=== PATIENT | male | born 1970 | race Caucasian/White ===

== ENCOUNTER → 2018-04-29 07:21 | Outpatient (CLI) | payer BC, OTHER, MEDICAID, SELFPAY ==
[2018-04-29 09:01] LABS: Hemoglobin A1C% w Est Avg Glu 6.8 % (4.0-6.0)
[2018-04-29 09:02] LABS: Add Manual Diff / Slide Review NO; Basophils Percent Auto 0.6 % (0-2); Eosinophils Percent Auto 6.8 % (2-4); Hematocrit 45.4 % (41-53); Hemoglobin 15.3 g/dL (13.5-17.5); Lymphocytes Percent Auto 27.2 % (25-40); Mean Corpuscular HGB Conc 33.7 % (30-36); Mean Corpuscular Hemoglobin 29.8 PG (26-34); Mean Corpuscular Volume 88.4 fL (80-100); Neutrophils Absolute Auto 2200 /uL (3000-5900); Neutrophils Percent Auto 57.4 % (50-75); Platelet Count 191 X10^3/uL (150-400); Red Blood Cell Count 5.14 X10^6/uL (4.5-5.9); Red Cell Distribution Width 13.4 % (11.6-14.8); White Blood Cell Count 3.8 X10^3/uL (4.5-11.0)
[2018-04-29 09:29] LABS: Alanine Aminotransferase 36 IU/L (21-72); Albumin 4.4 g/dL (3.5-5.0); Albumin Globulin Ratio 1.6 (1.0-2.8); Alkaline Phosphatase 54 U/L (38-126); Aspartate Aminotransferase 36 IU/L (17-59); BUN Creatinine Ratio 14.4 (6-22); Bilirubin Total 0.6 mg/dL (0.2-1.3); Blood Urea Nitrogen 13 mg/dL (9-20); Calcium 9.3 mg/dL (8.4-10.2); Carbon Dioxide 28 mmol/L (22-32); Chloride 102 mmol/L (98-107); Cholesterol 286 mg/dL (140-199); Estimated Glomerular Filt Rate > 60.0 mL/min (>60); Globulin 2.7 g/dL (1.7-4.1); Glucose 98 mg/dL (70-100); HDL Cholesterol 43 mg/dL (40-60); HEMOLYSIS < 15 (0-50); LDL Cholesterol Calculated 192 mg/dL (<100); Potassium 4.4 mmol/L (3.4-5.1); Sodium 141 mmol/L (137-145); Total Protein 7.1 g/dL (6.3-8.2); Triglycerides 257 mg/dL (35-150)
== END ==
PROVIDERS: PCP Family Medicine; Visit Provider Family Medicine
DX: E11.9 Type 2 diabetes mellitus without complications (principal)
CPT/HCPCS: 36415; 80053; 80061; 83036; 85025

== ENCOUNTER 2018-06-12 17:56 | Emergency (ER) | payer BC, OTHER, MEDICAID, SELFPAY ==
[2018-06-12 18:04] VITALS: BP 154/85; PULSE 117; RESP 20; TEMP 37.4; O2SAT 98; BMI 35.2
--- NOTE | 2018-06-12 18:37 | ED.BACK ---
HPI - Back Pain/Injury General Chief Complaint: Back Pain/Injury Stated Complaint: BACK PAIN X3 DAYS Time Seen by Provider: 06/12/18 18:37 Source: patient Mode of arrival: ambulatory Limitations: no limitations History of Present Illness HPI Narrative: The patient has chronic back pain. His initial back injury was about 2003. Since then he has evolved to chronic back pain. He complains of numbness in both posterior thighs. He is ambulatory. He has no numbness or weakness in the distal legs. His PCM has ordered a lumbar MRI. About 3 hr ago he urinated on himself while napping. The patient denies any prior history of urinary incontinence. He has never had bowel incontinence.he denies genital or perianal numbness. He is ambulatory. He takes Neurontin for chronic pain. He is on no narcotic pain medications. He denies dysuria. Related Data Home Medications Medication Instructions Recorded Confirmed ibuprofen #0 08/07/17 05/02/18 clonidine HCl 0.1 mg PO HS #0 09/11/17 05/02/18 metformin [Glucophage] 500 mg PO BIDCC #0 01/19/18 05/02/18 Previous Rx's Medication Instructions Recorded atenolol 100 mg tablet 100 mg PO DAILY #30 tab 04/19/18 triamcinolone acetonide 0.5 % 1 applictn TOP BID #454 gram 04/19/18 topical cream cyclobenzaprine 10 mg tablet 10 mg PO Q8H PRN #30 tab 05/02/18 simvastatin 20 mg tablet 20 mg PO QPM #30 tab 05/02/18 oxycodone-acetaminophen 7.5 mg-325 1 tab PO Q6H PRN #120 tab 06/12/18 mg tablet Allergies Allergy/AdvReac Type Severity Reaction Status Date / Time droperidol [DROPERIDOL] Allergy Mild COGENIC Verified 05/02/18 12:42 REACTION Review of Systems Review of Systems All systems reviewed & are unremarkable except as noted in HPI and below Constitutional Denies chills, Denies fever(s), Denies lethargy and Denies weakness ENT Ears, Nose, Mouth, and Throat: Denies change in voice, Denies neck pain and Denies sore throat Cardiovascular Denies chest pain, Denies irregular heart rhythm, Denies lightheadedness, Denies palpitations, Denies dyspnea, Denies dyspnea on exertion and Denies orthopnea Respiratory Denies cough, Denies dyspnea, Denies dyspnea on exertion and Denies wheezing Gastrointestinal Gastrointestinal: Denies abdominal pain, Denies change in bowel habits, Denies fecal incontinence, Denies diarrhea, Denies nausea and Denies vomiting Genitourinary Reports as per HPI, Denies hematuria, Denies dysuria, Denies flank pain and Reports urinary incontinence Musculoskeletal Reports as per HPI (low back pain.), Denies neck pain and Reports numbness (Both posterior legs.) Integumentary/Breasts Denies pruritus, Denies erythema, Denies rash and Denies wounds Neurologic Reports numbness (Both posterior legs.) and Denies weakness Endocrine Denies palpitations Allergic/Immunologic Denies wheezing [facility] Medical History Essential hypertension (Chronic) Diabetes mellitus, type II (Chronic) Chronic back pain (Chronic Unknown) Surgical History S/P discectomy (Chronic) Family History Father Hypertension Hyperlipidemia Mother Diabetes mellitus Hyperlipidemia Hypertension Social History Smoking Status: Current some day smoker Exam Initial Vital Signs Initial Vital Signs: Vital Signs Temperature 99.3 F 06/12/18 18:04 Pulse Rate 117 H 06/12/18 18:04 Respiratory Rate 20 06/12/18 18:04 Blood Pressure 154/85 H 06/12/18 18:04 Pulse Oximetry 98 06/12/18 18:04 Const General: cooperative and well developed Nutritional Appearance: well nourished Orientation: alert, awake, oriented x3 and not confused GI Inspection: non-distended Palpation: soft, no hepatosplenomegaly, No guarding and No tender Auscultation: normal bowel sounds Rectal Exam: visual inspection normal, normal sphincter tone, prostate normal and heme negative stool External: normal external exam, no scrotal swelling and nontender Back/Spine/Pelvis Back: normal to inspection Thoracic/Lumbar Spine: thoraco-lumbar ROM limited and lumbar spinal tenderness Sacrum: no tenderness Skin General: no rashes or lesions noted Neuro General: alert, oriented x3 and other (Motor exam to lower extremities is intact. He has numbness to light touch on both posterior thighs. Cremaster reflexes normal. Anal wink is normal. Gait is normal.) Course Hospital Course: By bladder scan the patient had a near empty bladder point arrival. He was able to drink and retain fluid without incontinence. He was able to drain his bladder when he urinated. Cremaster reflexes are normal. Rectal exam is intact. There is no evidence of sacral nerve deficits. Orders Ordered: Discontinued Medications Ketorolac Tromethamine (Toradol) 60 mg IM NOW ONE Stop: 06/12/18 18:56 Last Admin: 06/12/18 19:16 Dose: 60 mg Vital Signs - 8 hr 06/12/18 18:04 06/12/18 20:32 Temperature 99.3 F 98.2 F Pulse Rate 117 H 92 H Respiratory Rate 20 20 Blood Pressure 154/85 H 150/80 H Pulse Oximetry 98 98 MDM - Back Pain/Injury Lab Data POC UA is normal. Discharge Plan Departure Patient Disposition: Home, Self-Care Clinical Impression: Low back pain Discharge Date/Time: 06/12/18 20:35 Interventions: ED Discharge Assessment Last Done: 06/12/18 20:32 Instructions: DI for Low Back Pain Activity Restrictions/Additional Instructions: Continue her current management of low back pain. Follow-up with the MRI as scheduled. Return here for any increased concern for bowel or bladder incontinence. Return here for worsening numbness or weakness in the legs. Prescriptions: No Action triamcinolone acetonide 0.5 % cream 1 applictn TOP BID Qty: 454 RF: 1 atenolol 100 mg tablet 100 mg PO DAILY Qty: 30 RF: 0 cyclobenzaprine 10 mg tablet 10 mg PO Q8H PRN (Reason: muscle spasm) Qty: 30 RF: 0 ibuprofen 600 mg Tablet Qty: 0 RF: 0 clonidine HCl 0.1 MG tablet extended release 12 hr 0.1 mg PO HS Qty: 0 RF: 0 metformin [Glucophage] 500 MG tablet 500 mg PO BIDCC Qty: 0 RF: 0 simvastatin 20 mg tablet 20 mg PO QPM Qty: 30 RF: 5 oxycodone-acetaminophen [Percocet] 7.5-325 mg tablet 1 tab PO Q6H PRN (Reason: pain) Qty: 120 RF: 0
[2018-06-12] MEDS: KETOROLAC 60 MG/2 ML VIAL IM (19:16)
[2018-06-12 20:32] VITALS: BP 150/80; PULSE 92; RESP 20; TEMP 36.8; O2SAT 98
== END 2018-06-12 20:35 | disposition home or self-care (01) ==
PROVIDERS: Emergency Provider Emergency Medicine; Family Provider Family Medicine; PCP Family Medicine
DX: M54.5 Low back pain (principal)
CPT/HCPCS: 51798; 81003; 96372; 99283; J1885

== ENCOUNTER 2018-07-21 17:33 | Emergency (ER) | payer BC, OTHER, MEDICAID, SELFPAY ==
[2018-07-21 17:44] VITALS: BP 158/113; PULSE 127; RESP 20; TEMP 37.2; O2SAT 99; BMI 35.9
== END 2018-07-21 19:47 | disposition left against medical advice (07) ==
PROVIDERS: Emergency Provider Emergency Medicine; Family Provider Family Medicine; PCP Family Medicine
DX: M54.9 Dorsalgia, unspecified (principal)
CPT/HCPCS: 99281; 99282

== ENCOUNTER → 2018-08-16 07:14 | Outpatient (CLI) | payer BC, OTHER, MEDICAID, SELFPAY ==
[2018-08-16 08:45] LABS: Hematocrit 46.1 % (41-53); Hemoglobin 15.9 g/dL (13.5-17.5); Mean Corpuscular HGB Conc 34.4 % (30-36); Mean Corpuscular Hemoglobin 30.7 PG (26-34); Mean Corpuscular Volume 89.3 fL (80-100); Platelet Count 220 X10^3/uL (150-400); Red Blood Cell Count 5.16 X10^6/uL (4.5-5.9); Red Cell Distribution Width 13.1 % (11.6-14.8); White Blood Cell Count 7.6 X10^3/uL (4.5-11.0)
[2018-08-16 09:18] LABS: Alanine Aminotransferase 39 IU/L (21-72); Albumin 4.7 g/dL (3.5-5.0); Albumin Globulin Ratio 1.5 (1.0-2.8); Alkaline Phosphatase 57 U/L (38-126); Aspartate Aminotransferase 44 IU/L (17-59); BUN Creatinine Ratio 14.5 (6-22); Blood Urea Nitrogen 16 mg/dL (9-20); Calcium 10.1 mg/dL (8.4-10.2); Carbon Dioxide 33 mmol/L (22-32); Chloride 99 mmol/L (98-107); Cholesterol 269 mg/dL (140-199); Estimated Glomerular Filt Rate > 60.0 mL/min (>60); Globulin 3.1 g/dL (1.7-4.1); Glucose 118 mg/dL (70-100); HDL Cholesterol 41 mg/dL (40-60); HEMOLYSIS < 15 (0-50); LDL Cholesterol Calculated 192 mg/dL (<100); Potassium 4.7 mmol/L (3.4-5.1); Sodium 142 mmol/L (137-145); Total Protein 7.8 g/dL (6.3-8.2); Triglycerides 182 mg/dL (35-150)
== END ==
PROVIDERS: PCP Student in an Organized Health Care Education/Training Program; Visit Provider Student in an Organized Health Care Education/Training Program
DX: E11.9 Type 2 diabetes mellitus without complications (principal); Z79.899 Other long term (current) drug therapy; E11.69 Type 2 diabetes mellitus with other specified complication; E78.5 Hyperlipidemia, unspecified
CPT/HCPCS: 36415; 80053; 80061; 85027

== ENCOUNTER → 2018-10-26 09:00 | Outpatient (CLI) | payer BC, OTHER, MEDICAID, SELFPAY ==
[2018-10-26 09:56] LABS: Hemoglobin A1C% w Est Avg Glu 6.4 % (4.0-6.0)
== END ==
PROVIDERS: PCP Student in an Organized Health Care Education/Training Program; Visit Provider Student in an Organized Health Care Education/Training Program
DX: E11.9 Type 2 diabetes mellitus without complications (principal)
CPT/HCPCS: 36415; 83036

== ENCOUNTER 2018-11-22 13:26 | Emergency (ER) | payer BC, OTHER, MEDICAID, SELFPAY ==
[2018-11-22 13:28] VITALS: BP 133/85; PULSE 81; RESP 15; TEMP 36.4; O2SAT 96; BMI 35.9
[2018-11-22 15:18] VITALS: BP 135/87; PULSE 82; RESP 16; O2SAT 96
--- NOTE | 2018-11-22 16:00 | ED.EXTPRO ---
HPI - Extremity Problem <YULY Miller - Last Filed: 11/22/18 21:58> General Chief complaint: Extremity Problem,Nontraumatic Stated complaint: LEFT HIP PAIN Time Seen by Provider: 11/22/18 15:34 Source: patient Mode of arrival: ambulatory Limitations: no limitations History of Present Illness HPI Narrative: 48-year-old male with history of chronic lower back pain that is a nonsmoker here for complaint of pain into his lower back that radiates into his left hip and into his posterior left leg. He denies any falls or trauma. He states he woke up with the pain. He is ambulatory into the emergency room. Increased pain with palpation to the left hip and left leg and lower back. He denies any loss of bladder or bowel control. He denies any other concerns or complaints this time. Related Data Home Medications Medication Instructions Recorded Confirmed nitroglycerin SL 06/23/18 10/01/18 sertraline 100 mg tablet 100 mg PO DAILY 06/23/18 11/22/18 clonidine HCl 11/22/18 dextroamphetamine-amphetamine 5 mg PO TID 11/22/18 11/22/18 quetiapine 150 mg PO DAILY 11/22/18 11/22/18 Previous Rx's Medication Instructions Recorded albuterol sulfate HFA 90 2 inhalation INHALATION Q4-6H PRN 06/23/18 mcg/actuation aerosol inhaler #18 gram pravastatin 20 mg tablet 20 mg PO BEDTIME #30 tab 08/01/18 atenolol 50 mg tablet 50 mg PO DAILY #60 tab 10/01/18 glipizide ER 2.5 mg tablet, 2.5 mg PO DAILY #30 tab 10/27/18 extended release 24 hr hydrocodone 10 mg-acetaminophen 1 tab PO Q6H PRN #120 tab 10/27/18 325 mg tablet metformin 500 mg tablet 1,000 mg PO BIDCC #180 tab 10/27/18 cyclobenzaprine 10 mg PO TID PRN #15 tab 11/22/18 prednisone 40 mg PO DAILY #8 tab 11/22/18 Allergies Allergy/AdvReac Type Severity Reaction Status Date / Time droperidol [DROPERIDOL] Allergy Mild COGENIC Verified 11/22/18 13:28 REACTION Review of Systems <YULY Miller - Last Filed: 11/22/18 21:58> Constitutional Denies chills, Denies fever(s), Denies lethargy and Denies weakness Eyes Denies change in vision, Denies eye discharge, Denies irritation and Denies loss of vision ENT Ears, Nose, Mouth, and Throat: Denies change in voice, Denies neck pain and Denies sore throat Cardiovascular Denies chest pain, Denies irregular heart rhythm, Denies lightheadedness, Denies palpitations, Denies dyspnea, Denies dyspnea on exertion and Denies orthopnea Respiratory Denies cough, Denies dyspnea, Denies dyspnea on exertion and Denies wheezing Gastrointestinal Gastrointestinal: Denies abdominal pain, Denies change in bowel habits, Denies diarrhea, Denies nausea and Denies vomiting Genitourinary Denies hematuria, Denies flank pain, Denies urinary incontinence and Denies urinary urgency Musculoskeletal Denies neck pain Comments: Lower back pain left hip pain and left thigh pain Integumentary/Breasts Denies pruritus, Denies erythema, Denies rash and Denies wounds Neurologic Denies confusion, Denies loss of vision and Denies weakness Psychiatric Denies anxiety, Denies confusion, Denies depression, Denies homicidal ideation and Denies suicidal ideation Endocrine Denies palpitations Hematologic/Lymphatic Denies easy bruising Allergic/Immunologic Denies wheezing Exam <YULY Miller - Last Filed: 11/22/18 21:58> Initial Vital Signs Initial Vital Signs: Vital Signs Temperature 97.5 F L 11/22/18 13:28 Pulse Rate 81 11/22/18 13:28 Respiratory Rate 15 11/22/18 13:28 Blood Pressure 133/85 11/22/18 13:28 Pulse Oximetry 96 11/22/18 13:28 Const General: cooperative and well developed Nutritional Appearance: well nourished Orientation: alert, awake, oriented x3 and not confused [facility] Mouth: oral mucosae normal and moist mucous membranes Eyes Conjunctivae: conjunctivae normal Sclera: sclerae normal Pupils: PERRL EOM: EOM intact bilaterally Resp Effort & Inspection: normal respiratory effort, able to speak in complete sentences, no respiratory distress and no use of accessory muscles Auscultation: clear to auscultation bilaterally, no rales, no rhonchi and no wheezes Cardio Rate: regular rate Rhythm: regular rhythm Heart Sounds: no click, no gallops, no murmurs and no rubs Pulses: normal peripheral pulses Back/Spine/Pelvis Other: Tenderness to left lumbar paraspinals no signs of trauma. No deformities. Distal CMS is intact Skin General: no rashes or lesions noted, No jaundice and No petechiae Neuro General: alert, oriented x3, gait normal and no focal motor deficits Speech: speech normal Extrem Other: Left lumbar, buttocks and left hip and thigh with no signs of trauma. Distal sensation is intact. Distal range of motion is intact. Distal pulses are intact. <Lala Kennedy DO - Last Filed: 11/23/18 21:38> Initial Vital Signs Initial Vital Signs: Vital Signs Temperature 97.5 F L 11/22/18 13:28 Pulse Rate 81 11/22/18 13:28 Respiratory Rate 15 11/22/18 13:28 Blood Pressure 133/85 11/22/18 13:28 Pulse Oximetry 96 11/22/18 13:28 Course <YULY Miller - Last Filed: 11/22/18 21:58> Vital Signs - 8 hr 11/22/18 15:18 Pulse Rate 82 Respiratory Rate 16 Blood Pressure [Right Arm] 135/87 Pulse Oximetry 96 <Lala Kennedy DO - Last Filed: 11/23/18 21:38> Vital Signs - 8 hr 11/22/18 15:18 Pulse Rate 82 Respiratory Rate 16 Blood Pressure [Right Arm] 135/87 Pulse Oximetry 96 MDM - Extremity (Nontraumatic) <YULY Miller - Last Filed: 11/22/18 21:58> [facility] Narrative Medical decision making narrative: Signs and symptoms presents as exacerbation of his chronic lower back pain with sciatica to the left hip and thigh area. He is prescribed a short course of prednisone for anti-inflammatory effects along with cyclobenzaprine for any muscle spasms. [id number] ibuprofen as needed for discomfort. Follow up with her primary care provider. Return emergency room for worse symptoms Discharge Plan Departure Patient Disposition: Home Clinical Impression: Back pain with left-sided sciatica Discharge Date/Time: 11/22/18 16:27 Interventions: ED Discharge Assessment Last Done: 11/22/18 16:27 Instructions: DI for Back Pain With Sciatica Activity Restrictions/Additional Instructions: Sinus symptoms presents exacerbation of back pain with sciatica to the left side. UR prescribed a prednisone which is a steroid to help with anti-inflammatory effects use as directed. You also prescribed cyclobenzaprine a muscle relaxer also use as directed do not use conjunction with the [place]. Follow up with her primary care provider next week for re-evaluation. Rest area. For may use [id number] ibuprofen for discomfort for any worsening symptoms return emergency room. Prescriptions: New cyclobenzaprine 10 mg tablet 10 mg PO TID PRN (Reason: muscle spasm) Qty: 15 RF: 0 prednisone 20 mg tablet 40 mg PO DAILY Qty: 8 RF: 0 No Action sertraline [Zoloft] 100 mg tablet 100 mg PO DAILY RF: 0 nitroglycerin SL RF: 0 albuterol sulfate [ProAir HFA] 90 mcg/actuation HFA aerosol inhaler 2 inhalation INHALATION Q4-6H PRN (Reason: shortness of breath) Qty: 18 RF: 0 pravastatin 20 mg tablet 20 mg PO BEDTIME Qty: 30 RF: 5 atenolol 50 mg tablet 50 mg PO DAILY Qty: 60 RF: 0 metformin [Glucophage] 500 mg tablet 1,000 mg PO BIDCC Qty: 180 RF: 2 glipizide 2.5 mg tablet extended release 24hr 2.5 mg PO DAILY Qty: 30 RF: 2 hydrocodone-acetaminophen 10-325 mg tablet 1 tab PO Q6H PRN (Reason: pain) Qty: 120 RF: 0 clonidine HCl 0.2 mg tablet RF: 0 dextroamphetamine-amphetamine 5 mg tablet 5 mg PO TID RF: 0 quetiapine 150 mg tablet extended release 24 hr 150 mg PO DAILY RF: 0 Referrals: Joselito Almeida MD [Primary Care Provider] - <Lala Kennedy DO - Last Filed: 11/23/18 21:38> [facility]: I was immediately available in the department for consultation. Documentation has been reviewed. I agree with assessment and plan.
--- NOTE | 2018-11-22 16:17 | ED_ITS ---
HPI - Extremity Problem <YULY Miller - Last Filed: 11/22/18 21:58> General Chief complaint: Extremity Problem,Nontraumatic Stated complaint: LEFT HIP PAIN Time Seen by Provider: 11/22/18 15:34 Source: patient Mode of arrival: ambulatory Limitations: no limitations History of Present Illness HPI Narrative: 48-year-old male with history of chronic lower back pain that is a nonsmoker here for complaint of pain into his lower back that radiates into his left hip and into his posterior left leg. He denies any falls or trauma. He states he woke up with the pain. He is ambulatory into the emergency room. Increased pain with palpation to the left hip and left leg and lower back. He denies any loss of bladder or bowel control. He denies any other concerns or complaints this time. Related Data Home Medications Medication Instructions Recorded Confirmed nitroglycerin SL 06/23/18 10/01/18 sertraline 100 mg tablet 100 mg PO DAILY 06/23/18 11/22/18 clonidine HCl 11/22/18 dextroamphetamine-amphetamine 5 mg PO TID 11/22/18 11/22/18 quetiapine 150 mg PO DAILY 11/22/18 11/22/18 Previous Rx's Medication Instructions Recorded albuterol sulfate HFA 90 2 inhalation INHALATION Q4-6H PRN 06/23/18 mcg/actuation aerosol inhaler #18 gram pravastatin 20 mg tablet 20 mg PO BEDTIME #30 tab 08/01/18 atenolol 50 mg tablet 50 mg PO DAILY #60 tab 10/01/18 glipizide ER 2.5 mg tablet, 2.5 mg PO DAILY #30 tab 10/27/18 extended release 24 hr hydrocodone 10 mg-acetaminophen 1 tab PO Q6H PRN #120 tab 10/27/18 325 mg tablet metformin 500 mg tablet 1,000 mg PO BIDCC #180 tab 10/27/18 cyclobenzaprine 10 mg PO TID PRN #15 tab 11/22/18 prednisone 40 mg PO DAILY #8 tab 11/22/18 Allergies Allergy/AdvReac Type Severity Reaction Status Date / Time droperidol [DROPERIDOL] Allergy Mild COGENIC Verified 11/22/18 13:28 REACTION Review of Systems <YULY Miller - Last Filed: 11/22/18 21:58> Constitutional Denies chills, Denies fever(s), Denies lethargy and Denies weakness Eyes Denies change in vision, Denies eye discharge, Denies irritation and Denies loss of vision ENT Ears, Nose, Mouth, and Throat: Denies change in voice, Denies neck pain and Denies sore throat Cardiovascular Denies chest pain, Denies irregular heart rhythm, Denies lightheadedness, Denies palpitations, Denies dyspnea, Denies dyspnea on exertion and Denies orthopnea Respiratory Denies cough, Denies dyspnea, Denies dyspnea on exertion and Denies wheezing Gastrointestinal Gastrointestinal: Denies abdominal pain, Denies change in bowel habits, Denies diarrhea, Denies nausea and Denies vomiting Genitourinary Denies hematuria, Denies flank pain, Denies urinary incontinence and Denies urinary urgency Musculoskeletal Denies neck pain Comments: Lower back pain left hip pain and left thigh pain Integumentary/Breasts Denies pruritus, Denies erythema, Denies rash and Denies wounds Neurologic Denies confusion, Denies loss of vision and Denies weakness Psychiatric Denies anxiety, Denies confusion, Denies depression, Denies homicidal ideation and Denies suicidal ideation Endocrine Denies palpitations Hematologic/Lymphatic Denies easy bruising Allergic/Immunologic Denies wheezing Exam <YULY Miller - Last Filed: 11/22/18 21:58> Initial Vital Signs Initial Vital Signs: Vital Signs Temperature 97.5 F L 11/22/18 13:28 Pulse Rate 81 11/22/18 13:28 Respiratory Rate 15 11/22/18 13:28 Blood Pressure 133/85 11/22/18 13:28 Pulse Oximetry 96 11/22/18 13:28 Const General: cooperative and well developed Nutritional Appearance: well nourished Orientation: alert, awake, oriented x3 and not confused [facility] Mouth: oral mucosae normal and moist mucous membranes Eyes Conjunctivae: conjunctivae normal Sclera: sclerae normal Pupils: PERRL EOM: EOM intact bilaterally Resp Effort & Inspection: normal respiratory effort, able to speak in complete sentences, no respiratory distress and no use of accessory muscles Auscultation: clear to auscultation bilaterally, no rales, no rhonchi and no wheezes Cardio Rate: regular rate Rhythm: regular rhythm Heart Sounds: no click, no gallops, no murmurs and no rubs Pulses: normal peripheral pulses Back/Spine/Pelvis Other: Tenderness to left lumbar paraspinals no signs of trauma. No deformities. Distal CMS is intact Skin General: no rashes or lesions noted, No jaundice and No petechiae Neuro General: alert, oriented x3, gait normal and no focal motor deficits Speech: speech normal Extrem Other: Left lumbar, buttocks and left hip and thigh with no signs of trauma. Distal sensation is intact. Distal range of motion is intact. Distal pulses are intact. <Lala Kennedy DO - Last Filed: 11/23/18 21:38> Initial Vital Signs Initial Vital Signs: Vital Signs Temperature 97.5 F L 11/22/18 13:28 Pulse Rate 81 11/22/18 13:28 Respiratory Rate 15 11/22/18 13:28 Blood Pressure 133/85 11/22/18 13:28 Pulse Oximetry 96 11/22/18 13:28 Course <YULY Miller - Last Filed: 11/22/18 21:58> Vital Signs - 8 hr 11/22/18 15:18 Pulse Rate 82 Respiratory Rate 16 Blood Pressure [Right Arm] 135/87 Pulse Oximetry 96 <Lala Kennedy DO - Last Filed: 11/23/18 21:38> Vital Signs - 8 hr 11/22/18 15:18 Pulse Rate 82 Respiratory Rate 16 Blood Pressure [Right Arm] 135/87 Pulse Oximetry 96 MDM - Extremity (Nontraumatic) <YULY Miller - Last Filed: 11/22/18 21:58> [facility] Narrative Medical decision making narrative: Signs and symptoms presents as exacerbation of his chronic lower back pain with sciatica to the left hip and thigh area. He is prescribed a short course of prednisone for anti-inflammatory effects along with cyclobenzaprine for any muscle spasms. [id number] ibuprofen as needed for discomfort. Follow up with her primary care provider. Return emergency room for worse symptoms Discharge Plan Departure Patient Disposition: Home Clinical Impression: Back pain with left-sided sciatica Discharge Date/Time: 11/22/18 16:27 Interventions: ED Discharge Assessment Last Done: 11/22/18 16:27 Instructions: DI for Back Pain With Sciatica Activity Restrictions/Additional Instructions: Sinus symptoms presents exacerbation of back pain with sciatica to the left side. UR prescribed a prednisone which is a steroid to help with anti- inflammatory effects use as directed. You also prescribed cyclobenzaprine a muscle relaxer also use as directed do not use conjunction with the [place]. Follow up with her primary care provider next week for re-evaluation. Rest area. For may use [id number] ibuprofen for discomfort for any worsening symptoms return emergency room. Prescriptions: New cyclobenzaprine 10 mg tablet 10 mg PO TID PRN (Reason: muscle spasm) Qty: 15 RF: 0 prednisone 20 mg tablet 40 mg PO DAILY Qty: 8 RF: 0 No Action sertraline [Zoloft] 100 mg tablet 100 mg PO DAILY RF: 0 nitroglycerin SL RF: 0 albuterol sulfate [ProAir HFA] 90 mcg/actuation HFA aerosol inhaler 2 inhalation INHALATION Q4-6H PRN (Reason: shortness of breath) Qty: 18 RF: 0 pravastatin 20 mg tablet 20 mg PO BEDTIME Qty: 30 RF: 5 atenolol 50 mg tablet 50 mg PO DAILY Qty: 60 RF: 0 metformin [Glucophage] 500 mg tablet 1,000 mg PO BIDCC Qty: 180 RF: 2 glipizide 2.5 mg tablet extended release 24hr 2.5 mg PO DAILY Qty: 30 RF: 2 hydrocodone-acetaminophen 10-325 mg tablet 1 tab PO Q6H PRN (Reason: pain) Qty: 120 RF: 0 clonidine HCl 0.2 mg tablet RF: 0 dextroamphetamine-amphetamine 5 mg tablet 5 mg PO TID RF: 0 quetiapine 150 mg tablet extended release 24 hr 150 mg PO DAILY RF: 0 Referrals: Joselito Almeida MD [Primary Care Provider] - <Lala Kennedy DO - Last Filed: 11/23/18 21:38> [facility] I was immediately available in the department for consultation. Documentation has been reviewed. I agree with assessment and plan.
== END 2018-11-22 16:27 | disposition home or self-care (01) ==
PROVIDERS: Emergency Provider Nurse Practitioner Family; PCP Student in an Organized Health Care Education/Training Program
DX: M54.32 Sciatica, left side (principal)
CPT/HCPCS: 99282

== ENCOUNTER 2018-12-31 10:11 | Emergency (ER) | payer BC, OTHER, MEDICAID, SELFPAY ==
[2018-12-31] VITALS (28 sets, daily range): BP systolic 104–147; BP diastolic 64–89; PULSE 61–80; RESP 11–23; TEMP 37.1; O2SAT 95–99; BMI 34.0
--- NOTE | 2018-12-31 10:24 | PC.NURSE ---
pt requested to call his work, to notify them that he is in ER
--- NOTE | 2018-12-31 10:26 | PC.NURSE ---
states, evaluated and treated in [facility] couple of days ago, adviced admission for [facility], pt went home for personal reasons.
--- NOTE | 2018-12-31 10:28 | DI.RAD.S_ITS ---
PROCEDURE: XR CHEST 1V INDICATIONS: chest pain TECHNIQUE: One view of the chest was acquired. COMPARISON: [facility], , CHEST 1 VIEW, 01/19/2018, 16:13. FINDINGS: Surgical changes and devices: Spine fixation hardware is stable. Lungs and pleura: Lungs are clear. No pleural effusions or pneumothorax. Mediastinum: Mediastinal contours appear normal. Heart size is normal. Bones and chest wall: No suspicious bony lesions. Overlying soft tissues appear unremarkable. IMPRESSION: No acute cardiopulmonary disease process. Dictated by: Ann Marie Villalpando MD, PhD on 12/31/2018 at 10:56 Approved by: Ann Marie Villalpando MD, PhD on 12/31/2018 at 10:56
[2018-12-31 10:34] LABS: Add Manual Diff / Slide Review NO; Basophils Absolute Auto 100 /uL (0-100); Basophils Percent Auto 0.8 % (0-2); Eosinophils Absolute Auto 200 /uL (0-450); Eosinophils Percent Auto 1.5 % (2-4); Hematocrit 45.5 % (41-53); Hemoglobin 15.1 g/dL (13.5-17.5); Lymphocytes Absolute Auto 1800 /uL (1100-4500); Lymphocytes Percent Auto 18.1 % (25-40); Mean Corpuscular HGB Conc 33.2 % (30-36); Mean Corpuscular Hemoglobin 30.3 PG (26-34); Mean Corpuscular Volume 91.5 fL (80-100); Monocytes Absolute Auto 700 /uL (0-900); Monocytes Percent Auto 7.1 % (3-14); Neutrophils Absolute Auto 7100 /uL (1500-7000); Neutrophils Percent Auto 72.5 % (50-75); Platelet Count 234 X10^3/uL (150-400); Red Blood Cell Count 4.98 X10^6/uL (4.5-5.9); Red Cell Distribution Width 13.3 % (11.6-14.8); White Blood Cell Count 9.9 X10^3/uL (4.5-11.0)
[2018-12-31] MEDS: SODIUM CHLORIDE 0.9% 1,000 ML 150 ML IV (10:37)
[2018-12-31] MEDS: NITROGLYCERIN 0.4 MG SL TAB SL ×3 (10:37→10:49)
[2018-12-31 10:39] LABS: Alanine Aminotransferase 38 IU/L (21-72); Albumin 4.8 g/dL (3.5-5.0); Albumin Globulin Ratio 1.5 (1.0-2.8); Alkaline Phosphatase 53 U/L (38-126); Aspartate Aminotransferase 39 IU/L (17-59); Bilirubin Total 0.9 mg/dL (0.2-1.3); Blood Urea Nitrogen 17 mg/dL (9-20); Calcium 9.7 mg/dL (8.4-10.2); Carbon Dioxide 29 mmol/L (22-32); Chloride 100 mmol/L (98-107); Creatine Kinase 119 U/L (55-170); Estimated Glomerular Filt Rate > 60.0 mL/min (>60); Globulin 3.3 g/dL (1.7-4.1); Glucose 123 mg/dL (70-100); HEMOLYSIS < 15 (0-50); Lipase 91 U/L (23-300); Potassium 4.8 mmol/L (3.4-5.1); Sodium 138 mmol/L (137-145); Total Protein 8.1 g/dL (6.3-8.2)
[2018-12-31] MEDS: ASPIRIN 81 MG TAB 324 MG PO (10:46)
--- NOTE | 2018-12-31 10:50 | PC.NURSE ---
no change in discomfort with nitroglycerin. just causing headache, deferred tylenol at this time. remain alert and awake, skin warm dry pink.
[2018-12-31 10:51] LABS: Troponin I < 0.012 ng/mL (0.01-0.034)
[2018-12-31 10:54] LABS: CKMB % Relative Index 0.5 % (1.5-5.0); Creatine Kinase MB 0.57 ng/mL (<2.37)
[2018-12-31] MEDS: MORPHINE 2 MG/ML INJ IV ×2 (11:01→11:23)
--- NOTE | 2018-12-31 11:17 | DI.CT.S_ITS ---
PROCEDURE: CT ANGIO CHEST ABDOMEN PELVIS INDICATIONS: persistant chest pain TECHNIQUE: Precontrast 5 mm thick sections acquired from the lung apices to the iliac crests. After the administration of intravenous contrast, 2.5 mm thick sections again acquired from the lung apices to the iliac crests. Maximum intensity projection (MIP) oblique sagittal and coronal reformats were then acquired. For radiation dose reduction, the following was used: automated exposure control. COMPARISON: None. FINDINGS: Image quality: Excellent. AORTA: Intramural hematoma: Absent Maximum hematoma thickness: Not applicable. Focal contrast enhancement: Intramural blood pool (< 2 mm neck or imperceptible communication with aortic lumen): Absent. Ulcer-like projection (broad communication with aortic lumen > 3 mm): Absent. Dissection: Absent Matt classification: Not applicable Maximum aortic diameter: 3.2 cm cm. [If Matt A dissection, > 5.0 cm has a poorer prognosis. If [place] B dissection, > 4.0 cm has a poorer prognosis.] Periaortic hematoma: Absent. CHEST: Lungs and pleura: No acute airspace opacities. No pleural effusions or pneumothorax. Central and peripheral airways are patent and normal in caliber. Mediastinum: Heart size is normal. No pericardial effusion. No mediastinal or hilar adenopathy by size criteria. Central pulmonary arteries are normal in size. Esophagus is normal in caliber. No hiatal hernias. Bones and chest wall: No axillary adenopathy by size criteria. Thyroid gland is normal. No suspicious bony lesions. No vertebral body compression fractures. ABDOMEN: Vasculature: Celiac trunk and mesenteric arteries are patent. Renal arteries are also patent. Solid organs: Liver is normal in size and enhancement. Gallbladder is within normal limits. Biliary system is non dilated. Pancreas enhances normally. Spleen is normal in size and enhancement. No adrenal nodules. Both kidneys are normal in size and enhancement, without hydronephrosis. Peritoneum and bowel: No free fluid or air. Bowel loops are normal in caliber and wall thickness. The appendix is normal. Nodes and vessels: No retroperitoneal or mesenteric adenopathy by size criteria. Inferior vena cava is normal in morphology. Miscellaneous: No ventral hernias. PELVIS: Genitourinary: Bladder wall thickness is normal. Miscellaneous: No inguinal hernias or adenopathy. No ventral hernias. Bones: Cervical spine fixation hardware is noted. No suspicious bony lesions. No vertebral body compression fractures. Spine degenerative disease and facet arthropathy noted. IMPRESSION: 1. No aortic dissection. 2. No large central pulmonary embolus. 3. Lungs are clear. 4. No pleural fluid collections. Dictated by: Ann Marie Villalpando MD, PhD on 12/31/2018 at 12:41 Approved by: Ann Marie Villalpando MD, PhD on 12/31/2018 at 12:48
[2018-12-31] MEDS: NITROGLYCERIN 50 MG/250 ML INFUS..BTL IV (11:38)
--- NOTE | 2018-12-31 11:49 | PC.NURSE ---
infusing nitro at 10mcg/min (3ml/hr via pump)
--- NOTE | 2018-12-31 12:03 | ED.CHESTPAIN ---
HPI - Chest Pain General Chief Complaint: Chest Pain Stated Complaint: CHEST PAINS Time Seen by Provider: 12/31/18 10:16 Source: patient Mode of arrival: ambulatory Limitations: no limitations History of Present Illness HPI narrative: patient is a 48-year-old male with known coronary artery disease presenting with chest pain radiating to his left arm. He was actually at [facility] on 12/28/2018 diagnosed with unstable angina recommended he stay in the hospital. 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 He has had several episodes over the last 5 days of a chest discomfort. It is worse with exertion better with rest this episode has been ongoing for the last hour and a half. MD complaint: chest pain Onset (ago): day(s) (5) Duration: progressively worsening Onset: during rest and during exertion Pain location: substernal Related Data Home Medications Medication Instructions Recorded Confirmed nitroglycerin SL 06/23/18 12/06/18 sertraline 100 mg tablet 100 mg PO DAILY 06/23/18 12/06/18 clonidine HCl 11/22/18 12/06/18 dextroamphetamine-amphetamine 5 mg PO TID 11/22/18 12/06/18 quetiapine 150 mg PO DAILY 11/22/18 12/06/18 Previous Rx's Medication Instructions Recorded atenolol 50 mg tablet 50 mg PO DAILY #60 tab 10/01/18 glipizide ER 2.5 mg tablet, 2.5 mg PO DAILY #30 tab 10/27/18 extended release 24 hr metformin 500 mg tablet 1,000 mg PO BIDCC #180 tab 10/27/18 hydrocodone 10 mg-acetaminophen 1 tab PO Q6H PRN #120 tab 12/06/18 325 mg tablet morphine ER 15 mg tablet,extended 15 mg PO Q12H #60 tab 12/06/18 release trazodone 150 mg tablet 150 mg PO BEDTIME #30 tab 12/06/18 gabapentin 300 mg capsule 300 mg PO TID #90 cap 12/09/18 albuterol sulfate HFA 90 2 inhalation INHALATION Q4-6H PRN 12/22/18 mcg/actuation aerosol inhaler #18 gram Allergies Allergy/AdvReac Type Severity Reaction Status Date / Time droperidol [DROPERIDOL] Allergy Mild COGENIC Verified 12/06/18 14:06 REACTION Review of Systems Review of Systems ROS Unobtainable: All systems reviewed & are unremarkable except as noted in HPI and below Constitutional Denies chills, Denies fatigue, Denies fever(s), Denies lethargy and Denies weakness Eyes Denies change in vision, Denies eye discharge, Denies irritation and Denies loss of vision Cardiovascular Reports chest pain, Denies dyspnea and Denies dyspnea on exertion Respiratory Denies cough, Denies dyspnea, Denies dyspnea on exertion and Denies wheezing Genitourinary Denies hematuria, Denies flank pain, Denies urinary incontinence and Denies urinary urgency Musculoskeletal Denies back pain, Denies muscle weakness, Denies numbness and Denies tingling Integumentary/Breasts Denies pruritus, Denies erythema, Denies rash and Denies wounds Neurologic Denies confusion, Denies loss of vision, Denies numbness, Denies tingling and Denies weakness Psychiatric Denies anxiety, Denies confusion, Denies depression, Denies homicidal ideation and Denies suicidal ideation Endocrine Denies fatigue and Denies flushing Hematologic/Lymphatic Denies easy bruising Allergic/Immunologic Denies wheezing [facility] Medical History Essential hypertension (Chronic) Diabetes mellitus, type II (Chronic) Chronic back pain (Chronic Unknown) Coronary artery disease (Acute) Surgical History S/P discectomy (Chronic) Family History Father Hypertension Hyperlipidemia Mother Diabetes mellitus Hyperlipidemia Hypertension Social History Smoking Status: Former smoker alcohol intake: never Family History Father Hypertension Hyperlipidemia Mother Diabetes mellitus Hyperlipidemia Hypertension Social History Smoking Status: Former smoker alcohol intake: never Exam Initial Vital Signs Initial Vital Signs: Vital Signs Temperature 98.7 F 12/31/18 10:18 Pulse Rate 75 12/31/18 10:18 Respiratory Rate 16 12/31/18 10:18 Blood Pressure 138/88 12/31/18 10:18 Pulse Oximetry 99 12/31/18 10:18 GENERAL: Alert male middle age no acute distress non diaphoretic HEENT: Head atraumatic,EOMI, pupils reactive, CARDIOVASCULAR: Regular rate and rhythm without murmurs, rubs or gallops. RESPIRATORY: Breath sounds equal bilaterally, no wheezes rales or rhonchi. ABDOMEN: Soft, nontender. Normoactive bowel sounds all 4 quadrants. No guarding or rebound. EXTREMITIES: Normal range of motion, no clubbing or edema. Neurovascularly intact NEUROLOGICAL: Alert and oriented x4.Normal gait and speech. SKIN: Warm, dry, no laceration, no petechiae, no rashes or lesions. Course Orders Ordered: ED Orders 12/31/18 10:16 EKG-12 Lead Routine 12/31/18 10:20 Complete Blood Count AUTO DIFF Stat Comprehensive Metabolic Panel Stat Lipase Stat Troponin & CK Cardiac Panel Stat 12/31/18 10:28 XR chest 1V Stat 12/31/18 11:17 CT chest abd pel wwo con Stat 12/31/18 13:51 EKG-12 Lead Stat 12/31/18 14:10 Trop I [Troponin I] Stat Discontinued Medications Aspirin (Aspirin Chew) 324 mg PO NOW ONE Stop: 12/31/18 10:29 Last Admin: 12/31/18 10:46 Dose: 324 mg Aspirin (Aspirin Chew) 324 mg PO NOW ONE Stop: 12/31/18 12:01 Last Admin: 12/31/18 12:04 Dose: Not Given Heparin Sodium (Porcine) (Heparin) 5,000 unit IV NOW ONE Stop: 12/31/18 12:01 Last Admin: 12/31/18 12:09 Dose: 5,000 unit Hydromorphone HCl (Dilaudid) 1 mg IV NOW ONE Stop: 12/31/18 14:10 Last Admin: 12/31/18 14:11 Dose: 1 mg Sodium Chloride (Normal Saline 0.9%) 1,000 mls @ 150 mls/hr IV CONT NEELIMA Last Infusion: 12/31/18 15:45 Dose: 150 mls/hr Admin: 12/31/18 10:37 Dose: 150 mls/hr Nitroglycerin (Nitroglycerin) 50 mg in 250 mls @ 1.5 mls/hr IV TITRATE NEELIMA; Protocol Last Titration: 12/31/18 15:46 Dose: 0 mcg/min, 0 mls/hr Titration: 12/31/18 14:45 Dose: 0 mcg/min, 0 mls/hr Admin: 12/31/18 11:38 Dose: 10 mcg/min, 3 mls/hr Heparin Sodium/Dextrose (Heparin Drip) 25,000 unit in 500 mls @ 28.848 mls/hr IV CONT NEELIMA; Protocol Last Admin: 12/31/18 12:10 Dose: 8.32 units/kg/hr, 20 mls/hr Lorazepam (Ativan) 0.5 mg IV NOW ONE Stop: 12/31/18 12:01 Last Admin: 12/31/18 12:09 Dose: 0.5 mg Morphine Sulfate (Morphine) 2 mg IV NOW ONE Stop: 12/31/18 10:58 Last Admin: 12/31/18 11:01 Dose: 2 mg Morphine Sulfate (Morphine) 2 mg IV NOW ONE Stop: 12/31/18 11:18 Last Admin: 12/31/18 11:23 Dose: 2 mg Nitroglycerin (Nitrostat) 0.4 mg SL [id number] PRN PRN Reason: Chest Pain Last Admin: 12/31/18 10:49 Dose: 0.4 mg Admin: 12/31/18 10:42 Dose: 0.4 mg Admin: 12/31/18 10:37 Dose: 0.4 mg Vital Signs - 8 hr 12/31/18 10:18 12/31/18 10:37 12/31/18 10:42 Temperature 98.7 F Pulse Rate 75 70 77 Respiratory Rate 16 Blood Pressure 138/88 147/89 H 140/88 Blood Pressure [Left Arm] Pulse Oximetry 99 12/31/18 10:43 12/31/18 10:49 12/31/18 10:54 Temperature Pulse Rate 77 73 73 Respiratory Rate Blood Pressure 140/88 122/78 122/78 Blood Pressure [Left Arm] Pulse Oximetry 12/31/18 11:00 12/31/18 11:15 12/31/18 11:23 Temperature Pulse Rate 72 70 68 Respiratory Rate 13 14 16 Blood Pressure Blood Pressure [Left Arm] 117/64 122/74 122/74 Pulse Oximetry 96 97 97 12/31/18 11:38 12/31/18 11:42 12/31/18 11:44 Temperature Pulse Rate 68 67 66 Respiratory Rate 11 L Blood Pressure 122/78 120/77 Blood Pressure [Left Arm] 120/77 Pulse Oximetry 98 12/31/18 11:48 12/31/18 11:57 12/31/18 12:00 Temperature Pulse Rate 69 65 65 Respiratory Rate 12 17 15 Blood Pressure Blood Pressure [Left Arm] 119/69 112/66 107/69 Pulse Oximetry 97 96 96 12/31/18 12:15 12/31/18 12:16 12/31/18 12:30 Temperature Pulse Rate 65 68 61 Respiratory Rate 12 16 15 Blood Pressure Blood Pressure [Left Arm] 109/64 109/64 114/68 Pulse Oximetry 98 99 96 12/31/18 12:47 12/31/18 12:59 12/31/18 13:15 Temperature Pulse Rate 63 74 66 Respiratory Rate 18 16 16 Blood Pressure Blood Pressure [Left Arm] 110/71 110/71 111/68 Pulse Oximetry 97 97 95 12/31/18 13:31 12/31/18 13:45 12/31/18 14:00 Temperature Pulse Rate 73 70 69 Respiratory Rate 16 17 18 Blood Pressure Blood Pressure [Left Arm] 107/64 104/69 115/65 Pulse Oximetry 97 96 98 12/31/18 14:15 12/31/18 14:31 12/31/18 14:45 Temperature Pulse Rate 71 80 71 Respiratory Rate 16 23 18 Blood Pressure Blood Pressure [Left Arm] 111/74 119/71 119/65 Pulse Oximetry 97 97 95 12/31/18 15:00 Temperature Pulse Rate 74 Respiratory Rate 18 Blood Pressure Blood Pressure [Left Arm] 120/67 Pulse Oximetry 97 MDM - Chest Pain Medical Records Data Attestation: I reviewed the patient's medical records. Lab Data Attestation: I reviewed the patient's lab results. Result diagrams: 12/31/18 10:20 12/31/18 10:20 Lab Results 12/31/18 12/31/18 12/31/18 Range/Units 10:20 10:20 14:10 WBC 9.9 (4.5-11.0) X10^3/uL RBC 4.98 (4.5-5.9) X10^6/uL Hgb 15.1 (13.5-17.5) g/dL Hct 45.5 (41-53) % MCV 91.5 (80-100) fL MCH 30.3 (26-34) PG MCHC 33.2 (30-36) % RDW 13.3 (11.6-14.8) % Plt Count 234 (150-400) X10^3/uL Neut % (Auto) 72.5 (50-75) % Lymph % (Auto) 18.1 L (25-40) % Lea % (Auto) 7.1 (3-14) % Eos % (Auto) 1.5 L (2-4) % Baso % (Auto) 0.8 (0-2) % Neut # (Auto) 7100 H (5425-4408) /uL Lymph # (Auto) 1800 (5821-1573) /uL Lea # (Auto) 700 (0-900) /uL Eos # (Auto) 200 (0-450) /uL Baso # (Auto) 100 (0-100) /uL Sodium 138 (137-145) mmol/L Potassium 4.8 (3.4-5.1) mmol/L Chloride 100 (98-107) mmol/L Carbon Dioxide 29 (22-32) mmol/L BUN 17 (9-20) mg/dL Creatinine 1.00 (0.66-1.25) mg/dL Estimated GFR > 60.0 (>60) mL/min BUN/Creatinine Ratio 17.0 (6-22) Glucose 123 H (70-100) mg/dL Calcium 9.7 (8.4-10.2) mg/dL Total Bilirubin 0.9 (0.2-1.3) mg/dL AST 39 (17-59) IU/L ALT 38 (21-72) IU/L Alkaline Phosphatase 53 (38-126) U/L Total Creatine Kinase 119 (55-170) U/L CK-MB (CK-2) 0.57 (<2.37) ng/mL CK-MB (CK-2) Rel Index 0.5 L (1.5-5.0) % Troponin I < 0.012 < 0.012 (0.01-0.034) ng/mL Total Protein 8.1 (6.3-8.2) g/dL Albumin 4.8 (3.5-5.0) g/dL Globulin 3.3 (1.7-4.1) g/dL Albumin/Globulin Ratio 1.5 (1.0-2.8) Lipase 91 (23-300) U/L Imaging Data Chest x-ray: Radiologist's impression: ROCEDURE: XR CHEST 1V INDICATIONS: chest pain TECHNIQUE: One view of the chest was acquired. COMPARISON: [facility], CHEST 1 VIEW, 01/19/2018, 16:13. FINDINGS: Surgical changes and devices: Spine fixation hardware is stable. Lungs and pleura: Lungs are clear. No pleural effusions or pneumothorax. Mediastinum: Mediastinal contours appear normal. Heart size is normal. Bones and chest wall: No suspicious bony lesions. Overlying soft tissues appear unremarkable. IMPRESSION: No acute cardiopulmonary disease process. Dictated by: Ann Marie Villalpando MD, PhD on 12/31/2018 at 10:5 CT angio Chest/ab/pelvis: Radiologist's impression: PROCEDURE: CT ANGIO CHEST ABDOMEN PELVIS INDICATIONS: persistant chest pain TECHNIQUE: Precontrast 5 mm thick sections acquired from the lung apices to the iliac crests. After the administration of intravenous contrast, 2.5 mm thick sections again acquired from the lung apices to the iliac crests. Maximum intensity projection (MIP) oblique sagittal and coronal reformats were then acquired. For radiation dose reduction, the following was used: automated exposure control. COMPARISON: None. FINDINGS: Image quality: Excellent. AORTA: Intramural hematoma: Absent Maximum hematoma thickness: Not applicable. Focal contrast enhancement: Intramural blood pool (< 2 mm neck or imperceptible communication with aortic lumen): Absent. Ulcer-like projection (broad communication with aortic lumen > 3 mm): Absent. Dissection: Absent [place] classification: Not applicable Maximum aortic diameter: 3.2 cm cm. [If [place] A dissection, > 5.0 cm has a poorer prognosis. If [place] B dissection, > 4.0 cm has a poorer prognosis.] Periaortic hematoma: Absent. CHEST: Lungs and pleura: No acute airspace opacities. No pleural effusions or pneumothorax. Central and peripheral airways are patent and normal in caliber. Mediastinum: Heart size is normal. No pericardial effusion. No mediastinal or hilar adenopathy by size criteria. Central pulmonary arteries are normal in size. Esophagus is normal in caliber. No hiatal hernias. Bones and chest wall: No axillary adenopathy by size criteria. Thyroid gland is normal. No suspicious bony lesions. No vertebral body compression fractures. ABDOMEN: Vasculature: Celiac trunk and mesenteric arteries are patent. Renal arteries are also patent. Solid organs: Liver is normal in size and enhancement. Gallbladder is within normal limits. Biliary system is non dilated. Pancreas enhances normally. Spleen is normal in size and enhancement. No adrenal nodules. Both kidneys are normal in size and enhancement, without hydronephrosis. Peritoneum and bowel: No free fluid or air. Bowel loops are normal in caliber and wall thickness. The appendix is normal. Nodes and vessels: No retroperitoneal or mesenteric adenopathy by size criteria. Inferior vena cava is normal in morphology. Miscellaneous: No ventral hernias. PELVIS: Genitourinary: Bladder wall thickness is normal. Miscellaneous: No inguinal hernias or adenopathy. No ventral hernias. Bones: Cervical spine fixation hardware is noted. No suspicious bony lesions. No vertebral body compression fractures. Spine degenerative disease and facet arthropathy noted. IMPRESSION: 1. No aortic dissection. 2. No large central pulmonary embolus. 3. Lungs are clear. 4. No pleural fluid collections. Dictated by: Ann Marie Villalpando MD, PhD on 12/31/2018 at 12:41 ECG Data Attestation: I personally reviewed and interpreted this ECG as follows: Prior ECG tracings: available for review Interpretation: Normal sinus rhythm rate [address] changes no T-wave inversions similar to previous EKG EKG 2. normal sinus rhythm rate [address] changes no T-wave inversions similar to prior Core Measures AMI core measures followed: Yes MDM Narrative Medical decision making narrative: the patient was given 3 sublingual nitroglycerin with minimal relief. He was then given 2 doses of morphine which did help bring the pain down. Is persistently having chest discomfort scanned for dissection although patient does not look like he is in severe distress. CT for dissection is negative. Patient placed on nitroglycerin and heparin drip for acute coronary syndrome he was also given Ativan for some anxiety his pain he says remains at a 5 low heel looks very comfortable with headphones on watching a movie. 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 Was happy to accept patient for observation. If nitroglycerin is not helping he recommend stopping the his nitroglycerin drip. Patient is chest pain-free after Dilaudid and nitroglycerin drip is stopped he remains chest pain-free. Discharge Plan Departure Patient Disposition: [facility] Clinical Impression: Acute coronary syndrome Discharge Date/Time: 12/31/18 15:40 Interventions: ED Discharge Assessment Last Done: 12/31/18 15:39 Prescriptions: No Action sertraline [Zoloft] 100 mg tablet 100 mg PO DAILY RF: 0 nitroglycerin SL RF: 0 atenolol 50 mg tablet 50 mg PO DAILY Qty: 60 RF: 0 metformin [Glucophage] 500 mg tablet 1,000 mg PO BIDCC Qty: 180 RF: 2 glipizide 2.5 mg tablet extended release 24hr 2.5 mg PO DAILY Qty: 30 RF: 2 gabapentin 300 mg capsule 300 mg PO TID Qty: 90 RF: 0 ProAir HFA 90 mcg/actuation HFA aerosol inhaler 2 inhalation INHALATION Q4-6H PRN (Reason: shortness of breath) Qty: 18 RF: 11 trazodone 150 mg tablet 150 mg PO BEDTIME Qty: 30 RF: 2 morphine 15 mg tablet extended release 15 mg PO Q12H Qty: 60 RF: 0 hydrocodone-acetaminophen 10-325 mg tablet 1 tab PO Q6H PRN (Reason: pain) Qty: 120 RF: 0 clonidine HCl 0.2 mg tablet RF: 0 dextroamphetamine-amphetamine 5 mg tablet 5 mg PO TID RF: 0 quetiapine 150 mg tablet extended release 24 hr 150 mg PO DAILY RF: 0 Referrals: Joselito Almeida MD [Primary Care Provider] -
[2018-12-31] MEDS: HEPARIN 5,000 UNIT/ML VIAL 5000 UNIT IV (12:09)
[2018-12-31] MEDS: LORazepam 2 MG/ML SYRINGE 0.5 MG IV (12:09)
[2018-12-31] MEDS: HEPARIN DRIP 25,000 UNIT/500 ML IV.SOLN 20 UNIT IV (12:10)
--- NOTE | 2018-12-31 12:59 | PC.NURSE ---
continued infusing ntg at 10mcg/min/3ml/hr, heparin at 1,000units 20ml/hr via pump remain alert and awake, nad, skin warm dry pink, moving all extremites. 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
[2018-12-31] MEDS: HYDROMORPHONE 1 MG INJ IV (14:11)
--- NOTE | 2018-12-31 14:21 | PC.NURSE ---
dilaudid with relief, now at 11/17, provider aware. plan transfer to [facility]. pt reports, nausea then chest pain 3 days ago, got better, then worsening discomfort in the last 24 hours.
[2018-12-31 14:43] LABS: Troponin I < 0.012 ng/mL (0.01-0.034)
--- NOTE | 2018-12-31 14:45 | PC.NURSE ---
summer dryissel dc per dr hogan.
--- NOTE | 2018-12-31 15:22 | PC.NURSE ---
[facility] Bed C418 Bed #2 Report #[phone], report given to ny aguillon.
--- NOTE | 2019-01-28 09:19 | PC.NURSE ---
late note, heparin drips continue to infused 20ml/hr during transfer at 1533
== END 2018-12-31 15:40 | disposition short-term general hospital (02) ==
PROVIDERS: Emergency Provider Emergency Medicine; PCP Student in an Organized Health Care Education/Training Program
DX: I24.9 Acute ischemic heart disease, unspecified (principal); I25.10 Atherosclerotic heart disease of native coronary artery without angina pectoris
CPT/HCPCS: 36415; 36591; 71045; 71270; 74178; 80053; 82550; 82553; 83690; 84484; 85025; 93005; 93010; 96361; 96365; 96366; 96368; 96375; 96376; 99285; J1170; J1644; J2060; J2270; Q9967

== ENCOUNTER → 2019-02-02 17:28 | Outpatient (CLI) | payer BC, OTHER, MEDICAID, SELFPAY ==
[2019-02-02 18:30] LABS: Hematocrit 44.7 % (41-53); Hemoglobin 14.9 g/dL (13.5-17.5); Mean Corpuscular HGB Conc 33.4 % (30-36); Mean Corpuscular Hemoglobin 30.2 PG (26-34); Mean Corpuscular Volume 90.4 fL (80-100); Platelet Count 269 X10^3/uL (150-400); Red Blood Cell Count 4.95 X10^6/uL (4.5-5.9); White Blood Cell Count 11.7 X10^3/uL (4.5-11.0)
[2019-02-02 19:00] LABS: BUN Creatinine Ratio 14.6 (6-22); Blood Urea Nitrogen 19 mg/dL (9-20); Calcium 9.6 mg/dL (8.4-10.2); Carbon Dioxide 27 mmol/L (22-32); Chloride 99 mmol/L (98-107); Estimated Glomerular Filt Rate 58.4 mL/min (>60); Glucose 108 mg/dL (70-100); HEMOLYSIS < 15 (0-50); Potassium 4.6 mmol/L (3.4-5.1); Sodium 138 mmol/L (137-145)
== END ==
PROVIDERS: PCP Student in an Organized Health Care Education/Training Program; Visit Provider Orthopaedic Surgery
DX: Z01.818 Encounter for other preprocedural examination (principal)
CPT/HCPCS: 36415; 80048; 85027

== ENCOUNTER → 2019-02-10 15:09 | Outpatient (CLI) | payer BC, OTHER, MEDICAID, SELFPAY ==
[2019-02-10 16:06] LABS: Alanine Aminotransferase 33 IU/L (21-72); Albumin 4.6 g/dL (3.5-5.0); Albumin Globulin Ratio 1.6 (1.0-2.8); Alkaline Phosphatase 66 U/L (38-126); Aspartate Aminotransferase 29 IU/L (17-59); BUN Creatinine Ratio 13.8 (6-22); Bilirubin Total 0.4 mg/dL (0.2-1.3); Blood Urea Nitrogen 11 mg/dL (9-20); Calcium 9.6 mg/dL (8.4-10.2); Carbon Dioxide 25 mmol/L (22-32); Chloride 98 mmol/L (98-107); Estimated Glomerular Filt Rate > 60.0 mL/min (>60); Globulin 2.8 g/dL (1.7-4.1); Glucose 332 mg/dL (70-100); HDL Cholesterol 40 mg/dL (40-60); HEMOLYSIS < 15 (0-50); Sodium 137 mmol/L (137-145); Total Protein 7.4 g/dL (6.3-8.2)
[2019-02-10 16:21] LABS: Vitamin D 25 Hydroxy (D3) 18.4 ng/mL (30.0-100.0)
[2019-02-10 16:23] LABS: Triglycerides 669 mg/dL (35-150)
[2019-02-10 16:24] LABS: Cholesterol 375 mg/dL (140-199)
[2019-02-10 20:10] LABS: Hematocrit 45.6 % (41-53); Hemoglobin 15.1 g/dL (13.5-17.5); Mean Corpuscular HGB Conc 33.2 % (30-36); Mean Corpuscular Hemoglobin 30.5 PG (26-34); Platelet Count 237 X10^3/uL (150-400); Red Blood Cell Count 4.96 X10^6/uL (4.5-5.9); Red Cell Distribution Width 13.7 % (11.6-14.8); White Blood Cell Count 8.4 X10^3/uL (4.5-11.0)
== END ==
PROVIDERS: PCP Student in an Organized Health Care Education/Training Program; Visit Provider Orthopaedic Surgery
DX: E55.9 Vitamin D deficiency, unspecified (principal); E11.9 Type 2 diabetes mellitus without complications; I10 Essential (primary) hypertension; E11.69 Type 2 diabetes mellitus with other specified complication; E78.5 Hyperlipidemia, unspecified; Z01.818 Encounter for other preprocedural examination; Z79.899 Other long term (current) drug therapy
CPT/HCPCS: 36415; 80053; 80061; 82306; 83036; 85027

== ENCOUNTER 2019-02-10 15:34 | Emergency (ER) | payer BC, OTHER, MEDICAID, SELFPAY ==
[2019-02-10 15:40] VITALS: BP 176/98; PULSE 119; RESP 22; TEMP 36.9; O2SAT 97; BMI 35.9
--- NOTE | 2019-02-10 15:46 | DI.RAD.S_ITS ---
PROCEDURE: XR CHEST 1V INDICATIONS: Chest pain. TECHNIQUE: One view of the chest was acquired. COMPARISON: [facility], CR, XR CHEST 1V, 12/31/2018, 10:43. FINDINGS: Surgical changes and devices: Cervicothoracic spine fixation hardware is stable. Lungs and pleura: Lungs are clear. No pleural effusions or pneumothorax. Mediastinum: Mediastinal contours appear normal. Heart size is normal. Bones and chest wall: No suspicious bony lesions. Overlying soft tissues appear unremarkable. IMPRESSION: No acute cardiopulmonary disease process. Dictated by: Ann Marie Villalpando MD, PhD on 02/10/2019 at 15:59 Approved by: Ann Marie Villalpando MD, PhD on 02/10/2019 at 16:00
[2019-02-10 16:05] LABS: Add Manual Diff / Slide Review NO; Basophils Absolute Auto 0 /uL (0-100); Basophils Percent Auto 0.3 % (0-2); Eosinophils Absolute Auto 300 /uL (0-450); Eosinophils Percent Auto 3.3 % (2-4); Hematocrit 45.9 % (41-53); Hemoglobin 15.1 g/dL (13.5-17.5); Lymphocytes Absolute Auto 1300 /uL (1100-4500); Lymphocytes Percent Auto 15.6 % (25-40); Mean Corpuscular Hemoglobin 30.4 PG (26-34); Mean Corpuscular Volume 92.2 fL (80-100); Monocytes Absolute Auto 400 /uL (0-900); Monocytes Percent Auto 4.8 % (3-14); Neutrophils Absolute Auto 6300 /uL (1500-7000); Platelet Count 227 X10^3/uL (150-400); Red Blood Cell Count 4.97 X10^6/uL (4.5-5.9); Red Cell Distribution Width 13.7 % (11.6-14.8); White Blood Cell Count 8.3 X10^3/uL (4.5-11.0)
[2019-02-10 16:18] LABS: Alanine Aminotransferase 28 IU/L (21-72); Albumin 4.5 g/dL (3.5-5.0); Albumin Globulin Ratio 1.6 (1.0-2.8); Alkaline Phosphatase 65 U/L (38-126); Aspartate Aminotransferase 30 IU/L (17-59); BUN Creatinine Ratio 13.8 (6-22); Bilirubin Total 0.3 mg/dL (0.2-1.3); Blood Urea Nitrogen 11 mg/dL (9-20); Calcium 9.7 mg/dL (8.4-10.2); Carbon Dioxide 25 mmol/L (22-32); Chloride 99 mmol/L (98-107); Creatine Kinase 100 U/L (55-170); Estimated Glomerular Filt Rate > 60.0 mL/min (>60); Globulin 2.9 g/dL (1.7-4.1); Glucose 329 mg/dL (70-100); HEMOLYSIS < 15 (0-50); Lipase 59 U/L (23-300); Sodium 137 mmol/L (137-145); Total Protein 7.4 g/dL (6.3-8.2)
[2019-02-10 16:29] LABS: Troponin I < 0.012 ng/mL (0.01-0.034)
[2019-02-10 16:35] VITALS: BP 167/95; PULSE 113; RESP 14; O2SAT 96
[2019-02-10] MEDS: ASPIRIN 81 MG TAB 324 MG PO (16:51)
[2019-02-10 17:30] VITALS: BP 161/101; PULSE 111; RESP 14; O2SAT 97
[2019-02-10] MEDS: SODIUM CHLORIDE 0.9% 1,000 ML 150 ML IV (17:39)
[2019-02-10 18:04] LABS: Troponin I < 0.012 ng/mL (0.01-0.034)
--- NOTE | 2019-02-10 18:13 | ED.CHESTPAIN ---
HPI - Chest Pain General Chief Complaint: Chest Pain Stated Complaint: Chest pain Time Seen by Provider: 02/10/19 17:31 Source: patient and old records reviewed Mode of arrival: ambulatory Limitations: no limitations History of Present Illness HPI narrative: Patient is a 48-year-old male presenting with chest pain. He has a history of coronary artery disease. In fact he was transferred to [place] from here on 12/31/2018 where he says he had of cardiac catheterization or stress test and echocardiogram. He says he has 2 arteries that are not fixable. He was told to take nitroglycerin if he has has chest pain and to come to the ER if not resolved. Today he has had left-sided chest pain nonradiating not worse with any exertion, it is similar to previous episodes he took 2 nitroglycerin at home without any relief and came to the ER. He actually was getting outpatient blood work drawn for pre surgery he scheduled have back surgery in a couple weeks his chest pain got worse at which point he came to the ER. He continues to have this all left-sided chest aching. MD complaint: chest pain Related Data Home Medications Medication Instructions Recorded Confirmed nitroglycerin SL 06/23/18 12/06/18 sertraline 100 mg tablet 200 mg PO DAILY 06/23/18 02/08/19 dextroamphetamine-amphetamine 5 mg PO TID 11/22/18 12/06/18 quetiapine 150 mg PO DAILY 11/22/18 12/06/18 amlodipine 5 mg PO DAILY 02/08/19 02/08/19 aspirin 81 mg PO DAILY 02/08/19 02/08/19 carvedilol 12.5 mg PO BID 02/08/19 02/08/19 clonidine HCl 0.1 mg PO BID 02/08/19 02/08/19 gabapentin 900 mg PO TID 02/08/19 02/08/19 hydrocodone-acetaminophen 1 - 2 tab PO Q6H PRN 02/08/19 02/08/19 lorazepam 0.5 mg PO BID 02/08/19 02/08/19 omeprazole 40 mg PO DAILY 02/08/19 02/08/19 ramipril 5 mg PO DAILY 02/08/19 02/08/19 Previous Rx's Medication Instructions Recorded glipizide ER 2.5 mg tablet, 2.5 mg PO DAILY #30 tab 10/27/18 extended release 24 hr morphine ER 15 mg tablet,extended 15 mg PO Q12H #60 tab 12/06/18 release trazodone 150 mg tablet 150 mg PO BEDTIME #30 tab 12/06/18 albuterol sulfate HFA 90 2 inhalation INHALATION Q4-6H PRN 12/22/18 mcg/actuation aerosol inhaler #18 gram Allergies Allergy/AdvReac Type Severity Reaction Status Date / Time droperidol [DROPERIDOL] Allergy Mild COGENIC Verified 12/06/18 14:06 REACTION Review of Systems Review of Systems GENERAL: Denies chills, fatigue, malaise, fever, sweats, travel HEENT: Denies sinus pain, ear pain, sore throat, difficulty swallowing, neck pain RESPIRATORY: Denies dyspnea, cough, wheezing, hemoptysis, sputum. CARDIOVASCULAR: See HPI GASTROINTESTINAL: Denies nausea, vomiting, abdominal pain, diarrhea, constipation, melena. : Denies dysuria, frequency, incontinence, hematuria, urinary retention, flank pain. MUSCULOSKELETAL: Denies weakness, joint pain, or bony pain SKIN: No rash, no erythema, no pruritus NEUROLOGIC: Denies weakness, dizziness, headache, numbness, change in speech, confusion PSYCHIATRIC: No concerning psychosocial issues. 12 point review of systems is negative except for those stated above and HPI PFSH Medical History Essential hypertension (Chronic) Diabetes mellitus, type II (Chronic) Chronic back pain (Chronic Unknown) Anxiety (Acute) Chest pain (Acute) Coronary artery disease (Acute) HLD (hyperlipidemia) (Acute) Stenosis of artery (Acute) Surgical History Hx of cervical discectomy (Acute) Family History Father Hypertension Hyperlipidemia Mother Diabetes mellitus Hyperlipidemia Hypertension Social History Smoking Status: Former smoker alcohol intake: never Family History Father Hypertension Hyperlipidemia Mother Diabetes mellitus Hyperlipidemia Hypertension Social History Smoking Status: Former smoker alcohol intake: never Exam Initial Vital Signs Initial Vital Signs: Vital Signs Temperature 98.5 F 02/10/19 15:40 Pulse Rate 119 H 02/10/19 15:40 Respiratory Rate 22 02/10/19 15:40 Blood Pressure 176/98 H 02/10/19 15:40 Pulse Oximetry 97 02/10/19 15:40 GENERAL: Well-appearing, well-nourished and in no acute distress. HEENT: Head atraumatic,EOMI, pupils reactive, face symmetric CARDIOVASCULAR: Regular rate and rhythm without murmurs, rubs or gallops. RESPIRATORY: Breath sounds equal bilaterally, no wheezes rales or rhonchi. ABDOMEN: Soft, nontender. Normoactive bowel sounds all 4 quadrants. No guarding or rebound. RECTAL: Hemoccult-positive, no hemorrhoids, nontender : No CVA tenderness EXTREMITIES: Normal range of motion, no clubbing or edema. Neurovascularly intact NEUROLOGICAL: Alert and oriented x4.Normal gait and speech. Cranial nerves II through XII grossly intact. Go SKIN: Warm, dry, no laceration, no petechiae, no rashes or lesions. Course Orders Ordered: ED Orders 02/10/19 17:37 Troponin I Stat 02/10/19 18:26 EKG-12 Lead Stat Discontinued Medications Aspirin (Aspirin Chew) 324 mg PO NOW ONE Stop: 02/10/19 15:47 Last Admin: 02/10/19 16:51 Dose: 324 mg Sodium Chloride (Normal Saline 0.9%) 1,000 mls @ 150 mls/hr IV CONT NEELIMA Last Admin: 02/10/19 17:39 Dose: 150 mls/hr Nitroglycerin (Nitrostat) 0.4 mg SL [id number] PRN PRN Reason: Chest Pain Consultations Consultation #1: Dr. Velásquez cardiology, is familiar with the patient. He states his have patient's pain is likely not cardiac in nature. He often ask for pain medication I have updated him on [place] cardiac catheterization results. He states that is similar to what he has. Time: 18:42 Vital Signs - 8 hr 02/10/19 17:30 Pulse Rate 111 H Respiratory Rate 14 Blood Pressure [Left Arm] 161/101 H Pulse Oximetry 97 MDM - Chest Pain Lab Data Attestation: I reviewed the patient's lab results. Result diagrams: 02/10/19 15:46 02/10/19 15:17 Lab Results 02/10/19 02/10/19 02/10/19 Range/Units 15:17 15:46 17:37 WBC 8.3 (4.5-11.0) X10^3/uL RBC 4.97 (4.5-5.9) X10^6/uL Hgb 15.1 (13.5-17.5) g/dL Hct 45.9 (41-53) % MCV 92.2 (80-100) fL MCH 30.4 (26-34) PG MCHC 33.0 (30-36) % RDW 13.7 (11.6-14.8) % Plt Count 227 (150-400) X10^3/uL Neut % (Auto) 76.0 H (50-75) % Lymph % (Auto) 15.6 L (25-40) % [place] % (Auto) 4.8 (3-14) % Eos % (Auto) 3.3 (2-4) % Baso % (Auto) 0.3 (0-2) % Neut # (Auto) 6300 (2741-0559) /uL Lymph # (Auto) 1300 (9143-7624) /uL [place] # (Auto) 400 (0-900) /uL Eos # (Auto) 300 (0-450) /uL Baso # (Auto) 0 (0-100) /uL Sodium 137 (137-145) mmol/L Potassium 4.0 (3.4-5.1) mmol/L Chloride 99 (98-107) mmol/L Carbon Dioxide 25 (22-32) mmol/L BUN 11 (9-20) mg/dL Creatinine 0.80 (0.66-1.25) mg/dL Estimated GFR > 60.0 (>60) mL/min BUN/Creatinine Ratio 13.8 (6-22) Glucose 329 H (70-100) mg/dL Calcium 9.7 (8.4-10.2) mg/dL Total Bilirubin 0.3 (0.2-1.3) mg/dL AST 30 (17-59) IU/L ALT 28 (21-72) IU/L Alkaline Phosphatase 65 (38-126) U/L Total Creatine Kinase 100 (55-170) U/L CK-MB (CK-2) TNP CK-MB (CK-2) Rel Index TNP Troponin I < 0.012 < 0.012 (0.01-0.034) ng/mL Total Protein 7.4 (6.3-8.2) g/dL Albumin 4.5 (3.5-5.0) g/dL Globulin 2.9 (1.7-4.1) g/dL Albumin/Globulin Ratio 1.6 (1.0-2.8) Lipase 59 (23-300) U/L ECG Data Attestation: I personally reviewed and interpreted this ECG as follows: Prior ECG tracings: available for review Interpretation: EKG 1.: Sinus rhythm rate [address] changes no T-wave inversions similar to previous EKG EKG 2. Sinus tachycardia rate 108 similar to prior MDM Narrative Medical decision making narrative: I went to see patient was extremely upset that physician had not been in to see him 2 hours. He actually has 2 troponins that are back and normal. I told him I was calling his clay processing labourer and that I would be back. However patient left prior to my re-evaluation and my discussion with the clay processing labourer. Cardiology is quite familiar with patient. He states that pain is unlikely to be cardiac. According to [place] records he had a full workup within the last 5 weeks no medications were changed. He often wants pain medication. I have reviewed records from [facility] in December she does have 40% stenosis proximally of lad and 2 medium diagonal arteries taken off from the stenosis. The ostium of the 1st diagonal is 40-50% stenosis in the ostium of the 2nd diagonal artery is 80-90% stenosis. The patient noted to be tachycardic in the ED. Did not get to re-evaluate patient or discuss any results with him including cardiology consultation. The patient decided to leave before his discharge papers were ready. Min before I had a chance to go in and talk with him. Discharge Plan Departure Patient Disposition: Home Clinical Impression: Atypical chest pain Discharge Date/Time: 02/10/19 18:51 Interventions: ED Discharge Assessment Last Done: 02/10/19 18:51 Instructions: DI for Atypical Chest Pain Activity Restrictions/Additional Instructions: *You have been diagnosed with atypical chest *What to do: At this time I have spoken with your clay processing labourer Dr. Odonnell. He does not recommend any changes to her current medication regimen. He is happy to see you as scheduled. *Continue to take medications as directed *Follow up with your primary care provider in 2-3 days *Return to ER if you should have shortness of breath, sweating, nausea, vomiting passing or any new, worsening or concerning symptoms Prescriptions: No Action sertraline [Zoloft] 100 mg tablet 200 mg PO DAILY RF: 0 nitroglycerin SL RF: 0 glipizide 2.5 mg tablet extended release 24hr 2.5 mg PO DAILY Qty: 30 RF: 2 ProAir HFA 90 mcg/actuation HFA aerosol inhaler 2 inhalation INHALATION Q4-6H PRN (Reason: shortness of breath) Qty: 18 RF: 11 trazodone 150 mg tablet 150 mg PO BEDTIME Qty: 30 RF: 2 morphine 15 mg tablet extended release 15 mg PO Q12H Qty: 60 RF: 0 dextroamphetamine-amphetamine 5 mg tablet 5 mg PO TID RF: 0 quetiapine 150 mg tablet extended release 24 hr 150 mg PO DAILY RF: 0 clonidine HCl 0.1 mg Tablet 0.1 mg PO BID RF: 0 carvedilol 12.5 mg Tablet 12.5 mg PO BID RF: 0 amlodipine 5 mg Tablet 5 mg PO DAILY RF: 0 omeprazole 40 mg Capsule,Delayed Release(Dr/Ec) 40 mg PO DAILY RF: 0 aspirin 81 mg Tablet,Delayed Release (Dr/Ec) 81 mg PO DAILY RF: 0 lorazepam 0.5 mg Tablet 0.5 mg PO BID RF: 0 ramipril 5 mg Capsule 5 mg PO DAILY RF: 0 hydrocodone-acetaminophen 10-325 mg tablet 1 - 2 tab PO Q6H PRN (Reason: pain) RF: 0 gabapentin 300 mg capsule 900 mg PO TID RF: 0 Referrals: Joselito Almeida MD [Primary Care Provider] - Miguelangel Velásquez MD [Physician] -
--- NOTE | 2019-02-10 18:21 | ED_ITS ---
HPI - Chest Pain General Chief Complaint: Chest Pain Stated Complaint: Chest pain Time Seen by Provider: 02/10/19 17:31 Source: patient and old records reviewed Mode of arrival: ambulatory Limitations: no limitations History of Present Illness HPI narrative: Patient is a 48-year-old male presenting with chest pain. He has a history of coronary artery disease. In fact he was transferred to [place] from here on 12/31/2018 where he says he had of cardiac catheterization or stress test and echocardiogram. He says he has 2 arteries that are not fixable. He was told to take nitroglycerin if he has has chest pain and to come to the ER if not resolved. Today he has had left-sided chest pain nonradiating not worse with any exertion, it is similar to previous episodes he took 2 nitroglycerin at home without any relief and came to the ER. He actually was getting outpatient blood work drawn for pre surgery he scheduled have back surgery in a couple weeks his chest pain got worse at which point he came to the ER. He continues to have this all left-sided chest aching. MD complaint: chest pain Related Data Home Medications Medication Instructions Recorded Confirmed nitroglycerin SL 06/23/18 12/06/18 sertraline 100 mg tablet 200 mg PO DAILY 06/23/18 02/08/19 dextroamphetamine-amphetamine 5 mg PO TID 11/22/18 12/06/18 quetiapine 150 mg PO DAILY 11/22/18 12/06/18 amlodipine 5 mg PO DAILY 02/08/19 02/08/19 aspirin 81 mg PO DAILY 02/08/19 02/08/19 carvedilol 12.5 mg PO BID 02/08/19 02/08/19 clonidine HCl 0.1 mg PO BID 02/08/19 02/08/19 gabapentin 900 mg PO TID 02/08/19 02/08/19 hydrocodone-acetaminophen 1 - 2 tab PO Q6H PRN 02/08/19 02/08/19 lorazepam 0.5 mg PO BID 02/08/19 02/08/19 omeprazole 40 mg PO DAILY 02/08/19 02/08/19 ramipril 5 mg PO DAILY 02/08/19 02/08/19 Previous Rx's Medication Instructions Recorded glipizide ER 2.5 mg tablet, 2.5 mg PO DAILY #30 tab 10/27/18 extended release 24 hr morphine ER 15 mg tablet,extended 15 mg PO Q12H #60 tab 12/06/18 release trazodone 150 mg tablet 150 mg PO BEDTIME #30 tab 12/06/18 albuterol sulfate HFA 90 2 inhalation INHALATION Q4-6H PRN 12/22/18 mcg/actuation aerosol inhaler #18 gram Allergies Allergy/AdvReac Type Severity Reaction Status Date / Time droperidol [DROPERIDOL] Allergy Mild COGENIC Verified 12/06/18 14:06 REACTION Review of Systems Review of Systems GENERAL: Denies chills, fatigue, malaise, fever, sweats, travel HEENT: Denies sinus pain, ear pain, sore throat, difficulty swallowing, neck pain RESPIRATORY: Denies dyspnea, cough, wheezing, hemoptysis, sputum. CARDIOVASCULAR: See HPI GASTROINTESTINAL: Denies nausea, vomiting, abdominal pain, diarrhea, constipation, melena. : Denies dysuria, frequency, incontinence, hematuria, urinary retention, flank pain. MUSCULOSKELETAL: Denies weakness, joint pain, or bony pain SKIN: No rash, no erythema, no pruritus NEUROLOGIC: Denies weakness, dizziness, headache, numbness, change in speech, confusion PSYCHIATRIC: No concerning psychosocial issues. 12 point review of systems is negative except for those stated above and HPI PFSH Medical History Essential hypertension (Chronic) Diabetes mellitus, type II (Chronic) Chronic back pain (Chronic Unknown) Anxiety (Acute) Chest pain (Acute) Coronary artery disease (Acute) HLD (hyperlipidemia) (Acute) Stenosis of artery (Acute) Surgical History Hx of cervical discectomy (Acute) Family History Father Hypertension Hyperlipidemia Mother Diabetes mellitus Hyperlipidemia Hypertension Social History Smoking Status: Former smoker alcohol intake: never Family History Father Hypertension Hyperlipidemia Mother Diabetes mellitus Hyperlipidemia Hypertension Social History Smoking Status: Former smoker alcohol intake: never Exam Initial Vital Signs Initial Vital Signs: Vital Signs Temperature 98.5 F 02/10/19 15:40 Pulse Rate 119 H 02/10/19 15:40 Respiratory Rate 22 02/10/19 15:40 Blood Pressure 176/98 H 02/10/19 15:40 Pulse Oximetry 97 02/10/19 15:40 GENERAL: Well-appearing, well-nourished and in no acute distress. HEENT: Head atraumatic,EOMI, pupils reactive, face symmetric CARDIOVASCULAR: Regular rate and rhythm without murmurs, rubs or gallops. RESPIRATORY: Breath sounds equal bilaterally, no wheezes rales or rhonchi. ABDOMEN: Soft, nontender. Normoactive bowel sounds all 4 quadrants. No guarding or rebound. RECTAL: Hemoccult-positive, no hemorrhoids, nontender : No CVA tenderness EXTREMITIES: Normal range of motion, no clubbing or edema. Neurovascularly intact NEUROLOGICAL: Alert and oriented x4.Normal gait and speech. Cranial nerves II through XII grossly intact. Go SKIN: Warm, dry, no laceration, no petechiae, no rashes or lesions. Course Orders Ordered: ED Orders 02/10/19 17:37 Troponin I Stat 02/10/19 18:26 EKG-12 Lead Stat Discontinued Medications Aspirin (Aspirin Chew) 324 mg PO NOW ONE Stop: 02/10/19 15:47 Last Admin: 02/10/19 16:51 Dose: 324 mg Sodium Chloride (Normal Saline 0.9%) 1,000 mls @ 150 mls/hr IV CONT NEELIMA Last Admin: 02/10/19 17:39 Dose: 150 mls/hr Nitroglycerin (Nitrostat) 0.4 mg SL [id number] PRN PRN Reason: Chest Pain Consultations Consultation #1: Dr. Velásquez cardiology, is familiar with the patient. He states his have patient's pain is likely not cardiac in nature. He often ask for pain medication I have updated him on [place] cardiac catheterization results. He states that is similar to what he has. Time: 18:42 Vital Signs - 8 hr 02/10/19 17:30 Pulse Rate 111 H Respiratory Rate 14 Blood Pressure [Left Arm] 161/101 H Pulse Oximetry 97 MDM - Chest Pain Lab Data Attestation: I reviewed the patient's lab results. Result diagrams: 02/10/19 15:46 02/10/19 15:17 Lab Results 02/10/19 02/10/19 02/10/19 Range/Units 15:17 15:46 17:37 WBC 8.3 (4.5-11.0) X10^3/uL RBC 4.97 (4.5-5.9) X10^6/uL Hgb 15.1 (13.5-17.5) g/dL Hct 45.9 (41-53) % MCV 92.2 (80-100) fL MCH 30.4 (26-34) PG MCHC 33.0 (30-36) % RDW 13.7 (11.6-14.8) % Plt Count 227 (150-400) X10^3/uL Neut % (Auto) 76.0 H (50-75) % Lymph % (Auto) 15.6 L (25-40) % [place] % (Auto) 4.8 (3-14) % Eos % (Auto) 3.3 (2-4) % Baso % (Auto) 0.3 (0-2) % Neut # (Auto) 6300 (2111-7300) /uL Lymph # (Auto) 1300 (0485-3789) /uL [place] # (Auto) 400 (0-900) /uL Eos # (Auto) 300 (0-450) /uL Baso # (Auto) 0 (0-100) /uL Sodium 137 (137-145) mmol/L Potassium 4.0 (3.4-5.1) mmol/L Chloride 99 (98-107) mmol/L Carbon Dioxide 25 (22-32) mmol/L BUN 11 (9-20) mg/dL Creatinine 0.80 (0.66-1.25) mg/dL Estimated GFR > 60.0 (>60) mL/min BUN/Creatinine Ratio 13.8 (6-22) Glucose 329 H (70-100) mg/dL Calcium 9.7 (8.4-10.2) mg/dL Total Bilirubin 0.3 (0.2-1.3) mg/dL AST 30 (17-59) IU/L ALT 28 (21-72) IU/L Alkaline Phosphatase 65 (38-126) U/L Total Creatine Kinase 100 (55-170) U/L CK-MB (CK-2) TNP CK-MB (CK-2) Rel Index TNP Troponin I < 0.012 < 0.012 (0.01-0.034) ng/mL Total Protein 7.4 (6.3-8.2) g/dL Albumin 4.5 (3.5-5.0) g/dL Globulin 2.9 (1.7-4.1) g/dL Albumin/Globulin Ratio 1.6 (1.0-2.8) Lipase 59 (23-300) U/L ECG Data Attestation: I personally reviewed and interpreted this ECG as follows: Prior ECG tracings: available for review Interpretation: EKG 1.: Sinus rhythm rate [address] changes no T-wave inversions similar to previous EKG EKG 2. Sinus tachycardia rate 108 similar to prior MDM Narrative Medical decision making narrative: I went to see patient was extremely upset that physician had not been in to see him 2 hours. He actually has 2 troponins that are back and normal. I told him I was calling his shipping support and that I would be back. However patient left prior to my re-evaluation and my discussion with the shipping support. Cardiology is quite familiar with patient. He states that pain is unlikely to be cardiac. According to [facility] records he had a full workup within the last 5 weeks no medications were changed. He often wants pain medication. I have reviewed records from [facility] in December she does have 40% stenosis proximally of lad and 2 medium diagonal arteries taken off from the stenosis. The ostium of the 1st diagonal is 40-50% stenosis in the ostium of the 2nd diagonal artery is 80-90% stenosis. The patient noted to be tachycardic in the ED. Did not get to re-evaluate patient or discuss any results with him including cardiology consultation. The patient decided to leave before his discharge papers were ready. Min before I had a chance to go in and talk with him. Discharge Plan Departure Patient Disposition: Home Clinical Impression: Atypical chest pain Discharge Date/Time: 02/10/19 18:51 Interventions: ED Discharge Assessment Last Done: 02/10/19 18:51 Instructions: DI for Atypical Chest Pain Activity Restrictions/Additional Instructions: *You have been diagnosed with atypical chest *What to do: At this time I have spoken with your shipping support Dr. Odonnell. He does not recommend any changes to her current medication regimen. He is happy to see you as scheduled. *Continue to take medications as directed *Follow up with your primary care provider in 2-3 days *Return to ER if you should have shortness of breath, sweating, nausea, vomiting passing or any new, worsening or concerning symptoms Prescriptions: No Action sertraline [Zoloft] 100 mg tablet 200 mg PO DAILY RF: 0 nitroglycerin SL RF: 0 glipizide 2.5 mg tablet extended release 24hr 2.5 mg PO DAILY Qty: 30 RF: 2 ProAir HFA 90 mcg/actuation HFA aerosol inhaler 2 inhalation INHALATION Q4-6H PRN (Reason: shortness of breath) Qty: 18 RF: 11 trazodone 150 mg tablet 150 mg PO BEDTIME Qty: 30 RF: 2 morphine 15 mg tablet extended release 15 mg PO Q12H Qty: 60 RF: 0 dextroamphetamine-amphetamine 5 mg tablet 5 mg PO TID RF: 0 quetiapine 150 mg tablet extended release 24 hr 150 mg PO DAILY RF: 0 clonidine HCl 0.1 mg Tablet 0.1 mg PO BID RF: 0 carvedilol 12.5 mg Tablet 12.5 mg PO BID RF: 0 amlodipine 5 mg Tablet 5 mg PO DAILY RF: 0 omeprazole 40 mg Capsule,Delayed Release(Dr/Ec) 40 mg PO DAILY RF: 0 aspirin 81 mg Tablet,Delayed Release (Dr/Ec) 81 mg PO DAILY RF: 0 lorazepam 0.5 mg Tablet 0.5 mg PO BID RF: 0 ramipril 5 mg Capsule 5 mg PO DAILY RF: 0 hydrocodone-acetaminophen 10-325 mg tablet 1 - 2 tab PO Q6H PRN (Reason: pain) RF: 0 gabapentin 300 mg capsule 900 mg PO TID RF: 0 Referrals: Joselito Almeida MD [Primary Care Provider] - Miguelangel Velásquez MD [Physician] -
--- NOTE | 2019-02-25 11:12 | PC.NURSE ---
pt iv NS 150ml/hr total infused 100ml. starting at 02/10/19 1745 ending at 1845.
== END 2019-02-10 18:51 | disposition home or self-care (01) ==
PROVIDERS: Emergency Medicine; Emergency Provider Emergency Medicine; PCP Student in an Organized Health Care Education/Training Program
DX: R07.89 Other chest pain (principal); Z86.79 Personal history of other diseases of the circulatory system
CPT/HCPCS: 36415; 36591; 71045; 80053; 80061; 82306; 82550; 83036; 83690; 84484; 85025; 85027; 93005; 96360; 99283; 99285

== ENCOUNTER 2019-02-21 05:59 | Inpatient (IN) | payer BC, OTHER, MEDICAID, SELFPAY ==
[2019-02-08 08:39] VITALS: BMI 34.2
[2019-02-21] VITALS (20 sets, daily range): BP systolic 103–144; BP diastolic 60–94; PULSE 64–101; RESP 10–18; TEMP 36.1–36.8; O2SAT 94–98; BMI 34.2
--- NOTE | 2019-02-21 | DI.RAD.S_ITS ---
PROCEDURE: XR LUMBAR SPINE 2-3V INDICATIONS: L5-S1 TLIF TECHNIQUE: Fluoroscopic images were obtained during an operative procedure and submitted for interpretation following the completion of the procedure. COMPARISON: [facility], , L-SPINE 2-3 VIEWS, 10/31/2017, 15:31. FINDINGS: These fluoroscopic images were performed for intraoperative localization. On these images, bilateral pedicle screws are seen at L5 and S1. Vertical fixation rods are seen. There is a disc spacer at L5-S1. Please correlate with intraoperative findings. IMPRESSION: Normal intraoperative examination. Dictated by: Geoff Roque M.D. on 02/21/2019 at 9:48 Approved by: Geoff Roque M.D. on 02/21/2019 at 9:49
[2019-02-21] MEDS: LACTATED RINGERS 1,000 ML 42 ML IV ×2 (07:07→09:19)
--- NOTE | 2019-02-21 07:25 | PM.PREOP ---
Pre-operative Note Interval Note History & Physical reviewed/Exam performed by Physician: Yes Changes to H&P: No
--- NOTE | 2019-02-21 07:38 | P.OP_ITS ---
Operative Date/Time/Diagnoses Date of procedure: 02/21/19 Time of procedure: 10:27 Pre-op diagnosis: Lumbar stenosis with radiculopathy Lumbar spondylolisthesis pars defect L5 Post-op diagnosis: same Procedure & Clinicians Procedure: L5-S1 TLIF (post/post interbody fusion) with cage L5 and S1 screws Iliac crest bone graft aspirate L5-S1 Taylor laminectomy Use of microscope Placement of epidural catheter Same procedure as scheduled: Yes Indications: [age] year old male with intractable pain from stenosis. They had failed conservative management and requested operative intervention. Risks and benefits of surgery were discussed and appropriate consents were obtained. Surgeon: Juan Diego Blair Calender Machine Operator: Dorene Gomez Anesthesia Type: General Operative Notes Findings: None Closure Type: primary Specimen(s): none sent Prosthetic devices, grafts, tissues, transplants, or devices: NuVasive MAS R buster screws Globus Rise cage Applied: catheter Estimated Blood Loss (mL): 20 Procedure in detail: The patient was brought to the operating room and intubated on the table. A time-out was performed. They were then rolled over to the well- padded Rangel table in the prone position. Preoperative antibiotics were given. The back was prepped and draped in the standard sterile fashion. Using fluoroscopy, a 4 cm longitudinal incision was made to the left of the midline. We used Bovie to come down to and split the lumbodorsal fascia. Using fluoroscopy and monitoring, we then percutaneously placed Jamshidi needles down the pedicles of L5 and S1 on the left side. These were changed out to guidewires and then we tapped and then placed the NuVasive MAS Reline screw shanks. We then opened up the retractors and used Bovie to clear up the posterolateral gutter as well as medially along the lamina to the spinous processes. A bur was used to decorticate the transverse process of L5 and sacral ala. We brought in the microscope. Using a combination of bur and Kerrison rongeurs, a Taylor laminectomy was performed from the left side. He was scarred in around the hypertrophic pars defect and this required extensive dissection to clear the exiting nerve root as well as the dura off of this region. We removed the hypertrophic pars material as well as removed a large portion of the L5-S1 facet until the exiting L5 nerve root was clear going all the way out through the foramen. This was separate and distinct from a TLIF approach as this was a Taylor laminectomy with extensive work on the pars defect. We then began the TLIF prep. A complete facetectomy was performed on this side at L5-S1. We carefully cleaned up the remainder of the foramen until we could easily retract the exiting root as well as clearing medially below the dura and expose the disc space. The disc was prepped with bipolar and then an annulotomy was performed. We performed a diskectomy using a combination of paddles, myla, pituitaries, and curettes. We distracted the disc using a paddle and locked the retractor in an open position. We then filled the disc space with Osteocel bone graft. We then placed the Globus Rise cage under fluoroscopy and then filled this in with more bone graft. The distraction on the retractor was released to compress down. This completed the posterior interbody fusion portion of the TLIF at L5-S1. We then placed the screw heads, remedios, and locked down the set screws. The wound was copiously irrigated. A small stab incision was made over the PSIS. We used a Jamshidi needle to aspirate several mL of bone marrow from the pelvis. This was mixed with the remaining Osteocel and combined with all of the locally harvested bone graft and placed in the posterolateral gutter for the posterior fusion of the TLIF at L5- S1. An epidural catheter was then placed in the spinal canal by carefully depressing the dura and advancing it 6 cm cephalad under the remaining lamina without resistance. The muscle fascia was closed. The catheter was then injected with a solution containing 4 mL of 0.5% Marcaine, 1 mg Stadol, 4 mg Duramorph, and 100 mcg of fentanyl. This was injected without resistance and the catheter was pulled. We then went to the opposite side. Again using fluoroscopy, a 3 cm incision was made and Bovie was used to come down to split the fascia. Using neural monitoring and fluoroscopy, Jamshidi needles were advanced down the pedicles of L5 and S1 on the right side. These were switched over guidewires, tapped, and screws placed. We then placed a remedios and locked the set screws on this side. The wound was irrigated. The fascia was closed. Vancomycin powder was placed in the wounds. The superficial and skin were closed. A sterile dressing was placed. The patient was then rolled over extubated and brought to recovery room without complications. Complications: none Condition: stable Disposition: PACU Plan for aftercare: Inpatient. Up with PT.
[2019-02-21] MEDS: MIDAZOLAM 2 MG/2 ML VIAL IV (07:47)
--- NOTE | 2019-02-21 07:53 | SUR.PREOP ---
Medicated with midazolam as ordered.
[2019-02-21] MEDS: CEFAZOLIN 2 GM/100 ML FROZ.PIGGY IV ×3 (07:55→21:26)
--- NOTE | 2019-02-21 08:29 | CM.DANOTE ---
Discharge Planning/Care Management DCP: assessment: initiated: Case received, EMR reviewed and went to room to check in with pt. He is noted to still be in surgery. Room white board updated with DCPlanners' office contact number. Pt is a 48 year old male who admitted early this morning for a scheduled spinal surgery: Surgeon: Dr. Blair. PCP: listed as Joselito Almeida/RENEE Per pre-op phone assessment completed with pt (see those notes below) pt lives with his parents in [place]. He is a Jehovah Witness: No Blood Products. His pre-op plan is for home with family assist. Anticipate PT and OT will be seeing pt. DCP team will be following for d/c issues and options. Will request copy of scanned H&P from [facility]. Discharge Assessment Start: 02/21/19 08:28 Freq: Status: Active Protocol: Document 02/21/19 08:28 ITV (Rec: 02/21/19 08:29 ITV [id number]) Discharge Planning Assessment Advance Directives? No History Provided By Medical Record Prior Living Arrangements House Whiteboard Updated in Patient Room with Yes name and ext. # of Animal Anatomy Teacher Review Status In Process Next Review Type Continued Stay Review Pre-Anesthesia Assessment Start: 02/08/19 08:39 Freq: Status: Active Protocol: Document 02/08/19 08:39 CAB (Rec: 02/08/19 09:15 CAB [id number]) Pre-Anesthesia Assessment PAC Comment Labs @ 02/10/19 - Trig 669, TC 375, glucose 329, A1c 6.0%. Multiple visits to ED for chest pain, last visit 02/10/19, left before physician revaluaton. Jehovah Witness, NO BLOOD PRODUCTS Patient Also Known As (AKA) Сергей Patient Information Reviewed Via Chart Review Phone Assessment Assessment Completed With Patient Diagnostic Results BMP/CMP CBC EKG PT/INR Other Comment Labs/ECG @ 02/10/19 Primary Care Provider Joselito Almeida Seen Specialist in Last 12 Months Yes Specialist Seen Emergency Orthopedist Comment [facility] admit 12/31/18- DC report scanned to record Primary Language Chinese Metal Trimmer Required No Height 182.88 cm Weight 114.305 kg Body Mass Index (BMI) 34.2 Hearing Ability Normal Visual Assist Glasses Dentition Type Teeth, Natural Present Teeth, Broken Teeth, Missing Barriers to Learning None Other Aids No Hx Anesthesia Reactions No Hx Family Anesthesia Reaction No Hx Malignant Hyperthermia No Hx Blood Transfusions No: Jehovah Witness, NO BLOOD PRODUCTS Anesthesia Review Requested No: Review completed-scanned to record Dental Aide No alcohol intake current alcohol intake frequency holidays/special occasions only Smoking Status Former smoker Tobacco type cigarettes Smoking packs per day 0.75 how long ago did patient quit smoking Quit 11/2018, smoked 25 years Substance Use Type does not use Pain Present Pain Reported Musculoskeletal Symptoms Back Pain Muscle Cramps Numbness Radiating Pain into Limb History of Falling (Recent or History of No ) Patient is completely paralyzed or No completely immobile Mental Status Oriented to own ability Is patient on oxygen? No Does patient have HYDE/SOB Yes: r/t Asthma Hx Sleep Apnea No Suspected Sleep Apnea Yes: Stop Bang assessment negative Currently Taking a Beta Luigi Yes: Carvedilol Can You Climb a Flight of Stairs Without Yes SOB Hx Chest Pain Yes: Frequent, non-cardiac per cardiology Hx SOB Yes: r/t Asthma Hx Syncope or Dizziness Yes: Dizziness r/t postural changes Anti-Coagulant Therapy Yes: Aspirin 81mg/daily Has a Correction Officer [facility] Yes: Dr. Velásquez-last visit Cardiac Testing Yes: Stress test 01/01/19 Hx Pacemaker/ICD No Pacemaker Rep Required? No Comment Cardiac records scanned to record Diet Type At Home Regular dysphagia No Urinary Catheter Present No Hx Urinary Self Catheterization No Diabetes Yes HgbA1C 6.0 Date 02/10/19 Hx Drug Resistant Organism No Presence of External or Internal Medical No Devices Have you traveled outside the [facility] in the last 30 days? Marital Status Lives With family Prior Living Arrangements House Number of Floors (Floors) One Floor Support System Parent(s) Sibling(s) Does the Patient Have Assistance After Yes Surgery Patient Discharge Plan Description Return Home Comment Lives w/parents, advised 1-2 day length of stay per surgeon 's office Feels Safe in Current Environment Yes Been Physically Hurt or Threatened By a No Person in Current Environment Do you have thoughts of harming yourself None or others? Are you currently considering suicide? No Do you have a plan to hurt yourself or No Plan others? Comment possible suicide ideation noted in Cardiology note scanned to rec Do You Have Any Spiritual Beliefs That Yes: Jehovah Witness, NO May Affect Your HC Choices? BLOOD PRODUCTS Do You Have Any Cultural Practices That No May Affect Your HC Choices? Spiritual Referral None Comment Jehovah Witness Who Can We Speak to About Patient's Care Family, friends Identifying Code for Release of Patient Declines to issue Information Health Care Proxy/Next of Kin [place] (father) Health Care Proxy Emergency Contact Name [place] (father) Emergency Contact Advance Directives? No: Declines further infomation, already has information PAC Instructions Durable medical equipment Medications to take/avoid Nasal antibiotic No ETOH/petroleum product on skin DOS NPO Post-op transportation Pre-surgical wash Sturdy shoes/comfortable clothes Do not bring valuables and remove jewelry Stop Bang Assessment Do you snore loudly (louder than talking Yes or loud enough to be heard through closed doors) Do you often feel tired, fatigued or Yes sleepy during the daytime Has anyone ever observed you stop No breathing while sleeping? Do you have, or are you being treated Yes for, high blood pressure Is your BMI more than 35 kg/m2 No Age over 50 No Estimated neck circumference greater Yes than 40cm or 16in Gender male Yes Result Negative
--- NOTE | 2019-02-21 08:30 | SUR.OPER ---
Prone on spine table, head in foam head support, padded chest and pelvic supports, gel pad at knees, lower legs supported by pillows; nipples, genitalia and toes free of pressure, arms secured on foam padded arm boards at <90 degrees abduction. Tape over blanket at thigh secured to table.
[2019-02-21] MEDS: THROMBIN (BOVINE) 5,000 UNIT VIAL 5000 UNIT TOP (08:35)
[2019-02-21] MEDS: VANCOMYCIN 1,000 MG VIAL 1000 MG TOP (08:37)
[2019-02-21] MEDS: SODIUM CHLORIDE 0.9% 1,000 ML, GENTAMICIN 80 MG IRR (08:37)
[2019-02-21] MEDS: BUPIVACAINE 0.5% (PF) 4 ML, MORPHINE-PF 4 MG, BUTORPHANOL 1 MG, fentaNYL 100 MCG INJ (08:39)
[2019-02-21] MEDS: HYDROMORPHONE 2 MG INJ 0.25 MG IV ×5 (10:53→11:15)
[2019-02-21] MEDS: fentaNYL 100 MCG/2 ML INJ 50 MCG IV (11:26)
[2019-02-21] MEDS: OXYCODONE IR 5 MG TABLET 10 MG PO ×3 (12:49→19:49)
[2019-02-21] MEDS: LACTATED RINGERS 1,000 ML 125 ML IV ×2 (12:50→19:55)
[2019-02-21] MEDS: HYDROMORPHONE 0.5 MG INJ IV ×4 (12:59→22:52)
[2019-02-21] MEDS: INFLUENZA VACCINE 0.5 ML SYRINGE IM (14:00)
[2019-02-21] MEDS: CELECOXIB 200 MG CAPSULE 400 MG PO (14:01)
[2019-02-21] MEDS: hydrOXYzine pamoate 25 MG CAPSULE PO ×2 (14:02→20:56)
[2019-02-21] MEDS: GABAPENTIN 300 MG CAPSULE 900 MG PO ×2 (14:30→20:54)
--- NOTE | 2019-02-21 15:40 | PT.IIE ---
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 fusion & bone graft - Juan Diego Blair MD Surgical History (Last Updated 02/14/19 @ 08:13 by Emily Hannon RN) Hx of cervical discectomy (Acute ~2014) Medical History (Last Updated 02/14/19 @ 08:20 by Emily Hannon RN) Essential hypertension (Chronic) Diabetes mellitus, type II (Chronic) Chronic back pain (Chronic Unknown) ADD (attention deficit disorder) (Acute) Anxiety (Acute) Arthritis (Acute) Asthma (Acute) Chest pain (Acute) Depression (Acute) HLD (hyperlipidemia) (Acute) Numbness and tingling (Acute) RLS (restless legs syndrome) (Acute) Stenosis of artery (Acute) Coronary artery disease (Acute) Physical Therapy Inpatient Evaluation/Re-Eval M1 PT/OT-IP Prior Functional Status Start: 02/21/19 16:54 Freq: NEEDED Status: Active Protocol: Document 02/21/19 15:40 AB (Rec: 02/21/19 17:24 AB [id number]) Medical Review Prior Functional Status Medical History Reviewed Yes Communication able to make needs known Mobility and Gait pt stated that he is independent with all mobilities and ambulation without AD Social History Household Members family Living Arrangements House Number of Floors (Floors) One Floor Number of Stairs To Enter/Railing? 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 [employer] M2 PT-IP Current Condition Start: 02/21/19 16:54 Freq: NEEDED Status: Active Protocol: Document 02/21/19 15:40 AB (Rec: 02/21/19 17:24 AB [id number]) Physical Therapy Current Condition Current Condition Evaluation Date 02/21/19 Treatment Diagnosis s/p L5S1 TLIF/lami; difficulties in walking Onset Date 02/21/19 Precautions Lumbar Precautions Log Roll No Twisting Limit Bending Lifting Restriction of 10 lbs Gait Belt above Incisional Area M3 PT-IP Subjective Start: 02/21/19 16:54 Freq: NEEDED Status: Active Protocol: Document 02/21/19 15:40 AB (Rec: 02/21/19 17:24 AB [id number]) Subjective Physical Therapy Visit Type Type Initial Evaluation Visit Start Time 15:40 Visit Stop Time 16:15 Total Visit Minutes 35 Number of CONTACT LENS TECHNICIAN Visits 0 Physical Therapy Visit Comments Patient Comments pt agreeable to do PT Therapy Pain Assessment Pain When Pain Assessed At Rest Pain Present Pain Present Pain Reported Location Back Intensity 5 Scale Used Numeric (1 - 10) Pain Management Techniques Re-positioning Timing of Activity with Medications M4 PT-IP Mobility and Gait Start: 02/21/19 16:54 Freq: NEEDED Status: Active Protocol: Document 02/21/19 15:40 AB (Rec: 02/21/19 17:24 AB [id number]) PT-Bed Mobility Assessment Rolling Type of Rolling Log Rolling Level of Assist Minimal Assistance 1 Person Assistance Supine to Sit Supine to Sit Contact Guard Assistance Bedrails Sit to Supine Sit to Supine Contact Guard Assistance Bedrails PT-Transfer Assessment Sit to and From Stand Sit to and from Stand Minimal Assistance Equipment Transfer Assistive Device Gait Belt Front Wheeled Walker Orthotic/Prosthetic Devices or Brace: No Gait Assessment Gait Gait Assistance Required: Minimum Assistance Distance (Feet) 35 Able to Maintain Weight Bearing Status Yes During Gait Assistive Devices Assistive Device Gait Belt Front Wheeled Walker Orthotic/Prosthetic Devices or Brace: Yes Gait Deviations General Gait Pattern Antalgic Decreased Stride Length Decreased Feet Clearance Narrow Based Gait Factors Limiting Gait Function Factors Limiting Gait Function Decreased Activity Tolerance Decreased Strength Limited Range of Motion Pain Poor Balance PT-Balance Assessment Sitting Balance and Reactions Static Sitting Balance Ability Good Dynamic Sitting Balance Ability Good Standing Balance and Reactions Static Standing Balance Ability Fair Dynamic Standing Balance Ability Fair Device Used FWW M5 PT-IP Objective Assessments Start: 02/21/19 16:54 Freq: NEEDED Status: Active Protocol: Document 02/21/19 15:40 AB (Rec: 02/21/19 17:24 AB [id number]) Orientation Orientation/Cognition Level of Alertness Alert Orientation Name Age Birthday Place Situation Language Function Ability No Deficits Noted Safety Awareness Understands Safety Issues Memory Description No Deficits Noted Gross Range of Motion Lower Extremity ROM Assessment Within Functional Limits Strength Lower Extremity Strength Assessment Within Functional Limits Coordination Assessment Gross Coordination Gross Coordination WNL Sensation Assessment Sensation Gross Sensation WNL Muscle Tone Muscle Tone WNL Yes M6 PT-IP Treatment Start: 02/21/19 16:54 Freq: NEEDED Status: Active Protocol: Document 02/21/19 15:40 AB (Rec: 02/21/19 17:24 AB [id number]) Physical Therapy Treatment Education Education Provided Precautions Weight Bearing Status Post-Op Packet Safety M7 PT-IP Assessment and Plan Start: 02/21/19 16:54 Freq: NEEDED Status: Active Protocol: Document 02/21/19 15:40 AB (Rec: 02/21/19 17:24 AB [id number]) PT Summary Assessment and Plan Potential Rehabilitation Potential Good Status of Condition at Evaluation Stable Summary Impairments Pain ROM Strength Balance Coordination Bed Mobility Transfers Gait Activity Tolerance Assessment Summary pt requiring min A with mobility and will likely progress during hospital stay. pt stated that his parents can assist him at home. will conduct caregiver training if needed and will also complete stair climbing training prior to d/c. Goals Bed Mobility Goal Standby Assistance Transfer Goal Standby Assistance Front Wheeled Walker Gait Goal Standby Assistance Front Wheel Walker Gait Distance 200 Other Goals up/down 3 steps with bilateral rails SBA Days to Meet Goals 3 Frequency of Treatment Frequency Of Treatment Twice a Day Treatment Plan Physical Therapy Treatment Plan Bed Mobility Training Transfer Training Gait Training Therapeutic Exercise Balance Retraining Post Op Education Discharge Planning Hot or Cold Pack Neuromuscular Re-ed Coordination Retraining Manual Therapy Other Recommendations and Next Treatment bed mobility, transfers, Focus ambulation, stair climbing Recommendations To Nursing Amount of Assist Needed 1 Person Assist Discharge Recommendations PT Discharge Recommendations Home with Assistance
[2019-02-21] MEDS: QUETIAPINE 100 MG TABLET 150 MG PO (17:05)
[2019-02-21] MEDS: RAMIPRIL 5 MG CAPSULE PO (17:05)
[2019-02-21] MEDS: DOCUSATE 100 MG CAPSULE PO (19:54)
[2019-02-21] MEDS: GABAPENTIN 300 MG CAPSULE PO (20:02)
[2019-02-21] MEDS: ATORVASTATIN 20 MG TABLET 80 MG PO (20:02)
[2019-02-21] MEDS: SENNOSIDES 8.6 MG TABLET 17.2 MG PO (20:02)
[2019-02-21] MEDS: METFORMIN HCL 500 MG TABLET PO (20:03)
[2019-02-21] MEDS: CELECOXIB 200 MG CAPSULE PO (20:03)
[2019-02-22] VITALS (8 sets, daily range): BP systolic 100–129; BP diastolic 63–76; PULSE 87–97; RESP 15–18; TEMP 36.8–38; O2SAT 94–97
[2019-02-22] MEDS: OXYCODONE IR 5 MG TABLET 10 MG PO ×6 (02:20→21:17)
[2019-02-22] MEDS: HYDROMORPHONE 0.5 MG INJ IV ×7 (03:12→22:44)
[2019-02-22] MEDS: LACTATED RINGERS 1,000 ML 125 ML IV (03:13)
[2019-02-22 05:32] LABS: Hematocrit 36.4 % (41-53); Hemoglobin 12.4 g/dL (13.5-17.5)
[2019-02-22 05:42] LABS: Blood Urea Nitrogen 17 mg/dL (9-20); Calcium 8.8 mg/dL (8.4-10.2); Carbon Dioxide 28 mmol/L (22-32); Chloride 100 mmol/L (98-107); Estimated Glomerular Filt Rate > 60.0 mL/min (>60); Glucose 136 mg/dL (70-100); HEMOLYSIS < 15 (0-50); Potassium 3.8 mmol/L (3.4-5.1); Sodium 135 mmol/L (137-145)
[2019-02-22] MEDS: ATENOLOL 50 MG TABLET PO (07:59)
[2019-02-22] MEDS: ASPIRIN EC 81 MG TABLET PO (07:59)
[2019-02-22] MEDS: CELECOXIB 200 MG CAPSULE PO ×2 (08:00→21:16)
[2019-02-22] MEDS: DOCUSATE 100 MG CAPSULE PO ×2 (08:00→21:15)
[2019-02-22] MEDS: GABAPENTIN 300 MG CAPSULE 900 MG PO ×3 (08:01→21:15)
[2019-02-22] MEDS: METFORMIN HCL 500 MG TABLET PO ×2 (08:02→21:16)
[2019-02-22] MEDS: SERTRALINE 50 MG TABLET 200 MG PO (08:02)
--- NOTE | 2019-02-22 08:08 | PM.PNPO.1 ---
Subjective Date Patient Seen: 02/22/19 Time Patient Seen: 08:08 Interval history: He is doing well. Pain is about 7/10 all across the back. Has a little tingling in the legs but no pain in the legs. Exam Vital Signs (past 8 hours): - 02/22/19 05:30 Temperature 98.3 F Pulse Rate 91 H Respiratory Rate 16 Blood Pressure 100/63 Pulse Oximetry 97 Oxygen Delivery Method Room Air Oxygen Flow Rate 0 Const Orientation: alert and oriented x3 Back/Spine/Pelvis Other: CDI. 5/5 motor both lower extremities. Easily rolls over for dressing check. Objective Labs Result Diagrams: 02/22/19 05:04 02/22/19 05:04 Labs: Laboratory Results - last 24 hr 02/22/19 02/22/19 05:04 05:04 Hgb 12.4 L Hct 36.4 L Sodium 135 L Potassium 3.8 Chloride 100 Carbon Dioxide 28 BUN 17 Creatinine 1.00 Estimated GFR > 60.0 BUN/Creatinine Ratio 17.0 Glucose 136 H Calcium 8.8 Assessment & Plan Post-op Postoperative Procedures Operation Date: 02/21/19 07:45 Actual Procedures Side Surgeon p L5-S1 Laminectomy w/Instru. fusion & bone graft Juan Diego Blair MD He is doing well postoperatively. Mobilize with physical therapy. Anticipate discharge either tomorrow or the next day. Quality VTE Deep Vein Thrombosis/Pulmonary Embolism Present on Admission: No
--- NOTE | 2019-02-22 09:43 | PC.NURSE ---
Addendum entered by Faith Viveros R.N. 02/22/19 15:10: Pt offered ice packs and to dimm to lights and shades in his room, to try and divert his attention away from pain. He did not want anything to do with these offers and states that ice not effective at all for discomfort. Pt given 1 vistaril to see if this would help calm his back pain down and he states that in an hour and half his back pain went from an 8 to a 9. Dilaudid .5mg given again and pt states that this did not help him. He is A&Ox3 and not drowsy at all. Pt is functioning just fine. He is able to get out of bed and ambulating with 1 pa. Around 1230 told pt that he was actually maxed at what he could have for pain medication and explained to him that he would have to wait until 1430. Of course pain level at this time 9/10 2 percolone given. Pts vss and bp wnl. He is in bed now and resting comfortably. Original Note: Addendum entered by Faith Viveros R.N. 02/22/19 12:55: Pt given oxycodone at 1100 and also a vistaril about an hour later. His pain level was 7/10. Just checked on him and he now states that his level is 8/10. Given 0.5mg of iv dilaudid and explained to pt that he is not due for anything until 0930. Melchor catheter taken out and pt tolerated well Original Note: Addendum entered by Faith Viveros R.N. 02/22/19 12:28: Below note about pts bp being 87/48 charted under wrong chart. please disregard this note on this patient. henna arredondo Original Note: Addendum entered by Faith Viveros R.N. 02/22/19 12:08: Pts bp is 87/48 consistently. Call out to Ortho to see if we can get a ns bolus for patient. she is complaining of feeling light headed. Eating lunch a this time. Original Note: Assess- Pt is A&Ox3. 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 Pt given oxycodone around 0800 and he was still at a 7/10 pain around 0930. IV dilaudid just given and pt is back to bed. He did attempt to get out of bed on his own. Bed alarm will be in place. Explained to patient that we need to try and decrease the amount of iv dilaudid use with oxycodone that pt is getting as he will only be going home on either vicodin or oxycodone. This is his first post op day and we will alternate between the two drugs and try to decrease iv dilaudid as needed. Pts pain level is a 7/10. Dressing to lower back is cdi, pt has not problems moving to his side and is getting up and out of bed with 1 PA and walker. Back to bed after eating breakfast, he did tolerate the chair for about an hour or so.
[2019-02-22] MEDS: hydrOXYzine pamoate 25 MG CAPSULE PO (11:44)
--- NOTE | 2019-02-22 11:47 | PT.IPTN ---
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 fusion & bone graft - Juan Diego Blair MD Physical Therapy Treatment Note M2 PT-IP Current Condition Start: 02/21/19 16:54 Freq: NEEDED Status: Active Protocol: Document 02/21/19 15:40 AB (Rec: 02/21/19 17:24 AB [id number]) Physical Therapy Current Condition Current Condition Evaluation Date 02/21/19 Treatment Diagnosis s/p L5S1 TLIF/lami; difficulties in walking Onset Date 02/21/19 Precautions Lumbar Precautions Log Roll No Twisting Limit Bending Lifting Restriction of 10 lbs Gait Belt above Incisional Area M3 PT-IP Subjective Start: 02/21/19 16:54 Freq: NEEDED Status: Active Protocol: Document 02/22/19 11:40 SA (Rec: 02/22/19 11:47 SA [email or web address]) Subjective Physical Therapy Visit Type Type Treatment Note Visit Start Time 11:11 Visit Stop Time 11:31 Total Visit Minutes 20 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 Patient Goals To go home with less pain. Therapy Pain Assessment Pain When Pain Assessed During Mobility Pain Present Pain Present Pain Reported Location Back Intensity 7 Scale Used Numeric (1 - 10) Pain Management Techniques Apply Cold Re-positioning Timing of Activity with Medications M4 PT-IP Mobility and Gait Start: 02/21/19 16:54 Freq: NEEDED Status: Active Protocol: Document 02/22/19 11:40 SA (Rec: 02/22/19 11:47 SA [email or web address]) PT-Bed Mobility Assessment Rolling Type of Rolling Log Rolling Roll to Right Level of Assist Contact Guard Assistance 1 Person Assistance Supine to Sit Supine to Sit Contact Guard Assistance Bedrails Sit to Supine Sit to Supine Contact Guard Assistance Bedrails Scooting Scooting to Edge of Bed Contact Guard Assistance Scooting Up and Down in Bed Contact Guard Assistance PT-Transfer Assessment Sit to and From Stand Sit to and from Stand Contact Guard Assistance Equipment Transfer Assistive Device Gait Belt Front Wheeled Walker Orthotic/Prosthetic Devices or Brace: No Transfers Transfer Destination Bed Transfer Technique Stand Step Pivot Transfer Ability Level of Assist Contact Guard Assistance Comments Mobility Comments Pt CGA with bed mobility and transfers, verbal and visual review of spinal precautions, able to perfrom log roll technique in/out of bed with CGA. Gait Assessment Gait Gait Assistance Required: Contact Guard Assist Distance (Feet) 85 Able to Maintain Weight Bearing Status Yes During Gait Assistive Devices Assistive Device Gait Belt Front Wheeled Walker Orthotic/Prosthetic Devices or Brace: Yes Gait Deviations General Gait Pattern Antalgic Decreased Stride Length Decreased Feet Clearance Narrow Based Gait Factors Limiting Gait Function Factors Limiting Gait Function Decreased Activity Tolerance Decreased Strength Limited Range of Motion Pain Poor Balance Comments Gait Comments Gait training in room/halls with FWW and CGA, Pt stiff and guarded with movement and pain is most limiting factor. Stair Climbing Assessment Comments Stair Climbing Comments Plan to attempt this afternoon . PT-Balance Assessment Sitting Balance and Reactions Static Sitting Balance Ability Good Dynamic Sitting Balance Ability Good M5 PT-IP Objective Assessments Start: 02/21/19 16:54 Freq: NEEDED Status: Active Protocol: Document 02/21/19 15:40 AB (Rec: 02/21/19 17:24 AB [id number]) Orientation Orientation/Cognition Level of Alertness Alert Orientation Name Age Birthday Place Situation Language Function Ability No Deficits Noted Safety Awareness Understands Safety Issues Memory Description No Deficits Noted Gross Range of Motion Lower Extremity ROM Assessment Within Functional Limits Strength Lower Extremity Strength Assessment Within Functional Limits Coordination Assessment Gross Coordination Gross Coordination WNL Sensation Assessment Sensation Gross Sensation WNL Muscle Tone Muscle Tone WNL Yes M6 PT-IP Treatment Start: 02/21/19 16:54 Freq: NEEDED Status: Active Protocol: Document 02/22/19 11:40 SA (Rec: 02/22/19 11:47 [email or web address]) Physical Therapy Treatment Exercises Exercises Ankle Pumps Gluteal Sets Education Education Provided Precautions Post-Op Packet Safety M7 PT-IP Assessment and Plan Start: 02/21/19 16:54 Freq: NEEDED Status: Active Protocol: Document 02/22/19 11:40 SA (Rec: 02/22/19 11:47 [email or web address]) PT Summary Assessment and Plan Potential Rehabilitation Potential Good Status of Condition at Evaluation Stable Summary Assessment Summary Pt to attempt stairs this afternoon hopefully with better pain control. CGA with all mobility tasks and pt understands spinal precautions. Frequency of Treatment Frequency Of Treatment Twice a Day Recommendations To Nursing Amount of Assist Needed 1 Person Assist Discharge Recommendations PT Discharge Recommendations Home with Assistance
--- NOTE | 2019-02-22 14:14 | OT.IP.EVAL ---
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 fusion & bone graft - Juan Diego Blair MD Past Medical History (Last Updated 02/14/19 @ 08:20 by Emily Hannon RN) Essential hypertension (Chronic) Diabetes mellitus, type II (Chronic) Chronic back pain (Chronic Unknown) ADD (attention deficit disorder) (Acute) Anxiety (Acute) Arthritis (Acute) Asthma (Acute) Chest pain (Acute) Depression (Acute) HLD (hyperlipidemia) (Acute) Numbness and tingling (Acute) RLS (restless legs syndrome) (Acute) Stenosis of artery (Acute) Coronary artery disease (Acute) Surgical History (Last Updated 02/14/19 @ 08:13 by Emily Hannon RN) Hx of cervical discectomy (Acute ~2013) Occupational Therapy Inpatient Evaluation/Re-Eval M1 PT/OT-IP Prior Functional Status Start: 02/21/19 16:54 Freq: NEEDED Status: Active Protocol: Document 02/22/19 14:14 PJTatyana (Rec: 02/22/19 14:41 PJTatyana [email or web address]) Medical Review Prior Functional Status Medical History Reviewed Yes Diet/Fluid Consistency Regular Communication WNL Mobility and Gait Pt stated that he is independent with all mobility and ambulation without AD. Activities of Daily Living and IADL's Pt independent with all self care. Pt drives. He lives with his parents and his father does all the cooking, shopping , premium card cancellation clerk. 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 Social History Household Members family Living Arrangements House Number of Floors (Floors) One Floor Number of Stairs To Enter/Railing? 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 M2 OT-IP Current Condition Start: 02/22/19 14:21 Freq: Status: Active Protocol: Document 02/22/19 14:14 PJTatyana (Rec: 02/22/19 14:41 PJ [email or web address]) Occupational Therapy Current Condition Current Condition Evaluation Date 02/22/19 Treatment Diagnosis decreased self care, mobility s/p L5-S1 lami/TLIF Diagnosis Onset Date 02/21/19 Post Operative Precautions Lumbar Precautions Log Roll No Twisting Limit Bending Lifting Restriction of 10 lbs Gait Belt above Incisional Area M3 OT- IP Subjective and Pain Start: 02/22/19 14:21 Freq: Status: Active Protocol: Document 02/22/19 14:14 JORDNI (Rec: 02/22/19 14:41 PJ [email or web address]) OT- Subjective Occupational Therapy Visit Type Type Initial Evaluation Visit Start Time 13:43 Visit Stop Time 14:14 Total Visit Minutes 31 Occupational Therapy Visit Comments Patient Comments I won't be able to go home tomorrow if I am in this much pain. 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 OT Pain Assessment Pain When Pain Assessed After Treatment Pain Present Pain Present Pain Reported Location Back Intensity 8 Description Aching Acute Management Techniques Distraction Re-positioning Timing of Activity with Medications M4 OT- IP ADL's Start: 02/22/19 14:21 Freq: Status: Active Protocol: Document 02/22/19 14:14 JATatyana (Rec: 02/22/19 14:41 PJ [email or web address]) OT [id number] General Evaluation Self-Feeding Ability Independent OT ADL-Grooming General Evaluation Grooming Ability Standby Assistance Areas Needing Assistance Retrieving/Set-up of Grooming Items Face Washing Comments OT Grooming Comments after set up in bed or chair OT ADL-Oral Care General Eval Oral Care Ability Standby Assistance Areas of Assistance Retrieving/Set-Up of Items Devices Oral Care Devices Toothbrush Comments Oral Care Comments after set up in bed or chair OT ADL-Dressing General Eval Upper Body Dressing Ability Standby Assistance Lower Body Dressing Ability Maximum Assistance Assistive Devices Dressing Assistive Devices Retail Parts Professional Sock Aid Comments OT Dressing Comments Began education with pt re: use of daycare worker and hard sock aid to increase independence in lower body dressing. Pt min assist with max cues after initial education with adaptive equipment. Provided daycare worker and pt can borrow his mother's hard sock aid. Pt declines long shoe horn as he wears slip on shoes. OT ADL-Toileting General Evaluation Toileting Ability Independent Devices Toileting Assistive Devices Urinal Comments OT Toileting Comments provided education re: RTS with armrests, and resources for this; pt may need toilet paper aid OT ADL-Bathing Bathing Type Bathing Type Shower Devices Bathing Equipment Long Handled Sponge or Sign Poster Held Shower Sprayer Shower Chair without Arms Grab Bars Comments OT Bathing Comments Pt plans to use his mother's shower stall which has grab bars, shower seat and hand held shower hose. Long bath sponge provided. M5 OT- IP IADL's Start: 02/22/19 14:21 Freq: Status: Active Protocol: Document 02/22/19 14:14 PJM (Rec: 02/22/19 14:41 [facility] [email or web address]) OT-Instrumental Activities of Daily Living Deficits IADL Deficits Identified Deficits Home Safety Awareness Awareness of Need for Assistance at Home Good Awareness Ability to Problem Solve Emergency Able to Problem Solve Situations Medication Management Medication Management No Deficits Identified Money Management Money Management No Deficits Identified Meal Preparation Meal Preparation Caregiver Provides Assist Meal Preparation Comments father normally does all cooking Inside Sales Account Manager Inside Sales Account Manager Comments father normally does all premium card cancellation clerk Driving Driving Caregiver Provides Assist Driving Comments family to assist until pt able M6 OT- IP Functional Cognition Start: 02/22/19 14:21 Freq: Status: Active Protocol: Document 02/22/19 14:14 PJM (Rec: 02/22/19 14:41 [facility] [email or web address]) Cognitive Factors Limiting Selfcare Function Cognitive Ability Level of Alertness Alert Patient Orientation Name Age Birthday Month Date Year Day of Week Place Situation Attention Span Ability Capable of Focused Attention Capable of Sustained Attention Ability to Follow Commands Able to Follow One Step Commands Memory Description No Deficits Noted Safety Awareness Decreased Ability to Apply Precautions Problem Solving Ability Needs Assist to Identify Solutions Cognitive Comments Cognitive Assessment Comments Pt needs mod verbal cues to problem solve use of unfamiliar adaptive equipt within lumbar spine precautions. Pt recalls 3/3 precautions but needs verbal cues to apply them during functional tasks and log rolling. OT- Vision and Hearing OT- Hearing Assessment OT- Hearing Assessment WFL OT- Vision Assessment Visual Acuity Glasses All The Time Vision Assessment Comments Pt wears glasses for distance, denies any recent vision changes M7 OT- IP Mobility and Balance Start: 02/22/19 14:21 Freq: Status: Active Protocol: Document 02/22/19 14:14 PJM (Rec: 02/22/19 14:41 [facility] [email or web address]) OT- Bed Mobility Assessment Rolling Type of Rolling Roll to Right Level of Assistance Contact Guard Assistance 1 Person Assistance Supine to Sit Supine to Sit Assist Standby Assistance 1 Person Assistance Sit to Supine Sit to Supine Assist Standby Assistance 1 Person Assistance Scooting Scooting to Edge of Bed Standby Assistance Scooting Up and Down in Bed Minimal Assistance OT-Transfer Assessment Sit to and From Stand Sit to and from Stand Contact Guard Assistance 1 Person Assistance Transfers Transfer Ability Contact Guard Assistance 1 Person Assistance Technique Transfer Destination Bed Chair Transfer Technique Stand Step Pivot Devices Transfer Assistive Devices Gait Belt Front Wheeled Walker Comments Mobility Comments Pt needs mod verbal cues for log rolling and body mechanics for sit to stand, stand to sit. Mildly impulsive. OT- Gait Assessment Gait Gait Assistance Required: Contact Guard Assist Distance (Feet) 4 Assistive Devices Assistive Device Gait Belt Front Wheeled Walker Comments Gait Ability Comments Pt walke to chair and back to bed during linen change. OT- Balance Assessment Sitting Balance and Reactions Static Sitting Balance Ability Good Dynamic Sitting Balance Ability Good Standing Balance and Reactions Static Standing Balance Ability Good Dynamic Standing Balance Ability Fair M8 OT- IP Objective Assessments Start: 02/22/19 14:21 Freq: Status: Active Protocol: Document 02/22/19 14:14 PJM (Rec: 02/22/19 14:41 [facility] [email or web address]) OT Gross Range of Motion Upper Extremity Range of Motion Assessment Within Functional Limits OT Strength Upper Extremity Strength Assessment Within Functional Limits OT- Coordination Assessment Comments Coordination Comments BUE WNL OT-Muscle Tone Assessment Muscle Tone WNL Yes OT Sensation Assessment Comments Summary Comments Pt denies sensory deficits in either UE. Edema Edema Absent M9 OT- IP Assessment and Plan Start: 02/22/19 14:21 Freq: Status: Active Protocol: Document 02/22/19 14:14 PJM (Rec: 02/22/19 14:41 [facility] [email or web address]) OT Summary Assessment and Plan Potential Rehabilitation Potential Good Analytic Complexity at Evaluation Low Summary OT Impairments Pain Balance Functional Mobility Grooming Dressing Toileting Bathing Toilet Transfers Shower Transfers Assessment Summary Low complexity OT assessment completed with emphasis on lumbar spine precautions. Began education re: log rolling, body mechanics, and adapted ADL techniques. Pt currently has performance deficits in all functional mobility/transfers, standing grooming, dressing, bathing and toileting. Pt reports 8/10 pain with high doses of pain meds given today per RN, but no guarding noted. Pt moves quickly/impulsively at times. Pt will benefit from 1-2 additional OT visits to address the goals below. Anticipate pt will d/c home where he has 24 hr assist from his parents when medically stable and clears P.T. Goals Grooming Goal Independent Moderate Assistance Dressing Goal Independent Retail Parts Professional Sock Aid Toileting Goal Independent Toilet Paper Aid Bathing Goal Standby Assistance Grab Bars Hand Held Shower Sprayer Long Handled Sponge or [place] Toilet Transfer Goal Independent Raised Toilet Seat With Rails Shower Transfer Goal Standby Assistance Walk-in Shower Shower Chair Grab Bars Patient/Caregiver Education Goal Demonstrate Post-Op Precautions Demonstrate Energy Conservation and Pacing Caregiver Independent Assisting Patient OT-Other Goals Grooming to be done standing at sink with good body mechanics and safety awareness. Days to Meet Goals 2 Frequency of Treatment Frequency Of Treatment Once a Day Treatment Plan OT Treatment Plan ADL Training Functional Mobility Patient/Family Education Discharge Planning Discharge Recommendations OT Discharge Recommendations Home with Assistance Home Equipment Needs ? toilet paper aid
--- NOTE | 2019-02-22 15:38 | PT.IPTN ---
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 fusion & bone graft - Juan Diego Blair MD Physical Therapy Treatment Note M2 PT-IP Current Condition Start: 02/21/19 16:54 Freq: NEEDED Status: Active Protocol: Document 02/21/19 15:40 AB (Rec: 02/21/19 17:24 AB [id number]) Physical Therapy Current Condition Current Condition Evaluation Date 02/21/19 Treatment Diagnosis s/p L5S1 TLIF/lami; difficulties in walking Onset Date 02/21/19 Precautions Lumbar Precautions Log Roll No Twisting Limit Bending Lifting Restriction of 10 lbs Gait Belt above Incisional Area M3 PT-IP Subjective Start: 02/21/19 16:54 Freq: NEEDED Status: Active Protocol: Document 02/22/19 15:36 LJ (Rec: 02/22/19 15:38 LJ [id number]) Subjective Physical Therapy Visit Type Type Patient Refusal Physical Therapy Visit Comments Patient Comments Pt in bed lying on his side. States he is in too much pain to move. M4 PT-IP Mobility and Gait Start: 02/21/19 16:54 Freq: NEEDED Status: Active Protocol: Document 02/22/19 11:40 SA (Rec: 02/22/19 11:47 SA [email or web address]) PT-Bed Mobility Assessment Rolling Type of Rolling Log Rolling Roll to Right Level of Assist Contact Guard Assistance 1 Person Assistance Supine to Sit Supine to Sit Contact Guard Assistance Bedrails Sit to Supine Sit to Supine Contact Guard Assistance Bedrails Scooting Scooting to Edge of Bed Contact Guard Assistance Scooting Up and Down in Bed Contact Guard Assistance PT-Transfer Assessment Sit to and From Stand Sit to and from Stand Contact Guard Assistance Equipment Transfer Assistive Device Gait Belt Front Wheeled Walker Orthotic/Prosthetic Devices or Brace: No Transfers Transfer Destination Bed Transfer Technique Stand Step Pivot Transfer Ability Level of Assist Contact Guard Assistance Comments Mobility Comments Pt CGA with bed mobility and transfers, verbal and visual review of spinal precautions, able to perfrom log roll technique in/out of bed with CGA. Gait Assessment Gait Gait Assistance Required: Contact Guard Assist Distance (Feet) 85 Able to Maintain Weight Bearing Status Yes During Gait Assistive Devices Assistive Device Gait Belt Front Wheeled Walker Orthotic/Prosthetic Devices or Brace: Yes Gait Deviations General Gait Pattern Antalgic Decreased Stride Length Decreased Feet Clearance Narrow Based Gait Factors Limiting Gait Function Factors Limiting Gait Function Decreased Activity Tolerance Decreased Strength Limited Range of Motion Pain Poor Balance Comments Gait Comments Gait training in room/halls with FWW and CGA, Pt stiff and guarded with movement and pain is most limiting factor. Stair Climbing Assessment Comments Stair Climbing Comments Plan to attempt this afternoon . PT-Balance Assessment Sitting Balance and Reactions Static Sitting Balance Ability Good Dynamic Sitting Balance Ability Good M5 PT-IP Objective Assessments Start: 02/21/19 16:54 Freq: NEEDED Status: Active Protocol: Document 02/21/19 15:40 AB (Rec: 02/21/19 17:24 AB [id number]) Orientation Orientation/Cognition Level of Alertness Alert Orientation Name Age Birthday Place Situation Language Function Ability No Deficits Noted Safety Awareness Understands Safety Issues Memory Description No Deficits Noted Gross Range of Motion Lower Extremity ROM Assessment Within Functional Limits Strength Lower Extremity Strength Assessment Within Functional Limits Coordination Assessment Gross Coordination Gross Coordination WNL Sensation Assessment Sensation Gross Sensation WNL Muscle Tone Muscle Tone WNL Yes M6 PT-IP Treatment Start: 02/21/19 16:54 Freq: NEEDED Status: Active Protocol: Document 02/22/19 11:40 SA (Rec: 02/22/19 11:47 SA [email or web address]) Physical Therapy Treatment Exercises Exercises Ankle Pumps Gluteal Sets Education Education Provided Precautions Post-Op Packet Safety M7 PT-IP Assessment and Plan Start: 02/21/19 16:54 Freq: NEEDED Status: Active Protocol: Document 02/22/19 11:40 SA (Rec: 02/22/19 11:47 [email or web address]) PT Summary Assessment and Plan Potential Rehabilitation Potential Good Status of Condition at Evaluation Stable Summary Assessment Summary Pt to attempt stairs this afternoon hopefully with better pain control. CGA with all mobility tasks and pt unerstands spinal precautions. Frequency of Treatment Frequency Of Treatment Twice a Day Recommendations To Nursing Amount of Assist Needed 1 Person Assist Discharge Recommendations PT Discharge Recommendations Home with Assistance
[2019-02-22] MEDS: QUETIAPINE 100 MG TABLET 150 MG PO (16:21)
[2019-02-22] MEDS: RAMIPRIL 5 MG CAPSULE PO (16:21)
[2019-02-22] MEDS: ATORVASTATIN 20 MG TABLET 80 MG PO (21:14)
[2019-02-22] MEDS: SENNOSIDES 8.6 MG TABLET 17.2 MG PO (21:15)
[2019-02-22] MEDS: GABAPENTIN 300 MG CAPSULE PO (21:15)
[2019-02-22] MEDS: CARVEDILOL 12.5 MG TABLET PO (21:16)
[2019-02-23] MEDS: hydrOXYzine pamoate 25 MG CAPSULE PO (00:16)
[2019-02-23] MEDS: OXYCODONE IR 5 MG TABLET 10 MG PO (00:16)
[2019-02-23] MEDS: HYDROMORPHONE 0.5 MG INJ IV ×2 (01:37→05:54)
[2019-02-23 05:50] VITALS: BP 125/75; PULSE 77; RESP 15; TEMP 36.7; O2SAT 97
--- NOTE | 2019-02-23 07:50 | P.PN_ITS ---
Subjective Date Patient Seen: 02/23/19 Time Patient Seen: 07:48 Interval history: He is having significant issues with pain control. Pain sits at a constant 8/10 with burning and spasms across the back and burning down the back of both legs. Exam Vital Signs (past 8 hours): - 02/23/19 05:50 Temperature 98.0 F Pulse Rate 77 Respiratory Rate 15 Blood Pressure 125/75 Pulse Oximetry 97 Oxygen Delivery Method Room Air Oxygen Flow Rate 0 Const Orientation: alert and oriented x3 Back/Spine/Pelvis Other: CDI. 5/5 motor both lower extremities. Easily rolls over in bed. Objective Labs Result Diagrams: 02/22/19 05:04 02/22/19 05:04 Assessment & Plan Post-op Postoperative Procedures Operation Date: 02/21/19 07:45 Actual Procedures Side Surgeon p L5-S1 Laminectomy w/Instru. fusion & bone graft Juan Diego Blair MD He is having significant issues with pain control. We discussed that IV medication is not really a functional option at this point because it does not last very long. He is not getting adequate enough relief with the oxycodone. I am going to switch him over to oral Dilaudid as he responds very well to IV Dilaudid. I am also going to add some Valium for the spasm. I am going to give him a dose of Decadron to try to cut down on some of the burning and overall inflammation. I will make sure he is covered with insulin for his diabetes. He is concerned about his ability to manage this when he goes home and having depend on his elderly parents. He is interested in looking into nursing home and we will look into this option. Quality VTE Deep Vein Thrombosis/Pulmonary Embolism Present on Admission: No
[2019-02-23] MEDS: DEXAMETHASONE 10 MG/ML VIAL IV (07:57)
[2019-02-23] MEDS: METFORMIN HCL 500 MG TABLET PO ×2 (07:57→20:43)
[2019-02-23] MEDS: DOCUSATE 100 MG CAPSULE PO ×2 (07:58→20:43)
[2019-02-23] MEDS: ACETAMINOPHEN 325 MG TABLET 650 MG PO (07:58)
[2019-02-23] MEDS: GABAPENTIN 300 MG CAPSULE 900 MG PO ×3 (07:58→20:41)
[2019-02-23 08:00] VITALS: BP 117/72; PULSE 78; RESP 18; TEMP 36.6; O2SAT 95
[2019-02-23] MEDS: HYDROMORPHONE 4 MG TABLET PO (08:06)
[2019-02-23] MEDS: CELECOXIB 200 MG CAPSULE PO ×2 (08:12→20:42)
[2019-02-23] MEDS: CARVEDILOL 12.5 MG TABLET PO ×2 (09:56→20:42)
[2019-02-23] MEDS: ASPIRIN EC 81 MG TABLET PO (09:56)
[2019-02-23] MEDS: SERTRALINE 50 MG TABLET 200 MG PO (09:57)
--- NOTE | 2019-02-23 10:14 | CM.DPC ---
DCP Cont: Faxed referral for review to [facility] at fax # [phone]. Fax confirmation scanned in. Isamar Huntley, Ernesto Shingle Carrier
--- NOTE | 2019-02-23 11:14 | OT.IP.TRT ---
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 fusion & bone graft - Juan Diego Blair MD Occupational Therapy Treatment Note M2 OT-IP Current Condition Start: 02/22/19 14:21 Freq: Status: Active Protocol: Document 02/22/19 14:14 PJM (Rec: 02/22/19 14:41 PJM [id number]) Occupational Therapy Current Condition Current Condition Evaluation Date 02/22/19 Treatment Diagnosis decreased self care, mobility s/p L5-S1 lami/TLIF Diagnosis Onset Date 02/21/19 Post Operative Precautions Lumbar Precautions Log Roll No Twisting Limit Bending Lifting Restriction of 10 lbs Gait Belt above Incisional Area M3 OT- IP Subjective and Pain Start: 02/22/19 14:21 Freq: Status: Active Protocol: Document 02/23/19 11:14 PJM (Rec: 02/23/19 13:26 PJM [id number]) OT- Subjective Occupational Therapy Visit Type Type Treatment Note Visit Start Time 10:50 Visit Stop Time 11:14 Total Visit Minutes 24 Notes Pt agreeable to getting out of bed with encouragement. Occupational Therapy Visit Comments Patient Comments The pain is better today. OT Pain Assessment Pain When Pain Assessed After Treatment Pain Present Pain Present Pain Reported Location Back Intensity 6 Scale Used Numeric (1 - 10) Description Aching Acute M4 OT- IP ADL's Start: 02/22/19 14:21 Freq: Status: Active Protocol: Document 02/23/19 11:14 PJM (Rec: 02/23/19 13:26 PJ [id number]) OT [id number] General Evaluation Self-Feeding Ability Independent OT ADL-Grooming General Evaluation Grooming Ability Standby Assistance Comments OT Grooming Comments standing 4-5 min at sink after education re: body mechanics, no loss of balance noted OT ADL-Oral Care General Eval Oral Care Ability Standby Assistance Comments Oral Care Comments standing 4-5 min at sink after education re: body mechanics, no loss of balance noted OT ADL-Dressing General Eval Lower Body Dressing Ability Independent Areas Needing Assistance Socks Assistive Devices Dressing Assistive Devices Sock Aid Comments OT Dressing Comments seated EOB OT ADL-Toileting General Evaluation Toileting Ability Independent Comments OT Toileting Comments standing to urinate with FWW, no loss of balance OT ADL-Bathing Comments OT Bathing Comments [employer] to set pt up with sponge bath after pt's visitors leave M5 OT- IP IADL's Start: 02/22/19 14:21 Freq: Status: Active Protocol: Document 02/22/19 14:14 PJM (Rec: 02/22/19 14:41 PJ [id number]) OT-Instrumental Activities of Daily Living Deficits IADL Deficits Identified Deficits Home Safety Awareness Awareness of Need for Assistance at Home Good Awareness Ability to Problem Solve Emergency Able to Problem Solve Situations Medication Management Medication Management No Deficits Identified Money Management Money Management No Deficits Identified Meal Preparation Meal Preparation Caregiver Provides Assist Meal Preparation Comments father normally does all cooking Tail Board Man Tail Board Man Comments father normally does all urban design consultant Driving Driving Caregiver Provides Assist Driving Comments family to assist until pt able M6 OT- IP Functional Cognition Start: 02/22/19 14:21 Freq: Status: Active Protocol: Document 02/23/19 11:14 PJM (Rec: 02/23/19 13:26 PJ [email or web address]) Cognitive Factors Limiting Selfcare Function Cognitive Comments Cognitive Assessment Comments Pt recalls 3/3 lumbar spine precautions and needs min cues to apply them during functional tasks. M7 OT- IP Mobility and Balance Start: 02/22/19 14:21 Freq: Status: Active Protocol: Document 02/23/19 11:14 PJM (Rec: 02/23/19 13:26 [facility] [email or web address]) OT- Bed Mobility Assessment Rolling Type of Rolling Roll to Right Level of Assistance Standby Assistance Supine to Sit Supine to Sit Assist Standby Assistance Scooting Scooting to Edge of Bed Standby Assistance OT-Transfer Assessment Sit to and From Stand Sit to and from Stand Contact Guard Assistance 1 Person Assistance Transfers Transfer Ability Standby Assistance 1 Person Assistance Technique Transfer Destination Chair Transfer Technique Stand Step Pivot Devices Transfer Assistive Devices Gait Belt Front Wheeled Walker Comments Mobility Comments Pt need min verbal cues for hand placement on FWW and sit to stand, stand to sit technique OT- Gait Assessment Gait Gait Assistance Required: Standby Assistance Distance (Feet) 25 Assistive Devices Assistive Device Gait Belt Front Wheeled Walker OT- Balance Assessment Sitting Balance and Reactions Static Sitting Balance Ability Good Dynamic Sitting Balance Ability Good Standing Balance and Reactions Static Standing Balance Ability Good Dynamic Standing Balance Ability Good Comments Other Balance Tests/Deviations/Treatment with FWW : M8 OT- IP Objective Assessments Start: 02/22/19 14:21 Freq: Status: Active Protocol: Document 02/22/19 14:14 PJM (Rec: 02/22/19 14:41 PJM [id number]) OT Gross Range of Motion Upper Extremity Range of Motion Assessment Within Functional Limits OT Strength Upper Extremity Strength Assessment Within Functional Limits OT- Coordination Assessment Comments Coordination Comments BUE WNL OT-Muscle Tone Assessment Muscle Tone WNL Yes OT Sensation Assessment Comments Summary Comments Pt denies sensory deficits in either UE. Edema Edema Absent M9 OT- IP Assessment and Plan Start: 02/22/19 14:21 Freq: Status: Active Protocol: Document 02/23/19 11:14 PJM (Rec: 02/23/19 13:26 PJM [email or web address]) OT Summary Assessment and Plan Potential Rehabilitation Potential Good Summary OT Impairments Pain Dressing Bathing Shower Transfers Progress Towards Goals Progressing Toward Goals Assessment Summary Pt demonstrating better pain control today after change in medications per RN. He needs encouragement to increase activity level and underestimates his own abilities. Pt doing well with bed mobility from flat bed without rails as per home set up. He is CGA to close SBA for mobility with FWW. Pt will benefit from 1-2 additional OT sessions for further training re: lower body dressing and showering with adaptive equipment. Recommend pt d/c home when medically stable and clears P.T. He will have assist from his father PRN. Goals Days to Meet Goals 2 Frequency of Treatment Frequency Of Treatment Once a Day Treatment Plan OT Treatment Plan ADL Training Functional Mobility Patient/Family Education Discharge Planning Discharge Recommendations OT Discharge Recommendations Home with Assistance
[2019-02-23] MEDS: HYDROMORPHONE 2 MG TABLET 4 MG PO ×4 (11:17→20:41)
[2019-02-23 12:00] VITALS: BP 110/69; PULSE 81; RESP 18; TEMP 36.6; O2SAT 96
[2019-02-23] MEDS: INSULIN ASPART 100 UNIT/ML INSULN PEN SUBCUT ×2 (12:04→17:17)
--- NOTE | 2019-02-23 12:10 | CM.DPC ---
Addendum entered by Ashley Shultz R.N. 02/23/19 12:52: Spoke to Breana at [facility]. She will start authorization process through [facility], and then, [facility]. She stated that she needs to get both authorizations in case he has a co-payment, and she stated it can take a couple of days, but will let us know tomorrow. She will accept patient. Original Note: DCP Cont: Spoke to Dr. Blair this am. He stated patient is requesting to go to skilled due to his increased pain, and need for more rehab. He mentioned that patient has not progressed as much as he should be, and that he continues to ask for pain medication. He understands that he may not qualify for skilled due to his insurance. Let Dr. Blair know that this director of casework services would follow up. Spoke to patient. He stated that he feels that he needs skilled rehab because his home is not set up for him post surgery. He also confirmed that he lives with his parents. Asked him which facilities he would want to go to. He chose [facility] as first choice, but asked him to make a second choice, in case they are full, and in case they do not take his insurance. Patient gave second choice of [facility]. Called Ciara at [facility], and she stated that they do not take out of state [employer], [facility], for they are based out of [place]. Confirmed with patient that he still has this insurance. Sent referral to [facility]. Arianne is reviewing. She stated that they do take out of state [facility] P: DCP to continue to follow. Continue to follow up with [facility] for placement. Ashley Shultz RN/Textiles Sales Representative
[2019-02-23] MEDS: diazePAM 5 MG TABLET PO ×2 (12:11→18:17)
--- NOTE | 2019-02-23 13:51 | PT.IPTN ---
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 fusion & bone graft - Juan Diego Blair MD Physical Therapy Treatment Note M2 PT-IP Current Condition Start: 02/21/19 16:54 Freq: NEEDED Status: Active Protocol: Document 02/21/19 15:40 AB (Rec: 02/21/19 17:24 AB [id number]) Physical Therapy Current Condition Current Condition Evaluation Date 02/21/19 Treatment Diagnosis s/p L5S1 TLIF/lami; difficulties in walking Onset Date 02/21/19 Precautions Lumbar Precautions Log Roll No Twisting Limit Bending Lifting Restriction of 10 lbs Gait Belt above Incisional Area M3 PT-IP Subjective Start: 02/21/19 16:54 Freq: NEEDED Status: Active Protocol: Document 02/23/19 13:46 SA (Rec: 02/23/19 13:51 SA [id number]) Subjective Physical Therapy Visit Type Type Treatment Note Visit Start Time 11:40 Visit Stop Time 12:00 Total Visit Minutes 20 Number of STEREO OPERATOR Visits 2 Physical Therapy Visit Comments Patient Comments Pt up in chair, agreeable to PT. Therapy Pain Assessment Pain When Pain Assessed During Mobility Pain Present Pain Present Pain Reported Location Back Intensity 5 Scale Used Numeric (1 - 10) Pain Management Techniques Apply Cold Re-positioning Timing of Activity with Medications M4 PT-IP Mobility and Gait Start: 02/21/19 16:54 Freq: NEEDED Status: Active Protocol: Document 02/23/19 13:46 SA (Rec: 02/23/19 13:51 SA [id number]) PT-Transfer Assessment Sit to and From Stand Sit to and from Stand Standby Assistance Equipment Transfer Assistive Device Gait Belt Front Wheeled Walker Orthotic/Prosthetic Devices or Brace: No Transfers Transfer Destination Chair Transfer Technique Stand Step Pivot Transfer Ability Level of Assist Standby Assistance Comments Mobility Comments Pt SBA with transfers, verbal review of log roll technique, pt able to recite spinal precautions. Gait Assessment Gait Gait Assistance Required: Standby Assistance Contact Guard Assist 1 Person Assist Distance (Feet) 210 Able to Maintain Weight Bearing Status Yes During Gait Assistive Devices Assistive Device Gait Belt Front Wheeled Walker Orthotic/Prosthetic Devices or Brace: Yes Gait Deviations General Gait Pattern Antalgic Decreased Stride Length Decreased Feet Clearance Narrow Based Gait Factors Limiting Gait Function Factors Limiting Gait Function Decreased Activity Tolerance Decreased Strength Limited Range of Motion Pain Poor Balance Comments Gait Comments Improved tolerance of gait with increased distance, shortened step length. M5 PT-IP Objective Assessments Start: 02/21/19 16:54 Freq: NEEDED Status: Active Protocol: Document 02/21/19 15:40 AB (Rec: 02/21/19 17:24 AB [id number]) Orientation Orientation/Cognition Level of Alertness Alert Orientation Name Age Birthday Place Situation Language Function Ability No Deficits Noted Safety Awareness Understands Safety Issues Memory Description No Deficits Noted Gross Range of Motion Lower Extremity ROM Assessment Within Functional Limits Strength Lower Extremity Strength Assessment Within Functional Limits Coordination Assessment Gross Coordination Gross Coordination WNL Sensation Assessment Sensation Gross Sensation WNL Muscle Tone Muscle Tone WNL Yes M6 PT-IP Treatment Start: 02/21/19 16:54 Freq: NEEDED Status: Active Protocol: Document 02/23/19 13:46 SA (Rec: 02/23/19 13:51 SA [id number]) Physical Therapy Treatment Exercises Exercises Ankle Pumps Gluteal Sets Education Education Provided Precautions Post-Op Packet Safety M7 PT-IP Assessment and Plan Start: 02/21/19 16:54 Freq: NEEDED Status: Active Protocol: Document 02/23/19 13:46 SA (Rec: 02/23/19 13:51 SA [id number]) PT Summary Assessment and Plan Potential Rehabilitation Potential Good Status of Condition at Evaluation Stable Summary Assessment Summary Pt very pain focused but reports decreased pain levels this AM, declined attempting stairs this AM, will address this afternoon. Frequency of Treatment Frequency Of Treatment Twice a Day Recommendations To Nursing Amount of Assist Needed 1 Person Assist Discharge Recommendations PT Discharge Recommendations Home with Assistance
--- NOTE | 2019-02-23 13:52 | PC.NURSE ---
AM NOTE - req pain medication during bedside shift report, states back discomfort 8 on scale 0/10, per pt, oxycodone not providing good relief, Dr. Blair in and pain medications will be changed can I have some right now, started with iv dose steroid, with breakfast given 4mg po dilaudid, ice pack to back, dsg cdi, ra 96%, bs coarse, later am states the dilaudid much more effective and pain is 6-7 on scale 0/10, able to work with occup therapy, to chair, given 4mg oxycodone after mobilization and then after lunch pt req valium and given 5mg po, ret to bed.
--- NOTE | 2019-02-23 15:29 | PT.IPTN ---
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 fusion & bone graft - Juan Diego Blair MD Physical Therapy Treatment Note M2 PT-IP Current Condition Start: 02/21/19 16:54 Freq: NEEDED Status: Active Protocol: Document 02/21/19 15:40 AB (Rec: 02/21/19 17:24 AB [id number]) Physical Therapy Current Condition Current Condition Evaluation Date 02/21/19 Treatment Diagnosis s/p L5S1 TLIF/lami; difficulties in walking Onset Date 02/21/19 Precautions Lumbar Precautions Log Roll No Twisting Limit Bending Lifting Restriction of 10 lbs Gait Belt above Incisional Area M3 PT-IP Subjective Start: 02/21/19 16:54 Freq: NEEDED Status: Active Protocol: Document 02/23/19 15:17 SA (Rec: 02/23/19 15:29 SA [email or web address]) Subjective Physical Therapy Visit Type Type Treatment Note Visit Start Time 14:50 Visit Stop Time 15:16 Total Visit Minutes 26 Number of FULL STACK SOFTWARE DEVELOPER Visits 3 Physical Therapy Visit Comments Patient Comments Pt in bed, agreeable to PT. Therapy Pain Assessment Pain When Pain Assessed During Mobility Pain Present Pain Present Pain Reported Location Back Intensity 5 Scale Used Numeric (1 - 10) Pain Management Techniques Apply Cold Re-positioning Timing of Activity with Medications M4 PT-IP Mobility and Gait Start: 02/21/19 16:54 Freq: NEEDED Status: Active Protocol: Document 02/23/19 15:17 SA (Rec: 02/23/19 15:29 SA [email or web address]) PT-Bed Mobility Assessment Rolling Type of Rolling Log Rolling Roll to Right Level of Assist Standby Assistance Supine to Sit Supine to Sit Standby Assistance Sit to Supine Sit to Supine Standby Assistance Scooting Scooting to Edge of Bed Standby Assistance Scooting Up and Down in Bed Standby Assistance PT-Transfer Assessment Sit to and From Stand Sit to and from Stand Standby Assistance Equipment Transfer Assistive Device Gait Belt Front Wheeled Walker Orthotic/Prosthetic Devices or Brace: No Transfers Transfer Destination Bed Transfer Technique Stand Step Pivot Transfer Ability Level of Assist Standby Assistance Comments Mobility Comments Bed mobility training, pt able to perform log roll technique in/out of bed without use of rail and SBA, min cues for safe technique. SBA with transfers. Gait Assessment Gait Gait Assistance Required: Standby Assistance 1 Person Assist Distance (Feet) 210 Able to Maintain Weight Bearing Status Yes During Gait Assistive Devices Assistive Device Gait Belt Front Wheeled Walker Orthotic/Prosthetic Devices or Brace: Yes Gait Deviations General Gait Pattern Antalgic Decreased Stride Length Narrow Based Gait Factors Limiting Gait Function Factors Limiting Gait Function Decreased Activity Tolerance Decreased Strength Pain Comments Gait Comments Pt with increased step length and decreasing WBing through UEs. Stair Climbing Assessment Evaluation Level of Assist On Stairs Contact Guard Assistance Devices Stair Climbing Assistive Devices Left Railing Right Railing Technique/Endurance Stair Climbing Direction Ascend and Descend Stair Climbing Technique Step to Step Number of Steps Climbed 3 Query Text: Stair Climbing Set # Repetitions (reps) 2 Comments Stair Climbing Comments Pt with SBA-CGA on stairs and min cues for technique, use of B rails with Step to gait pattern. M5 PT-IP Objective Assessments Start: 02/21/19 16:54 Freq: NEEDED Status: Active Protocol: Document 02/21/19 15:40 AB (Rec: 02/21/19 17:24 AB [id number]) Orientation Orientation/Cognition Level of Alertness Alert Orientation Name Age Birthday Place Situation Language Function Ability No Deficits Noted Safety Awareness Understands Safety Issues Memory Description No Deficits Noted Gross Range of Motion Lower Extremity ROM Assessment Within Functional Limits Strength Lower Extremity Strength Assessment Within Functional Limits Coordination Assessment Gross Coordination Gross Coordination WNL Sensation Assessment Sensation Gross Sensation WNL Muscle Tone Muscle Tone WNL Yes M6 PT-IP Treatment Start: 02/21/19 16:54 Freq: NEEDED Status: Active Protocol: Document 02/23/19 15:17 SA (Rec: 02/23/19 15:29 SA [email or web address]) Physical Therapy Treatment Exercises Exercises Ankle Pumps Gluteal Sets Education Education Provided Precautions Post-Op Packet Safety M7 PT-IP Assessment and Plan Start: 02/21/19 16:54 Freq: NEEDED Status: Active Protocol: Document 02/23/19 15:17 SA (Rec: 02/23/19 15:29 SA [email or web address]) PT Summary Assessment and Plan Potential Rehabilitation Potential Good Summary Assessment Summary Pt states he may go to Rehab facility prior to d/c home for strengthening. Explained to patient that he does not need strengthening program yet and needs to focus on gait and maintaining spinal precautions . Pt has progressed with functional mobility, can manage stairs, toileting and bed mobility safely. Anticipate d/c home tomorrow. Frequency of Treatment Frequency Of Treatment Twice a Day Recommendations To Nursing Amount of Assist Needed 1 Person Assist Discharge Recommendations PT Discharge Recommendations Home with Assistance Equipment Needed for Home Before Pt has FWW Discharge
[2019-02-23 16:00] VITALS: BP 118/75; PULSE 81; RESP 18; TEMP 36.1; O2SAT 94
[2019-02-23] MEDS: RAMIPRIL 5 MG CAPSULE PO (17:16)
[2019-02-23] MEDS: QUETIAPINE 100 MG TABLET 150 MG PO (17:17)
[2019-02-23 19:57] VITALS: BP 124/80; PULSE 87; RESP 18; TEMP 36.1
[2019-02-23] MEDS: GABAPENTIN 300 MG CAPSULE PO (20:41)
[2019-02-23] MEDS: SENNOSIDES 8.6 MG TABLET 17.2 MG PO (20:41)
[2019-02-23] MEDS: ATORVASTATIN 20 MG TABLET 80 MG PO (20:42)
[2019-02-23] MEDS: AMLODIPINE 5 MG TABLET PO (20:43)
[2019-02-24] VITALS (9 sets, daily range): BP systolic 108–143; BP diastolic 67–89; PULSE 67–82; RESP 14–16; TEMP 36–36.7; O2SAT 91–97
[2019-02-24] MEDS: HYDROMORPHONE 2 MG TABLET 4 MG PO ×6 (01:16→21:45)
--- NOTE | 2019-02-24 07:45 | P.PN_ITS ---
Subjective Date Patient Seen: 02/24/19 Time Patient Seen: 07:43 Interval history: Pain is much better on the new medications. 5/10. No more leg burning. Still requiring assist with mobility. Exam Vital Signs (past 8 hours): - 02/24/19 02:59 02/24/19 06:20 Temperature 97.2 F L 97.6 F Pulse Rate 82 72 Respiratory Rate 16 16 Blood Pressure 121/69 128/77 Pulse Oximetry 91 93 Oxygen Delivery Method Room Air Oxygen Flow Rate 0 Const Orientation: alert and oriented x3 Back/Spine/Pelvis Other: CDI. 5/5 motor both lower extremities. Objective Labs Result Diagrams: 02/22/19 05:04 02/22/19 05:04 Assessment & Plan Post-op Postoperative Procedures Operation Date: 02/21/19 07:45 Actual Procedures Side Surgeon p L5-S1 Laminectomy w/Instru. fusion & bone graft Juan Diego Blair MD He is doing much better on his current medication regimen. His glucose levels have gone up with the IV steroids but are now started to come back down. tentative plan is to discharge to detention. Quality VTE Deep Vein Thrombosis/Pulmonary Embolism Present on Admission: No
[2019-02-24] MEDS: DOCUSATE 100 MG CAPSULE PO ×2 (08:10→20:53)
[2019-02-24] MEDS: diazePAM 5 MG TABLET PO (08:10)
[2019-02-24] MEDS: METFORMIN HCL 500 MG TABLET PO ×2 (08:11→20:50)
[2019-02-24] MEDS: CELECOXIB 200 MG CAPSULE PO ×2 (08:11→20:52)
[2019-02-24] MEDS: GABAPENTIN 300 MG CAPSULE 900 MG PO ×3 (08:11→20:53)
[2019-02-24] MEDS: SERTRALINE 50 MG TABLET 200 MG PO (08:12)
[2019-02-24] MEDS: CARVEDILOL 12.5 MG TABLET PO ×2 (08:12→20:52)
[2019-02-24] MEDS: ASPIRIN EC 81 MG TABLET PO (08:12)
[2019-02-24] MEDS: INSULIN ASPART 100 UNIT/ML INSULN PEN SUBCUT ×2 (08:12→11:57)
--- NOTE | 2019-02-24 08:57 | CM.DPNOTE ---
Addendum entered by Merary Cardoso LPN 02/24/19 09:12: [facility] is updated and will release the referral. Original Note: DCP: continued. Case received, EMR reviewed, discussed case with ortho ALBERTO Morataya and Dr. Blair and then met with pt. Introduced self and role. Went over the therapy recommendations for home. The notes do not support snf need. Pt very agreeable to same. Dr. Blair did say that pt would benefit from HH RN/OT/PT as pt feeling the need for this level of support. Pt agrees. Agency list: discussed: decision: [facility] is insurance is confirmed. Referral: [facility]. She will check into this but does not expect a problem. Pt says he is pleased that he can work again today with therapists and that his father will be picking him up tomorrow. P: Home with [facility] as per Dr. Blair's direction.
--- NOTE | 2019-02-24 09:29 | PT.IPTN ---
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 fusion & bone graft - Juan Diego Blair MD Physical Therapy Treatment Note M2 PT-IP Current Condition Start: 02/21/19 16:54 Freq: NEEDED Status: Active Protocol: Document 02/21/19 15:40 AB (Rec: 02/21/19 17:24 AB [id number]) Physical Therapy Current Condition Current Condition Evaluation Date 02/21/19 Treatment Diagnosis s/p L5S1 TLIF/lami; difficulties in walking Onset Date 02/21/19 Precautions Lumbar Precautions Log Roll No Twisting Limit Bending Lifting Restriction of 10 lbs Gait Belt above Incisional Area M3 PT-IP Subjective Start: 02/21/19 16:54 Freq: NEEDED Status: Active Protocol: Document 02/24/19 08:56 LJ (Rec: 02/24/19 09:29 LJ [email or web address]) Subjective Physical Therapy Visit Type Type Treatment Note Visit Start Time 08:56 Visit Stop Time 09:20 Total Visit Minutes 24 Number of DIGITAL PUBLISHING SPECIALIST Visits 4 Physical Therapy Visit Comments Patient Comments Pt in bed, agreeable to PT. Therapy Pain Assessment Pain When Pain Assessed During Mobility Pain Present Pain Present Pain Reported M4 PT-IP Mobility and Gait Start: 02/21/19 16:54 Freq: NEEDED Status: Active Protocol: Document 02/24/19 08:56 LJ (Rec: 02/24/19 09:29 LJ [email or web address]) PT-Bed Mobility Assessment Rolling Type of Rolling Log Rolling Roll to Right Level of Assist Standby Assistance Supine to Sit Supine to Sit Standby Assistance Sit to Supine Sit to Supine Standby Assistance Scooting Scooting to Edge of Bed Standby Assistance Scooting Up and Down in Bed Standby Assistance PT-Transfer Assessment Sit to and From Stand Sit to and from Stand Standby Assistance Equipment Transfer Assistive Device Gait Belt Front Wheeled Walker Transfers Transfer Destination Chair Comments Mobility Comments Pt able to perform logroll, scooting, and sit<>stand with adherance to precautions. Gait Assessment Gait Gait Assistance Required: Standby Assistance 1 Person Assist Distance (Feet) 250 Able to Maintain Weight Bearing Status Yes During Gait Assistive Devices Assistive Device Gait Belt Front Wheeled Walker Orthotic/Prosthetic Devices or Brace: Yes Gait Deviations General Gait Pattern Antalgic Decreased Stride Length Narrow Based Gait Factors Limiting Gait Function Factors Limiting Gait Function Decreased Activity Tolerance Decreased Strength Pain Comments Gait Comments Pt without wt bearing through UEs. Cuing for wider gait to avoid kicking his ankles. Otherwise demonstrates better stability and gait pattern. Stair Climbing Assessment Evaluation Level of Assist On Stairs Standby Assistance Devices Stair Climbing Assistive Devices Left Railing Right Railing Technique/Endurance Stair Climbing Direction Ascend and Descend Stair Climbing Technique Step to Step Number of Steps Climbed 3 Query Text: Stair Climbing Set # Repetitions (reps) 2 Comments Stair Climbing Comments Pt with SBA on stairs. Use of B rails with Step-to gait pattern. M5 PT-IP Objective Assessments Start: 02/21/19 16:54 Freq: NEEDED Status: Active Protocol: Document 02/21/19 15:40 AB (Rec: 02/21/19 17:24 AB [id number]) Orientation Orientation/Cognition Level of Alertness Alert Orientation Name Age Birthday Place Situation Language Function Ability No Deficits Noted Safety Awareness Understands Safety Issues Memory Description No Deficits Noted Gross Range of Motion Lower Extremity ROM Assessment Within Functional Limits Strength Lower Extremity Strength Assessment Within Functional Limits Coordination Assessment Gross Coordination Gross Coordination WNL Sensation Assessment Sensation Gross Sensation WNL Muscle Tone Muscle Tone WNL Yes M6 PT-IP Treatment Start: 02/21/19 16:54 Freq: NEEDED Status: Active Protocol: Document 02/24/19 08:56 VIN (Rec: 02/24/19 09:29 LJ [email or web address]) Physical Therapy Treatment Exercises Exercises Gluteal Sets Education Education Provided Precautions Post-Op Packet Safety M7 PT-IP Assessment and Plan Start: 02/21/19 16:54 Freq: NEEDED Status: Active Protocol: Document 02/24/19 08:56 VIN (Rec: 02/24/19 09:29 LJ [email or web address]) PT Summary Assessment and Plan Potential Rehabilitation Potential Good Summary Assessment Summary Pt safe with slow ambulation and stair climbing. With assist at home and , pt is supported enough to return home. Follows precautions and is safely mobile. Frequency of Treatment Frequency Of Treatment Twice a Day Recommendations To Nursing Amount of Assist Needed 1 Person Assist Discharge Recommendations PT Discharge Recommendations Home with Assistance
--- NOTE | 2019-02-24 12:56 | PT.IPTN ---
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 fusion & bone graft - Juan Diego Blair MD Physical Therapy Treatment Note M2 PT-IP Current Condition Start: 02/21/19 16:54 Freq: NEEDED Status: Active Protocol: Document 02/21/19 15:40 AB (Rec: 02/21/19 17:24 AB [id number]) Physical Therapy Current Condition Current Condition Evaluation Date 02/21/19 Treatment Diagnosis s/p L5S1 TLIF/lami; difficulties in walking Onset Date 02/21/19 Precautions Lumbar Precautions Log Roll No Twisting Limit Bending Lifting Restriction of 10 lbs Gait Belt above Incisional Area M3 PT-IP Subjective Start: 02/21/19 16:54 Freq: NEEDED Status: Active Protocol: Document 02/24/19 12:51 SA (Rec: 02/24/19 12:56 SA [id number]) Subjective Physical Therapy Visit Type Type Treatment Note Visit Start Time 12:31 Visit Stop Time 12:52 Total Visit Minutes 21 Number of COW TESTER Visits 5 Physical Therapy Visit Comments Patient Comments Pt in bed, agreeable to PT. Therapy Pain Assessment Pain When Pain Assessed During Mobility Pain Present Pain Present Pain Reported Location Back Intensity 5 Scale Used Numeric (1 - 10) Pain Management Techniques Apply Cold Re-positioning Timing of Activity with Medications M4 PT-IP Mobility and Gait Start: 02/21/19 16:54 Freq: NEEDED Status: Active Protocol: Document 02/24/19 12:51 SA (Rec: 02/24/19 12:56 SA [id number]) PT-Bed Mobility Assessment Rolling Type of Rolling Log Rolling Roll to Right Level of Assist Standby Assistance Supine to Sit Supine to Sit Standby Assistance Sit to Supine Sit to Supine Standby Assistance Scooting Scooting to Edge of Bed Standby Assistance Scooting Up and Down in Bed Standby Assistance PT-Transfer Assessment Sit to and From Stand Sit to and from Stand Standby Assistance Equipment Transfer Assistive Device Gait Belt Front Wheeled Walker Transfers Transfer Destination Bed Transfer Technique Stand Step Pivot Transfer Ability Level of Assist Standby Assistance Comments Mobility Comments Pt SBA with mobility tasks, maintians spinal precautions well. Encouraged to increase ambualtion during day and walk to/from bathroom rather than using hand held urinal. Gait Assessment Gait Gait Assistance Required: Standby Assistance 1 Person Assist Distance (Feet) 250 Able to Maintain Weight Bearing Status Yes During Gait Assistive Devices Assistive Device Gait Belt Front Wheeled Walker Orthotic/Prosthetic Devices or Brace: Yes Gait Deviations General Gait Pattern Antalgic Decreased Stride Length Narrow Based Gait Factors Limiting Gait Function Factors Limiting Gait Function Decreased Activity Tolerance Decreased Strength Pain Comments Gait Comments Pt with increased step length and quality of gait. Stair Climbing Assessment Evaluation Level of Assist On Stairs Standby Assistance Devices Stair Climbing Assistive Devices Left Railing Right Railing Technique/Endurance Stair Climbing Direction Ascend and Descend Stair Climbing Technique Step Over Step Number of Steps Climbed 3 Query Text: Stair Climbing Set # Repetitions (reps) 3 Comments Stair Climbing Comments Pt progressed to step through gait pattern, SBA. M5 PT-IP Objective Assessments Start: 02/21/19 16:54 Freq: NEEDED Status: Active Protocol: Document 02/21/19 15:40 AB (Rec: 02/21/19 17:24 AB [id number]) Orientation Orientation/Cognition Level of Alertness Alert Orientation Name Age Birthday Place Situation Language Function Ability No Deficits Noted Safety Awareness Understands Safety Issues Memory Description No Deficits Noted Gross Range of Motion Lower Extremity ROM Assessment Within Functional Limits Strength Lower Extremity Strength Assessment Within Functional Limits Coordination Assessment Gross Coordination Gross Coordination WNL Sensation Assessment Sensation Gross Sensation WNL Muscle Tone Muscle Tone WNL Yes M6 PT-IP Treatment Start: 02/21/19 16:54 Freq: NEEDED Status: Active Protocol: Document 02/24/19 12:51 SA (Rec: 02/24/19 12:56 SA [id number]) Physical Therapy Treatment Exercises Exercises Ankle Pumps Gluteal Sets Education Education Provided Precautions Post-Op Packet Safety M7 PT-IP Assessment and Plan Start: 02/21/19 16:54 Freq: NEEDED Status: Active Protocol: Document 02/24/19 12:51 SA (Rec: 02/24/19 12:56 SA [id number]) PT Summary Assessment and Plan Potential Rehabilitation Potential Good Summary Assessment Summary Pt meeting functional mobility goals and ready for d/c home. Frequency of Treatment Frequency Of Treatment Twice a Day Recommendations To Nursing Amount of Assist Needed 1 Person Assist Discharge Recommendations PT Discharge Recommendations Home with Assistance
--- NOTE | 2019-02-24 15:53 | OT.IP.TRT ---
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 fusion & bone graft - Juan Diego Blair MD Occupational Therapy Treatment Note M2 OT-IP Current Condition Start: 02/22/19 14:21 Freq: Status: Active Protocol: Document 02/22/19 14:14 PJM (Rec: 02/22/19 14:41 PJM [id number]) Occupational Therapy Current Condition Current Condition Evaluation Date 02/22/19 Treatment Diagnosis decreased self care, mobility s/p L5-S1 lami/TLIF Diagnosis Onset Date 02/21/19 Post Operative Precautions Lumbar Precautions Log Roll No Twisting Limit Bending Lifting Restriction of 10 lbs Gait Belt above Incisional Area M3 OT- IP Subjective and Pain Start: 02/22/19 14:21 Freq: Status: Active Protocol: Document 02/24/19 15:44 [facility] (Rec: 02/24/19 15:52 [facility] [email or web address]) OT- Subjective Occupational Therapy Visit Type Type Treatment Note Visit Start Time 15:00 Visit Stop Time 15:40 Total Visit Minutes 40 Occupational Therapy Visit Comments Patient Comments Pt wanting to shower. OT Pain Assessment Pain When Pain Assessed At Rest Pain Present Pain Present Pain Reported Location Back Intensity 5 Scale Used Numeric (1 - 10) M4 OT- IP ADL's Start: 02/22/19 14:21 Freq: Status: Active Protocol: Document 02/24/19 15:44 [facility] (Rec: 02/24/19 15:52 [facility] [email or web address]) OT ADL-Dressing General Eval Lower Body Dressing Ability Standby Assistance Areas Needing Assistance Underpants/Brief Comments OT Dressing Comments Pt able to bring legs up to bonita underwear over his feet. Reminders for pt to use business intelligence etl developer if needed. OT ADL-Toileting General Evaluation Toileting Ability Independent Devices Toileting Assistive Devices Commode Comments OT Toileting Comments Pt able to do all hygiene needs after bowel movement, vc to slow down. OT ADL-Bathing Bathing Type Bathing Type Shower General Evaluation Bathing Ability Standby Assistance Devices Bathing Equipment Shower Chair with Arms Comments OT Bathing Comments SBA, mainly SBA vc to slow down and take his time. M5 OT- IP IADL's Start: 02/22/19 14:21 Freq: Status: Active Protocol: Document 02/22/19 14:14 PJM (Rec: 02/22/19 14:41 PJM [id number]) OT-Instrumental Activities of Daily Living Deficits IADL Deficits Identified Deficits Home Safety Awareness Awareness of Need for Assistance at Home Good Awareness Ability to Problem Solve Emergency Able to Problem Solve Situations Medication Management Medication Management No Deficits Identified Money Management Money Management No Deficits Identified Meal Preparation Meal Preparation Caregiver Provides Assist Meal Preparation Comments father normally does all cooking Cold Roller Cold Roller Comments father normally does all gum rolling machine operator Driving Driving Caregiver Provides Assist Driving Comments family to assist until pt able M6 OT- IP Functional Cognition Start: 02/22/19 14:21 Freq: Status: Active Protocol: Document 02/24/19 15:44 [facility] (Rec: 02/24/19 15:52 [facility] [email or web address]) Cognitive Factors Limiting Selfcare Function Cognitive Ability Level of Alertness Alert Patient Orientation Name Age Birthday Month Date Year Day of Week Place Situation Attention Span Ability Capable of Focused Attention Capable of Sustained Attention Ability to Follow Commands Able to Follow Multi-Step Commands Memory Description No Deficits Noted Safety Awareness Underestimates Need for Assistance Cognitive Comments Cognitive Assessment Comments Pt mainly just needing cues to slow down as pt tends to be a bit impulsive. Urine noted on the floor and pt trying to stand and back up into the shower versus waiting for the floor to be cleaned before standing. M7 OT- IP Mobility and Balance Start: 02/22/19 14:21 Freq: Status: Active Protocol: Document 02/24/19 15:44 [facility] (Rec: 02/24/19 15:52 [facility] [email or web address]) OT- Bed Mobility Assessment Rolling Type of Rolling Roll to Right Level of Assistance Standby Assistance Supine to Sit Supine to Sit Assist Standby Assistance Scooting Scooting to Edge of Bed Standby Assistance OT-Transfer Assessment Sit to and From Stand Sit to and from Stand Standby Assistance Transfers Transfer Ability Standby Assistance 1 Person Assistance Technique Transfer Destination Shower Stall Toilet Transfer Technique Stand Step Pivot Devices Transfer Assistive Devices Gait Belt Front Wheeled Walker Comments Mobility Comments Pt able to safely lower and raise for the toilet. Pt feels that will not need RTS at this time. OT- Balance Assessment Sitting Balance and Reactions Static Sitting Balance Ability Normal Dynamic Sitting Balance Ability Good Standing Balance and Reactions Static Standing Balance Ability Good Dynamic Standing Balance Ability Fair M8 OT- IP Objective Assessments Start: 02/22/19 14:21 Freq: Status: Active Protocol: Document 02/22/19 14:14 PJM (Rec: 02/22/19 14:41 PJM [id number]) OT Gross Range of Motion Upper Extremity Range of Motion Assessment Within Functional Limits OT Strength Upper Extremity Strength Assessment Within Functional Limits OT- Coordination Assessment Comments Coordination Comments BUE WNL OT-Muscle Tone Assessment Muscle Tone WNL Yes OT Sensation Assessment Comments Summary Comments Pt denies sensory deficits in either UE. Edema Edema Absent M9 OT- IP Assessment and Plan Start: 02/22/19 14:21 Freq: Status: Active Protocol: Document 02/24/19 15:44 [facility] (Rec: 02/24/19 15:52 [facility] [email or web address]) OT Summary Assessment and Plan Potential Rehabilitation Potential Good Summary Progress Towards Goals Goals Met Assessment Summary Pt able to meet all OT goals and to do go home with parents to assist tomorrow. Treatment Plan OT Treatment Plan Discharge Planning Discharge Recommendations OT Discharge Recommendations Home with Assistance
[2019-02-24] MEDS: RAMIPRIL 5 MG CAPSULE PO (18:06)
[2019-02-24] MEDS: QUETIAPINE 100 MG TABLET 150 MG PO (18:07)
[2019-02-24] MEDS: AMLODIPINE 5 MG TABLET PO (20:51)
[2019-02-24] MEDS: ATORVASTATIN 20 MG TABLET 80 MG PO (20:51)
[2019-02-24] MEDS: SENNOSIDES 8.6 MG TABLET 17.2 MG PO (20:52)
[2019-02-24] MEDS: GABAPENTIN 300 MG CAPSULE PO (20:53)
[2019-02-24] MEDS: hydrOXYzine pamoate 25 MG CAPSULE PO (20:54)
[2019-02-24] MEDS: SODIUM CHLORIDE 0.9% FLUSH 10 ML IV (21:17)
--- NOTE | 2019-02-25 01:42 | PC.NURSE ---
Pt alert and oriented. Lung sounds clear, VSS stable. Pain being controlled w/ 2-4 mg of Dilaudid.
[2019-02-25 05:45] VITALS: BP 122/78; PULSE 65; RESP 15; TEMP 36.6; O2SAT 96
[2019-02-25] MEDS: HYDROMORPHONE 2 MG TABLET 4 MG PO ×2 (05:55→09:23)
--- NOTE | 2019-02-25 07:09 | PM.DS.1 ---
History of Present Illness Date Patient Seen: 02/25/19 Chief complaint: Translaminar Interbody Fusion/Laminotomy Narrative: Patient is seen bedside status post L5-S1 TLIF (post/post interbody fusion) with cage by Dr. Blair on 02/21/19. Patient is POD #4. Currently today his pain is well controlled, denies chest pain, shortness of breath, nausea and vomiting. His blood sugar has improved from the temporary spike caused by steroids. He has cleared physical therapy and is ready to go home with parents. He will have home health care through [facility] as well. Discharge Providers Date of admission: 02/21/19 05:59 Discharge Date: 02/25/19 Primary care physician: Joselito Almeida MD Consults: 02/14/19 08:36 Consult to Respiratory Therapy Evaluate & Treat Comment: TLIF 02/21-possible sleep apnea, Stop Bang negative Physician Instructions: Evaluate and treat 02/21/19 12:01 Consult to Occupational Therapy Evaluate & Treat Comment: Physician Instructions: Evaluate and treat Consult to Physical Therapy Evaluate & Treat Comment: Physician Instructions: Evaluate and Treat 02/23/19 07:48 Consult to Tape Edge Machine Operator Routine Comment: interested in SNF Discharge provider: Rafia Mcdaniel PA-C Summary Discharge Diagnosis: 1. Lumbar stenosis with radiculopathy 2. Lumbar spondylolisthesis 3. Pars defect L5 4. History of chronic pain treated with opioids. Hospital Course: Patient was admitted to the hospital s/p L5-S1 TLIF on 02/21/[address] Blair. Patient tolerated the procedure well with no major complications. They were transferred to the acute care floor where they were placed on the standard lumbar fusion post-operative pathway and protocol. Patient had initial issues with pain control due to tolerance from prior opiate treatment, but this resolved by POD #3. They were seen by physical therapy who recommended that they be discharged home with home health care. They were stable and ready for discharge with home health care on 02/25/19. Patient was given scripts for dilaudid and valium, and risks and benefits of treatment with opiates as well as expectations for treatment length were discussed. The GIS MAPPING TECHNICIAN was checked and patient was found to be at moderate risk for opiate abuse. Status at Discharge Cognitive/behavioral status at discharge: oriented Functional status at discharge: uses cane/walker Overall status at discharge: patient is progressing back to baseline Time Spent with Patient Less than 30 minutes Time spent discussing smoking cessation with patient: 3 to 10 minutes Exam Vital Signs (past 8 hours): - 02/24/19 23:30 02/25/19 05:45 Temperature 98.0 F 97.8 F Pulse Rate 67 65 Respiratory Rate 16 15 Blood Pressure 108/67 122/78 Pulse Oximetry 96 96 Oxygen Delivery Method Room Air Oxygen Flow Rate 0 Narrative Exam Narrative: Well-developed, well-nourished, no acute distress. Alert and oriented to person, place, and time. Dressing on lumbar spine is clean, dry, and intact with no signs of drainage. Minimal erythema and generalized swelling around the surgical site. Neurovascularly intact in bilateral lower extremities with soft and compressible calves. Range of motion intact bilateral lower extremities. Objective Labs Result Diagrams: 02/22/19 05:04 02/22/19 05:04 Discharge Plan Discharge Plan Patient Disposition: [facility] Service Transfer to: [facility] Discharge Med Rec/Prescriptions Prescriptions: New hydromorphone 2 mg Tablet 2 mg PO Q4-6H PRN (Reason: Pain, Severe (7-10)) Qty: 40 RF: 0 docusate sodium 100 mg Capsule 100 mg PO BID Qty: 0 RF: 0 diazepam 5 mg Tablet 5 mg PO Q6HR PRN (Reason: Anxiety) Qty: 28 RF: 0 hydroxyzine pamoate 25 mg Capsule 25 mg PO Q4HR PRN (Reason: muscle spasms) Qty: 40 RF: 0 Continued sertraline [Zoloft] 100 mg tablet 200 mg PO DAILY RF: 0 nitroglycerin 0.4 mg SL PRN PRN (Reason: Chest Pain) RF: 0 ProAir HFA 90 mcg/actuation HFA aerosol inhaler 2 inhalation INHALATION Q4-6H PRN (Reason: shortness of breath) Qty: 18 RF: 11 dextroamphetamine-amphetamine 5 mg tablet 5 mg PO TID RF: 0 quetiapine 150 mg tablet extended release 24 hr 150 mg PO QPM RF: 0 carvedilol 12.5 mg Tablet 12.5 mg PO BID RF: 0 amlodipine 5 mg Tablet 5 mg PO BEDTIME RF: 0 aspirin 81 mg Tablet,Delayed Release (Dr/Ec) 81 mg PO DAILY RF: 0 ramipril 5 mg Capsule 5 mg PO QPM RF: 0 gabapentin 300 mg capsule 900 mg PO TID RF: 0 metformin 500 mg Tablet 500 mg PO BID RF: 0 cimetidine [Tagamet HB] 200 mg Tablet 200 mg PO DAILY PRN (Reason: GI Upset) RF: 0 atorvastatin 40 mg tablet 80 mg PO BEDTIME RF: 0 ibuprofen 200 mg Tablet 2 - 3 tab PO DAILY PRN (Reason: pain) RF: 0 atenolol 50 mg tablet 50 mg PO BID RF: 0 Discontinued hydrocodone-acetaminophen 10-325 mg tablet 1 - 2 tab PO Q6H PRN (Reason: pain) RF: 0 Follow up/Referrals: Juan Diego Blair MD [Physician] - (Follow up in 10-14 days at the office at your previously scheduled post-operative appointment.) Provider Discharge Instructions Diet: Carb-consistent/Diabetic Activity: Weightbearing as tolerated, no bending, lifting greater than 5 lbs, or twisting. Cold/Heat Therapy: Apply ice to affected area for 20 minutes at a time at least hourly while awake. Skin/Wound/Dressing Care Report to your healthcare provider any signs of infection, such as:: chills, fever, night sweats, increased pain, unusual drainage and unusual redness Dressing: Keep dressing clean, dry, and intact. May shower with it in place but no soaking. Visit Report/Discharge Packet Instructions: Hydromorphone, Diazepam, DI for Transforaminal Lumbar Interbody Fusion Stand Alone Forms: Surgery Discharge Discharge Data Primary Care Provider: Joselito Almeida Attending Provider: Juan Diego Blair Admit Date/Time: 02/21/19 05:59 Quality VTE Deep Vein Thrombosis/Pulmonary Embolism Present on Admission: No
[2019-02-25 08:00] VITALS: BP 107/81; PULSE 66; RESP 17; TEMP 36.3; O2SAT 96
--- NOTE | 2019-02-25 09:00 | CM.DPC ---
DCP: continued: pt now with d/c to home and [facility]. Spoke by phone with Edna/Kristal CHENEY. She confirms pt will be seen tomorrow or Wednesday. Will fax DC summary, Face/Face and orders now. Checked in with pt and gave him the Kristal CHENEY brochure. He says he has already called his father to pick him up and he expects to be going home this morning. He is expressing no concerns re his d/c plan. ARIS Reynolds is updated.
--- NOTE | 2019-02-25 09:03 | PC.NURSE ---
Addendum entered by Gail Larry R.N. 02/25/19 09:42: Iv removed, medicated for pain and wheeled to private vehicle after po dilaudid for pain. Original Note: Am shift Ortho has been in and written d/c orders for patient. Ride en route. Pt would like to stay up on pain control until d/c home. HH set up to start later this week. Reviewed meds and plan for d/c. Pt agreeable.
[2019-02-25] MEDS: CELECOXIB 200 MG CAPSULE PO (09:24)
[2019-02-25] MEDS: CARVEDILOL 12.5 MG TABLET PO (09:25)
[2019-02-25] MEDS: GABAPENTIN 300 MG CAPSULE 900 MG PO (09:25)
[2019-02-25] MEDS: DOCUSATE 100 MG CAPSULE PO (09:25)
[2019-02-25] MEDS: ASPIRIN EC 81 MG TABLET PO (09:26)
[2019-02-25] MEDS: METFORMIN HCL 500 MG TABLET PO (09:26)
[2019-02-25] MEDS: SERTRALINE 50 MG TABLET 200 MG PO (09:27)
== END 2019-02-25 09:43 | disposition home health service (06) | DRG 455 ==
PROVIDERS: Admitting Provider Orthopaedic Surgery; PCP Student in an Organized Health Care Education/Training Program; Visit Provider Orthopaedic Surgery
PROC: 0SG30AJ Fusion of Lumbosacral Joint with Interbody Fusion Device, Posterior Approach, Anterior Column, Open Approach (ICD-10-PCS; principal; 2019-02-21 07:45)
DX: M48.07 Spinal stenosis, lumbosacral region (principal); M48.061 Spinal stenosis, lumbar region without neurogenic claudication; M43.16 Spondylolisthesis, lumbar region; M43.06 Spondylolysis, lumbar region; I10 Essential (primary) hypertension; E11.9 Type 2 diabetes mellitus without complications; E78.5 Hyperlipidemia, unspecified; F32.9 Major depressive disorder, single episode, unspecified; Z87.891 Personal history of nicotine dependence; Z79.84 Long term (current) use of oral hypoglycemic drugs; G89.29 Other chronic pain
CPT/HCPCS: 36415; 72100; 76000; 80048; 82962; 85014; 85018; 90471; 90656; 94760; 94762; 97116; 97161; 97165; 97530; 97535; C1776; J0330; J0595; J0690; J1100; J1170; J2250; J2274; J2405; J2704; J2765; J3010; Q2038

== ENCOUNTER 2019-03-14 08:36 | Emergency (ER) | payer BC, OTHER, MEDICAID, SELFPAY ==
[2019-02-21 12:05] VITALS: BMI 34.2
[2019-03-14 08:47] VITALS: BP 145/99; PULSE 103; RESP 16; TEMP 36.4; O2SAT 99; BMI 35.9
--- NOTE | 2019-03-14 08:47 | ED_ITS ---
HPI - Back Pain/Injury General Chief Complaint: Back Pain/Injury Stated Complaint: Back surgery/fell t-2 days Time Seen by Provider: 03/14/19 08:45 Source: patient Mode of arrival: ambulatory Limitations: no limitations History of Present Illness HPI Narrative: Patient is a 48-year-old male who 2 weeks ago underwent a lumbar spinal fusion. He states that 2 days ago he sustained a fall where he landed on his buttock/back. He has been able to ambulate afterwards but has continued to have pain. He states that he has been taking his ibuprofen and Percocet but has continued to have discomfort. He states that it is midline. states he does have tingling down both of his legs. Related Data Home Medications Medication Instructions Recorded Confirmed nitroglycerin 0.4 mg SL PRN PRN 06/23/18 02/14/19 sertraline 100 mg tablet 100 mg PO DAILY 06/23/18 03/14/19 dextroamphetamine-amphetamine 5 mg PO TID 11/22/18 03/14/19 amlodipine 5 mg PO BEDTIME 02/08/19 03/14/19 carvedilol 12.5 mg PO BID 02/08/19 03/14/19 ramipril 5 mg PO QPM 02/08/19 02/21/19 cimetidine [Tagamet HB] 200 mg PO DAILY PRN 02/14/19 02/14/19 ibuprofen 2 - 3 tab PO DAILY PRN 02/14/19 02/14/19 metformin 500 mg PO BID 02/14/19 03/14/19 atenolol 50 mg PO DAILY 02/21/19 03/14/19 aspirin 81 mg PO DAILY 03/14/19 03/14/19 atorvastatin 80 mg PO BEDTIME 03/14/19 03/14/19 clonidine HCl 0.2 mg PO BID 03/14/19 03/14/19 gabapentin 600 mg PO TID 03/14/19 03/14/19 hydrocodone-acetaminophen 03/14/19 oxycodone 10 mg PO Q6H PRN 03/14/19 03/14/19 quetiapine 300 mg PO DAILY 03/14/19 03/14/19 Previous Rx's Medication Instructions Recorded albuterol sulfate HFA 90 2 inhalation INHALATION Q4-6H PRN 12/22/18 mcg/actuation aerosol inhaler #18 gram diazepam 5 mg PO Q6HR PRN #28 tab 02/25/19 docusate sodium 100 mg PO BID #0 cap 02/25/19 hydromorphone 2 mg PO Q4-6H PRN #40 tab MDD 16 mg 02/25/19 hydroxyzine pamoate 25 mg PO Q4HR PRN #40 cap 02/25/19 methylprednisolone See Rx Instructions .ROUTE 03/14/19 .COMPLEX #21 each Allergies Allergy/AdvReac Type Severity Reaction Status Date / Time droperidol [DROPERIDOL] Allergy Mild COGENIC Verified 03/14/19 08:47 REACTION Review of Systems Constitutional Denies frequent falls and Denies headache(s) ENT Ears, Nose, Mouth, and Throat: Denies headache(s) Cardiovascular Denies chest pain and Denies dyspnea Respiratory Denies dyspnea Gastrointestinal Gastrointestinal: Denies abdominal pain, Denies nausea and Denies vomiting Genitourinary Denies urinary hesitancy and Denies urinary incontinence Musculoskeletal Reports back pain Integumentary/Breasts Denies lesions and Denies rash Neurologic Denies confusion, Denies frequent falls, Denies headache(s) and Reports paresthesias Psychiatric Denies confusion Hematologic/Lymphatic Denies easy bleeding and Denies easy bruising [facility] Medical History Essential hypertension (Chronic) Diabetes mellitus, type II (Chronic) Chronic back pain (Chronic Unknown) ADD (attention deficit disorder) (Acute) Anxiety (Acute) Arthritis (Acute) Asthma (Acute) Chest pain (Acute) Coronary artery disease (Acute) Depression (Acute) HLD (hyperlipidemia) (Acute) Numbness and tingling (Acute) RLS (restless legs syndrome) (Acute) Stenosis of artery (Acute) Surgical History (Updated 02/14/19 @ 08:13 by Emily Hannon RN) Hx of cervical discectomy (Acute ~2013) Family History Father Hypertension Hyperlipidemia Mother Diabetes mellitus Hyperlipidemia Hypertension Social History Smoking Status: Former smoker alcohol intake: never Social History Smoking Status: Former smoker alcohol intake: never Exam Initial Vital Signs Initial Vital Signs: Vital Signs Temperature 97.6 F 03/14/19 08:47 Pulse Rate 103 H 03/14/19 08:47 Respiratory Rate 16 03/14/19 08:47 Blood Pressure 145/99 H 03/14/19 08:47 Pulse Oximetry 99 03/14/19 08:47 Const General: cooperative, comfortable, well developed, well groomed and No acute distress Orientation: alert, awake and oriented x3 HENMT Head: normal to inspection and normocephalic Resp Effort & Inspection: normal respiratory effort Cardio Rate: tachycardic GI Inspection: non-distended Back/Spine/Pelvis Thoracic/Lumbar Spine: No thoracic spinal tenderness and No lumbar spinal tenderness Skin Other: Well healing surgical scars lumbar region Neuro General: alert, awake and oriented x3 Cognition: normal cognition Speech: speech normal Motor: muscle tone normal throughout Extrem General: normal to inspection and capillary refill normal Psych Appearance: grossly normal and well kempt Course Orders Ordered: ED Orders 03/14/19 08:55 XR lumbar spine 2-3V Stat 03/14/19 10:06 EKG-12 Lead Stat Discontinued Medications Hydromorphone HCl (Dilaudid) 1 mg IM NOW ONE Stop: 03/14/19 08:57 Last Admin: 03/14/19 09:01 Dose: 1 mg Ondansetron HCl (Zofran Odt) 4 mg PO NOW ONE Stop: 03/14/19 10:06 Last Admin: 03/14/19 10:06 Dose: 4 mg Vital Signs - 8 hr 03/14/19 08:47 03/14/19 10:03 Temperature 97.6 F Pulse Rate 103 H 84 Respiratory Rate 16 16 Blood Pressure 145/99 H Blood Pressure [Right Arm] 144/86 H Pulse Oximetry 99 95 MDM - Back Pain/Injury Imaging Data Lumbar spine x-rays: Radiologist's impression: [address] [place] [id number] XRay Report Signed Patient: Ori Hendrickson II LMR#: [id number] : 1970Acct:[id number] Age/Sex: 48 / MDate of Service: 03/14/19 Loc: ED Accession Number: [id number] Procedure: XR lumbar spine 2-3V Ordering Provider: Aureliano Matos D.O. PROCEDURE: XR LUMBAR SPINE 2-3V INDICATIONS: fusion with a fall now with pain TECHNIQUE: 3 views of the lumbar spine were acquired. COMPARISON: [facility], CR, XR LUMBAR SPINE 2 OR 3 VIEWS, 03/06/2019, 13:36. [facility], CR, XR LUMBAR SPINE 2-3V, 02/21/2019, 8:26. FINDINGS: Bones: There are 5 lumbar-type vertebral bodies. The lowest intervertebral disk space is designated as L5-S1. The vertebral body heights are well-maintained without evidence to suggest an acute compression fracture. The bone mineralization is within normal limits. Postoperative changes are again evident related to a lumbosacral fusion procedure. Bilateral transpedicular screws are fixed in place by posterior fixation rods at the levels of L5 and S1. An interbody spacer at this level is present. A hemilaminotomy defect is evident on the left at the L5 level. Alignment and orthopedic hardware appear to be unchanged. The degree of degenerative changes of the lumbar spine are also unchanged. Soft tissues: The soft tissues of the imaged abdomen and pelvis are within normal limits. IMPRESSION: 1. Status post lumbosacral fusion. The hardware is intact. Bony alignment is unchanged. 2. No acute compression fractures. Dictated by: Levy Banda M.D. on 03/14/2019 at 9:27 Approved by: Levy Banda M.D. on 03/14/2019 at 9:29 ECG Data Attestation: I personally reviewed and interpreted this ECG as follows: Interpretation: Sinus rhythm Ventricular rate 82 Normal axis Normal QRS Normal QTC No ST T wave changes MDM Narrative Medical decision making narrative: Patient's x-ray shows no signs of acute injury. I did get a message to Dr. Blair who was his operative surgeon who did recommend that if there were no fractures on the x-rays to start the patient on a Medrol Dosepak. Patient does have pain medication at home. He was given 1 shot of pain medication here in the emergency department and was asking for another. I informed him that I would do an oral pain pill for him however he declined. Patient does have a follow-up appointment on the of this month. The patient was asking for an MRI however I informed him that there was no emergent reason to do an MRI. Informed him that if he needed stronger pain medication this would have to come from his operative provider. Will hold on further workup for now. Discharge Plan Departure Patient Disposition: Home Clinical Impression: Low back pain Qualifiers: Chronicity: acute Back pain laterality: midline Sciatica presence: with sciatica Sciatica laterality: bilateral sciatica Qualified Code(s): M54.42 - Lumbago with sciatica, left side Instructions: Activity May Be Better then Rest for Low Back Pain Recovery Activity Restrictions/Additional Instructions: Continue to follow all of your postoperative instructions given to you by your orthopedic surgeon. Take the steroids as directed. Take the pain medication as directed. If you need stronger pain medication this will have to come from your operative surgeon. Return to the emergency department for any new symptoms. Prescriptions: New methylprednisolone 4 mg tablets,dose pack See Rx Instructions .ROUTE .COMPLEX Qty: 21 RF: 0 No Action sertraline [Zoloft] 100 mg tablet 100 mg PO DAILY RF: 0 nitroglycerin 0.4 mg SL PRN PRN (Reason: Chest Pain) RF: 0 ProAir HFA 90 mcg/actuation HFA aerosol inhaler 2 inhalation INHALATION Q4-6H PRN (Reason: shortness of breath) Qty: 18 RF: 11 atorvastatin 80 mg tablet 80 mg PO BEDTIME RF: 0 clonidine HCl 0.2 mg tablet 0.2 mg PO BID RF: 0 aspirin 81 mg tablet,chewable 81 mg PO DAILY RF: 0 gabapentin 600 mg tablet 600 mg PO TID RF: 0 hydrocodone-acetaminophen 5-325 mg tablet RF: 0 quetiapine 300 mg tablet extended release 24 hr 300 mg PO DAILY RF: 0 oxycodone 10 mg tablet 10 mg PO Q6H PRN (Reason: pain) RF: 0 dextroamphetamine-amphetamine 5 mg tablet 5 mg PO TID RF: 0 carvedilol 12.5 mg Tablet 12.5 mg PO BID RF: 0 amlodipine 5 mg Tablet 5 mg PO BEDTIME RF: 0 ramipril 5 mg Capsule 5 mg PO QPM RF: 0 metformin 500 mg Tablet 500 mg PO BID RF: 0 cimetidine [Tagamet HB] 200 mg Tablet 200 mg PO DAILY PRN (Reason: GI Upset) RF: 0 ibuprofen 200 mg Tablet 2 - 3 tab PO DAILY PRN (Reason: pain) RF: 0 atenolol 50 mg tablet 50 mg PO DAILY RF: 0 hydromorphone 2 mg Tablet 2 mg PO Q4-6H MDD 16 mg PRN (Reason: Pain, Severe (7-10)) Qty: 40 RF: 0 docusate sodium 100 mg Capsule 100 mg PO BID Qty: 0 RF: 0 diazepam 5 mg Tablet 5 mg PO Q6HR PRN (Reason: Anxiety) Qty: 28 RF: 0 hydroxyzine pamoate 25 mg Capsule 25 mg PO Q4HR PRN (Reason: muscle spasms) Qty: 40 RF: 0 Referrals: Joselito Almeida MD [Primary Care Provider] -
--- NOTE | 2019-03-14 08:55 | DI.RAD.S_ITS ---
PROCEDURE: XR LUMBAR SPINE 2-3V INDICATIONS: fusion with a fall now with pain TECHNIQUE: 3 views of the lumbar spine were acquired. COMPARISON: [facility], CR, XR LUMBAR SPINE 2 OR 3 VIEWS, 03/06/2019, 13:36. [facility], CR, XR LUMBAR SPINE 2-3V, 02/21/2019, 8:26. FINDINGS: Bones: There are 5 lumbar-type vertebral bodies. The lowest intervertebral disk space is designated as L5-S1. The vertebral body heights are well-maintained without evidence to suggest an acute compression fracture. The bone mineralization is within normal limits. Postoperative changes are again evident related to a lumbosacral fusion procedure. Bilateral transpedicular screws are fixed in place by posterior fixation rods at the levels of L5 and S1. An interbody spacer at this level is present. A hemilaminotomy defect is evident on the left at the L5 level. Alignment and orthopedic hardware appear to be unchanged. The degree of degenerative changes of the lumbar spine are also unchanged. Soft tissues: The soft tissues of the imaged abdomen and pelvis are within normal limits. IMPRESSION: 1. Status post lumbosacral fusion. The hardware is intact. Bony alignment is unchanged. 2. No acute compression fractures. Dictated by: Levy Banda M.D. on 03/14/2019 at 9:27 Approved by: Levy Banda M.D. on 03/14/2019 at 9:29
[2019-03-14] MEDS: HYDROMORPHONE 1 MG INJ IM (09:01)
[2019-03-14 10:03] VITALS: BP 144/86; PULSE 84; RESP 16; O2SAT 95
--- NOTE | 2019-03-14 10:04 | PC.NURSE ---
skin warm dry pink.
[2019-03-14] MEDS: ONDANSETRON 4 MG ODT PO (10:06)
[2019-03-14 10:30] VITALS: BP 139/83; PULSE 85; RESP 16; O2SAT 96
[2019-03-14 11:00] VITALS: BP 147/80; PULSE 85; RESP 16; O2SAT 96
--- NOTE | 2019-03-14 11:23 | PC.NURSE ---
verbal understanding instructions, f/u with ortho surgeon, rtr prn to er.
== END 2019-03-14 11:23 | disposition home or self-care (01) ==
PROVIDERS: Emergency Provider Emergency Medicine; PCP Student in an Organized Health Care Education/Training Program
DX: M54.42 Lumbago with sciatica, left side (principal); R00.0 Tachycardia, unspecified; W19.XXXA Unspecified fall, initial encounter
CPT/HCPCS: 72100; 93005; 96372; 99283; 99284; J1170

== ENCOUNTER 2020-04-29 15:08 | Emergency (ER) | payer OTHER, MEDICAID, SELFPAY ==
[2019-02-21 12:05] VITALS: BMI 34.2
[2020-04-29 15:20] VITALS: BP 183/96; PULSE 96; RESP 17; TEMP 36.6; O2SAT 98
--- NOTE | 2020-04-29 15:26 | DI.RAD.S_ITS ---
PROCEDURE: XR HIP W PEL IF DONE RT 2V INDICATIONS: hip pain TECHNIQUE: AP pelvis with lateral view(s) of the right hip(s). COMPARISON: None. FINDINGS: Bones: No fractures or dislocations. Pelvic ring appears intact. Fusion hardware at the L5-S1 level including a disc spacer. No suspicious bony lesions. Soft tissues: The visualized bowel gas pattern is normal. No suspicious soft tissue calcifications. IMPRESSION: No evidence of right hip fracture or dislocation. Dictated by: Tamia Johnston M.D. on 04/29/2020 at 16:25 Approved by: Tamia Johnston M.D. on 04/29/2020 at 16:26
[2020-04-29 17:32] VITALS: BP 180/97; PULSE 98; RESP 16; O2SAT 98
--- NOTE | 2020-04-29 17:44 | ED_ITS ---
HPI - Extremity Injury (Lower) General Chief Complaint: Extremity Injury, Lower Stated Complaint: Right Hip Pain For 4 Days Time Seen by Provider: 04/29/20 17:44 Source: patient Mode of arrival: Ambulatory History of Present Illness HPI Narrative: CC: right hip pain HPI: The patient is a 49-year-old male who states that time he developed severe right hip pain 4 days ago. He did not fall or injure his hip. The patient has a past history of chronic back pain for which she had surgery in the pain has resolved. He denies any shooting pain from his back into his right hip. He states that he rolled over in bed and he developed the pain and discomfort. The patient has difficulty sleeping at night because he has pain in the hip when he rolls over. He denies a history of any type of arthritis, rheumatoid arthritis, lupus, crest syndrome, psoriatic arthritis except her a. He is not on any immune therapy. He has had no fever chills or sweats. He denies any numbness tingling loss of sensation. He states rarely arm did his hip feel like it was going to give out. He denies any chest pain cough shortness of breath palpitations nausea vomiting diarrhea change in bowel habits or any urinary symptoms. He denies a history of diabetes mellitus myocardial infarction COPD but admits to history of hypertension intermittent asthma. He quit smoking 2 years ago does not vapor seldom been rarely drinks alcohol socially does not use any marijuana products or any other drugs. Related Data Home Medications Medication Instructions Recorded Confirmed nitroglycerin 0.4 mg SL PRN PRN 06/23/18 01/26/20 dextroamphetamine-amphetamine 5 mg PO TID 11/22/18 01/26/20 aspirin 81 mg PO DAILY 03/14/19 01/26/20 ibuprofen 200 mg tablet 800 mg PO TID PRN tab 12/15/19 01/26/20 metoprolol tartrate 25 mg tablet 25 mg PO BID 12/15/19 01/26/20 paroxetine HCl 10 mg tablet 10 mg PO DAILY 12/15/19 01/26/20 cholecalciferol (vitamin D3) 125 5,000 unit PO DAILY 01/29/20 mcg (5,000 unit) capsule Previous Rx's Medication Instructions Recorded albuterol sulfate 90 mcg/actuation 2 inhalation INHALATION Q4-6H PRN 12/22/18 aerosol inhaler #18 gram gabapentin 600 mg tablet 600 mg PO TID #270 tab 01/26/20 atorvastatin 40 mg tablet 40 mg PO BEDTIME #90 tab 02/20/20 cyclobenzaprine 10 mg tablet 10 mg PO TID PRN #90 tab 02/20/20 cyclobenzaprine 10 mg PO TID PRN #15 tab 04/29/20 naproxen [Naprosyn] 500 mg PO BID PRN #20 tab 04/29/20 Allergies Allergy/AdvReac Type Severity Reaction Status Date / Time droperidol [DROPERIDOL] Allergy Mild COGENIC Verified 04/29/20 15:27 REACTION Review of Systems Review of Systems Narrative: Review of systems were all negative except for those mentioned in the history of present illness. Patient History Medical History ADD (attention deficit disorder) (Acute) Anxiety (Acute) Arthritis (Acute) Asthma (Acute) Back pain (Acute) Chest pain (Acute) Chronic back pain (Chronic Unknown) Coronary artery disease (Acute) Depression (Acute) Diabetes mellitus, type II (Chronic) Essential hypertension (Chronic) HLD (hyperlipidemia) (Acute) Numbness and tingling (Acute) RLS (restless legs syndrome) (Acute) Stenosis of artery (Acute) Surgical History Hx of cervical discectomy (Acute ~2013) Family History Father Hypertension Hyperlipidemia Mother Diabetes mellitus Hyperlipidemia Hypertension Social History household members: family Smoking Status: Former smoker alcohol intake: never Smoking Status: Former smoker alcohol intake frequency: 0-2 drinks per day Substance Use Type: does not use Exam Narrative Exam Narrative: PHYSICAL EXAM: CONSTITUTIONAL: Awake, Alert, Oriented, Coherent, Cooperative in NAD. Does not appear toxic or ill. He was ambulating in the hallway and in the room with his cane. HEAD: AT/NC EENT: PERRL, FROM of eyes, NECK: Supple, no obvious JVD, Trachea is midline without stridor, no palpable LN. SPINE: Palpation of the cervical, Thoracic, Lumbar or Sacral spine reveals no gross deformity or tenderness. No CVA tenderness. There is no tenderness to palpation over the right or left SI joints, right or left sciatic notch. H owever there is tenderness to palpation over the piriformis muscle. Cross flexion of the hip with adduction to the left shoulder causes severe pain and discomfort and mimics the pain he is experiencing. The patient has full range of motion of his hip to flexion extension abduction adduction internal and external rotation. External rotation and abduction causes pain and discomfort in the right hip. THORAX: No deformity, retractions, chest wall tenderness. LUNGS: Clear, symmetrical breath sounds without respiratory distress. HEART: Normal heart tones, regular rhythm and rate without murmur. ABDOMEN: Soft, non-tender, normal bowel sounds without guarding, rebound, rigidity or palpable mass. EXTREMITIES: No edema, deformity, tenderness or cyanosis. SKIN: No rash, bruising, petechiae or purpura. NEURO: Awake, alert, oriented, conversive, cranial nerves II-XII are symmetrical , moves all 4 extremities and is ambulatory. Initial Vital Signs Initial Vital Signs: Vital Signs Temperature 97.8 F 04/29/20 15:20 Pulse Rate 96 H 04/29/20 15:20 Respiratory Rate 17 04/29/20 15:20 Blood Pressure 183/96 H 04/29/20 15:20 Pulse Oximetry 98 04/29/20 15:20 Course Course Course Narrative: 1740: X-ray of his right hip and pelvis reveals no evidence of a fracture dislocation. Orders Ordered: ED Orders 04/29/20 15:26 XR hip w pel if done RT 2V Stat Discontinued Medications Cyclobenzaprine HCl (Flexeril) 10 mg PO NOW ONE Stop: 04/29/20 18:00 Ketorolac Tromethamine (Toradol) 30 mg IM NOW ONE Stop: 04/29/20 18:00 Vital Signs Vital signs: Vital Signs - 8 hr 04/29/20 15:20 04/29/20 17:32 Temperature 97.8 F Pulse Rate 96 H 98 H Respiratory Rate 17 16 Blood Pressure 183/96 H Blood Pressure [Left Arm] 180/97 H Pulse Oximetry 98 98 Discharge Plan Departure Patient Disposition: Home Clinical Impression: Acute hip pain Qualifiers: Laterality: right Qualified Code(s): M25.551 - Pain in right hip Pyriformis syndrome Qualifiers: Laterality: right Qualified Code(s): G57.01 - Lesion of sciatic nerve, right lower limb Instructions: DI for Hip Pain Activity Restrictions/Additional Instructions: 1. Follow-up with your primary care physician within the next 48-72 hours to get a referral to physical therapy to evaluate and treat your right hip pain secondary to piriformis syndrome. 2. If you develop worsening pain of the leg gives out or you collapse developed fever chills or sweats return to the emergency department or follow-up with your primary care physician. 3. Take Naprosyn 500 mg twice a day for your pain and discomfort for any muscle spasms take the cyclobenzaprine 10 mg 3 times a day. 4. Look up piriformis syndrome on the Internet and followed the stretching exercises to help with your pain and discomfort until you are able to be seen by physical therapy Prescriptions: New naproxen [Naprosyn] 500 mg tablet 500 mg PO BID PRN (Reason: pain) Qty: 20 RF: 0 cyclobenzaprine 10 mg tablet 10 mg PO TID PRN (Reason: muscle spasm) Qty: 15 RF: 0 No Action nitroglycerin 0.4 mg SL PRN PRN (Reason: Chest Pain) RF: 0 ProAir HFA 90 mcg/actuation HFA aerosol inhaler 2 inhalation INHALATION Q4-6H PRN (Reason: shortness of breath) Qty: 18 RF: 11 cholecalciferol (vitamin D3) 125 mcg (5,000 unit) capsule 5,000 unit PO DAILY RF: 0 atorvastatin 40 mg tablet 40 mg PO BEDTIME Qty: 90 RF: 3 cyclobenzaprine 10 mg tablet 10 mg PO TID PRN (Reason: muscle spasm) Qty: 90 RF: 1 paroxetine HCl [Paxil] 10 mg tablet 10 mg PO DAILY RF: 0 metoprolol tartrate 25 mg tablet 25 mg PO BID RF: 0 ibuprofen 200 mg tablet 800 mg PO TID PRN (Reason: pain) RF: 0 gabapentin 600 mg tablet 600 mg PO TID Qty: 270 RF: 1 aspirin 81 mg tablet,chewable 81 mg PO DAILY RF: 0 dextroamphetamine-amphetamine 5 mg tablet 5 mg PO TID RF: 0 Referrals: Joselito Almeida MD [Primary Care Provider] -
[2020-04-29] MEDS: KETOROLAC 60 MG/2 ML VIAL 30 MG IM (18:20)
[2020-04-29] MEDS: CYCLOBENZAPRINE 10 MG TABLET PO (18:20)
[2020-04-29 18:24] VITALS: BP 161/99; PULSE 85; RESP 12; O2SAT 96
[2020-04-29 18:30] VITALS: BP 161/99; PULSE 85; RESP 12; O2SAT 96
== END 2020-04-29 18:34 | disposition home or self-care (01) ==
PROVIDERS: Emergency Provider Emergency Medicine; PCP Student in an Organized Health Care Education/Training Program
DX: M25.551 Pain in right hip (principal); G57.01 Lesion of sciatic nerve, right lower limb
CPT/HCPCS: 73502; 96372; 99283; 99284; J1885

== ENCOUNTER → 2020-08-05 09:12 | Outpatient (CLI) | payer OTHER, MEDICAID, SELFPAY ==
[2019-02-21 12:05] VITALS: BMI 34.2
--- NOTE | 2020-08-05 09:13 | DI.MRI.S_ITS ---
PROCEDURE: MR CERVICAL SPINE WO CON INDICATIONS: Left cervical radiculopathy TECHNIQUE: Noncontrast sagittal T1 spin echo and T2 fast spin echo, sagittal STIR, foraminal oblique sagittal T2 fast spin echo, and axial gradient echo or T2 fast spin echo through the cervical spine. COMPARISON: MR cervical spine 06/05/2017 FINDINGS: Image quality: Excellent. Alignment and Curvature: Postsurgical changes of C7-T1 ACDF. Straightening of the usual cervical lordosis. Otherwise normal alignment. Vertebral body heights maintained. Bone Marrow: No suspicious focal marrow signal abnormality or bone marrow edema. Spinal Cord: Normal morphology and signal intensity of the cervical cord. Regional Soft Tissues: No paravertebral masses. Prevertebral soft tissues are normal in thickness. C2-C3: No spinal canal or neural foraminal stenosis. C3-C4: Posterior disc osteophyte complex without mass effect upon the cord. Facet and uncovertebral hypertrophy contribute to mild left neural foraminal narrowing. C4-C5: Posterior disc osteophyte complex flattens the ventral cord and completely effaces CSF ventral to the cord. Facet and uncovertebral hypertrophy contribute to mild right neural foraminal stenosis. C5-C6: No spinal canal or neural foraminal stenosis. C6-C7: Posterior disc osteophyte complex without mass effect upon the cord. Facet and uncovertebral hypertrophy contribute to mild left neural foraminal stenosis. C7-T1: No spinal canal stenosis. Moderate right and mild left bilateral neural foraminal narrowing related to facet and uncovertebral hypertrophy. IMPRESSION: Multilevel multifactorial degenerative changes. Postsurgical changes of C7-T1 ACDF without acute complicating hardware feature. Dictated by: Mejia Chandra M.D. on 08/05/2020 at 12:51 Approved by: Mejia Chandra M.D. on 08/05/2020 at 13:08
== END ==
PROVIDERS: PCP Student in an Organized Health Care Education/Training Program; Referring Provider Family Medicine; Visit Provider Family Medicine
DX: M47.22 Other spondylosis with radiculopathy, cervical region (principal); Z98.1 Arthrodesis status
CPT/HCPCS: 72141

== ENCOUNTER 2020-12-08 17:21 | Emergency (ER) | payer OTHER, MEDICAID, SELFPAY ==
[2019-02-21 12:05] VITALS: BMI 34.2
[2020-12-08 17:33] VITALS: BP 181/111; PULSE 111; RESP 18; TEMP 35.9; O2SAT 99; BMI 35.9
--- NOTE | 2020-12-08 18:04 | ED.BACK ---
HPI - Back Pain/Injury General Chief Complaint: Back Pain/Injury Stated Complaint: SEVERE NECK PAIN, WEAKNESS LEFT ARM X 3 DAYS Time Seen by Provider: 12/08/20 18:04 Source: patient Limitations: no limitations History of Present Illness HPI Narrative: This is a 50-year-old male who comes to the emergency department with complaints your neck pain and weakness on his left arm. Patient states he has had a flare in his chronic neck pain over the last 3 days noted that he dropped a glass twice today. He states he has felt like maybe there is some decreased weakness although he had appreciated any besides dropping to glasses on 2 separate occasions today. He states that has not chronically been an issue. He does appreciate some mild sensation changes on the left compared to the right with palpation but did not notice any major changes. He denies any tingling, he denies any numbness. Patient states he has been able to accomplish other tasks. He denies fevers, chills, no shortness of breath. He has a little bit of left anterior chest pain but is unsure if this is secondary to his neck pain radiating to his chest. He does have some improvement in his discomfort when he presses on the left trapezius muscle. Patient denies any loss of bowel or bladder control. Denies any numbness or tingling in his lower extremities or any changes in weakness in his lower extremities. Patient states he has history of, hypertension and dyslipidemia. He denies any prior heart attacks. He does take a baby aspirin daily. Metoprolol, a statin and uses albuterol frequently for his asthma. Patient states he has been taking Mohler for his neck. His last dose was for 5 hours ago. He has been taking gabapentin for his lower back. Patient states he has an appointment set up on January [address] [facility]. He did have an MRI in July which was reviewed with his primary care. Related Data Home Medications Medication Instructions Recorded Confirmed nitroglycerin 0.4 mg SL PRN PRN 06/23/18 10/18/20 dextroamphetamine-amphetamine 5 mg PO TID 11/22/18 10/18/20 cholecalciferol (vitamin D3) 125 5,000 unit PO DAILY 01/29/20 10/18/20 mcg (5,000 unit) capsule aspirin 81 mg tablet,delayed 81 mg PO DAILY 10/18/20 10/18/20 release famotidine 10 mg tablet 10 mg PO DAILY 10/18/20 10/18/20 gabapentin 600 mg PO TID 12/08/20 12/08/20 hydrocodone-acetaminophen 1 tab PO Q4HR 12/08/20 12/08/20 Previous Rx's Medication Instructions Recorded albuterol sulfate 90 mcg/actuation 2 inhalation INHALATION Q4-6H PRN 12/22/18 aerosol inhaler #18 gram atorvastatin 40 mg tablet 40 mg PO BEDTIME #90 tab 02/20/20 metoprolol tartrate 25 mg tablet 25 mg PO BID #180 tab 05/22/20 gabapentin 600 mg tablet 600 mg PO TID #270 tab 09/06/20 nicotine (polacrilex) 2 mg gum 2 mg BUCCAL Q2H PRN #100 ea 11/11/20 sertraline 50 mg tablet 50 mg PO DAILY #90 tab 11/22/20 alprazolam 1 mg tablet 1 mg PO BID PRN #20 tab 12/03/20 Allergies Allergy/AdvReac Type Severity Reaction Status Date / Time droperidol [DROPERIDOL] Allergy Mild COGENIC Verified 12/08/20 17:39 REACTION Review of Systems Review of Systems ROS Unobtainable: All systems reviewed & are unremarkable except as noted in HPI and below Patient History Medical History ADD (attention deficit disorder) Anxiety Arthritis Asthma Back pain Cervical radiculopathy due to osteoarthritis of spine Chest pain Chronic back pain (Unknown) Coronary artery disease Depression Diabetes mellitus, type II Essential hypertension HLD (hyperlipidemia) Numbness and tingling RLS (restless legs syndrome) Stenosis of artery Surgical History Hx of cervical discectomy (~2013) Family History Father Hypertension Hyperlipidemia Mother Diabetes mellitus Hyperlipidemia Hypertension Social History household members: family Smoking Status: Former smoker alcohol intake: never Smoking Status: Former smoker alcohol intake frequency: 0-2 drinks per day Substance Use Type: does not use Exam Narrative Exam Narrative: GEN: well nourished, well appearing male, alert and oriented x 3, patient appears to be in mild distress. HEENT: Atraumatic, pupils are equal round reactive to light, extraocular movements are intact HEART: Regular rate and rhythm without murmur, clicks, rubs. No carotid bruits, pulses are equal in upper extremities LUNGS:Lungs clear to auscultation, no wheezes, rales, crackles, chest moves symmetrically ABD:bowel sounds normal, soft, non-tender, no guarding, rebound, rigidity, no masses noted, no hepatosplenomegaly :No CVA tenderness, BACK: No cervical, thoracic or lumbar vertebral point tenderness. Patient has normal range of motion. Patient's gait is normal. Muscle strength is 5/5 in left upper extremity, 4/5 in left upper extremity, paper box cutter decreased right in comparison to left, slight drift on left upper extremity none noted on right upper extremity, DTRs are 2/4 upper extremities. Sensation decreased lateral on C5, C6 area. MSCL: Non-tender, no muscle atrophy. See above for exam. NEURO:CN 2-12 intact, sensation normal SKIN: no rash, no erythema or other skin changes noted. Initial Vital Signs Initial Vital Signs: Vital Signs Temperature 96.6 F L 12/08/20 17:33 Pulse Rate 111 H 12/08/20 17:33 Respiratory Rate 18 12/08/20 17:33 Blood Pressure 181/111 H 12/08/20 17:33 Pulse Oximetry 99 12/08/20 17:33 Course Orders Ordered: ED Orders 12/08/20 18:35 EKG-12 Lead Stat 12/08/20 18:51 Complete Blood Count AUTO DIFF Stat Comprehensive Metabolic Panel Stat Lipase Stat Troponin & CK Cardiac Panel Stat 12/08/20 19:23 COVID19 Stat Discontinued Medications Hydrocodone Bitart/Acetaminophen (Hydrocodone/Acet 5/325 Tablet) 2 tab PO NOW ONE Stop: 12/08/20 18:54 Last Admin: 12/08/20 18:57 Dose: 2 tab Documented by: SUDEEP Hydromorphone HCl (Hydromorphone 1 Mg Inj) 1 mg IV NOW ONE Stop: 12/08/20 19:34 Last Admin: 12/08/20 19:38 Dose: 1 mg Documented by: ESTELA Hydromorphone HCl (Hydromorphone 1 Mg Inj) 1 mg IV NOW ONE Stop: 12/08/20 20:23 Last Admin: 12/08/20 20:29 Dose: 1 mg Documented by: ESTELA Hydromorphone HCl (Hydromorphone 1 Mg Inj) 1 mg IV NOW ONE Stop: 12/08/20 21:44 Last Admin: 12/08/20 21:47 Dose: 1 mg Documented by: ESTELA Ketorolac Tromethamine (Ketorolac 60 Mg/2 Ml Vial) 15 mg IV NOW ONE Stop: 12/08/20 18:36 Last Admin: 12/08/20 18:58 Dose: 15 mg Documented by: SUDEEP Methylprednisolone (Methylprednisolone 125 Mg/2 Ml Vial) 125 mg IV NOW ONE Stop: 12/08/20 18:36 Last Admin: 12/08/20 18:58 Dose: 125 mg Documented by: SUDEEP Nicotine (Nicotine 21 Mg Patch) 21 mg TOP NOW ONE Stop: 12/08/20 20:49 Last Admin: 12/08/20 21:17 Dose: 21 mg Documented by: ESTELA Reevaluation(s) Reevaluation #1: [facility] transfer center unable to find appointment but will contact spinal surgeon once prior MRI images are uploaded. Updated patient, requesting more pain medications. Time: 19:40 Reevaluation #2: Recheck, updated on discussion with surgeon. Patient pain is improved in his upper extremity but still having pain in his neck. Plan to repeat pain medication and transport via BLS. Patient agreeable with plan. Time: 20:23 Consultations Consultation #1: Spoke with Dr. Melgar from [facility], feels appropriate to transfer patients evening as we are unable to repeat MRI and patient has new neurologic findings. Plan to transfer to [facility]. Dr. Melgar is accepting physician. Time: 20:12 Vital Signs Vital signs: Vital Signs - 8 hr 12/08/20 17:33 12/08/20 18:26 12/08/20 19:15 Temperature 96.6 F L Pulse Rate 111 H 98 H 99 H Respiratory Rate 18 16 16 Blood Pressure 181/111 H 169/92 H 176/103 H Pulse Oximetry 99 99 99 12/08/20 21:53 Temperature Pulse Rate 100 H Respiratory Rate 18 Blood Pressure 179/102 H Pulse Oximetry 99 MDM - Back Pain/Injury Lab Data Result diagrams: 12/08/20 18:51 12/08/20 18:51 Labs: Lab Results 12/08/20 12/08/20 12/08/20 Range/Units 18:51 18:51 19:23 WBC 9.7 (4.5-11.0) X10^3/uL RBC 5.24 (4.5-5.9) X10^6/uL Hgb 15.7 (13.5-17.5) g/dL Hct 48.3 (41-53) % MCV 92.3 (80-100) fL MCH 30.0 (26-34) PG MCHC 32.5 (30-36) % RDW 12.6 (11.6-14.8) % Plt Count 205 (150-400) X10^3/uL Neut % (Auto) 75.7 H (50-75) % Lymph % (Auto) 15.9 L (25-40) % Sanborn % (Auto) 6.7 (3-14) % Eos % (Auto) 1.1 L (2-4) % Baso % (Auto) 0.6 (0-2) % Neut # (Auto) 7300 H (4187-9597) /uL Lymph # (Auto) 1500 (6991-4332) /uL Sanborn # (Auto) 600 (0-900) /uL Eos # (Auto) 100 (0-450) /uL Baso # (Auto) 100 (0-100) /uL Sodium 140 (137-145) mmol/L Potassium 4.2 (3.4-5.1) mmol/L Chloride 106 (98-107) mmol/L Carbon Dioxide 26 (22-32) mmol/L BUN 11 (9-20) mg/dL Creatinine 0.73 (0.66-1.25) mg/dL Estimated GFR > 60.0 (>60) mL/min BUN/Creatinine Ratio 15.1 (6-22) Glucose 106 H (70-100) mg/dL Calcium 10.0 (8.4-10.2) mg/dL Total Bilirubin 0.5 (0.2-1.3) mg/dL AST 40 (17-59) IU/L ALT 30 (<50) IU/L Alkaline Phosphatase 66 (38-126) U/L Total Creatine Kinase 136 (55-170) U/L CK-MB (CK-2) 0.77 (<2.37) ng/mL CK-MB (CK-2) Rel Index 0.6 L (1.5-5.0) % Troponin I < 0.012 (0.01-0.034) ng/mL Total Protein 8.6 H (6.3-8.2) g/dL Albumin 4.8 (3.5-5.0) g/dL Globulin 3.8 (1.7-4.1) g/dL Albumin/Globulin Ratio 1.3 (1.0-2.8) Lipase 122 (23-300) U/L SARS-CoV-2 (PCR) Negative (Negative) Imaging Data 07/28: Radiologist's Impression: Ori Hendrickson II 50 M [address] [id number] Resonance ReportSigned Patient: Ori Hendrickson II LMR#: [id number]: 1970Acct:[id number]/Sex: 49 / MDate of Service: 08/05/20Loc: MRIAccession Number: [id number] Procedure: MR cervical spine wo con Ordering Provider: Ruddy Damon MD PROCEDURE: MR CERVICAL SPINE WO CON INDICATIONS: Left cervical radiculopathy TECHNIQUE: Noncontrast sagittal T1 spin echo and T2 fast spin echo, sagittal STIR, foraminal oblique sagittal T2 fast spin echo, and axial gradient echo or T2 fast spin echo through the cervical spine. COMPARISON: MR cervical spine 06/05/2017 FINDINGS: Image quality: Excellent. Alignment and Curvature: Postsurgical changes of C7-T1 ACDF. Straightening of the usual cervical lordosis. Otherwise normal alignment. Vertebral body heights maintained. Bone Marrow: No suspicious focal marrow signal abnormality or bone marrow edema. Spinal Cord: Normal morphology and signal intensity of the cervical cord. Regional Soft Tissues: No paravertebral masses. Prevertebral soft tissues are normal in thickness. C2-C3: No spinal canal or neural foraminal stenosis. C3-C4: Posterior disc osteophyte complex without mass effect upon the cord. Facet and uncovertebral hypertrophy contribute to mild left neural foraminal narrowing. C4-C5: Posterior disc osteophyte complex flattens the ventral cord and completely effaces CSF ventral to the cord. Facet and uncovertebral hypertrophy contribute to mild right neural foraminal stenosis. C5-C6: No spinal canal or neural foraminal stenosis. C6-C7: Posterior disc osteophyte complex without mass effect upon the cord. Facet and uncovertebral hypertrophy contribute to mild left neural foraminal stenosis. C7-T1: No spinal canal stenosis. Moderate right and mild left bilateral neural foraminal narrowing related to facet and uncovertebral hypertrophy. IMPRESSION: Multilevel multifactorial degenerative changes. Postsurgical changes of C7-T1 ACDF without acute complicating hardware feature. Dictated by: Mejia Chandra M.D. on 08/05/2020 at 12:51 Approved by: Mejia Chandra M.D. on 08/05/2020 at 13:08 ECG Data Attestation: I personally reviewed and interpreted this ECG as follows: Prior ECG tracings: available for review Interpretation: Sinus rhythm rate of 100, ND 132 QRS is 72 and QTC of 430. No ST elevation appreciated. Q-wave in lead 3. Not noted to or AVF. Patient has prior EKG in 03/19/2019 which is similar. Patient did not have a Q-wave on an EKG but on 02/20/2019 he does have an EKG with a Q-wave. MDM Narrative Medical decision making narrative: 50-year-old male comes to emergency department with acute on chronic neck pain radiating down his left arm. Patient had an MRI with an osteophyte showing flattening of the cord with no CSF between the cord at the C4-5 region. Patient had mild neuroforaminal changes throughout. Patient noted that he dropped 2 glasses today and on examination he has decreased strength on the left in comparison to the right with mild sensory changes. MRI is unavailable at this time. Contacted [facility] is patient states he has an appointment on the 02 of January for his cervical spine. Patient did complain of some pain radiating to his chest. EKG and labs were performed which do not show any acute changes. COVID swab was also included and is negative. Patient received Toradol, 2 norco and Solu-medrol with minimal improvement followed by Dilaudid x2 with moderate improvement. Patient is accepted for transfer by Dr. Melgar with plan for BLS transport to [facility]. Patient given one additional dose of Dilaudid just prior to transport to [facility] as it's a prolonged drive and they are unable to administer pain medications. Discharge Plan Departure Patient Disposition: [facility] Clinical Impression: Cervical radiculopathy, Left arm weakness, Osteophyte of cervical spine Prescriptions: No Action nitroglycerin 0.4 mg SL PRN PRN (Reason: Chest Pain) RF: 0 ProAir HFA 90 mcg/actuation HFA aerosol inhaler 2 inhalation INHALATION Q4-6H PRN (Reason: shortness of breath) Qty: 18 RF: 11 cholecalciferol (vitamin D3) 125 mcg (5,000 unit) capsule 5,000 unit PO DAILY RF: 0 atorvastatin 40 mg tablet 40 mg PO BEDTIME Qty: 90 RF: 3 metoprolol tartrate 25 mg tablet 25 mg PO BID Qty: 180 RF: 1 gabapentin 600 mg tablet 600 mg PO TID Qty: 270 RF: 3 nicotine (polacrilex) 2 mg gum 2 mg buccal Q2H PRN (Reason: nicotine cravings) Qty: 100 RF: 2 sertraline 50 mg tablet 50 mg PO DAILY Qty: 90 RF: 3 alprazolam 1 mg tablet 1 mg PO BID PRN (Reason: anxiety) Qty: 20 RF: 4 aspirin [Adult Low Dose Aspirin] 81 mg tablet,delayed release (DR/EC) 81 mg PO DAILY RF: 0 famotidine [Acid Heavy Mobile Equipment Repairer (famotidine)] 10 mg tablet 10 mg PO DAILY RF: 0 dextroamphetamine-amphetamine 5 mg tablet 5 mg PO TID RF: 0 gabapentin 600 mg tablet 600 mg PO TID RF: 0 hydrocodone-acetaminophen 10-325 mg tablet 1 tab PO Q4HR RF: 0 Referrals: Joselito Almeida MD [Primary Care Provider] -
[2020-12-08 18:26] VITALS: BP 169/92; PULSE 98; RESP 16; O2SAT 99
--- NOTE | 2020-12-08 18:29 | PC.NURSE ---
states sensation, movement impaired in left arm. Able to hold phone and text. + pulses.
[2020-12-08] MEDS: HYDROCODONE/ACET 5/325 TABLET 2 TAB PO (18:57)
[2020-12-08] MEDS: methylPREDNISolone 125 MG/2 ML VIAL IV (18:58)
[2020-12-08] MEDS: KETOROLAC 60 MG/2 ML VIAL 15 MG IV (18:58)
[2020-12-08 19:15] VITALS: BP 176/103; PULSE 99; RESP 16; O2SAT 99
[2020-12-08 19:15] LABS: Alanine Aminotransferase 30 IU/L (<50); Albumin 4.8 g/dL (3.5-5.0); Albumin Globulin Ratio 1.3 (1.0-2.8); Alkaline Phosphatase 66 U/L (38-126); Aspartate Aminotransferase 40 IU/L (17-59); BUN Creatinine Ratio 15.1 (6-22); Bilirubin Total 0.5 mg/dL (0.2-1.3); Blood Urea Nitrogen 11 mg/dL (9-20); Carbon Dioxide 26 mmol/L (22-32); Chloride 106 mmol/L (98-107); Creatine Kinase 136 U/L (55-170); Estimated Glomerular Filt Rate > 60.0 mL/min (>60); Globulin 3.8 g/dL (1.7-4.1); Glucose 106 mg/dL (70-100); HEMOLYSIS 40 (0-50); Lipase 122 U/L (23-300); Potassium 4.2 mmol/L (3.4-5.1); Sodium 140 mmol/L (137-145); Total Protein 8.6 g/dL (6.3-8.2)
--- NOTE | 2020-12-08 19:25 | PC.NURSE ---
Pt up and dressed in room, pacing. Took himself off monitor. States he is anxious and in pain, pacing makes him feel better. Denies chest pain at this time.
[2020-12-08 19:27] LABS: Troponin I < 0.012 ng/mL (0.01-0.034)
[2020-12-08 19:31] LABS: CKMB % Relative Index 0.6 % (1.5-5.0); Creatine Kinase MB 0.77 ng/mL (<2.37)
[2020-12-08] MEDS: HYDROMORPHONE 1 MG INJ IV ×3 (19:38→21:47)
[2020-12-08 19:44] LABS: COVID19 -Nasal RAPID Negative (Negative)
[2020-12-08 20:08] LABS: Add Manual Diff / Slide Review NO; Basophils Absolute Auto 100 /uL (0-100); Basophils Percent Auto 0.6 % (0-2); Eosinophils Absolute Auto 100 /uL (0-450); Eosinophils Percent Auto 1.1 % (2-4); Hematocrit 48.3 % (41-53); Hemoglobin 15.7 g/dL (13.5-17.5); Lymphocytes Absolute Auto 1500 /uL (1100-4500); Lymphocytes Percent Auto 15.9 % (25-40); Mean Corpuscular HGB Conc 32.5 % (30-36); Mean Corpuscular Volume 92.3 fL (80-100); Monocytes Absolute Auto 600 /uL (0-900); Monocytes Percent Auto 6.7 % (3-14); Neutrophils Absolute Auto 7300 /uL (1500-7000); Neutrophils Percent Auto 75.7 % (50-75); Platelet Count 205 X10^3/uL (150-400); Red Blood Cell Count 5.24 X10^6/uL (4.5-5.9); Red Cell Distribution Width 12.6 % (11.6-14.8); White Blood Cell Count 9.7 X10^3/uL (4.5-11.0)
--- NOTE | 2020-12-08 20:56 | PC.NURSE ---
Patient requesting to go outside and smoke. Informed patient that is against our policy. Offered nicotine patch which patient accepts. Verbal order from Dr Adler received.
[2020-12-08] MEDS: NICOTINE 21 MG PATCH TOP (21:17)
[2020-12-08 21:53] VITALS: BP 179/102; PULSE 100; RESP 18; O2SAT 99
== END 2020-12-08 21:54 | disposition short-term general hospital (02) ==
PROVIDERS: Emergency Provider Emergency Medicine; PCP Student in an Organized Health Care Education/Training Program
DX: M54.12 Radiculopathy, cervical region (principal); M25.78 Osteophyte, vertebrae; R53.1 Weakness; R07.9 Chest pain, unspecified; I10 Essential (primary) hypertension; E78.5 Hyperlipidemia, unspecified; Z79.82 Long term (current) use of aspirin; Z20.822 Contact with and (suspected) exposure to COVID-19
CPT/HCPCS: 36415; 80053; 82550; 82553; 83690; 84484; 85025; 87635; 93005; 96374; 96375; 96376; 99283; 99284; C9803; J1170; J1885; J2930

== ENCOUNTER 2020-12-23 13:24 | Emergency (ER) | payer OTHER, MEDICAID, SELFPAY ==
[2019-02-21 12:05] VITALS: BMI 34.2
[2020-12-23] VITALS (24 sets, daily range): BP systolic 119–214; BP diastolic 70–112; PULSE 100–149; RESP 12–30; TEMP 35.9; O2SAT 93–100; BMI 35.9
--- NOTE | 2020-12-23 13:33 | DI.RAD.S_ITS ---
PROCEDURE: XR CHEST 1V INDICATIONS: chest pain TECHNIQUE: One view of the chest was acquired. COMPARISON: [facility], CT, CT ANGIO CHEST PE, 03/17/2019, 23:17. [facility], CR, XR CHEST 1 VIEW, 03/17/2019, 21:04. [facility], CR, XR CHEST 1V, 02/10/2019, 15:54. FINDINGS: Surgical changes and devices: Cervical spine fixation hardware is seen. Lungs and pleura: Lungs are clear. No pleural effusions or pneumothorax. Mediastinum: Mediastinal contours appear normal. Heart size is normal. Bones and chest wall: No suspicious bony lesions. Age-appropriate bony degenerative changes are seen. Overlying soft tissues appear unremarkable. IMPRESSION: Portable chest within normal limits. Dictated by: Geoff Roque M.D. on 12/23/2020 at 13:18 Approved by: Geoff Roque M.D. on 12/23/2020 at 13:19
--- NOTE | 2020-12-23 13:46 | ED.CHESTPAIN ---
HPI - Chest Pain General Chief Complaint: Chest Pain Stated Complaint: CHEST PAIN,NECK PAIN,NUMBNESS BOTTOM OF FEET Time Seen by Provider: 12/23/20 13:25 Source: patient Mode of arrival: Ambulatory Limitations: no limitations History of Present Illness HPI narrative: 50M former smoker with history of CAD, chronic neck pain, and diabetes presents with the chief complaint of a sudden onset of left-sided chest pressure that started while he was shoveling snow about 4 hours prior to his arrival. At its most intense it was 7/10 currently 5/10. He denies any obvious provocation or palliation. He denies any radiation. He denies associated symptoms such as dizziness, weakness lightheadedness. He denies any nausea, vomiting or diaphoresis. He has not taken any medications for this. He denies any recent travel or history of blood clot. Additionally he is having a flare of his neck pain. He denies any numbness or weakness of his upper extremities, no change in his balance but does have some tingling on the bottom of his feet. Denies any recent injury MD complaint: chest pain Onset (ago): minute(s) Duration: constant Onset: during exertion Pain location: left chest Severity: severe Severity scale (1-10): 7 Quality: tightness and aching Pain radiation: none Relieving factors: nothing Exacerbating factors: nothing Treatments prior to arrival chest pain: none Related Data Home Medications Medication Instructions Recorded Confirmed nitroglycerin 0.4 mg SL PRN PRN 06/23/18 10/18/20 dextroamphetamine-amphetamine 5 mg PO TID 11/22/18 10/18/20 cholecalciferol (vitamin D3) 125 5,000 unit PO DAILY 01/29/20 10/18/20 mcg (5,000 unit) capsule aspirin 81 mg tablet,delayed 81 mg PO DAILY 10/18/20 10/18/20 release famotidine 10 mg tablet 10 mg PO DAILY 10/18/20 10/18/20 Previous Rx's Medication Instructions Recorded albuterol sulfate 90 mcg/actuation 2 inhalation INHALATION Q4-6H PRN 12/22/18 aerosol inhaler #18 gram atorvastatin 40 mg tablet 40 mg PO BEDTIME #90 tab 02/20/20 metoprolol tartrate 25 mg tablet 25 mg PO BID #180 tab 05/22/20 gabapentin 600 mg tablet 600 mg PO TID #270 tab 09/06/20 nicotine (polacrilex) 2 mg gum 2 mg BUCCAL Q2H PRN #100 ea 11/11/20 sertraline 50 mg tablet 50 mg PO DAILY #90 tab 11/22/20 alprazolam 1 mg tablet 1 mg PO BID PRN #20 tab 12/03/20 hydrocodone 10 mg-acetaminophen 1 tab PO BID #46 tab 12/17/20 325 mg tablet oxycodone 5 mg PO Q4-6H PRN #10 tab 12/23/20 Allergies Allergy/AdvReac Type Severity Reaction Status Date / Time droperidol [DROPERIDOL] Allergy Mild COGENIC Verified 12/08/20 17:39 REACTION Review of Systems Constitutional Constitutional: Denies chills, Denies fatigue, Denies fever(s), Denies frequent falls, Denies lethargy and Denies weakness Eyes Eyes: Denies change in vision, Denies eye discharge, Denies irritation and Denies loss of vision ENT Ears, Nose, Mouth, and Throat: Denies change in voice, Denies dizziness, Reports neck pain, Denies sore throat and Denies throat swelling Cardiovascular Cardiovascular: Denies chest pain, Denies irregular heart rhythm, Denies lightheadedness, Denies palpitations, Denies dyspnea, Denies dyspnea on exertion and Denies orthopnea Respiratory Respiratory: Denies cough, Denies dyspnea, Denies dyspnea on exertion and Denies wheezing Gastrointestinal Gastrointestinal: Denies abdominal pain, Denies change in bowel habits, Denies diarrhea, Denies nausea and Denies vomiting Musculoskeletal Musculoskeletal: Reports neck pain and Reports numbness (plantar numbness) Integumentary/Breasts Skin/Breast: Denies pruritus, Denies erythema, Denies rash and Denies wounds Neurologic Neurologic: Denies behavioral changes, Denies confusion, Denies dizziness, Denies frequent falls, Denies loss of vision, Reports numbness (plantar numbness) and Denies weakness Psychiatric Psychiatric: Denies anxiety, Denies behavioral changes, Denies confusion, Denies depression, Denies homicidal ideation and Denies suicidal ideation Endocrine Endocrine: Denies fatigue, Denies flushing and Denies palpitations Hematologic/Lymphatic Hematologic/Lymphatic: Denies easy bruising Allergic/Immunologic Allergic/Immunologic: Denies urticaria, Denies throat swelling and Denies wheezing Patient History Medical History ADD (attention deficit disorder) Anxiety Arthritis Asthma Back pain Cervical radiculopathy due to osteoarthritis of spine Chest pain Chronic back pain (Unknown) Coronary artery disease Depression Diabetes mellitus, type II Essential hypertension HLD (hyperlipidemia) Numbness and tingling RLS (restless legs syndrome) Stenosis of artery Surgical History Hx of cervical discectomy (~2013) Family History Father Hypertension Hyperlipidemia Mother Diabetes mellitus Hyperlipidemia Hypertension Social History household members: family Smoking Status: Former smoker alcohol intake: never Smoking Status: Former smoker alcohol intake frequency: 0-2 drinks per day Substance Use Type: does not use Exam Narrative Exam Narrative: GENERAL: [50] year old patient appears stated age. Well-nourished, well-developed patient, in mild distress. Rubbing the left side of his neck HEAD: Atraumatic. Normocephalic. EYES: Pupils equal round and reactive. Extraocular motions intact. No scleral icterus. No injection or drainage. ENT: Nose without bleeding, purulent drainage. Throat without erythema, tonsillar hypertrophy or exudate. Airway patent. NECK: Trachea midline. Tender to palpate CARDIOVASCULAR: Regular rate and rhythm without murmurs, gallops, or rubs. RESPIRATORY: Clear to auscultation. Breath sounds equal bilaterally. No wheezes, rales, or rhonchi. GASTROINTESTINAL: Abdomen soft, non-tender, nondistended. EXTREMITIES: No edema or joint tenderness. BACK: Nontender without deformity or crepitance. No flank tenderness. NEURO: AOx3. SKIN: No rash or erythema of visible areas Initial Vital Signs Initial Vital Signs: Vital Signs Pulse Rate 127 H 12/23/20 13:30 Respiratory Rate 14 12/23/20 13:30 Pulse Oximetry 99 12/23/20 13:30 Course Orders Ordered: ED Orders 12/23/20 13:33 XR chest 1V Stat 12/23/20 13:34 EKG-12 Lead Stat 12/23/20 13:47 Complete Blood Count AUTO DIFF Stat Comprehensive Metabolic Panel Stat D Dimer Stat Lipase Stat NT-proBNP (BNP-Adult 18+) Stat Prothrombin Time INR Stat Troponin & CK Cardiac Panel Stat 12/23/20 16:17 Troponin & CK Cardiac Panel Stat 12/23/20 16:54 EKG-12 Lead Routine Sodium Chloride (Normal Saline 0.9%) 1,000 mls @ 125 mls/hr IV CONT NEELIMA Last Infusion: 12/23/20 15:52 Dose: 0 mls/hr Documented by: Infusion: 12/23/20 14:52 Dose: 0 mls/hr Documented by: Infusion: 12/23/20 14:07 Dose: 1,000 mls/hr Documented by: Admin: 12/23/20 13:56 Dose: 125 mls/hr Documented by: SUDEEP Nitroglycerin (Nitroglycerin 0.4 Mg Sl Tab) 0.4 mg SL [id number] PRN PRN Reason: Chest Pain Last Admin: 12/23/20 13:58 Dose: 0.4 mg Documented by: SUDEEP Discontinued Medications Aspirin (Aspirin 81 Mg Chew Tab) 324 mg PO NOW ONE Stop: 12/23/20 13:34 Last Admin: 12/23/20 13:57 Dose: 324 mg Documented by: SUDEEP Hydromorphone HCl (Hydromorphone 1 Mg Inj) 1 mg IV NOW ONE Stop: 12/23/20 14:17 Last Admin: 12/23/20 14:49 Dose: 1 mg Documented by: FLORENCE Hydromorphone HCl (Hydromorphone 1 Mg Inj) 1 mg IV NOW ONE Stop: 12/23/20 17:24 Last Admin: 12/23/20 17:30 Dose: 1 mg Documented by: FLORENCE Consultations Consultation #1: Discussed with on-call Cardiology at [facility] in [place]. Able to pull up old charts and cath from 2 years ago. All major vessels patent, only small occlusion in Diagonal 2. Given duration of symptoms, multiple non ischemic EKGs, negative troponins x2 they recommend DC, return precautions and follow up. No new meds. Vital Signs Vital signs: Vital Signs - 8 hr 12/23/20 13:30 12/23/20 13:31 12/23/20 13:57 Temperature 96.7 F L Pulse Rate 127 H 127 H 123 H Respiratory Rate 14 12 21 Blood Pressure 214/112 H 165/87 H Pulse Oximetry 99 100 96 12/23/20 13:58 12/23/20 14:00 12/23/20 14:01 Temperature Pulse Rate 123 H 135 H 149 H Respiratory Rate 30 H 28 H Blood Pressure 165/87 H 136/72 Pulse Oximetry 96 97 12/23/20 14:14 12/23/20 14:15 12/23/20 14:30 Temperature Pulse Rate 121 H 119 H 114 H Respiratory Rate 21 15 18 Blood Pressure 143/78 H 136/74 126/76 Pulse Oximetry 95 96 94 12/23/20 14:45 12/23/20 15:00 12/23/20 15:15 Temperature Pulse Rate 110 H 109 H 110 H Respiratory Rate 20 17 16 Blood Pressure 121/73 124/75 119/72 Pulse Oximetry 96 93 93 12/23/20 15:30 12/23/20 15:45 12/23/20 16:00 Temperature Pulse Rate 107 H 105 H 104 H Respiratory Rate 19 17 19 Blood Pressure 121/72 122/70 124/75 Pulse Oximetry 93 94 95 12/23/20 16:15 12/23/20 16:30 12/23/20 16:45 Temperature Pulse Rate 108 H 101 H 103 H Respiratory Rate 26 H Blood Pressure 128/81 129/77 132/76 Pulse Oximetry 96 95 97 12/23/20 17:00 12/23/20 17:15 12/23/20 17:30 Temperature Pulse Rate 100 H 102 H 103 H Respiratory Rate Blood Pressure 134/78 130/76 140/88 Pulse Oximetry 96 96 96 12/23/20 17:45 Temperature Pulse Rate 101 H Respiratory Rate Blood Pressure 124/71 Pulse Oximetry 95 MDM - Chest Pain Lab Data Result diagrams: 12/23/20 13:47 12/23/20 13:47 Labs: Lab Results 12/23/20 12/23/20 12/23/20 Range/Units 13:47 13:47 13:47 WBC 8.0 (4.5-11.0) X10^3/uL RBC 5.03 (4.5-5.9) X10^6/uL Hgb 15.4 (13.5-17.5) g/dL Hct 45.5 (41-53) % MCV 90.4 (80-100) fL MCH 30.6 (26-34) PG MCHC 33.8 (30-36) % RDW 12.3 (11.6-14.8) % Plt Count 188 (150-400) X10^3/uL Neut % (Auto) 72.0 (50-75) % Lymph % (Auto) 19.4 L (25-40) % [place] % (Auto) 5.5 (3-14) % Eos % (Auto) 2.5 (2-4) % Baso % (Auto) 0.6 (0-2) % Neut # (Auto) 5700 (2450-4579) /uL Lymph # (Auto) 1500 (8133-5770) /uL [place] # (Auto) 400 (0-900) /uL Eos # (Auto) 200 (0-450) /uL Baso # (Auto) 100 (0-100) /uL PT 11.3 (10.1-12.7) SECONDS INR 1.0 (0.9-1.3) D-Dimer < 200 (<230) ng/mL Sodium 136 L (137-145) mmol/L Potassium 3.9 (3.4-5.1) mmol/L Chloride 101 (98-107) mmol/L Carbon Dioxide 27 (22-32) mmol/L BUN 19 (9-20) mg/dL Creatinine 0.84 (0.66-1.25) mg/dL Estimated GFR > 60.0 (>60) mL/min BUN/Creatinine Ratio 22.6 H (6-22) Glucose 258 H (70-100) mg/dL Calcium 9.9 (8.4-10.2) mg/dL Total Bilirubin 0.3 (0.2-1.3) mg/dL AST 32 (17-59) IU/L ALT 34 (<50) IU/L Alkaline Phosphatase 66 (38-126) U/L Total Creatine Kinase 93 (55-170) U/L CK-MB (CK-2) TNP CK-MB (CK-2) Rel Index TNP Troponin I < 0.012 (0.01-0.034) ng/mL NT-Pro-B Natriuret Pep 22 (<125) pg/mL Total Protein 7.8 (6.3-8.2) g/dL Albumin 4.5 (3.5-5.0) g/dL Globulin 3.3 (1.7-4.1) g/dL Albumin/Globulin Ratio 1.4 (1.0-2.8) Lipase 71 (23-300) U/L 12/23/20 Range/Units 16:17 WBC (4.5-11.0) X10^3/uL RBC (4.5-5.9) X10^6/uL Hgb (13.5-17.5) g/dL Hct (41-53) % MCV (80-100) fL MCH (26-34) PG MCHC (30-36) % RDW (11.6-14.8) % Plt Count (150-400) X10^3/uL Neut % (Auto) (50-75) % Lymph % (Auto) (25-40) % [place] % (Auto) (3-14) % Eos % (Auto) (2-4) % Baso % (Auto) (0-2) % Neut # (Auto) (7762-8267) /uL Lymph # (Auto) (9113-6789) /uL [place] # (Auto) (0-900) /uL Eos # (Auto) (0-450) /uL Baso # (Auto) (0-100) /uL PT (10.1-12.7) SECONDS INR (0.9-1.3) D-Dimer (<230) ng/mL Sodium (137-145) mmol/L Potassium (3.4-5.1) mmol/L Chloride (98-107) mmol/L Carbon Dioxide (22-32) mmol/L BUN (9-20) mg/dL Creatinine (0.66-1.25) mg/dL Estimated GFR (>60) mL/min BUN/Creatinine Ratio (6-22) Glucose (70-100) mg/dL Calcium (8.4-10.2) mg/dL Total Bilirubin (0.2-1.3) mg/dL AST (17-59) IU/L ALT (<50) IU/L Alkaline Phosphatase (38-126) U/L Total Creatine Kinase 86 (55-170) U/L CK-MB (CK-2) TNP CK-MB (CK-2) Rel Index TNP Troponin I < 0.012 (0.01-0.034) ng/mL NT-Pro-B Natriuret Pep (<125) pg/mL Total Protein (6.3-8.2) g/dL Albumin (3.5-5.0) g/dL Globulin (1.7-4.1) g/dL Albumin/Globulin Ratio (1.0-2.8) Lipase (23-300) U/L Urine Dip Bedside Urine Glucose 1000 mg/dl Bedside Urine Bilirubin - Negative Bedside Urine Ketone - Negative Urine Specific [place] 1.010 Bedside Urine Occult Blood - Negative Bedside Urine pH 6.0 Bedside Urine Protein - Negative Bedside Urine Urobilinogen - Negative Bedside Urine Nitrite - Negative Bedside Urine Leukocytes - Negative Esterase Imaging Data Chest x-ray: Radiologist's Impression: Ori Hendrickson II 50 M [address] [id number] ReportSigned Patient: Ori Hendrickson II LMR#: [id number]: [id number]:[id number]/Sex: 50 / MDate of Service: 12/23/20Loc: EDAccession Number: [id number] Procedure: XR chest 1V Ordering Provider: Phillip Bhatia D.O. PROCEDURE: XR CHEST 1V INDICATIONS: chest pain TECHNIQUE: One view of the chest was acquired. COMPARISON: [facility], CT, CT ANGIO CHEST PE, 03/17/2019, 23:17. [facility], CR, XR CHEST 1 VIEW, 03/17/2019, 21:04. [facility], CR, XR CHEST 1V, 02/10/2019, 15:54. FINDINGS: Surgical changes and devices: Cervical spine fixation hardware is seen. Lungs and pleura: Lungs are clear. No pleural effusions or pneumothorax. Mediastinum: Mediastinal contours appear normal. Heart size is normal. Bones and chest wall: No suspicious bony lesions. Age-appropriate bony degenerative changes are seen. Overlying soft tissues appear unremarkable. IMPRESSION: Portable chest within normal limits. Dictated by: Geoff Roque M.D. on 12/23/2020 at 13:18 Approved by: Geoff Roque M.D. on 12/23/2020 at 13:19 [facility] Narrative Medical decision making narrative: Multiple causes of chest pain considered including IN, PE, pneumothorax, pneumonia, aortic dissection, and pleurisy. Patient reports no radiation, no diaphoresis, no provocation with exertion, and no vomiting Multiple etiologies for patient's symptoms considered including: [] Patient's symptoms improved over duration of stay with above-stated therapies. Findings and discharge diagnosis discussed with patient/family followed by verbalization of understanding Return precautions discussed with patient/family whom verbalize understanding. Discharge Plan Departure Patient Disposition: Home Clinical Impression: Atypical chest pain Instructions: DI for Atypical Chest Pain Activity Restrictions/Additional Instructions: *You have been diagnosed with [atypical chest pain, very unlikely to be cardiac in nature. We also considered other options such as gastrointestinal issues and blood clot which also seem unlikely.] *What to do: *Take medications as directed *Follow up with your primary keycase assembler in 2-3 days, call for an appointment. Let them know you were seen in the Emergency Department and that we ask that you be seen in follow up *Return to ER if you should have any new, worsening or concerning symptoms, such as [recurrence of pain, shortness of breath, fever greater than 101 F, shaking chills, other bothersome symptoms] Prescriptions: New oxycodone 5 mg tablet 5 mg PO Q4-6H PRN (Reason: pain) Qty: 10 RF: 0 No Action nitroglycerin 0.4 mg SL PRN PRN (Reason: Chest Pain) RF: 0 ProAir HFA 90 mcg/actuation HFA aerosol inhaler 2 inhalation INHALATION Q4-6H PRN (Reason: shortness of breath) Qty: 18 RF: 11 cholecalciferol (vitamin D3) 125 mcg (5,000 unit) capsule 5,000 unit PO DAILY RF: 0 atorvastatin 40 mg tablet 40 mg PO BEDTIME Qty: 90 RF: 3 metoprolol tartrate 25 mg tablet 25 mg PO BID Qty: 180 RF: 1 gabapentin 600 mg tablet 600 mg PO TID Qty: 270 RF: 3 nicotine (polacrilex) 2 mg gum 2 mg buccal Q2H PRN (Reason: nicotine cravings) Qty: 100 RF: 2 sertraline 50 mg tablet 50 mg PO DAILY Qty: 90 RF: 3 alprazolam 1 mg tablet 1 mg PO BID PRN (Reason: anxiety) Qty: 20 RF: 4 hydrocodone-acetaminophen 10-325 mg tablet 1 tab PO BID Qty: 46 RF: 0 aspirin [Adult Low Dose Aspirin] 81 mg tablet,delayed release (DR/EC) 81 mg PO DAILY RF: 0 famotidine [Acid [employer] (famotidine)] 10 mg tablet 10 mg PO DAILY RF: 0 dextroamphetamine-amphetamine 5 mg tablet 5 mg PO TID RF: 0 Referrals: Joselito Almeida MD [Primary Care Provider] -
[2020-12-23 13:54] LABS: Add Manual Diff / Slide Review NO; Basophils Absolute Auto 100 /uL (0-100); Basophils Percent Auto 0.6 % (0-2); Eosinophils Absolute Auto 200 /uL (0-450); Eosinophils Percent Auto 2.5 % (2-4); Hematocrit 45.5 % (41-53); Hemoglobin 15.4 g/dL (13.5-17.5); Lymphocytes Absolute Auto 1500 /uL (1100-4500); Lymphocytes Percent Auto 19.4 % (25-40); Mean Corpuscular HGB Conc 33.8 % (30-36); Mean Corpuscular Hemoglobin 30.6 PG (26-34); Mean Corpuscular Volume 90.4 fL (80-100); Monocytes Absolute Auto 400 /uL (0-900); Monocytes Percent Auto 5.5 % (3-14); Neutrophils Absolute Auto 5700 /uL (1500-7000); Platelet Count 188 X10^3/uL (150-400); Red Blood Cell Count 5.03 X10^6/uL (4.5-5.9); Red Cell Distribution Width 12.3 % (11.6-14.8)
[2020-12-23] MEDS: SODIUM CHLORIDE 0.9% 1,000 ML 125 ML IV (13:56)
[2020-12-23] MEDS: ASPIRIN 81 MG CHEW TAB 324 MG PO (13:57)
[2020-12-23] MEDS: NITROGLYCERIN 0.4 MG SL TAB SL (13:58)
[2020-12-23 14:01] LABS: Prothrombin Time 11.3 SECONDS (10.1-12.7)
[2020-12-23 14:07] LABS: Alanine Aminotransferase 34 IU/L (<50); Albumin 4.5 g/dL (3.5-5.0); Albumin Globulin Ratio 1.4 (1.0-2.8); Alkaline Phosphatase 66 U/L (38-126); Aspartate Aminotransferase 32 IU/L (17-59); BUN Creatinine Ratio 22.6 (6-22); Bilirubin Total 0.3 mg/dL (0.2-1.3); Blood Urea Nitrogen 19 mg/dL (9-20); Calcium 9.9 mg/dL (8.4-10.2); Carbon Dioxide 27 mmol/L (22-32); Chloride 101 mmol/L (98-107); Creatine Kinase 93 U/L (55-170); Estimated Glomerular Filt Rate > 60.0 mL/min (>60); Globulin 3.3 g/dL (1.7-4.1); Glucose 258 mg/dL (70-100); HEMOLYSIS < 15 (0-50); Lipase 71 U/L (23-300); Potassium 3.9 mmol/L (3.4-5.1); Sodium 136 mmol/L (137-145); Total Protein 7.8 g/dL (6.3-8.2)
--- NOTE | 2020-12-23 14:07 | PC.NURSE ---
Pt stood to void, HR increased to 158 and returned to 125 when laying down again. Provider aware and increased fluid to NS bolus 1 Liter.
[2020-12-23 14:18] LABS: NT-proBNP (BNP-Adult 18+) 22 pg/mL (<125); Troponin I < 0.012 ng/mL (0.01-0.034)
[2020-12-23 14:34] LABS: D Dimer < 200 ng/mL (<230)
[2020-12-23] MEDS: HYDROMORPHONE 1 MG INJ IV ×2 (14:49→17:30)
[2020-12-23 16:35] LABS: Creatine Kinase 86 U/L (55-170)
[2020-12-23 16:48] LABS: Troponin I < 0.012 ng/mL (0.01-0.034)
--- NOTE | 2020-12-23 17:41 | PC.NURSE ---
patient stated his chest pains are increasing. RT notified for repeat EKG and in route, Provider notified and aware.
== END 2020-12-23 18:27 | disposition home or self-care (01) ==
PROVIDERS: Emergency Provider Emergency Medicine; PCP Student in an Organized Health Care Education/Training Program
DX: R07.89 Other chest pain (principal); I25.10 Atherosclerotic heart disease of native coronary artery without angina pectoris; E11.9 Type 2 diabetes mellitus without complications; E78.5 Hyperlipidemia, unspecified
CPT/HCPCS: 36415; 71045; 80053; 81003; 82550; 83690; 83880; 84484; 85025; 85379; 85610; 93005; 93010; 96361; 96374; 96376; 99283; 99284; J1170

== ENCOUNTER 2021-01-07 18:16 | Emergency (ER) | payer OTHER, MEDICAID, SELFPAY ==
[2020-12-26 13:02] VITALS: BMI 34.2
[2021-01-07] VITALS (9 sets, daily range): BP systolic 154–181; BP diastolic 81–105; PULSE 85–105; RESP 9–24; TEMP 37.2; O2SAT 95–98
--- NOTE | 2021-01-07 18:39 | DI.RAD.S_ITS ---
PROCEDURE: XR CHEST 1V INDICATIONS: neck pain TECHNIQUE: One view of the chest was acquired. COMPARISON: [facility], CR, XR CHEST 1V, 12/23/2020, 14:03. FINDINGS: Surgical changes and devices: Cervical spinal fixation hardware Lungs and pleura: Lungs are clear. No pleural effusions or pneumothorax. Mediastinum: Mediastinal contours appear normal. Heart size is normal. Bones and chest wall: No suspicious bony lesions. Overlying soft tissues appear unremarkable. IMPRESSION: No acute disease. Dictated by: Blake Vazquez M.D. on 01/07/2021 at 19:02 Approved by: Blake Vazquez M.D. on 01/07/2021 at 19:02
[2021-01-07 18:54] LABS: Add Manual Diff / Slide Review NO; Basophils Absolute Auto 100 /uL (0-100); Basophils Percent Auto 0.9 % (0-2); Eosinophils Absolute Auto 200 /uL (0-450); Eosinophils Percent Auto 2.7 % (2-4); Hematocrit 44.8 % (41-53); Hemoglobin 15.1 g/dL (13.5-17.5); Lymphocytes Absolute Auto 1700 /uL (1100-4500); Lymphocytes Percent Auto 20.8 % (25-40); Mean Corpuscular HGB Conc 33.7 % (30-36); Mean Corpuscular Hemoglobin 30.2 PG (26-34); Mean Corpuscular Volume 89.7 fL (80-100); Monocytes Absolute Auto 700 /uL (0-900); Monocytes Percent Auto 8.2 % (3-14); Neutrophils Absolute Auto 5400 /uL (1500-7000); Neutrophils Percent Auto 67.4 % (50-75); Platelet Count 233 X10^3/uL (150-400); Red Blood Cell Count 4.99 X10^6/uL (4.5-5.9); Red Cell Distribution Width 12.4 % (11.6-14.8)
[2021-01-07 19:02] LABS: Prothrombin Time 11.3 SECONDS (10.1-12.7)
[2021-01-07 19:05] LABS: PTT Partial Thromboplastin Tim 34 SECONDS (26.4-36.2)
[2021-01-07 19:07] LABS: Alanine Aminotransferase 31 IU/L (<50); Albumin 4.9 g/dL (3.5-5.0); Albumin Globulin Ratio 1.5 (1.0-2.8); Alkaline Phosphatase 63 U/L (38-126); Aspartate Aminotransferase 35 IU/L (17-59); BUN Creatinine Ratio 12.9 (6-22); Bilirubin Total 0.4 mg/dL (0.2-1.3); Blood Urea Nitrogen 11 mg/dL (9-20); Carbon Dioxide 28 mmol/L (22-32); Chloride 103 mmol/L (98-107); Creatine Kinase 209 U/L (55-170); Estimated Glomerular Filt Rate > 60.0 mL/min (>60); Globulin 3.2 g/dL (1.7-4.1); Glucose 125 mg/dL (70-100); HEMOLYSIS < 15 (0-50); Lipase 99 U/L (23-300); Potassium 4.2 mmol/L (3.4-5.1); Sodium 138 mmol/L (137-145); Total Protein 8.1 g/dL (6.3-8.2)
[2021-01-07] MEDS: SODIUM CHLORIDE 0.9% 1,000 ML 150 ML IV (19:10)
[2021-01-07] MEDS: ASPIRIN 81 MG CHEW TAB 324 MG PO (19:10)
[2021-01-07 19:19] LABS: NT-proBNP (BNP-Adult 18+) 23 pg/mL (<125); Troponin I < 0.012 ng/mL (0.01-0.034)
[2021-01-07 19:32] LABS: CKMB % Relative Index 0.6 % (1.5-5.0); Creatine Kinase MB 1.15 ng/mL (<2.37)
[2021-01-07 21:59] LABS: Troponin I < 0.012 ng/mL (0.01-0.034)
--- NOTE | 2021-01-08 04:28 | ED_ITS ---
HPI - Chest Pain General Chief Complaint: Chest Pain Stated Complaint: left sided neck pain, leg weakness Time Seen by Provider: 01/07/21 18:39 Source: patient Mode of arrival: Ambulatory Related Data Home Medications Medication Instructions Recorded Confirmed nitroglycerin 0.4 mg SL PRN PRN 06/23/18 10/18/20 dextroamphetamine-amphetamine 5 mg PO TID 11/22/18 10/18/20 cholecalciferol (vitamin D3) 125 5,000 unit PO DAILY 01/29/20 10/18/20 mcg (5,000 unit) capsule aspirin 81 mg tablet,delayed 81 mg PO DAILY 10/18/20 10/18/20 release famotidine 10 mg tablet 10 mg PO DAILY 10/18/20 10/18/20 Previous Rx's Medication Instructions Recorded atorvastatin 40 mg tablet 40 mg PO BEDTIME #90 tab 02/20/20 metoprolol tartrate 25 mg tablet 25 mg PO BID #180 tab 05/22/20 gabapentin 600 mg tablet 600 mg PO TID #270 tab 09/06/20 nicotine (polacrilex) 2 mg gum 2 mg BUCCAL Q2H PRN #100 ea 11/11/20 sertraline 50 mg tablet 50 mg PO DAILY #90 tab 11/22/20 alprazolam 1 mg tablet 1 mg PO BID PRN #20 tab 12/03/20 hydrocodone 10 mg-acetaminophen 1 tab PO BID #46 tab 12/17/20 325 mg tablet oxycodone 5 mg PO Q4-6H PRN #10 tab 12/23/20 albuterol sulfate 90 mcg/actuation 2 inh INHALATION Q4-6H PRN #18 gram 01/01/21 aerosol inhaler Allergies Allergy/AdvReac Type Severity Reaction Status Date / Time droperidol [DROPERIDOL] Allergy Mild COGENIC Verified 12/08/20 17:39 REACTION Patient History Medical History ADD (attention deficit disorder) Anxiety Arthritis Asthma Back pain Cervical radiculopathy due to osteoarthritis of spine Chest pain Chronic back pain (Unknown) Coronary artery disease Depression Diabetes mellitus, type II Essential hypertension HLD (hyperlipidemia) Numbness and tingling RLS (restless legs syndrome) Stenosis of artery Surgical History Hx of cervical discectomy (~2013) Family History Father Hypertension Hyperlipidemia Mother Diabetes mellitus Hyperlipidemia Hypertension Social History household members: family Smoking Status: Former smoker alcohol intake: never Smoking Status: Former smoker alcohol intake frequency: 0-2 drinks per day Substance Use Type: does not use Exam Initial Vital Signs Initial Vital Signs: Vital Signs Temperature 98.9 F 01/07/21 18:30 Pulse Rate 105 H 01/07/21 18:30 Respiratory Rate 24 01/07/21 18:30 Blood Pressure 175/105 H 01/07/21 18:30 Pulse Oximetry 97 01/07/21 18:30 Course Orders Ordered: ED Orders 01/07/21 21:30 Trop I [Troponin I] Stat Discontinued Medications Aspirin (Aspirin 81 Mg Chew Tab) 324 mg PO NOW ONE Stop: 01/07/21 18:40 Last Admin: 01/07/21 19:10 Dose: 324 mg Documented by: FANTA Sodium Chloride (Normal Saline 0.9%) 1,000 mls @ 150 mls/hr IV CONT NEELIMA Last Admin: 01/07/21 19:10 Dose: 150 mls/hr Documented by: FANTA Vital Signs Vital signs: Vital Signs - 8 hr 01/07/21 20:30 01/07/21 21:00 Pulse Rate 87 85 Respiratory Rate 15 20 Blood Pressure 160/100 H 155/91 H Pulse Oximetry 95 95 MDM - Chest Pain Lab Data Attestation: I reviewed the patient's lab results. Result diagrams: 01/07/21 18:44 01/07/21 18:44 Labs: Lab Results 01/07/21 01/07/21 01/07/21 Range/Units 18:44 18:44 18:44 WBC 8.0 (4.5-11.0) X10^3/uL RBC 4.99 (4.5-5.9) X10^6/uL Hgb 15.1 (13.5-17.5) g/dL Hct 44.8 (41-53) % MCV 89.7 (80-100) fL MCH 30.2 (26-34) PG MCHC 33.7 (30-36) % RDW 12.4 (11.6-14.8) % Plt Count 233 (150-400) X10^3/uL Neut % (Auto) 67.4 (50-75) % Lymph % (Auto) 20.8 L (25-40) % [place] % (Auto) 8.2 (3-14) % Eos % (Auto) 2.7 (2-4) % Baso % (Auto) 0.9 (0-2) % Neut # (Auto) 5400 (5123-7352) /uL Lymph # (Auto) 1700 (7622-5286) /uL [place] # (Auto) 700 (0-900) /uL Eos # (Auto) 200 (0-450) /uL Baso # (Auto) 100 (0-100) /uL PT 11.3 (10.1-12.7) SECONDS INR 1.0 (0.9-1.3) APTT 34 (26.4-36.2) SECONDS Sodium 138 (137-145) mmol/L Potassium 4.2 (3.4-5.1) mmol/L Chloride 103 (98-107) mmol/L Carbon Dioxide 28 (22-32) mmol/L BUN 11 (9-20) mg/dL Creatinine 0.85 (0.66-1.25) mg/dL Estimated GFR > 60.0 (>60) mL/min BUN/Creatinine Ratio 12.9 (6-22) Glucose 125 H (70-100) mg/dL Calcium 10.0 (8.4-10.2) mg/dL Total Bilirubin 0.4 (0.2-1.3) mg/dL AST 35 (17-59) IU/L ALT 31 (<50) IU/L Alkaline Phosphatase 63 (38-126) U/L Total Creatine Kinase 209 H (55-170) U/L CK-MB (CK-2) 1.15 (<2.37) ng/mL CK-MB (CK-2) Rel Index 0.6 L (1.5-5.0) % Troponin I < 0.012 (0.01-0.034) ng/mL NT-Pro-B Natriuret Pep 23 (<125) pg/mL Total Protein 8.1 (6.3-8.2) g/dL Albumin 4.9 (3.5-5.0) g/dL Globulin 3.2 (1.7-4.1) g/dL Albumin/Globulin Ratio 1.5 (1.0-2.8) Lipase 99 (23-300) U/L 01/07/21 Range/Units 21:30 WBC (4.5-11.0) X10^3/uL RBC (4.5-5.9) X10^6/uL Hgb (13.5-17.5) g/dL Hct (41-53) % MCV (80-100) fL MCH (26-34) PG MCHC (30-36) % RDW (11.6-14.8) % Plt Count (150-400) X10^3/uL Neut % (Auto) (50-75) % Lymph % (Auto) (25-40) % [place] % (Auto) (3-14) % Eos % (Auto) (2-4) % Baso % (Auto) (0-2) % Neut # (Auto) (4805-3259) /uL Lymph # (Auto) (3395-8204) /uL [place] # (Auto) (0-900) /uL Eos # (Auto) (0-450) /uL Baso # (Auto) (0-100) /uL PT (10.1-12.7) SECONDS INR (0.9-1.3) APTT (26.4-36.2) SECONDS Sodium (137-145) mmol/L Potassium (3.4-5.1) mmol/L Chloride (98-107) mmol/L Carbon Dioxide (22-32) mmol/L BUN (9-20) mg/dL Creatinine (0.66-1.25) mg/dL Estimated GFR (>60) mL/min BUN/Creatinine Ratio (6-22) Glucose (70-100) mg/dL Calcium (8.4-10.2) mg/dL Total Bilirubin (0.2-1.3) mg/dL AST (17-59) IU/L ALT (<50) IU/L Alkaline Phosphatase (38-126) U/L Total Creatine Kinase (55-170) U/L CK-MB (CK-2) (<2.37) ng/mL CK-MB (CK-2) Rel Index (1.5-5.0) % Troponin I < 0.012 (0.01-0.034) ng/mL NT-Pro-B Natriuret Pep (<125) pg/mL Total Protein (6.3-8.2) g/dL Albumin (3.5-5.0) g/dL Globulin (1.7-4.1) g/dL Albumin/Globulin Ratio (1.0-2.8) Lipase (23-300) U/L Imaging Data Chest x-ray: Radiologist's Impression: [address] [id number] ReportSigned Patient: Ori Hendrickson II LMR#: [id number]: 1970Acct:[id number]/Sex: 50 / MDate of Service: 01/07/21Loc: EDAccession Number: [id number] Procedure: XR chest 1V Ordering Provider: Arpita Adler D.O. PROCEDURE: XR CHEST 1V INDICATIONS: neck pain TECHNIQUE: One view of the chest was acquired. COMPARISON: [facility], , XR CHEST 1V, 12/23/2020, 14:03. FINDINGS: Surgical changes and devices: Cervical spinal fixation hardware Lungs and pleura: Lungs are clear. No pleural effusions or pneumothorax. Mediastinum: Mediastinal contours appear normal. Heart size is normal. Bones and chest wall: No suspicious bony lesions. Overlying soft tissues appe ar unremarkable. IMPRESSION: No acute disease. Dictated by: Blake Vazquez M.D. on 01/07/2021 at 19:02 Approved by: Blake Vazquez M.D. on 01/07/2021 at 19:02 ECG Data Attestation: I personally reviewed and interpreted this ECG as follows: Prior ECG tracings: available for review Interpretation: Sinus rhythm with PVC. Nonspecific ST change. Ventricular rates 97, SC is 126 QRS is 70 QTC is 429. Patient has Q-wave missing from lead 3 but otherwise similar appearing EKG 12/23/20. [facility] Narrative Medical decision making narrative: To the emergency department for bilateral leg weakness/numbness for several days, chest pain and neck pain with a fall last week according to triage note. Patient left without being seen. Nurse initiated orders resulted in labs, EKG and CXR. EKG appears similar to prior. Patient's labs show troponin negative x 2, glucose of 125. CXR shows no acute disease. Discharge Plan Departure Patient Disposition: Left Against Medical Advice Clinical Impression: Patient left before treatment completed Prescriptions: No Action nitroglycerin 0.4 mg SL PRN PRN (Reason: Chest Pain) RF: 0 cholecalciferol (vitamin D3) 125 mcg (5,000 unit) capsule 5,000 unit PO DAILY RF: 0 atorvastatin 40 mg tablet 40 mg PO BEDTIME Qty: 90 RF: 3 metoprolol tartrate 25 mg tablet 25 mg PO BID Qty: 180 RF: 1 gabapentin 600 mg tablet 600 mg PO TID Qty: 270 RF: 3 nicotine (polacrilex) 2 mg gum 2 mg buccal Q2H PRN (Reason: nicotine cravings) Qty: 100 RF: 2 sertraline 50 mg tablet 50 mg PO DAILY Qty: 90 RF: 3 alprazolam 1 mg tablet 1 mg PO BID PRN (Reason: anxiety) Qty: 20 RF: 4 hydrocodone-acetaminophen 10-325 mg tablet 1 tab PO BID Qty: 46 RF: 0 ProAir HFA 90 mcg/actuation HFA aerosol inhaler 2 inh INHALATION Q4-6H PRN (Reason: shortness of breath) Qty: 18 RF: 11 aspirin [Adult Low Dose Aspirin] 81 mg tablet,delayed release (DR/EC) 81 mg PO DAILY RF: 0 famotidine [Acid Rn Transitional (famotidine)] 10 mg tablet 10 mg PO DAILY RF: 0 oxycodone 5 mg tablet 5 mg PO Q4-6H PRN (Reason: pain) Qty: 10 RF: 0 dextroamphetamine-amphetamine 5 mg tablet 5 mg PO TID RF: 0 Stand Alone Forms: Against Medical Advice
== END 2021-01-07 21:39 | disposition left against medical advice (07) ==
PROVIDERS: Emergency Medicine; Emergency Provider Emergency Medicine; PCP Student in an Organized Health Care Education/Training Program
DX: R20.0 Anesthesia of skin (principal); R07.9 Chest pain, unspecified; M54.2 Cervicalgia; W19.XXXA Unspecified fall, initial encounter
CPT/HCPCS: 36415; 71045; 80053; 82550; 82553; 83690; 83880; 84484; 85025; 85610; 85730; 93005; 99283

== ENCOUNTER 2021-02-02 15:10 | Emergency (ER) | payer OTHER, MEDICAID, SELFPAY ==
[2020-12-26 13:02] VITALS: BMI 34.2
[2021-02-02 15:35] VITALS: BP 182/101; PULSE 133; RESP 18; TEMP 37.6; O2SAT 99; BMI 35.9
--- NOTE | 2021-02-02 16:32 | ED.NECK ---
HPI - Neck Pain/Injury General Chief Complaint: Neck Pain/Injury Stated Complaint: severe neck pain, weakness in left hand Time Seen by Provider: 02/02/21 16:24 Related Data Home Medications Medication Instructions Recorded Confirmed aspirin 81 mg tablet,delayed 81 mg PO DAILY 10/18/20 01/09/21 release Previous Rx's Medication Instructions Recorded metoprolol tartrate 25 mg tablet 25 mg PO BID #180 tab 05/22/20 gabapentin 600 mg tablet 600 mg PO TID #270 tab 09/06/20 nicotine (polacrilex) 2 mg gum 2 mg BUCCAL Q2H PRN #100 ea 11/11/20 sertraline 50 mg tablet 50 mg PO DAILY #90 tab 11/22/20 alprazolam 1 mg tablet 1 mg PO BID PRN #20 tab 12/03/20 albuterol sulfate 90 mcg/actuation 2 inh INHALATION Q4-6H PRN #18 gram 01/01/21 aerosol inhaler hydrocodone 10 mg-acetaminophen 1 tab PO BID #10 tab 01/09/21 325 mg tablet Allergies Allergy/AdvReac Type Severity Reaction Status Date / Time droperidol [DROPERIDOL] Allergy Mild COGENIC Verified 01/09/21 14:01 REACTION Patient History Medical History ADD (attention deficit disorder) Anxiety Arthritis Asthma Back pain Cervical radiculopathy due to osteoarthritis of spine Chest pain Chronic back pain (Unknown) Coronary artery disease Depression Diabetes mellitus, type II Essential hypertension HLD (hyperlipidemia) Numbness and tingling RLS (restless legs syndrome) Stenosis of artery Surgical History Hx of cervical discectomy (~2013) Family History Father Hypertension Hyperlipidemia Mother Diabetes mellitus Hyperlipidemia Hypertension Social History household members: family Smoking Status: Former smoker alcohol intake: never Exam Initial Vital Signs Initial Vital Signs: Vital Signs Temperature 99.6 F 02/02/21 15:35 Pulse Rate 133 H 02/02/21 15:35 Respiratory Rate 18 02/02/21 15:35 Blood Pressure 182/101 H 02/02/21 15:35 Pulse Oximetry 99 03/28/21 15:35 Course Orders Ordered: ED Orders 02/02/21 17:16 CT cervical spine wo con Stat CT head/brain wo con Stat 02/02/21 17:29 Complete Blood Count AUTO DIFF Stat Comprehensive Metabolic Panel Stat Discontinued Medications Hydromorphone HCl (Hydromorphone 1 Mg Inj) 1 mg IV NOW ONE Stop: 02/02/21 17:18 Last Admin: 02/02/21 17:32 Dose: 1 mg Documented by: JOSÉ Hydromorphone HCl (Hydromorphone 1 Mg Inj) 1 mg IV NOW ONE Stop: 02/02/21 18:16 Last Admin: 02/02/21 18:26 Dose: 1 mg Documented by: JOSÉ Hydromorphone HCl (Hydromorphone 1 Mg Inj) 1 mg IV NOW ONE Stop: 02/02/21 20:51 Last Admin: 02/02/21 21:00 Dose: 1 mg Documented by: JOSÉ Sodium Chloride (Normal Saline 0.9%) 500 mls @ 1,000 mls/hr IV BOLUS ONE Stop: 02/02/21 18:44 Last Infusion: 02/02/21 19:22 Dose: 0 mls/hr Documented by: Admin: 02/02/21 18:26 Dose: 1,000 mls/hr Documented by: JOSÉ Ketorolac Tromethamine (Ketorolac 60 Mg/2 Ml Vial) 15 mg IV NOW ONE Stop: 02/02/21 19:24 Last Admin: 02/02/21 19:38 Dose: 15 mg Documented by: JOSÉ Methylprednisolone (Methylprednisolone 125 Mg/2 Ml Vial) 125 mg IV NOW ONE Stop: 02/02/21 19:25 Last Admin: 02/02/21 19:38 Dose: 125 mg Documented by: JOSÉ Vital Signs Vital signs: Vital Signs - 8 hr 02/02/21 15:35 02/02/21 19:33 Temperature 99.6 F Pulse Rate 133 H 97 H Respiratory Rate 18 14 Blood Pressure 182/101 H 153/92 H Pulse Oximetry 99 95 MDM - Neck Pain/Injury Lab Data Result diagrams: 02/02/21 17:29 02/02/21 17:29 Labs: Lab Results 02/02/21 02/02/21 Range/Units 17:29 17:29 WBC 8.7 (4.5-11.0) X10^3/uL RBC 5.15 (4.5-5.9) X10^6/uL Hgb 15.5 (13.5-17.5) g/dL Hct 46.4 (41-53) % MCV 90.0 (80-100) fL MCH 30.1 (26-34) PG MCHC 33.4 (30-36) % RDW 12.5 (11.6-14.8) % Plt Count 222 (150-400) X10^3/uL Neut % (Auto) 76.7 H (50-75) % Lymph % (Auto) 15.1 L (25-40) % [place] % (Auto) 6.9 (3-14) % Eos % (Auto) 0.7 L (2-4) % Baso % (Auto) 0.6 (0-2) % Neut # (Auto) 6700 (2187-2487) /uL Lymph # (Auto) 1300 (8566-7599) /uL [place] # (Auto) 600 (0-900) /uL Eos # (Auto) 100 (0-450) /uL Baso # (Auto) 100 (0-100) /uL Sodium 139 (137-145) mmol/L Potassium 4.1 (3.4-5.1) mmol/L Chloride 103 (98-107) mmol/L Carbon Dioxide 25 (22-32) mmol/L BUN 10 (9-20) mg/dL Creatinine 0.86 (0.66-1.25) mg/dL Estimated GFR > 60.0 (>60) mL/min BUN/Creatinine Ratio 11.6 (6-22) Glucose 142 H (70-100) mg/dL Calcium 10.8 H (8.4-10.2) mg/dL Total Bilirubin 0.5 (0.2-1.3) mg/dL AST 36 (17-59) IU/L ALT 38 (<50) IU/L Alkaline Phosphatase 68 (38-126) U/L Total Protein 8.4 H (6.3-8.2) g/dL Albumin 4.9 (3.5-5.0) g/dL Globulin 3.5 (1.7-4.1) g/dL Albumin/Globulin Ratio 1.4 (1.0-2.8) Discharge Plan Departure Prescriptions: No Action metoprolol tartrate 25 mg tablet 25 mg PO BID Qty: 180 RF: 1 gabapentin 600 mg tablet 600 mg PO TID Qty: 270 RF: 3 nicotine (polacrilex) 2 mg gum 2 mg buccal Q2H PRN (Reason: nicotine cravings) Qty: 100 RF: 2 sertraline 50 mg tablet 50 mg PO DAILY Qty: 90 RF: 3 alprazolam 1 mg tablet 1 mg PO BID PRN (Reason: anxiety) Qty: 20 RF: 4 ProAir HFA 90 mcg/actuation HFA aerosol inhaler 2 inh INHALATION Q4-6H PRN (Reason: shortness of breath) Qty: 18 RF: 11 hydrocodone-acetaminophen 10-325 mg tablet 1 tab PO BID Qty: 10 RF: 0 aspirin [Adult Low Dose Aspirin] 81 mg tablet,delayed release (DR/EC) 81 mg PO DAILY RF: 0
--- NOTE | 2021-02-02 17:16 | DI.CT.S_ITS ---
PROCEDURE: CT HEAD/BRAIN WO CON INDICATIONS: weak on right extremity, hx of cervical DJD and radiculopathy TECHNIQUE: Noncontrast 4.5 mm thick angled axial sections acquired from the foramen magnum to the vertex, with coronal and sagittal reformats. For radiation dose reduction, the following was used: automated exposure control, adjustment of mA and/or kV according to patient size. COMPARISON: [facility], CT, HEAD WITHOUT CONTRAST, 03/02/2009, 7:32. [facility], CT, CT CERVICAL SPINE WO CON, 02/02/2021, 17:20. [facility], CT, HEAD WITHOUT CONTRAST, 02/21/2016, 12:24. FINDINGS: Image quality: Excellent. CSF spaces: Basal cisterns are patent. No extra-axial fluid collections. Ventricles are normal in size and shape. Brain: No midline shift. No intracranial masses or hemorrhage. Nava-white matter interface is normal. Skull and face: Calvarium and visualized facial bones are intact, without suspicious lesions. Sinuses: Visualized sinuses and mastoids are clear. IMPRESSION: Normal head CT. Stable from prior. Dictated by: Geoff Roque M.D. on 02/02/2021 at 16:46 Approved by: Geoff Roque M.D. on 02/02/2021 at 16:47
--- NOTE | 2021-02-02 17:16 | DI.CT.S_ITS ---
PROCEDURE: CT CERVICAL SPINE WO CON INDICATIONS: weak on right extremity, hx of cervical DJD and radiculopathy TECHNIQUE: Noncontrast 3 mm thick sections acquired from the skull base to the T4 level. Sagittal and coronal reformats were then constructed. For radiation dose reduction, the following was used: automated exposure control, adjustment of mA and/or kV according to patient size. COMPARISON: [facility], CT, CT HEAD/BRAIN WO CON, 02/02/2021, 17:20. [facility], CT, C-SPINE WITHOUT CONTRAST, 06/14/2016, 11:39. FINDINGS: Image quality: Excellent. Bones: No fractures or dislocations. Visualized superior ribs are intact. Stable fixation hardware can be seen anteriorly at the C7-T1 level, without findings of failure or loosening. At the C4-C5 level, there is moderate disc space narrowing seen, with associated endplate irregularity. Post erected endplate osteophytes can be seen at this level. Milder degenerative changes are seen elsewhere. Soft tissues: Prevertebral soft tissues are normal in thickness. No paravertebral hematomas. No apical pneumothoraces. IMPRESSION: No acute abnormality is seen. Degenerative changes are seen, which are worst at C4-C5. Stable, unremarkable C7-T1 anterior fusion hardware. Dictated by: Geoff Roque M.D. on 02/02/2021 at 16:47 Approved by: Geoff Roque M.D. on 02/02/2021 at 16:49
[2021-02-02] MEDS: HYDROMORPHONE 1 MG INJ IV ×4 (17:32→22:13)
[2021-02-02 17:41] LABS: Add Manual Diff / Slide Review NO; Basophils Absolute Auto 100 /uL (0-100); Basophils Percent Auto 0.6 % (0-2); Eosinophils Absolute Auto 100 /uL (0-450); Eosinophils Percent Auto 0.7 % (2-4); Hematocrit 46.4 % (41-53); Hemoglobin 15.5 g/dL (13.5-17.5); Lymphocytes Absolute Auto 1300 /uL (1100-4500); Lymphocytes Percent Auto 15.1 % (25-40); Mean Corpuscular HGB Conc 33.4 % (30-36); Mean Corpuscular Hemoglobin 30.1 PG (26-34); Monocytes Absolute Auto 600 /uL (0-900); Monocytes Percent Auto 6.9 % (3-14); Neutrophils Absolute Auto 6700 /uL (1500-7000); Neutrophils Percent Auto 76.7 % (50-75); Platelet Count 222 X10^3/uL (150-400); Red Blood Cell Count 5.15 X10^6/uL (4.5-5.9); Red Cell Distribution Width 12.5 % (11.6-14.8); White Blood Cell Count 8.7 X10^3/uL (4.5-11.0)
[2021-02-02 17:54] LABS: Alanine Aminotransferase 38 IU/L (<50); Albumin 4.9 g/dL (3.5-5.0); Albumin Globulin Ratio 1.4 (1.0-2.8); Alkaline Phosphatase 68 U/L (38-126); Aspartate Aminotransferase 36 IU/L (17-59); BUN Creatinine Ratio 11.6 (6-22); Bilirubin Total 0.5 mg/dL (0.2-1.3); Blood Urea Nitrogen 10 mg/dL (9-20); Calcium 10.8 mg/dL (8.4-10.2); Carbon Dioxide 25 mmol/L (22-32); Chloride 103 mmol/L (98-107); Estimated Glomerular Filt Rate > 60.0 mL/min (>60); Globulin 3.5 g/dL (1.7-4.1); Glucose 142 mg/dL (70-100); HEMOLYSIS < 15 (0-50); Potassium 4.1 mmol/L (3.4-5.1); Sodium 139 mmol/L (137-145); Total Protein 8.4 g/dL (6.3-8.2)
--- NOTE | 2021-02-02 18:16 | ED_ITS ---
HPI - Neck Pain/Injury <YULY Cisneros - Last Filed: 02/02/21 20:47> General Chief Complaint: Neck Pain/Injury Stated Complaint: severe neck pain, weakness in left hand Time Seen by Provider: 02/02/21 16:24 Source: patient Mode of arrival: Family Vehicle Limitations: no limitations History of Present Illness HPI Narrative: This is a 50-year-old male, former smoker, has past medical history significant for severe degenerative joint disease and cervical spine presents to ED with chief complain of severe left-sided neck pain radiating to left fingers mostly in 3-5th and significant weakness. Patient started notice worsening symptoms 3 days ago which has been progressively gotten worse. Patient reports pain as sharp, shooting, and burning. Patient is currently taking hydrocodone 10 mg q.6 hours, gabapentin 600 mg t.i.d., daily baby aspirin, metoprolol, Zoloft, and inhaler as needed. Patient was evaluated at [place] about a month ago after he was transferred from [facility] Emergency room to [place] for further starting such as MRI test and neuro/spine consult with the same findings. Patient was state in ED almost a day with exams with MRI and possible surgery but was discharged to home to consider injection to spine in hopes to delay the surgery. Patient states he has not been able to seen by you had of yet but is waiting for the phone call in next week. Patient taken Medrol pack when he was discharged from [place] which seemed to help with his symptoms. Patient's discharge instruction was to return to ED immediately severe pain, weakness to upper extremity recurrs. Patient denies fever, chills, nausea or vomiting. Patient denies vision change, severe headache, facial droops, dysphagia or dysphagia. Related Data Home Medications Medication Instructions Recorded Confirmed aspirin 81 mg tablet,delayed 81 mg PO DAILY 10/18/20 01/09/21 release Previous Rx's Medication Instructions Recorded metoprolol tartrate 25 mg tablet 25 mg PO BID #180 tab 05/22/20 gabapentin 600 mg tablet 600 mg PO TID #270 tab 09/06/20 nicotine (polacrilex) 2 mg gum 2 mg BUCCAL Q2H PRN #100 ea 11/11/20 sertraline 50 mg tablet 50 mg PO DAILY #90 tab 11/22/20 alprazolam 1 mg tablet 1 mg PO BID PRN #20 tab 12/03/20 albuterol sulfate 90 mcg/actuation 2 inh INHALATION Q4-6H PRN #18 gram 01/01/21 aerosol inhaler hydrocodone 10 mg-acetaminophen 1 tab PO BID #10 tab 01/09/21 325 mg tablet methylprednisolone [Medrol (Dante)] See Rx Instructions .ROUTE 02/02/21 .COMPLEX #21 ea Allergies Allergy/AdvReac Type Severity Reaction Status Date / Time droperidol [DROPERIDOL] Allergy Mild COGENIC Verified 01/09/21 14:01 REACTION Review of Systems <George Bahena [facility] - Last Filed: 02/02/21 20:47> Review of Systems Narrative: General: Denies fever, chills, fatigue, malaise, sweats. HEENT: Denies sinus pain, ear pain, sore throat, difficulty swallowing, dizziness. Respiratory: Denies dyspnea, cough, wheezing, hemoptysis, sputum. Cardiovascular: Denies chest pain, palpitations, orthopnea, edema. Gastrointestinal: Denies nausea, vomiting, abdominal pain, diarrhea, constipation, melena. : Denies dysuria, frequency, incontinence, hematuria, urinary retention. Musculoskeletal: See HPI Skin: Denies rash, skin lesions, or other. Neurologic See HPI Psychiatric: No concerning psychosocial issues. 12-point review of systems is negative except for those stated above. Patient History <George Shruti [facility] - Last Filed: 02/02/21 20:47> Medical History ADD (attention deficit disorder) Anxiety Arthritis Asthma Back pain Cervical radiculopathy due to osteoarthritis of spine Chest pain Chronic back pain (Unknown) Coronary artery disease Depression Diabetes mellitus, type II Essential hypertension HLD (hyperlipidemia) Numbness and tingling RLS (restless legs syndrome) Stenosis of artery Surgical History Hx of cervical discectomy (~2013) Family History Father Hypertension Hyperlipidemia Mother Diabetes mellitus Hyperlipidemia Hypertension Social History household members: family Smoking Status: Former smoker alcohol intake: never Smoking Status: Former smoker alcohol intake frequency: 0-2 drinks per day Substance Use Type: does not use Exam <George YULY Bahena - Last Filed: 02/02/21 20:47> Narrative Exam Narrative: GEN: Alert, oriented x 3, well nourished, and in moderate di stress from pain. Patient holding left lateral neck. Head: Normal cephalic, atraumatic. No scalp or temporal tenderness, palpable mass or rash. EYES: Pupils are equal in 3mm, round. Extraocular muscles are intact bilaterally. There is no subconjunctival hemorrhage, exudate and sclera non-ict viri. ENT: Hearing grossly intact. Airway patent. Neck: Trachea in midline. No JVD, non-tender without lymphadenopathy. No masses or thyroid megaly. Supple, non-tender and no meningeal signs. CARDIAC: Normal regular rate and rhythm without murmurs, gallops, or rubs. No chest wall tenderness. No peripheral edema, cyanosis or pallor. Capillary refill is less than 2 seconds. RESPIRATORY: Lungs are clear to auscultate bilaterally. No cough, wheezes, rales, or rhonchi. No stridor, respiratory distress, increase work of breathing, or accessary muscle used. ABD: Abdomen soft, nontender and non-distended. No guarding or rebound tenderness to palpate. Bowel sounds are normal in all 4 quadrants. There is no palpable masses or organomegaly. EXT: Patient has normal range of motion. Patient gait is normal taking into ED. muscle strength 5/5 in right upper and lower extremities. LUE and LLE muscle strength 4/5. LUE wholesale manager decreased to left comparison to right. Slight left upper arm drift and lower leg drift. No significant sensation loss in left neck, upper extremity. SKIN: Warm, dry, normal color for patient. No erythema, lesions or rash over visible areas. BACK: Nontender without deformity or crepitance. No flank tenderness. No spinous tenderness in cervical, thoracic or lumbar. NEUROLOGICAL: Alert and oriented to place, time and person. LUE and LLE mild drift and strength. Normal sensation. No facial droops, dysphasia. PSYCHIATRIC: Good judgement and reason, without hallucinations, abnormal affect or abnormal behaviors during the examination. Patient is not suicidal. Initial Vital Signs Initial Vital Signs: Vital Signs Temperature 99.6 F 02/02/21 15:35 Pulse Rate 133 H 02/02/21 15:35 Respiratory Rate 18 02/02/21 15:35 Blood Pressure 182/101 H 02/02/21 15:35 Pulse Oximetry 99 02/02/21 15:35 <Phillip Bhatia DO - Last Filed: 02/03/21 01:07> Initial Vital Signs Initial Vital Signs: Vital Signs Temperature 99.6 F 02/02/21 15:35 Pulse Rate 133 H 02/02/21 15:35 Respiratory Rate 18 02/02/21 15:35 Blood Pressure 182/101 H 02/02/21 15:35 Pulse Oximetry 99 02/02/21 15:35 Scores <George MorrellYULY Garcia - Last Filed: 02/02/21 20:47> GCS [place] coma scale eye opening: Spontaneous [place] coma scale verbal response: Orientated D[place] coma scale motor response: Obey commands [place] coma scale total score: 15 NIH Stroke Scale Level of Conciousness: Alert, keenly responsive Ask month/age: Answers both questions correctly. Open/close eyes, close hand: Performs both tasks correctly Best gaze horizontal: Normal Visual benitez: No visual loss Facial palsy: Normal symetrical movement Left arm drift: Drifts down, not to bed Right arm drift: No drift for full 10 sec Left leg drift: Drifts down, not to bed Right leg drift: No drift for full 5 sec Limb ataxia: Absent Sensory on face/arms/legs: Normal, no sensory loss Best language: No aphasia, normal Dysarthria: Normal Extinction or inattention: No abnormality Total NIH Stroke scale score: 2 Course <YULY Cisneros - Last Filed: 02/02/21 20:47> Orders Ordered: ED Orders 02/02/21 17:16 CT cervical spine wo con Stat CT head/brain wo con Stat 02/02/21 17:29 Complete Blood Count AUTO DIFF Stat Comprehensive Metabolic Panel Stat Discontinued Medications Hydromorphone HCl (Hydromorphone 1 Mg Inj) 1 mg IV NOW ONE Stop: 02/02/21 17:18 Last Admin: 02/02/21 17:32 Dose: 1 mg Documented by: JOSÉ Hydromorphone HCl (Hydromorphone 1 Mg Inj) 1 mg IV NOW ONE Stop: 02/02/21 18:16 Last Admin: 02/02/21 18:26 Dose: 1 mg Documented by: JOSÉ Hydromorphone HCl (Hydromorphone 1 Mg Inj) 1 mg IV NOW ONE Stop: 02/02/21 20:51 Last Admin: 02/02/21 21:00 Dose: 1 mg Documented by: JOSÉ Hydromorphone HCl (Hydromorphone 1 Mg Inj) 1 mg IV NOW ONE Stop: 02/02/21 22:10 Last Admin: 02/02/21 22:13 Dose: 1 mg Documented by: DONA Sodium Chloride (Normal Saline 0.9%) 500 mls @ 1,000 mls/hr IV BOLUS ONE Stop: 02/02/21 18:44 Last Infusion: 02/02/21 19:22 Dose: 0 mls/hr Documented by: Admin: 02/02/21 18:26 Dose: 1,000 mls/hr Documented by: JOSÉ Ketorolac Tromethamine (Ketorolac 60 Mg/2 Ml Vial) 15 mg IV NOW ONE Stop: 02/02/21 19:24 Last Admin: 02/02/21 19:38 Dose: 15 mg Documented by: JOSÉ Methylprednisolone (Methylprednisolone 125 Mg/2 Ml Vial) 125 mg IV NOW ONE Stop: 02/02/21 19:25 Last Admin: 02/02/21 19:38 Dose: 125 mg Documented by: JOSÉ Reevaluation(s) Reevaluation #1: Patient reports no changes in pain level after 1 mg of Dilaudid received. CT of head negative for acute findings. CT of C-spine findings with stable fixation hardware anteriorly at the C7 to T-1 without findings of failure or loosening. At C4-C5 level there is a moderate disc space narrowing with associated endplate irregularity. Degenerate changes are seen which she are worse at C4-C5. Unremarkable chemistry test except mildly elevated glucose of 142. No leukocytosis. Findings shared with patient and images pushed to [place] to consult. Time: 18:18 Reevaluation #2: patient informed waiting for [employer]'s phone call. Patient reports pain tolerable. Time: 18:51 Reevaluation #3: Medicating patient with IV Toradol 15mg and Solu-Medrol 125mg for pain started to recur. Still waiting for [place] to call back. Written CT result faxed to [place] transfer center. Time: 19:30 Vital Signs Vital signs: Vital Signs - 8 hr 02/02/21 19:33 02/02/21 22:21 Pulse Rate 97 H 83 Respiratory Rate 14 16 Blood Pressure 153/92 H 165/95 H Pulse Oximetry 95 94 <Phillip Bhatia, DO - Last Filed: 02/03/21 01:07> Course Course Narrative: patient received in signout from daytime provider. I have performed an independent history and physical exam. I have spoken with multiple providers at our review including Dr. Lozada (Neurosurgery) and Dr. Connelly (ortho spine) both have reviewed the case, including images, history and physical. Both suggest his symptoms are consistent with his presentation at [facility] and recognize that he improved with Medrol and did not get any neuromuscular evaluations documented during his improved window. Both recommend addition of another Medrol dose pack, return precautions, and encouragement to follow closely with the Neuro Spine Clinic at [facility]. They took his number and will reach out in the next few days if they don't hear from him. Patient is very appreciative and understands the diagnosis and plan. He demonstrates his understanding and agreement with this plan by verbalizing his understanding back to me. Orders Ordered: ED Orders 02/02/21 17:16 CT cervical spine wo con Stat CT head/brain wo con Stat 02/02/21 17:29 Complete Blood Count AUTO DIFF Stat Comprehensive Metabolic Panel Stat Discontinued Medications Hydromorphone HCl (Hydromorphone 1 Mg Inj) 1 mg IV NOW ONE Stop: 02/02/21 17:18 Last Admin: 02/02/21 17:32 Dose: 1 mg Documented by: JOSÉ Hydromorphone HCl (Hydromorphone 1 Mg Inj) 1 mg IV NOW ONE Stop: 02/02/21 18:16 Last Admin: 02/02/21 18:26 Dose: 1 mg Documented by: JOSÉ Hydromorphone HCl (Hydromorphone 1 Mg Inj) 1 mg IV NOW ONE Stop: 02/02/21 20:51 Last Admin: 02/02/21 21:00 Dose: 1 mg Documented by: JOSÉ Hydromorphone HCl (Hydromorphone 1 Mg Inj) 1 mg IV NOW ONE Stop: 02/02/21 22:10 Last Admin: 02/02/21 22:13 Dose: 1 mg Documented by: DONA Sodium Chloride (Normal Saline 0.9%) 500 mls @ 1,000 mls/hr IV BOLUS ONE Stop: 02/02/21 18:44 Last Infusion: 02/02/21 19:22 Dose: 0 mls/hr Documented by: Admin: 02/02/21 18:26 Dose: 1,000 mls/hr Documented by: JOSÉ Ketorolac Tromethamine (Ketorolac 60 Mg/2 Ml Vial) 15 mg IV NOW ONE Stop: 02/02/21 19:24 Last Admin: 02/02/21 19:38 Dose: 15 mg Documented by: JOSÉ Methylprednisolone (Methylprednisolone 125 Mg/2 Ml Vial) 125 mg IV NOW ONE Stop: 02/02/21 19:25 Last Admin: 02/02/21 19:38 Dose: 125 mg Documented by: JOSÉ Vital Signs Vital signs: Vital Signs - 8 hr 02/02/21 19:33 02/02/21 22:21 Pulse Rate 97 H 83 Respiratory Rate 14 16 Blood Pressure 153/92 H 165/95 H Pulse Oximetry 95 94 MDM - Neck Pain/Injury <YULY Cisneros - Last Filed: 02/02/21 20:47> Differential Diagnosis Differential diagnosis: Likely disc disorder of cervical region, cervical radiculopathy and other (CVA) Medical Records Attestation: I reviewed the patient's medical records. Lab Data Attestation: I reviewed the patient's lab results. Result diagrams: 02/02/21 17:29 02/02/21 17:29 Labs: Lab Results 02/02/21 02/02/21 Range/Units 17:29 17:29 WBC 8.7 (4.5-11.0) X10^3/uL RBC 5.15 (4.5-5.9) X10^6/uL Hgb 15.5 (13.5-17.5) g/dL Hct 46.4 (41-53) % MCV 90.0 (80-100) fL MCH 30.1 (26-34) PG MCHC 33.4 (30-36) % RDW 12.5 (11.6-14.8) % Plt Count 222 (150-400) X10^3/uL Neut % (Auto) 76.7 H (50-75) % Lymph % (Auto) 15.1 L (25-40) % Tillman % (Auto) 6.9 (3-14) % Eos % (Auto) 0.7 L (2-4) % Baso % (Auto) 0.6 (0-2) % Neut # (Auto) 6700 (3451-7395) /uL Lymph # (Auto) 1300 (2969-2304) /uL Tillman # (Auto) 600 (0-900) /uL Eos # (Auto) 100 (0-450) /uL Baso # (Auto) 100 (0-100) /uL Sodium 139 (137-145) mmol/L Potassium 4.1 (3.4-5.1) mmol/L Chloride 103 (98-107) mmol/L Carbon Dioxide 25 (22-32) mmol/L BUN 10 (9-20) mg/dL Creatinine 0.86 (0.66-1.25) mg/dL Estimated GFR > 60.0 (>60) mL/min BUN/Creatinine Ratio 11.6 (6-22) Glucose 142 H (70-100) mg/dL Calcium 10.8 H (8.4-10.2) mg/dL Total Bilirubin 0.5 (0.2-1.3) mg/dL AST 36 (17-59) IU/L ALT 38 (<50) IU/L Alkaline Phosphatase 68 (38-126) U/L Total Protein 8.4 H (6.3-8.2) g/dL Albumin 4.9 (3.5-5.0) g/dL Globulin 3.5 (1.7-4.1) g/dL Albumin/Globulin Ratio 1.4 (1.0-2.8) Imaging Data CT scan - head: Radiologist's Impression: [address] [id number] Scan ReportSigned Patient: Ori Hendrickson II LMR#: [id number]: [id number]:[id number]/Sex: 50 / MDate of Service: 02/02/21Loc: EDAccession Number: [id number] Procedure: CT head/brain wo con Ordering Provider: George Bahena [facility] PROCEDURE: CT HEAD/BRAIN WO CON INDICATIONS: weak on right extremity, hx of cervical DJD and radiculopathy TECHNIQUE: Noncontrast 4.5 mm thick angled axial sections acquired from the foramen magnum to the vertex, with coronal and sagittal reformats. For radiation dose reduction, the following was used: automated exposure control, adjustment of mA and/or kV according to patient size. COMPARISON: [facility], CT, HEAD WITHOUT CONTRAST, 03/02/2009, 7:32. [facility], CT, CT CERVICAL SPINE WO CON, 02/02/2021, 17:20. [facility], CT, HEAD WITHOUT CONTRAST, 02/21/2016, 12:24. FINDINGS: Image quality: Excellent. CSF spaces: Basal cisterns are patent. No extra-axial fluid collections. Ventricles are normal in size and shape. Brain: No midline shift. No intracranial masses or hemorrhage. Nava-white matter interface is normal. Skull and face: Calvarium and visualized facial bones are intact, without suspicious lesions. Sinuses: Visualized sinuses and mastoids are clear. IMPRESSION: Normal head CT. Stable from prior. Dictated by: Geoff Roque M.D. on 02/02/2021 at 16:46 Approved by: Geoff Roque M.D. on 02/02/2021 at 16:47 CT-C spine: Radiologist's Impression: [address] [id number] Scan ReportSigned Patient: Ori Hendrickson II LMR#: [id number]: 1970Acct:[id number]/Sex: 50 / MDate of Service: 02/02/21Loc: EDAccession Number: [id number] Procedure: CT cervical spine wo con Ordering Provider: George Bahena [facility] PROCEDURE: CT CERVICAL SPINE WO CON INDICATIONS: weak on right extremity, hx of cervical DJD and radiculopathy TECHNIQUE: Noncontrast 3 mm thick sections acquired from the skull base to the T4 level. Sagittal and coronal reformats were then constructed. For radiation dose reduction, the following was used: automated exposure control, adjustment of mA and/or kV according to patient size. COMPARISON: [facility], CT, CT HEAD/BRAIN WO CON, 02/02/2021, 17:20. [facility], CT, C-SPINE WITHOUT CONTRAST, 06/14/2016, 11:39. FINDINGS: Image quality: Excellent. Bones: No fractures or dislocations. Visualized superior ribs are intact. Stable fixation hardware can be seen anteriorly at the C7-T1 level, without findings of failure or loosening. At the C4-C5 level, there is moderate disc space narrowing seen, with associated endplate irregularity. Post erected endplate osteophytes can be seen at this level. Milder degenerative changes are seen elsewhere. Soft tissues: Prevertebral soft tissues are normal in thickness. No paravertebral hematomas. No apical pneumothoraces. IMPRESSION: No acute abnormality is seen. Degenerative changes are seen, which are worst at C4-C5. Stable, unremarkable C7-T1 anterior fusion hardware. Dictated by: Geoff Roque M.D. on 02/02/2021 at 16:47 Approved by: Geoff Roque M.D. on 02/02/2021 at 16:49 [facility] Narrative Medical decision making narrative: This is a 50 year old male who has history of know multiple cervical degenerative disease and had C7-T1 anterior fusion in the past and chronic lumbar back pain and had L5-S1 post surgical decompression and degenerative disc bulge and bilateral facet arthrosis at L3-L4 causing mild to moderate central canal stenosis and bilateral neural foraminal from narrowing more prominent at L4-5 (Per old CT result in 12/12/20), present to ED with chief complain of left lateral neck pain radiating to mostly in left 3rd to little finger with significant weakness to left hand strength. Patient was here in emergency room at [facility] on 12/08/2020 and transfer to [place] for further evaluation with MRI test (was not available at ) and possible surgical intervention treatment. It was recommended and decided to try non-surgical intervention and to try spine injection therapy outpatiently then. He is still waiting to be seen at and waiting for a phone call next week to follow up on this. Patient had use his chronic pain medication regimen with 10 mg of hydrocodone q.6 hours, gabapentin 600 mg t.i.d. (back pain) but no relief of the same pain for last 3 days which has become progressively worse with weakness. He was instructed return to ED with recurring severe pain and or prominent weakness to left arm. Muscle strength 4/5 in LUE with weak wholesale manager and intact sensation and johnston drift. However, patient also exhibited LLE drift and weak on strength. NIHSS Score 2 on Left extremities drift and no other stroke related symptoms. CT of head and c spine obtained which show negative findings in head CT but degenerative changes that are seen which are worse at C4- C5 with moderate disc space narrowing and associated endplate irregularity. Patient is tachycardia in 130's upon arrival. Non-toxic appearing, afebrile with hypertensive. Labs are assuring. Unremarkable chemistry test except mildly elevated serum glucose to 142. [place] [facility] contacted to consult. Patient provided with 2 doses of Dilaudid 1mg IV, Toradol 15mg IV, Solu Medrol 125mg IV and 1 liter of NS infusion. VS improved to normal heart rate and pain tolerable at this time. Reports given to Dr. Sriram jhaveri attending in ED. <Phillip Bhatia DO - Last Filed: 02/03/21 01:07> Lab Data Labs: Lab Results 02/02/21 02/02/21 Range/Units 17:29 17:29 WBC 8.7 (4.5-11.0) X10^3/uL RBC 5.15 (4.5-5.9) X10^6/uL Hgb 15.5 (13.5-17.5) g/dL Hct 46.4 (41-53) % MCV 90.0 (80-100) fL MCH 30.1 (26-34) PG MCHC 33.4 (30-36) % RDW 12.5 (11.6-14.8) % Plt Count 222 (150-400) X10^3/uL Neut % (Auto) 76.7 H (50-75) % Lymph % (Auto) 15.1 L (25-40) % Tillman % (Auto) 6.9 (3-14) % Eos % (Auto) 0.7 L (2-4) % Baso % (Auto) 0.6 (0-2) % Neut # (Auto) 6700 (4899-8942) /uL Lymph # (Auto) 1300 (5363-7231) /uL Tillman # (Auto) 600 (0-900) /uL Eos # (Auto) 100 (0-450) /uL Baso # (Auto) 100 (0-100) /uL Sodium 139 (137-145) mmol/L Potassium 4.1 (3.4-5.1) mmol/L Chloride 103 (98-107) mmol/L Carbon Dioxide 25 (22-32) mmol/L BUN 10 (9-20) mg/dL Creatinine 0.86 (0.66-1.25) mg/dL Estimated GFR > 60.0 (>60) mL/min BUN/Creatinine Ratio 11.6 (6-22) Glucose 142 H (70-100) mg/dL Calcium 10.8 H (8.4-10.2) mg/dL Total Bilirubin 0.5 (0.2-1.3) mg/dL AST 36 (17-59) IU/L ALT 38 (<50) IU/L Alkaline Phosphatase 68 (38-126) U/L Total Protein 8.4 H (6.3-8.2) g/dL Albumin 4.9 (3.5-5.0) g/dL Globulin 3.5 (1.7-4.1) g/dL Albumin/Globulin Ratio 1.4 (1.0-2.8) <Phillip Bhatia, DO - Last Filed: 02/03/21 01:07> Critical Care Time Critical Care Time: Yes Total Critical Care Time: 30 Attestation: The high probability of a clinically significant, sudden or life threatening deterioration of the [NV] system(s) required my full and direct attention, intervention and personal management. The aggregate critical care time was [30] minutes. This time is in addition to time spent performing reported procedures but includes the following: [x] Data Review and interpretation [x] Patient assessment and monitoring of vital signs [x] Documentation [x] Medication orders and management Discharge Plan Departure Patient Disposition: Home Clinical Impression: Cervical radiculopathy Instructions: DI for Cervical Radiculopathy, DI for Neck Pain Activity Restrictions/Additional Instructions: *You have been diagnosed with [cervical radiculopathy. I have spoken with Neurosurgery and Orthopedic Spine surgery at [facility]. They have reviewed your case, including today's imaging and agree that discharge on the stated medications with close follow-up are indicated] *What to do: *Take medications as directed: Prescription sent to [facility] in [place] at your request *Follow up with the [facility], call tomorrow morning for an appointment ([phone]). Let them know you were seen in the Emergency Department and that we ask that you be seen in follow up *Return to ER if you should have any new, worsening or concerning symptoms, such as [ fever > 101F, worsening pain, weakness or other bothersome symptoms] You had mentioned that you would like to write an email on behalf of George. Please feel free to send it to me at [email or web address] and I'll be sure she receives your kudos. Prescriptions: New methylprednisolone [Medrol (Dante)] 4 mg tablets,dose pack See Rx Instructions .ROUTE .COMPLEX Qty: 21 RF: 0 No Action metoprolol tartrate 25 mg tablet 25 mg PO BID Qty: 180 RF: 1 gabapentin 600 mg tablet 600 mg PO TID Qty: 270 RF: 3 nicotine (polacrilex) 2 mg gum 2 mg buccal Q2H PRN (Reason: nicotine cravings) Qty: 100 RF: 2 sertraline 50 mg tablet 50 mg PO DAILY Qty: 90 RF: 3 alprazolam 1 mg tablet 1 mg PO BID PRN (Reason: anxiety) Qty: 20 RF: 4 ProAir HFA 90 mcg/actuation HFA aerosol inhaler 2 inh INHALATION Q4-6H PRN (Reason: shortness of breath) Qty: 18 RF: 11 hydrocodone-acetaminophen 10-325 mg tablet 1 tab PO BID Qty: 10 RF: 0 aspirin [Adult Low Dose Aspirin] 81 mg tablet,delayed release (DR/EC) 81 mg PO DAILY RF: 0 Referrals: Joselito Almeida MD [Primary Care Provider] -
[2021-02-02] MEDS: SODIUM CHLORIDE 0.9% 500 ML 1000 ML IV (18:26)
[2021-02-02 19:33] VITALS: BP 153/92; PULSE 97; RESP 14; O2SAT 95
[2021-02-02] MEDS: methylPREDNISolone 125 MG/2 ML VIAL IV (19:38)
[2021-02-02] MEDS: KETOROLAC 60 MG/2 ML VIAL 15 MG IV (19:38)
[2021-02-02 22:21] VITALS: BP 165/95; PULSE 83; RESP 16; O2SAT 94
== END 2021-02-02 22:22 | disposition home or self-care (01) ==
PROVIDERS: Nurse Practitioner Family; Emergency Provider Emergency Medicine; PCP Student in an Organized Health Care Education/Training Program
DX: M54.12 Radiculopathy, cervical region (principal); R53.1 Weakness; M54.2 Cervicalgia
CPT/HCPCS: 36415; 70450; 72125; 80053; 85025; 96361; 96374; 96375; 96376; 99284; 99285; J1170; J1885; J2930

== ENCOUNTER 2021-02-27 09:44 | Emergency (ER) | payer OTHER, MEDICAID, SELFPAY ==
[2020-12-26 13:02] VITALS: BMI 34.2
[2021-02-27 09:48] VITALS: BP 182/102; PULSE 108; RESP 15; TEMP 36.8; O2SAT 99; BMI 33.9
--- NOTE | 2021-02-27 10:33 | DI.RAD.S_ITS ---
PROCEDURE: XR RIBS LT MIN 3V W CXR1V INDICATIONS: rib pain after fall TECHNIQUE: To views of the left ribs were acquired, along with a single view chest. COMPARISON: None. FINDINGS: Surgical changes and devices: Cervical thoracic junction fusion plate and what appears to be an interbody disc spacer. This is partially visualized.. Bones and chest wall: No fractures or dislocations. No suspicious bony lesions. Overlying soft tissues appear unremarkable. Lungs and pleura: No pleural effusions or pneumothorax. Lungs appear clear. Mediastinum: Mediastinal contours appear normal. Heart size is normal. IMPRESSION: No definite trauma found over the ribs, no pneumothorax suspected. Dictated by: Saul Lane M.D. on 02/27/2021 at 12:06 Approved by: Saul Lane M.D. on 02/27/2021 at 12:07
--- NOTE | 2021-02-27 11:46 | ED_ITS ---
HPI - Neck Pain/Injury General Chief Complaint: Neck Pain/Injury Stated Complaint: Severe neck pain,Loss of balance, left rib pain Time Seen by Provider: 02/27/21 11:35 Source: patient and old records reviewed Mode of arrival: Ambulatory Limitations: no limitations History of Present Illness HPI Narrative: This is a 50-year-old male who comes in with complaint of left- sided chest pain after a fall as well as acute on chronic neck pain. Patient states that he has felt a little bit more off balance lately. He will feel like he has to move to 1 side versus the other. This is been going on for several days. Patient states that he fell and landed on his left chest. He states he did not hit his head. He states since then he has had left-sided chest wall pain that is worse with movement and palpation. Patient has not appreciated any skin changes. Has chronic neck pain which he is supposed to be seen tomorrow at the [facility] spinal clinic. Patient was transferred there by myself December [id number]. While there he had an MRI of his spine which we did not have available was evaluated and set up for follow-up. Patient has not appreciated any new weakness in his upper extremities or new loss of sensation. He has appreciated some burning in his right elbow that is new. He is complaining of neck pain today, he has been taking his regular medications but does not describe it as rapidly worsening. 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 He states he has not had any loss of bowel or bladder control. He denies any other symptoms. He did does have a history of hypertension and dyslipidemia. Related Data Home Medications Medication Instructions Recorded Confirmed aspirin 81 mg tablet,delayed 81 mg PO DAILY 10/18/20 02/05/21 release Previous Rx's Medication Instructions Recorded metoprolol tartrate 25 mg tablet 25 mg PO BID #180 tab 05/22/20 gabapentin 600 mg tablet 600 mg PO TID #270 tab 09/06/20 nicotine (polacrilex) 2 mg gum 2 mg BUCCAL Q2H PRN #100 ea 11/11/20 sertraline 50 mg tablet 50 mg PO DAILY #90 tab 11/22/20 alprazolam 1 mg tablet 1 mg PO BID PRN #20 tab 12/03/20 albuterol sulfate 90 mcg/actuation 2 inh INHALATION Q4-6H PRN #18 gram 01/01/21 aerosol inhaler methylprednisolone [Medrol (Dante)] See Rx Instructions .ROUTE 02/02/21 .COMPLEX #21 ea clonidine HCl 0.2 mg tablet 0.2 mg PO TID PRN #45 tab 02/26/21 methylprednisolone [Methylpred DP] See Rx Instructions .ROUTE 02/27/21 .COMPLEX #21 ea oxycodone 5 mg PO Q6H PRN #10 tab 02/27/21 Allergies Allergy/AdvReac Type Severity Reaction Status Date / Time droperidol [DROPERIDOL] Allergy Mild COGENIC Verified 02/27/21 09:54 REACTION Review of Systems Review of Systems ROS Unobtainable: All systems reviewed & are unremarkable except as noted in HPI and below Patient History Medical History ADD (attention deficit disorder) Anxiety Arthritis Asthma Back pain Cervical radiculopathy due to osteoarthritis of spine Chest pain Chronic back pain (Unknown) Coronary artery disease Depression Diabetes mellitus, type II Essential hypertension HLD (hyperlipidemia) Numbness and tingling RLS (restless legs syndrome) Stenosis of artery Surgical History Hx of cervical discectomy (~2013) Family History Father Hypertension Hyperlipidemia Mother Diabetes mellitus Hyperlipidemia Hypertension Social History household members: family Smoking Status: Former smoker alcohol intake: never Smoking Status: Former smoker alcohol intake frequency: 0-2 drinks per day Substance Use Type: does not use Exam Narrative Exam Narrative: GEN: Patient appears in [id number] distress. HEAD: No evidence of trauma, no raccoon/Maldonado sign. NECK: Nontender, trachea midline EYES: PERRLA, EOMI ENT: External inspection normal, trachea is midline, no dental or oral injury, airway is normal and with normal occlusion, No bony tenderness RESP: Chest is tender at the left lateral head ribs 678, there is no subcutaneous emphysema, no flail chest and has symmetric movement, no ecchymosis, breath sounds are normal no crackles, wheezes or rales, there is no ecchymosis, erythema or other skin changes noted. CVS: Heart sounds are normal, no murmur noted, No JVD. ABG/GI: Nontender, soft, normal bowel sounds, no distention, no organomegaly NEURO: Oriented AOx3, neuro is grossly intact, sensation and motor is normal all 4 extremities moving, cranial nerves II through XII are intact, GCS is 15. Patient has very mild decrease in video editor of the left upper extremity and very mild decrease of the left upper extremity with push and pull with 4/5 strength in comparison to 5/5 on the right. Patient's lower extremities patient has some very mild weakness in comparison with dorsiflexion. Patient is able to lift both extremities off the bed although he has increased pain in his ribs when trying to lift his left leg. Muscle strength is 5/5 in comparison besides dorsiflexion on exam. PSYCH: Normal mood and affect SKIN: Intact, warm and dry, no crepitus and without decubitus BACK: No CVA tenderness, no vertebral tenderness, no step-off's, no crepitus EXT: Atraumatic, hips are nontender, no pedal edema, normal color and temperature, normal range of motion of extremities with normal tendon exam Initial Vital Signs Initial Vital Signs: Vital Signs Temperature 98.3 F 02/27/21 09:48 Pulse Rate 108 H 02/27/21 09:48 Respiratory Rate 15 02/27/21 09:48 Blood Pressure 182/102 H 02/27/21 09:48 Pulse Oximetry 99 02/27/21 09:48 Scores GCS Digna coma scale eye opening: Spontaneous Digna coma scale verbal response: Orientated [place] coma scale motor response: Obey commands Digna coma scale total score: 15 Course Orders Ordered: ED Orders 02/27/21 10:33 XR ribs LT min 3V w CXR1V Stat Discontinued Medications Hydromorphone HCl (Hydromorphone 1 Mg Inj) 1 mg IM NOW ONE Stop: 02/27/21 11:59 Last Admin: 02/27/21 12:01 Dose: 1 mg Documented by: JEET Reevaluation(s) Reevaluation #1: Patient and I reviewed and he is comfortable with this plan. Patient was given a short course for additional pain medication he is to see his surgeon tomorrow at [facility] for his neck. He is aware of red flag symptoms which he should return for emergently. No obvious signs of fracture on x-ray. We discussed also signs and symptoms to return for this as well the patient expressed his understanding. Time: 12:28 Vital Signs Vital signs: Vital Signs - 8 hr 02/27/21 12:35 Pulse Rate 94 H Respiratory Rate 18 Blood Pressure 173/99 H Pulse Oximetry 98 MDM - Neck Pain/Injury Imaging Data Chest x-ray: Radiologist's Impression: Ori Hendrickson II 50 M 1970 [address] [id number] ReportSigned Patient: Ori Hendrickson II LMR#: [id number]: 1970Acct:[id number]/Sex: 50 / MDate of Service: 02/27/21Loc: EDAccession Number: [id number] Procedure: XR ribs LT min 3V w CXR1V Ordering Provider: Arpita Adler D.O. PROCEDURE: XR RIBS LT MIN 3V W CXR1V INDICATIONS: rib pain after fall TECHNIQUE: To views of the left ribs were acquired, along with a single view chest. COMPARISON: None. FINDINGS: Surgical changes and devices: Cervical thoracic junction fusion plate and what appears to be an interbody disc spacer. This is partially visualized.. Bones and chest wall: No fractures or dislocations. No suspicious bony lesions. Overlying soft tissues appear unremarkable. Lungs and pleura: No pleural effusions or pneumothorax. Lungs appear clear. Mediastinum: Mediastinal contours appear normal. Heart size is normal. IMPRESSION: No definite trauma found over the ribs, no pneumothorax suspected. Dictated by: Saul Lane M.D. on 02/27/2021 at 12:06 Approved by: Saul Lane M.D. on 02/27/2021 at 12:07 [facility] Narrative Medical decision making narrative: This is a 50-year-old male with known multiple cervical degenerative disc disease and a prior C7-T1 anterior fusion as well as chronic low back pain and L5-S1 surgical decompression. Patient has had significant left lateral neck pain with some radiation down his arm. He does not have any acute neurologic changes from his past exams of which are well documented on prior visits in comparison to today. Patient does not endorse any significant new changes other than feeling a little bit off balance. His chest x-ray shows no acute changes. Discharge Plan Departure Patient Disposition: Home Clinical Impression: Rib pain on left side, Cervical radiculopathy Instructions: DI for Rib Fracture Activity Restrictions/Additional Instructions: Follow up at your appointment tomorrow with [facility] surgeon. Take pain medications as prescribed, you may take 1 tablet every 4-6 hours as needed for pain. Prescriptions sent to [facility] in [place]. You may take medrol dose dante as prescribed if you would like, but you may defer until you see your surgeon tomorrow. Please return for new weakness, loss of sensation, inability to use your extremity, lightheadedness or passing out, loss of bowel or bladder control, new shortness of breath, coughing up blood, persistent vomiting or other new or concerning symptoms. Prescriptions: New oxycodone 5 mg tablet 5 mg PO Q6H PRN (Reason: pain) Qty: 10 RF: 0 methylprednisolone [Methylpred DP] 4 mg tablets,dose pack See Rx Instructions .ROUTE .COMPLEX Qty: 21 RF: 0 No Action metoprolol tartrate 25 mg tablet 25 mg PO BID Qty: 180 RF: 1 gabapentin 600 mg tablet 600 mg PO TID Qty: 270 RF: 3 nicotine (polacrilex) 2 mg gum 2 mg buccal Q2H PRN (Reason: nicotine cravings) Qty: 100 RF: 2 sertraline 50 mg tablet 50 mg PO DAILY Qty: 90 RF: 3 alprazolam 1 mg tablet 1 mg PO BID PRN (Reason: anxiety) Qty: 20 RF: 4 ProAir HFA 90 mcg/actuation HFA aerosol inhaler 2 inh INHALATION Q4-6H PRN (Reason: shortness of breath) Qty: 18 RF: 11 clonidine HCl 0.2 mg tablet 0.2 mg PO TID PRN (Reason: Opiate withdrawal) Qty: 45 RF: 0 aspirin [Adult Low Dose Aspirin] 81 mg tablet,delayed release (DR/EC) 81 mg PO DAILY RF: 0 methylprednisolone [Medrol (Dante)] 4 mg tablets,dose pack See Rx Instructions .ROUTE .COMPLEX Qty: 21 RF: 0 Referrals: Joselito Almeida MD [Primary Care Provider] - Stand Alone Forms: Work Release Note
[2021-02-27] MEDS: HYDROMORPHONE 1 MG INJ IM (12:01)
[2021-02-27 12:35] VITALS: BP 173/99; PULSE 94; RESP 18; O2SAT 98
== END 2021-02-27 12:37 | disposition home or self-care (01) ==
PROVIDERS: Emergency Provider Emergency Medicine; PCP Student in an Organized Health Care Education/Training Program
DX: R07.81 Pleurodynia (principal); M54.12 Radiculopathy, cervical region
CPT/HCPCS: 71101; 96372; 99283; J1170

== ENCOUNTER 2021-03-14 13:43 | Emergency (ER) | payer OTHER, MEDICAID, SELFPAY ==
[2020-12-26 13:02] VITALS: BMI 34.2
[2021-03-14] VITALS (25 sets, daily range): BP systolic 114–171; BP diastolic 58–102; PULSE 92–122; RESP 10–36; TEMP 36.8; O2SAT 93–98; BMI 33.9
--- NOTE | 2021-03-14 13:57 | DI.RAD.S_ITS ---
PROCEDURE: XR CHEST 1V INDICATIONS: chest pain TECHNIQUE: One view of the chest was acquired. COMPARISON: [facility], CR, XR CHEST 1V, 01/07/2021, 18:55. [facility], CR, XR CHEST 1V, 12/23/2020, 14:03. [facility], CR, XR CHEST 1V, 02/10/2019, 15:54. [facility], CR, XR CHEST 1V, 12/31/2018, 10:43. FINDINGS: Surgical changes and devices: Low anterior cervical fusion. Lungs and pleura: Lungs are clear. No pleural effusions or pneumothorax. Mediastinum: Mediastinal contours appear normal. Heart size is normal. Bones and chest wall: No suspicious bony lesions. Overlying soft tissues appear unremarkable. IMPRESSION: No acute process. Dictated by: Nahun Anguiano M.D. on 03/14/2021 at 14:20 Approved by: Nahun Anguiano M.D. on 03/14/2021 at 14:21
--- NOTE | 2021-03-14 14:06 | ED.CHESTPAIN ---
HPI - Chest Pain General Chief Complaint: Chest Pain Stated Complaint: chest pain/left side neck arm and ribs pain Time Seen by Provider: 03/14/21 14:04 Source: patient Mode of arrival: Ambulatory Limitations: no limitations History of Present Illness HPI narrative: Patient is a 50-year-old male who has a history of coronary artery disease and recent fall with left arm and shoulder pain presenting today with chest discomfort ongoing for the last 2 hours. It started while he was at rest. He states it feels like a hammer all on his chest. He has chest pain intensifies for few minutes then decreases but is always there. He says it does not radiate to his left shoulder he states that his left shoulder and left arm are at baseline but he is having pain there. He has chronic ongoing neck issues as well. He took his aspirin this morning. He says that the last 5 years she has had 2 heart catheterizations both state that he has coronary artery disease but it is not stentable. MD complaint: chest pain Onset (ago): hour(s) Duration: constant Onset: during rest Pain location: substernal Severity: moderate Severity scale (1-10): 7 Relieving factors: nothing Exacerbating factors: nothing Related Data Home Medications Medication Instructions Recorded Confirmed aspirin 81 mg tablet,delayed 81 mg PO DAILY 10/18/20 02/05/21 release Previous Rx's Medication Instructions Recorded metoprolol tartrate 25 mg tablet 25 mg PO BID #180 tab 05/22/20 gabapentin 600 mg tablet 600 mg PO TID #270 tab 09/06/20 nicotine (polacrilex) 2 mg gum 2 mg BUCCAL Q2H PRN #100 ea 11/11/20 sertraline 50 mg tablet 50 mg PO DAILY #90 tab 11/22/20 alprazolam 1 mg tablet 1 mg PO BID PRN #20 tab 12/03/20 albuterol sulfate 90 mcg/actuation 2 inh INHALATION Q4-6H PRN #18 gram 01/01/21 aerosol inhaler methylprednisolone [Medrol (Dante)] See Rx Instructions .ROUTE 02/02/21 .COMPLEX #21 ea clonidine HCl 0.2 mg tablet 0.2 mg PO TID PRN #45 tab 02/26/21 methylprednisolone [Methylpred DP] See Rx Instructions .ROUTE 02/27/21 .COMPLEX #21 ea oxycodone 5 mg PO Q6H PRN #10 tab 02/27/21 Allergies Allergy/AdvReac Type Severity Reaction Status Date / Time droperidol [DROPERIDOL] Allergy Mild COGENIC Verified 03/14/21 13:53 REACTION Review of Systems Review of Systems Narrative: GENERAL: Denies chills, fatigue, malaise, fever, sweats, travel HEENT: Denies sinus pain, ear pain, sore throat, difficulty swallowing, neck pain RESPIRATORY: Denies dyspnea, cough, wheezing, hemoptysis, sputum. CARDIOVASCULAR: See HPI GASTROINTESTINAL: Denies nausea, vomiting, abdominal pain, diarrhea, constipation, melena. : Denies dysuria, frequency, incontinence, hematuria, urinary retention, flank pain. MUSCULOSKELETAL: Denies weakness, joint pain, or bony pain SKIN: No rash, no erythema, no pruritus NEUROLOGIC: Denies weakness, dizziness, headache, numbness, change in speech, confusion PSYCHIATRIC: No concerning psychosocial issues. 12 point review of systems is negative except for those stated above and HPI Patient History Medical History ADD (attention deficit disorder) Anxiety Arthritis Asthma Back pain Cervical radiculopathy due to osteoarthritis of spine Chest pain Chronic back pain (Unknown) Coronary artery disease Depression Diabetes mellitus, type II Essential hypertension HLD (hyperlipidemia) Numbness and tingling RLS (restless legs syndrome) Stenosis of artery Surgical History Hx of cervical discectomy (~2013) Family History Father Hypertension Hyperlipidemia Mother Diabetes mellitus Hyperlipidemia Hypertension Social History household members: family Smoking Status: Former smoker alcohol intake: never Smoking Status: Former smoker alcohol intake frequency: 0-2 drinks per day Substance Use Type: does not use Exam Initial Vital Signs Initial Vital Signs: Vital Signs Pulse Rate 111 H 03/14/21 13:50 Pulse Oximetry 98 03/14/21 13:50 GENERAL: Alert 50-year-old male appears in moderate distress holding his left shoulder and in no acute distress. HEENT: Head atraumatic,EOMI, pupils reactive, face symmetric, moist mucous membranes CARDIOVASCULAR: Regular rate and rhythm without murmurs, rubs or gallops. RESPIRATORY: Breath sounds equal bilaterally, no wheezes rales or rhonchi. ABDOMEN: Soft, nontender. Normoactive bowel sounds all 4 quadrants. No guarding or rebound. EXTREMITIES: Normal range of motion, no clubbing or edema. Neurovascularly intact NEUROLOGICAL: Alert and oriented x4.Normal gait and speech. SKIN: Warm, dry, no laceration, no petechiae, no rashes or lesions. Course Orders Ordered: ED Orders 03/14/21 13:57 XR chest 1V Stat EKG-12 Lead Stat 03/14/21 14:05 Complete Blood Count AUTO DIFF Stat Comprehensive Metabolic Panel Stat Lipase Stat Magnesium Stat Partial Thromboplastin Time Stat Prothrombin Time INR Stat Troponin & CK Cardiac Panel Stat 03/14/21 15:10 COVID19 -Nasal swab/Pre-Proc Stat 03/14/21 15:54 CT angio chest abdomen pelvis Stat 03/14/21 16:26 Troponin I Stat Discontinued Medications Heparin Sodium (Porcine) (Heparin 5,000 Unit/Ml Vial) 5,000 unit IV NOW ONE Stop: 03/14/21 15:51 Last Admin: 03/14/21 16:17 Dose: 5,000 unit Documented by: GARRETT Hydromorphone HCl (Hydromorphone 1 Mg Inj) 1 mg IV NOW ONE Stop: 03/14/21 15:55 Last Admin: 03/14/21 16:12 Dose: 1 mg Documented by: GARRETT Sodium Chloride (Normal Saline 0.9%) 1,000 mls @ 1,000 mls/hr IV BOLUS ONE Stop: 03/14/21 15:20 Last Infusion: 03/14/21 16:11 Dose: 0 mls/hr Documented by: Admin: 03/14/21 14:46 Dose: 1,000 mls/hr Documented by: SUDEEP Heparin Sodium/Dextrose (Heparin Drip) 25,000 unit in 500 mls @ 20 mls/hr IV CONT NEELIMA; Protocol Last Titration: 03/14/21 17:31 Dose: 0 units/hr, 0 mls/hr Documented by: Admin: 03/14/21 16:18 Dose: 1,000 units/hr, 20 mls/hr Documented by: GARRETT Nitroglycerin (Nitroglycerin) 50 mg in 250 mls @ 1.5 mls/hr IV TITRATE NEELIMA; Protocol Last Titration: 03/14/21 17:25 Dose: 0 mcg/min, 0 mls/hr Documented by: Admin: 03/14/21 16:18 Dose: 5 mcg/min, 1.5 mls/hr Documented by: GARRETT Morphine Sulfate (Morphine 2 Mg/Ml Inj) 2 mg IV NOW ONE Stop: 03/14/21 14:06 Last Admin: 03/14/21 14:10 Dose: 2 mg Documented by: SUDEEP Morphine Sulfate (Morphine 2 Mg/Ml Inj) 2 mg IV NOW ONE Stop: 03/14/21 15:06 Last Admin: 03/14/21 15:09 Dose: 2 mg Documented by: SUDEEP Nitroglycerin (Nitroglycerin 0.4 Mg Sl Tab) 0.4 mg SL [id number] PRN PRN Reason: Chest Pain Last Admin: 03/14/21 15:19 Dose: 0.4 mg Documented by: Admin: 03/14/21 14:51 Dose: 0.4 mg Documented by: Admin: 03/14/21 14:12 Dose: 0.4 mg Documented by: SUDEEP Vital Signs Vital signs: Vital Signs - 8 hr 03/14/21 13:50 03/14/21 13:53 03/14/21 14:00 Temperature 98.2 F Pulse Rate 111 H 110 H 113 H Pulse Rate [Left Radial] Respiratory Rate 36 H 23 Blood Pressure 171/102 H Pulse Oximetry 98 97 98 03/14/21 14:12 03/14/21 14:15 03/14/21 14:30 Temperature Pulse Rate 111 H 121 H 114 H Pulse Rate [Left Radial] Respiratory Rate 13 18 Blood Pressure 171/102 H Pulse Oximetry 95 94 03/14/21 14:45 03/14/21 14:48 03/14/21 14:51 Temperature Pulse Rate 112 H 113 H 112 H Pulse Rate [Left Radial] Respiratory Rate 15 22 Blood Pressure 141/88 H 141/81 H Pulse Oximetry 95 95 03/14/21 14:55 03/14/21 15:00 03/14/21 15:15 Temperature Pulse Rate 122 H 105 H Pulse Rate [Left Radial] 118 H Respiratory Rate 21 13 Blood Pressure 114/58 L Pulse Oximetry 93 95 03/14/21 15:19 03/14/21 15:30 03/14/21 15:45 Temperature Pulse Rate 108 H 108 H 100 H Pulse Rate [Left Radial] Respiratory Rate 14 20 Blood Pressure 114/58 L 121/78 Pulse Oximetry 96 96 03/14/21 16:14 03/14/21 16:15 03/14/21 16:17 Temperature Pulse Rate 97 H 95 H 96 H Pulse Rate [Left Radial] Respiratory Rate 15 10 L Blood Pressure 166/93 H Pulse Oximetry 98 98 97 03/14/21 16:18 03/14/21 16:21 03/14/21 16:30 Temperature Pulse Rate 96 H 93 H 92 H Pulse Rate [Left Radial] Respiratory Rate 17 14 Blood Pressure 166/93 H 164/89 H Pulse Oximetry 97 97 03/14/21 16:34 03/14/21 16:45 03/14/21 17:00 Temperature Pulse Rate 93 H 100 H 100 H Pulse Rate [Left Radial] Respiratory Rate 15 24 14 Blood Pressure 148/90 H Pulse Oximetry 95 95 95 03/14/21 17:11 Temperature Pulse Rate 101 H Pulse Rate [Left Radial] Respiratory Rate 22 Blood Pressure 152/91 H Pulse Oximetry 94 MDM - Chest Pain Lab Data Attestation: I reviewed the patient's lab results. Result diagrams: 03/14/21 14:05 03/14/21 14:05 Labs: Lab Results 03/14/21 03/14/21 03/14/21 Range/Units 14:05 14:05 14:05 WBC 8.0 (4.5-11.0) X10^3/uL RBC 5.37 (4.5-5.9) X10^6/uL Hgb 16.4 (13.5-17.5) g/dL Hct 48.3 (41-53) % MCV 90.0 (80-100) fL MCH 30.5 (26-34) PG MCHC 33.9 (30-36) % RDW 12.9 (11.6-14.8) % Plt Count 226 (150-400) X10^3/uL Neut % (Auto) 70.8 (50-75) % Lymph % (Auto) 18.4 L (25-40) % Swain % (Auto) 7.9 (3-14) % Eos % (Auto) 2.3 (2-4) % Baso % (Auto) 0.6 (0-2) % Neut # (Auto) 5700 (7286-8898) /uL Lymph # (Auto) 1500 (9387-8788) /uL Swain # (Auto) 600 (0-900) /uL Eos # (Auto) 200 (0-450) /uL Baso # (Auto) 0 (0-100) /uL PT 11.0 (10.1-12.7) SECONDS INR 1.0 (0.9-1.3) APTT 33 (26.4-36.2) SECONDS Sodium 139 (137-145) mmol/L Potassium 4.2 (3.4-5.1) mmol/L Chloride 105 (98-107) mmol/L Carbon Dioxide 25 (22-32) mmol/L BUN 11 (9-20) mg/dL Creatinine 0.83 (0.66-1.25) mg/dL Estimated GFR > 60.0 (>60) mL/min BUN/Creatinine Ratio 13.3 (6-22) Glucose 107 H (70-100) mg/dL Calcium 10.0 (8.4-10.2) mg/dL Magnesium 2.3 (1.6-2.3) mg/dL Total Bilirubin 0.5 (0.2-1.3) mg/dL AST 35 (17-59) IU/L ALT 34 (<50) IU/L Alkaline Phosphatase 71 (38-126) U/L Total Creatine Kinase 174 H (55-170) U/L CK-MB (CK-2) 1.15 (<2.37) ng/mL CK-MB (CK-2) Rel Index 0.7 L (1.5-5.0) % Troponin I < 0.012 (0.01-0.034) ng/mL Total Protein 8.3 H (6.3-8.2) g/dL Albumin 4.9 (3.5-5.0) g/dL Globulin 3.4 (1.7-4.1) g/dL Albumin/Globulin Ratio 1.4 (1.0-2.8) Lipase 79 (23-300) U/L SARS-CoV-2 (PCR) (Negative) 03/14/21 03/14/21 Range/Units 15:10 16:26 WBC (4.5-11.0) X10^3/uL RBC (4.5-5.9) X10^6/uL Hgb (13.5-17.5) g/dL Hct (41-53) % MCV (80-100) fL MCH (26-34) PG MCHC (30-36) % RDW (11.6-14.8) % Plt Count (150-400) X10^3/uL Neut % (Auto) (50-75) % Lymph % (Auto) (25-40) % Swain % (Auto) (3-14) % Eos % (Auto) (2-4) % Baso % (Auto) (0-2) % Neut # (Auto) (2175-0156) /uL Lymph # (Auto) (1690-8112) /uL Swain # (Auto) (0-900) /uL Eos # (Auto) (0-450) /uL Baso # (Auto) (0-100) /uL PT (10.1-12.7) SECONDS INR (0.9-1.3) APTT (26.4-36.2) SECONDS Sodium (137-145) mmol/L Potassium (3.4-5.1) mmol/L Chloride (98-107) mmol/L Carbon Dioxide (22-32) mmol/L BUN (9-20) mg/dL Creatinine (0.66-1.25) mg/dL Estimated GFR (>60) mL/min BUN/Creatinine Ratio (6-22) Glucose (70-100) mg/dL Calcium (8.4-10.2) mg/dL Magnesium (1.6-2.3) mg/dL Total Bilirubin (0.2-1.3) mg/dL AST (17-59) IU/L ALT (<50) IU/L Alkaline Phosphatase (38-126) U/L Total Creatine Kinase (55-170) U/L CK-MB (CK-2) (<2.37) ng/mL CK-MB (CK-2) Rel Index (1.5-5.0) % Troponin I 0.014 (0.01-0.034) ng/mL Total Protein (6.3-8.2) g/dL Albumin (3.5-5.0) g/dL Globulin (1.7-4.1) g/dL Albumin/Globulin Ratio (1.0-2.8) Lipase (23-300) U/L SARS-CoV-2 (PCR) Negative (Negative) Imaging Data Chest x-ray: Radiologist's Impression: PROCEDURE: XR CHEST 1V INDICATIONS: chest pain TECHNIQUE: One view of the chest was acquired. COMPARISON: [facility], CR, XR CHEST 1V, 01/07/2021, 18:55. [facility], CR, XR CHEST 1V, 12/23/2020, 14:03. [facility], CR, XR CHEST 1V, 02/10/2019, 15:54. [facility], CR, XR CHEST 1V, 12/31/2018, 10:43. FINDINGS: Surgical changes and devices: Low anterior cervical fusion. Lungs and pleura: Lungs are clear. No pleural effusions or pneumothorax. Mediastinum: Mediastinal contours appear normal. Heart size is normal. Bones and chest wall: No suspicious bony lesions. Overlying soft tissues appear unremarkable. IMPRESSION: No acute process. Dictated by: Nahun Anguiano M.D. on 03/14/2021 at 14:20 Approved by: Nahun Anguiano M.D. on 03/14/2021 at 14:21 CT scan - chest: Radiologist's Impression: PROCEDURE: CT ANGIO CHEST ABDOMEN PELVIS INDICATIONS: Persistent chest pain TECHNIQUE: Precontrast 5 mm thick sections acquired from the lung apices to the iliac crests. After the administration of intravenous contrast, 2.5 mm thick sections again acquired from the lung apices to the iliac crests. Maximum intensity projection (MIP) oblique sagittal and coronal reformats were then acquired. For radiation dose reduction, the following was used: automated exposure control. COMPARISON: [facility], CT, CT ANGIO CHEST ABDOMEN PELVIS, 12/31/2018, 11:13. FINDINGS: Image quality: Excellent. AORTA: Noncontrast images demonstrate no evidence of intramural hematomas. The aorta is normal in caliber and contour. No intimal flaps identified to suggest aortic dissection. No periaortic hematomas. The aortic arch demonstrates conventional branching. The visualized great vessels appear normal in caliber and widely patent. The celiac, superior mesenteric, and inferior mesenteric arteries appear widely patent. There are single renal arteries bilaterally which both appear widely patent. The common, external, and internal iliac arteries also appear patent. CHEST: Lungs and pleura: No acute consolidation. There is a small nodule in the right lower lobe measuring 0.4 cm on series 5, image 202 which appears stable in size compared to the prior study. In the left lower lobe, a small perifissural nodule measuring up to 0.3 cm on series 5, image 146 also appears similar in size compared to the prior study given differences in technique and slice acquisition. There is mild dependent atelectasis. No pleural effusions or pneumothorax. Central and peripheral airways are patent and normal in caliber. Mediastinum: Heart size is normal. No pericardial effusion. No mediastinal or hilar adenopathy by size criteria. Central pulmonary arteries are normal in size. No filling defects within the central pulmonary arteries. Esophagus is normal in caliber. No hiatal hernias. Bones and chest wall: No axillary adenopathy by size criteria. No suspicious bony lesions. No vertebral body compression fractures. ABDOMEN: Solid organs: There is hypoattenuation of the liver compatible with fatty infiltration with relative sparing along the gallbladder fossa. The gallbladder appears within normal limits without calcified gallstones. Biliary system is non-dilated. Pancreas enhances normally. No peripancreatic fat stranding or fluid collections. No pancreatic duct dilatation. The spleen is normal in size. No adrenal nodules. Kidneys demonstrate no hydronephrosis. Peritoneum and bowel: No free fluid or air. Bowel loops are normal in caliber and wall thickness. The appendix is normal in appearance. There is a pericolonic oval soft tissue nodule posterior to the proximal sigmoid colon measuring up to 1.9 x 1.7 cm in transverse dimension on series 4, image 178 which appears stable in size compared to the prior study. This demonstrates internal attenuation compatible with fatty components. Nodes and vessels: No retroperitoneal or mesenteric adenopathy by size criteria. Inferior vena cava is normal in morphology. Miscellaneous: No ventral hernias. PELVIS: Genitourinary: Bladder wall thickness is normal. Miscellaneous: No inguinal hernias or adenopathy. No ventral hernias. Bones: No suspicious bony lesions. There are postsurgical changes status post posterior fixation in the lower thoracic spine at L5-S1 with an intervertebral spacer. Postsurgical change also demonstrated within the visualized lower cervical spine at C7-T1. No vertebral body compression fractures. IMPRESSION: 1. No evidence of aortic dissection or aneurysm. 2. No central pulmonary embolism. 3. No acute consolidation in the lungs. 4. Small soft tissue nodule adjacent to the descending colon with attenuation values compatible with internal fat. The finding is nonspecific but appears stable in size compared to the prior study. Differential considerations include sequelae of an omental infarct, fat necrosis, or epiploic appendagitis. Dictated by: Johnny Colmenares M.D. on 03/14/2021 at 16:21 ECG Data Attestation: I personally reviewed and interpreted this ECG as follows: Prior ECG tracings: not available for review Interpretation: EKG 1. Sinus tachycardia rate 111 p.r. interval 144 QRS 74 QTC 625 atrial enlargement noted no ST changes no priors to compare EKG 2. Sinus rhythm rate [address] changes PVC noted EKG 3. Sinus tachycardia rate [address] changes Q-wave noted in lead 3 only MDM Narrative Medical decision making narrative: Patient initially had pain relief with 2 nitroglycerin however not much with the 3rd. He has known coronary artery disease concerning for acute coronary syndrome. No EKG changes initial troponin negative. Than stating that his pain is radiating from his chest to the left side of his chest and down his ribs. With increasing pain despite opiate medication and nitro will rule out dissection. CT is negative for dissection. He is started on nitroglycerin drip along with heparin. 1551 Dr. Esposito, hospitalist at [facility] day patient's symptoms test results agrees with transfer 1630 Dr. Velásquez cardiology updated on patient. He is quite familiar with patient concern for possible drug-seeking behavior. Recommend no further opiates nitroglycerin drip only. Patient has actually been seen here multiple times for his ongoing left shoulder and neck pain. Critical Care Time Critical Care Time Critical Care Time: Yes Total Critical Care Time: 30 Attestation: The high probability of a clinically significant, sudden or life threatening deterioration of the [cardiovascular] system(s) required my full and direct attention, intervention and personal management. The aggregate critical care time was 30 minutes. This time is in addition to time spent performing reported procedures but includes the following: [x] Data Review and interpretation [x] Patient assessment and monitoring of vital signs [x] Documentation [x] Medication orders and management Discharge Plan [facility]arture [facility] Clinical Impression: ACS (acute coronary syndrome) Prescriptions: No Action metoprolol tartrate 25 mg tablet 25 mg PO BID Qty: 180 RF: 1 gabapentin 600 mg tablet 600 mg PO TID Qty: 270 RF: 3 nicotine (polacrilex) 2 mg gum 2 mg buccal Q2H PRN (Reason: nicotine cravings) Qty: 100 RF: 2 sertraline 50 mg tablet 50 mg PO DAILY Qty: 90 RF: 3 alprazolam 1 mg tablet 1 mg PO BID PRN (Reason: anxiety) Qty: 20 RF: 4 ProAir HFA 90 mcg/actuation HFA aerosol inhaler 2 inh INHALATION Q4-6H PRN (Reason: shortness of breath) Qty: 18 RF: 11 clonidine HCl 0.2 mg tablet 0.2 mg PO TID PRN (Reason: Opiate withdrawal) Qty: 45 RF: 0 aspirin [Adult Low Dose Aspirin] 81 mg tablet,delayed release (DR/EC) 81 mg PO DAILY RF: 0 methylprednisolone [Medrol (Dante)] 4 mg tablets,dose pack See Rx Instructions .ROUTE .COMPLEX Qty: 21 RF: 0 oxycodone 5 mg tablet 5 mg PO Q6H PRN (Reason: pain) Qty: 10 RF: 0 methylprednisolone [Methylpred DP] 4 mg tablets,dose pack See Rx Instructions .ROUTE .COMPLEX Qty: 21 RF: 0 Referrals: Joselito Almeida MD [Primary Care Provider] -
[2021-03-14] MEDS: MORPHINE 2 MG/ML INJ IV ×2 (14:10→15:09)
[2021-03-14 14:11] LABS: Add Manual Diff / Slide Review NO; Basophils Absolute Auto 0 /uL (0-100); Basophils Percent Auto 0.6 % (0-2); Eosinophils Absolute Auto 200 /uL (0-450); Eosinophils Percent Auto 2.3 % (2-4); Hematocrit 48.3 % (41-53); Hemoglobin 16.4 g/dL (13.5-17.5); Lymphocytes Absolute Auto 1500 /uL (1100-4500); Lymphocytes Percent Auto 18.4 % (25-40); Mean Corpuscular HGB Conc 33.9 % (30-36); Mean Corpuscular Hemoglobin 30.5 PG (26-34); Monocytes Absolute Auto 600 /uL (0-900); Monocytes Percent Auto 7.9 % (3-14); Neutrophils Absolute Auto 5700 /uL (1500-7000); Neutrophils Percent Auto 70.8 % (50-75); Platelet Count 226 X10^3/uL (150-400); Red Blood Cell Count 5.37 X10^6/uL (4.5-5.9); Red Cell Distribution Width 12.9 % (11.6-14.8)
[2021-03-14] MEDS: NITROGLYCERIN 0.4 MG SL TAB SL ×3 (14:12→15:19)
[2021-03-14] MEDS: SODIUM CHLORIDE 0.9% 1,000 ML 1000 ML IV (14:46)
[2021-03-14 14:51] LABS: PTT Partial Thromboplastin Tim 33 SECONDS (26.4-36.2)
[2021-03-14 14:53] LABS: Alanine Aminotransferase 34 IU/L (<50); Albumin 4.9 g/dL (3.5-5.0); Albumin Globulin Ratio 1.4 (1.0-2.8); Alkaline Phosphatase 71 U/L (38-126); Aspartate Aminotransferase 35 IU/L (17-59); BUN Creatinine Ratio 13.3 (6-22); Bilirubin Total 0.5 mg/dL (0.2-1.3); Blood Urea Nitrogen 11 mg/dL (9-20); Carbon Dioxide 25 mmol/L (22-32); Chloride 105 mmol/L (98-107); Creatine Kinase 174 U/L (55-170); Estimated Glomerular Filt Rate > 60.0 mL/min (>60); Globulin 3.4 g/dL (1.7-4.1); Glucose 107 mg/dL (70-100); HEMOLYSIS < 15 (0-50); Lipase 79 U/L (23-300); Magnesium 2.3 mg/dL (1.6-2.3); Potassium 4.2 mmol/L (3.4-5.1); Sodium 139 mmol/L (137-145); Total Protein 8.3 g/dL (6.3-8.2)
[2021-03-14 15:05] LABS: Troponin I < 0.012 ng/mL (0.01-0.034)
[2021-03-14 15:08] LABS: CKMB % Relative Index 0.7 % (1.5-5.0); Creatine Kinase MB 1.15 ng/mL (<2.37)
[2021-03-14 15:31] LABS: COVID19 -Nasal RAPID Negative (Negative)
--- NOTE | 2021-03-14 15:54 | DI.CT.S_ITS ---
PROCEDURE: CT ANGIO CHEST ABDOMEN PELVIS INDICATIONS: Persistent chest pain TECHNIQUE: Precontrast 5 mm thick sections acquired from the lung apices to the iliac crests. After the administration of intravenous contrast, 2.5 mm thick sections again acquired from the lung apices to the iliac crests. Maximum intensity projection (MIP) oblique sagittal and coronal reformats were then acquired. For radiation dose reduction, the following was used: automated exposure control. COMPARISON: [facility], CT, CT ANGIO CHEST ABDOMEN PELVIS, 12/31/2018, 11:13. FINDINGS: Image quality: Excellent. AORTA: Noncontrast images demonstrate no evidence of intramural hematomas. The aorta is normal in caliber and contour. No intimal flaps identified to suggest aortic dissection. No periaortic hematomas. The aortic arch demonstrates conventional branching. The visualized great vessels appear normal in caliber and widely patent. The celiac, superior mesenteric, and inferior mesenteric arteries appear widely patent. There are single renal arteries bilaterally which both appear widely patent. The common, external, and internal iliac arteries also appear patent. CHEST: Lungs and pleura: No acute consolidation. There is a small nodule in the right lower lobe measuring 0.4 cm on series 5, image 202 which appears stable in size compared to the prior study. In the left lower lobe, a small perifissural nodule measuring up to 0.3 cm on series 5, image 146 also appears similar in size compared to the prior study given differences in technique and slice acquisition. There is mild dependent atelectasis. No pleural effusions or pneumothorax. Central and peripheral airways are patent and normal in caliber. Mediastinum: Heart size is normal. No pericardial effusion. No mediastinal or hilar adenopathy by size criteria. Central pulmonary arteries are normal in size. No filling defects within the central pulmonary arteries. Esophagus is normal in caliber. No hiatal hernias. Bones and chest wall: No axillary adenopathy by size criteria. No suspicious bony lesions. No vertebral body compression fractures. ABDOMEN: Solid organs: There is hypoattenuation of the liver compatible with fatty infiltration with relative sparing along the gallbladder fossa. The gallbladder appears within normal limits without calcified gallstones. Biliary system is non-dilated. Pancreas enhances normally. No peripancreatic fat stranding or fluid collections. No pancreatic duct dilatation. The spleen is normal in size. No adrenal nodules. Kidneys demonstrate no hydronephrosis. Peritoneum and bowel: No free fluid or air. Bowel loops are normal in caliber and wall thickness. The appendix is normal in appearance. There is a pericolonic oval soft tissue nodule posterior to the proximal sigmoid colon measuring up to 1.9 x 1.7 cm in transverse dimension on series 4, image 178 which appears stable in size compared to the prior study. This demonstrates internal attenuation compatible with fatty components. Nodes and vessels: No retroperitoneal or mesenteric adenopathy by size criteria. Inferior vena cava is normal in morphology. Miscellaneous: No ventral hernias. PELVIS: Genitourinary: Bladder wall thickness is normal. Miscellaneous: No inguinal hernias or adenopathy. No ventral hernias. Bones: No suspicious bony lesions. There are postsurgical changes status post posterior fixation in the lower thoracic spine at L5-S1 with an intervertebral spacer. Postsurgical change also demonstrated within the visualized lower cervical spine at C7-T1. No vertebral body compression fractures. IMPRESSION: 1. No evidence of aortic dissection or aneurysm. 2. No central pulmonary embolism. 3. No acute consolidation in the lungs. 4. Small soft tissue nodule adjacent to the descending colon with attenuation values compatible with internal fat. The finding is nonspecific but appears stable in size compared to the prior study. Differential considerations include sequelae of an omental infarct, fat necrosis, or epiploic appendagitis. Dictated by: Johnny Colmenares M.D. on 03/14/2021 at 16:21 Approved by: Johnny Colmenares M.D. on 03/14/2021 at 16:33
[2021-03-14] MEDS: HYDROMORPHONE 1 MG INJ IV (16:12)
[2021-03-14] MEDS: HEPARIN 5,000 UNIT/ML VIAL 5000 UNIT IV (16:17)
[2021-03-14] MEDS: HEPARIN DRIP 25,000 UNIT/500 ML IV.SOLN 20 UNIT IV (16:18)
[2021-03-14] MEDS: NITROGLYCERIN 50 MG/250 ML INFUS..BTL IV (16:18)
[2021-03-14 17:06] LABS: Troponin I 0.014 ng/mL (0.01-0.034)
--- NOTE | 2021-03-14 17:11 | PC.NURSE ---
Patient reports pain decreased after Dilaudid to a 3/10. Now it has returned on the right side instead of the left at 5/10.
--- NOTE | 2021-03-14 17:35 | PC.NURSE ---
Pt transferred to [facility] with Nitroglycerin drip infusing at 5mcg/min and Heparin gtt at 1000 units per hour.
== END 2021-03-14 17:37 | disposition short-term general hospital (02) ==
PROVIDERS: Emergency Provider Emergency Medicine; PCP Student in an Organized Health Care Education/Training Program
DX: I24.9 Acute ischemic heart disease, unspecified (principal); Z20.822 Contact with and (suspected) exposure to COVID-19
CPT/HCPCS: 36415; 71045; 71275; 74174; 80053; 82550; 82553; 83690; 83735; 84484; 85025; 85610; 85730; 87635; 93005; 96361; 96365; 96368; 96375; 96376; 99285; 99291; C9803; J1170; J1644; J2270

== ENCOUNTER → 2021-03-21 14:05 | Outpatient (CLI) | payer OTHER, MEDICAID, SELFPAY ==
[2020-12-26 13:02] VITALS: BMI 34.2
--- NOTE | 2021-03-21 14:07 | DI.RAD.S_ITS ---
PROCEDURE: XR RIBS LT 2V INDICATIONS: Left rib trauma; re-eval XR done in ED for occult fx TECHNIQUE: 2 views of the left ribs were acquired. COMPARISON: None. FINDINGS: Surgical changes and devices: None. Bones and chest wall: No fractures or dislocations. No suspicious bony lesions. Overlying soft tissues appear unremarkable. Lungs and pleura: The visualized lung appears clear. No pleural effusions or pneumothorax are visible. IMPRESSION: No trauma to the left ribs is found. Dictated by: Saul Lnae M.D. on 03/21/2021 at 15:24 Approved by: Saul Lane M.D. on 03/21/2021 at 15:25
== END ==
PROVIDERS: PCP Student in an Organized Health Care Education/Training Program; Referring Provider Student in an Organized Health Care Education/Training Program; Visit Provider Student in an Organized Health Care Education/Training Program
DX: R07.81 Pleurodynia (principal)
CPT/HCPCS: 71100

== ENCOUNTER 2021-04-01 14:27 | Emergency (ER) | payer OTHER, MEDICAID, SELFPAY ==
[2020-12-26 13:02] VITALS: BMI 34.2
[2021-04-01 14:47] VITALS: BP 178/109; PULSE 126; RESP 18; TEMP 36.9; O2SAT 100
--- NOTE | 2021-04-01 14:54 | DI.RAD.S_ITS ---
PROCEDURE: XR HIP W PEL IF DONE RT 2V INDICATIONS: rt hip pain no known injury TECHNIQUE: AP pelvis with lateral view(s) of the right hip(s). COMPARISON: [facility], , XR HIP W PEL IF DONE RT 2V, 04/29/2020, 15:31. FINDINGS: Bones: No acute fracture identified. Lower lumbar spinal fixation hardware as before. Scattered degenerative subchondral sclerosis and spurring. No definite hip joint space narrowing. Soft tissues: The visualized bowel gas pattern is normal. No suspicious soft tissue calcifications. IMPRESSION: Unremarkable examination. If the patient's pain or other symptoms persist, consider further evaluation with MRI Dictated by: Blake Vazquez M.D. on 04/01/2021 at 15:11 Approved by: Blake Vazquez M.D. on 04/01/2021 at 15:12
--- NOTE | 2021-04-01 16:09 | ED.LOWEXIN ---
HPI - Extremity Injury (Lower) General Chief Complaint: Extremity Injury, Lower Stated Complaint: RIGHT HIP PAIN Time Seen by Provider: 04/01/21 15:37 Source: patient Mode of arrival: Ambulatory Limitations: no limitations History of Present Illness HPI Narrative: Patient is a 50-year-old male here for evaluation of right hip pain. He states that it started a couple days ago and has worsened since that time. He denies any trauma. Started 1 day when he woke up after lying on his right side. Pain does not radiate down to his near to his foot. He has no back pain. Does not radiate into his groin. He has no rashes over the area. Does have quite a bit of discomfort with putting pressure on his leg and walking however he can move his hip without much discomfort. Has not tried anything for the symptoms prior to arrival. Related Data Home Medications Medication Instructions Recorded Confirmed aspirin 81 mg tablet,delayed 81 mg PO DAILY 10/18/20 03/19/21 release Previous Rx's Medication Instructions Recorded metoprolol tartrate 25 mg tablet 25 mg PO BID #180 tab 05/22/20 gabapentin 600 mg tablet 600 mg PO TID #270 tab 09/06/20 nicotine (polacrilex) 2 mg gum 2 mg BUCCAL Q2H PRN #100 ea 11/11/20 sertraline 50 mg tablet 50 mg PO DAILY #90 tab 11/22/20 alprazolam 1 mg tablet 1 mg PO BID PRN #20 tab 12/03/20 albuterol sulfate 90 mcg/actuation 2 inh INHALATION Q4-6H PRN #18 gram 01/01/21 aerosol inhaler methylprednisolone [Medrol (Dante)] See Rx Instructions .ROUTE 02/02/21 .COMPLEX #21 ea clonidine HCl 0.2 mg tablet 0.2 mg PO TID PRN #45 tab 02/26/21 methylprednisolone [Methylpred DP] See Rx Instructions .ROUTE 02/27/21 .COMPLEX #21 ea oxycodone 5 mg PO Q6H PRN #10 tab 02/27/21 tramadol 50 mg PO Q8H PRN #7 tab 04/01/21 tramadol [Ultram] 50 mg PO Q8H PRN #7 tab 04/01/21 Allergies Allergy/AdvReac Type Severity Reaction Status Date / Time droperidol [DROPERIDOL] Allergy Mild COGENIC Verified 03/19/21 14:44 REACTION Review of Systems Constitutional Constitutional: Reports system reviewed and no additional complaints, except as documented Musculoskeletal Musculoskeletal: Denies tingling Comments: Right hip pain Integumentary/Breasts Skin/Breast: Denies rash Neurologic Neurologic: Denies tingling Hematologic/Lymphatic On Anticoagulants: No Allergic/Immunologic Allergic/Immunologic: Reports system reviewed and no additional complaints, except as documented Patient History Medical History ADD (attention deficit disorder) Anxiety Arthritis Asthma Cervical radiculopathy due to osteoarthritis of spine Chest pain Coronary artery disease Depression Diabetes mellitus, type II Essential hypertension HLD (hyperlipidemia) Numbness and tingling RLS (restless legs syndrome) Stenosis of artery Surgical History (Updated 03/26/21 @ 07:37 by Joselito Almeida MD) Hx of cervical discectomy (~2013) Family History Father Hypertension Hyperlipidemia Mother Diabetes mellitus Hyperlipidemia Hypertension Social History household members: family Smoking Status: Former smoker alcohol intake: never Smoking Status: Former smoker alcohol intake frequency: 0-2 drinks per day Substance Use Type: does not use Exam Initial Vital Signs Initial Vital Signs: Vital Signs Temperature 98.4 F 04/01/21 14:47 Pulse Rate 126 H 04/01/21 14:47 Respiratory Rate 18 04/01/21 14:47 Blood Pressure 178/109 H 04/01/21 14:47 Pulse Oximetry 100 04/01/21 14:47 Const General: cooperative Back/Spine/Pelvis Thoracic/Lumbar Spine: No lumbar spinal tenderness Sacroiliac Joints: nontender Skin Lesions: no lesions Rashes: no rashes Neuro General: patient alert and patient oriented x3 Extrem Other: Full range of motion of right ankle right knee and right hip. I can internally and externally rotate the right hip without discomfort. He has tenderness to palpation over the lateral aspect of the hip specifically over in just posterior to the greater trochanter. Psych Appearance: grossly normal and well kempt Course Orders Ordered: Discontinued Medications Hydromorphone HCl (Hydromorphone 1 Mg Inj) 1 mg IM NOW ONE Stop: 04/01/21 16:10 Last Admin: 04/01/21 16:21 Dose: 1 mg Documented by: FANTA Vital Signs Vital signs: Vital Signs - 8 hr 04/01/21 14:47 Temperature 98.4 F Pulse Rate 126 H Respiratory Rate 18 Blood Pressure 178/109 H Pulse Oximetry 100 [facility] - Extremity Injury (Lower) Imaging Data Extremity x-ray #1: Radiologist's Impression: [address] [id number] ReportSigned Patient: Ori Hendrickson II LMR#: [id number]: [id number]:[id number]/Sex: 50 / MDate of Service: 04/01/21Loc: EDAccession Number: [id number] Procedure: XR hip w pel if done RT 2V Ordering Provider: Aureliano Matos D.O. PROCEDURE: XR HIP W PEL IF DONE RT 2V INDICATIONS: rt hip pain no known injury TECHNIQUE: AP pelvis with lateral view(s) of the right hip(s). [facility] H[facility] W PEL IF DONE RT 2V, 04/29/2020, 15:31. FINDINGS: Bones: No acute fracture identified. Lower lumbar spinal fixation hardware as before. Scattered degenerative subchondral sclerosis and spurring. No definite hip joint space narrowing. Soft tissues: The visualized bowel gas pattern is normal. No suspicious soft tissue calcifications. IMPRESSION: Unremarkable examination. If the patient's pain or other symptoms persist, consider further evaluation with MRI Dictated by: Blake Vazquez M.D. on 04/01/2021 at 15:11 Approved by: Blake Vazquez M.D. on 04/01/2021 at 15:12 [facility] Narrative Medical decision making narrative: X-rays are normal. No rashes. I do suspect that his symptoms are a bursitis/tendinitis given where he is having the location of the discomfort. I have low suspicion for fracture. Also have a lower suspicion that this is sciatic pain given his presentation as well. Patient can be discharged home without further workup. He was given return precautions. He expressed understanding and agreement. Discharge Plan Departure Patient Disposition: Home Clinical Impression: Acute hip pain Instructions: DI for Hip Pain Activity Restrictions/Additional Instructions: The x-ray shows no signs of a fracture. Recommend you contact your primary doctor for follow-up. Return to the emergency department for any new or worsening symptoms Prescriptions: New tramadol [Ultram] 50 mg tablet 50 mg PO Q8H PRN (Reason: pain) Qty: 7 RF: 0 tramadol 50 mg tablet 50 mg PO Q8H PRN (Reason: pain) Qty: 7 RF: 0 No Action metoprolol tartrate 25 mg tablet 25 mg PO BID Qty: 180 RF: 1 gabapentin 600 mg tablet 600 mg PO TID Qty: 270 RF: 3 nicotine (polacrilex) 2 mg gum 2 mg buccal Q2H PRN (Reason: nicotine cravings) Qty: 100 RF: 2 sertraline 50 mg tablet 50 mg PO DAILY Qty: 90 RF: 3 alprazolam 1 mg tablet 1 mg PO BID PRN (Reason: anxiety) Qty: 20 RF: 4 ProAir HFA 90 mcg/actuation HFA aerosol inhaler 2 inh INHALATION Q4-6H PRN (Reason: shortness of breath) Qty: 18 RF: 11 clonidine HCl 0.2 mg tablet 0.2 mg PO TID PRN (Reason: Opiate withdrawal) Qty: 45 RF: 0 aspirin [Adult Low Dose Aspirin] 81 mg tablet,delayed release (DR/EC) 81 mg PO DAILY RF: 0 methylprednisolone [Medrol (Dante)] 4 mg tablets,dose pack See Rx Instructions .ROUTE .COMPLEX Qty: 21 RF: 0 oxycodone 5 mg tablet 5 mg PO Q6H PRN (Reason: pain) Qty: 10 RF: 0 methylprednisolone [Methylpred DP] 4 mg tablets,dose pack See Rx Instructions .ROUTE .COMPLEX Qty: 21 RF: 0 Referrals: Joselito Almeida MD [Primary Care Provider] -
[2021-04-01] MEDS: HYDROMORPHONE 1 MG INJ IM (16:21)
[2021-04-01 16:27] VITALS: BP 170/80; PULSE 106; RESP 18; O2SAT 98
== END 2021-04-01 16:25 | disposition home or self-care (01) ==
PROVIDERS: Emergency Provider Emergency Medicine; PCP Student in an Organized Health Care Education/Training Program
DX: M25.551 Pain in right hip (principal)
CPT/HCPCS: 73502; 96372; 99283; J1170

== ENCOUNTER 2021-06-18 19:40 | Emergency (ER) | payer OTHER, MEDICAID, SELFPAY ==
[2020-12-26 13:02] VITALS: BMI 34.2
--- NOTE | 2021-06-18 19:51 | ED_ITS ---
HPI - Back Pain/Injury General Chief Complaint: Back Pain/Injury Stated Complaint: locked up back since Wednesday Time Seen by Provider: 06/18/21 19:45 History of Present Illness HPI Narrative: 50-year-old male former smoker with history acute coronary syndrome, hypertension, hyperlipidemia, prior back troubles presents with a chief complaint of gradually worsening low back pain since Wednesday. He was lifting some heavy laundry when he felt a pulling and tugging pain in his low back which now radiates through both hips into both legs but stops above the knees. He states the pain is worse when he moves and improves with rest. He denies any trouble controlling bowel or bladder. He denies lower extremity weakness, or footdrop. He denies fever or chills. He does not take blood thinners. He has been taking ibuprofen and using ice for the past few days with little to no relief. He has had prior lumbar surgeries in the past Related Data Home Medications Medication Instructions Recorded Confirmed aspirin 81 mg tablet,delayed 81 mg PO DAILY 10/18/20 03/19/21 release (Adult Low Dose Aspirin) Previous Rx's Medication Instructions Recorded metoprolol tartrate 25 mg tablet 25 mg PO BID #180 tab 05/22/20 gabapentin 600 mg tablet 600 mg PO TID #270 tab 09/06/20 nicotine (polacrilex) 2 mg gum 2 mg BUCCAL Q2H PRN #100 ea 11/11/20 sertraline 50 mg tablet 50 mg PO DAILY #90 tab 11/22/20 alprazolam 1 mg tablet 1 mg PO BID PRN #20 tab 12/03/20 albuterol sulfate 90 mcg/actuation 2 inh INHALATION Q4-6H PRN #18 gram 01/01/21 aerosol inhaler (ProAir HFA) methylprednisolone 4 mg tablets in See Rx Instructions .ROUTE 02/02/21 a dose pack (Medrol (Dante)) .COMPLEX #21 ea clonidine HCl 0.2 mg tablet 0.2 mg PO TID PRN #45 tab 02/26/21 methylprednisolone 4 mg tablets in See Rx Instructions .ROUTE 02/27/21 a dose pack (Methylpred DP) .COMPLEX #21 ea oxycodone 5 mg tablet 5 mg PO Q6H PRN #10 tab 02/27/21 tramadol 50 mg tablet 50 mg PO Q8H PRN #7 tab 04/01/21 tramadol 50 mg tablet (Ultram) 50 mg PO Q8H PRN #7 tab 04/01/21 gabapentin 300 mg capsule 300 mg PO BEDTIME #14 cap 06/19/21 hydrocodone 5 mg-acetaminophen 325 1 tab PO Q4-6H PRN #10 tab 06/19/21 mg tablet ketorolac 10 mg tablet 10 mg PO Q6H PRN #14 tab 06/19/21 methylprednisolone 4 mg tablets in See Rx Instructions .ROUTE 06/19/21 a dose pack (Medrol (Dante)) .COMPLEX #21 ea Allergies Allergy/AdvReac Type Severity Reaction Status Date / Time droperidol [DROPERIDOL] Allergy Mild COGENIC Verified 03/19/21 14:44 REACTION Review of Systems Review of Systems Narrative: GENERAL: Denies chills, fatigue, malaise, fever, sweats. HEENT: Denies sinus pain, ear pain, sore throat, difficulty swallowing, dizziness. RESPIRATORY: Denies dyspnea, cough, wheezing, hemoptysis, sputum. CARDIOVASCULAR: Denies chest pain, palpitations, orthopnea, edema, GASTROINTESTINAL: Denies nausea, vomiting, abdominal pain, diarrhea, constipation, melena. : Denies dysuria, frequency, incontinence, hematuria, urinary retention. MUSCULOSKELETAL: See HPI SKIN: Denies rash, skin lesions, or other NEUROLOGIC: Denies weakness, headache, numbness, change in speech, confusion, seizures, incoordination. PSYCHIATRIC: No concerning psychosocial issues. 12 point review of systems is negative except for those stated above Patient History Medical History ADD (attention deficit disorder) Anxiety Arthritis Asthma Cervical radiculopathy due to osteoarthritis of spine Chest pain Coronary artery disease Depression Essential hypertension HLD (hyperlipidemia) Numbness and tingling Prediabetes RLS (restless legs syndrome) Stenosis of artery Surgical History Hx of cervical discectomy (~2013) Family History Father Hypertension Hyperlipidemia Mother Diabetes mellitus Hyperlipidemia Hypertension Social History household members: family Smoking Status: Former smoker alcohol intake: never Smoking Status: Former smoker alcohol intake frequency: 0-2 drinks per day Substance Use Type: does not use Exam Narrative Exam Narrative: GEN: AOx3 and in mild distress EYES: Pupils are equal, round, and reactive to light and accommodation. Extraoccular muscles are intact bilaterally. There is no subconjunctival hemorrhage or exudate. CHEST: Lungs are clear to auscultation bilaterally and free of wheezes, rales, or rhonchi. Heart rate is regular rhythm, there are no murmurs, clicks, rubs, or gallops. There is no chest wall tenderness. ABD: Abdomen is soft and nontender. There is no guarding or rebound. Bowel sounds are normal in all 4 quadrants. There is no mass or organomegaly. BACK: dresser tender but free of any obvious external abnormalities. Patient exam notes decreased range of motion and muscle spasm, but no CVA tenderness, or vertebral point tenderness. There are no symptoms of cauda equina such as saddle anesthesia, and decreased reflexes, decreased sensation or strength. EXT: Full painless ROM of all extremities with no loss of sensation or strength. SKIN: Warm, pink, and dry. No erythema or rash Initial Vital Signs Initial Vital Signs: Vital Signs Temperature 99.9 F H 06/18/21 19:52 Pulse Rate 112 H 06/18/21 19:52 Respiratory Rate 18 06/18/21 19:52 Blood Pressure 182/102 H 06/18/21 19:52 Pulse Oximetry 99 06/18/21 19:52 Course Orders Ordered: ED Orders 06/18/21 19:50 MR lumbar spine wo con Stat 06/18/21 20:59 XR chest 1V Stat EKG-12 Lead Stat 06/18/21 21:03 Complete Blood Count AUTO DIFF Stat Comprehensive Metabolic Panel Stat D Dimer Stat Lipase Stat Partial Thromboplastin Time Stat Prothrombin Time INR Stat Troponin & CK Cardiac Panel Stat 06/18/21 23:41 Troponin I Stat Sodium Chloride (Normal Saline 0.9%) 1,000 mls @ 150 mls/hr IV CONT NEELIMA Last Admin: 06/18/21 21:11 Dose: 150 mls/hr Documented by: BRIEN Nitroglycerin (Nitroglycerin 0.4 Mg Sl Tab) 0.4 mg SL [id number] PRN PRN Reason: chest Last Admin: 06/18/21 21:11 Dose: 0.4 mg Documented by: BRIEN Discontinued Medications Hydrocodone Bitart/Acetaminophen (Hydrocodone/Acet 5/325 Tablet) 2 tab PO NOW ONE Stop: 06/18/21 19:50 Last Admin: 06/18/21 20:00 Dose: 2 tab Documented by: BRIEN Hydrocodone Bitart/Acetaminophen (Hydrocodone/Acet 5/325 Prepack) 1 bottle MISC SEEINSTR ONE Stop: 06/19/21 01:06 Aspirin (Aspirin 81 Mg Chew Tab) 324 mg PO NOW ONE Stop: 06/18/21 21:00 Last Admin: 06/18/21 21:11 Dose: 324 mg Documented by: BRIEN Gabapentin (Gabapentin 300 Mg Capsule) 300 mg PO NOW ONE Stop: 06/18/21 19:50 Last Admin: 06/18/21 20:00 Dose: 300 mg Documented by: BRIEN Hydromorphone HCl (Hydromorphone 1 Mg Inj) 1 mg IV NOW ONE Stop: 06/18/21 22:08 Last Admin: 06/18/21 22:11 Dose: 1 mg Documented by: KAM Ketorolac Tromethamine (Ketorolac 30 Mg/Ml Vial) 30 mg IM NOW ONE Stop: 06/18/21 19:50 Last Admin: 06/18/21 20:00 Dose: 30 mg Documented by: BRIEN Prednisone (Prednisone 20 Mg Tablet) 60 mg PO NOW ONE Stop: 06/18/21 19:50 Last Admin: 06/18/21 20:00 Dose: 60 mg Documented by: BRIEN Reevaluation(s) Reevaluation #1: after patient received toradol he developed chest pressure across his anterior chest without obvious provocation, palliation, or radiation. He denies associated symptoms such as dizziness, SOB, nausea, vomiting, rash, t rouble swallowing or other. IV placed, labs drawn, ASA, NG, etc. Vital Signs Vital signs: Vital Signs - 8 hr 06/18/21 19:52 06/18/21 20:40 06/18/21 20:45 Temperature 99.9 F H Pulse Rate 112 H 106 H 106 H Respiratory Rate 18 14 Blood Pressure 182/102 H 170/92 H Pulse Oximetry 99 96 95 06/18/21 20:50 06/18/21 20:55 Temperature Pulse Rate 104 H 101 H Respiratory Rate 13 15 Blood Pressure Pulse Oximetry 94 96 MDM - Back Pain/Injury Lab Data Attestation: I reviewed the patient's lab results. Result diagrams: 06/18/21 21:03 06/18/21 21:03 Labs: Lab Results 06/18/21 06/18/21 06/18/21 Range/Units 21:03 21:03 21:03 WBC 8.9 (4.5-11.0) X10^3/uL RBC 4.86 (4.5-5.9) X10^6/uL Hgb 14.6 (13.5-17.5) g/dL Hct 43.7 (41-53) % MCV 90.0 (80-100) fL MCH 30.0 (26-34) PG MCHC 33.4 (30-36) % RDW 12.8 (11.6-14.8) % Plt Count 230 (150-400) X10^3/uL Neut % (Auto) 66.2 (50-75) % Lymph % (Auto) 21.2 L (25-40) % Charlton % (Auto) 8.7 (3-14) % Eos % (Auto) 3.4 (2-4) % Baso % (Auto) 0.5 (0-2) % Neut # (Auto) 5900 (1613-9605) /uL Lymph # (Auto) 1900 (4857-7778) /uL Charlton # (Auto) 800 (0-900) /uL Eos # (Auto) 300 (0-450) /uL Baso # (Auto) 0 (0-100) /uL PT 10.4 (10.1-12.7) SECONDS INR 0.9 (0.9-1.3) APTT 32 (26.4-36.2) SECONDS D-Dimer < 200 (<230) ng/mL Sodium 139 (137-145) mmol/L Potassium 3.9 (3.4-5.1) mmol/L Chloride 103 (98-107) mmol/L Carbon Dioxide 29 (22-32) mmol/L BUN 17 (9-20) mg/dL Creatinine 0.91 (0.66-1.25) mg/dL Estimated GFR > 60.0 (>60) mL/min BUN/Creatinine Ratio 18.7 (6-22) Glucose 138 H (70-100) mg/dL Calcium 9.7 (8.4-10.2) mg/dL Total Bilirubin 0.5 (0.2-1.3) mg/dL AST 44 (17-59) IU/L ALT 39 (<50) IU/L Alkaline Phosphatase 58 (38-126) U/L Total Creatine Kinase 231 H (55-170) U/L CK-MB (CK-2) 1.20 (<2.37) ng/mL CK-MB (CK-2) Rel Index 0.5 L (1.5-5.0) % Troponin I < 0.012 (0.01-0.034) ng/mL Total Protein 7.3 (6.3-8.2) g/dL Albumin 4.3 (3.5-5.0) g/dL Globulin 3.0 (1.7-4.1) g/dL Albumin/Globulin Ratio 1.4 (1.0-2.8) Lipase 84 (23-300) U/L 06/18/21 Range/Units 23:41 WBC (4.5-11.0) X10^3/uL RBC (4.5-5.9) X10^6/uL Hgb (13.5-17.5) g/dL Hct (41-53) % MCV (80-100) fL MCH (26-34) PG MCHC (30-36) % RDW (11.6-14.8) % Plt Count (150-400) X10^3/uL Neut % (Auto) (50-75) % Lymph % (Auto) (25-40) % Charlton % (Auto) (3-14) % Eos % (Auto) (2-4) % Baso % (Auto) (0-2) % Neut # (Auto) (1089-8875) /uL Lymph # (Auto) (9410-8447) /uL Charlton # (Auto) (0-900) /uL Eos # (Auto) (0-450) /uL Baso # (Auto) (0-100) /uL PT (10.1-12.7) SECONDS INR (0.9-1.3) APTT (26.4-36.2) SECONDS D-Dimer (<230) ng/mL Sodium (137-145) mmol/L Potassium (3.4-5.1) mmol/L Chloride (98-107) mmol/L Carbon Dioxide (22-32) mmol/L BUN (9-20) mg/dL Creatinine (0.66-1.25) mg/dL Estimated GFR (>60) mL/min BUN/Creatinine Ratio (6-22) Glucose (70-100) mg/dL Calcium (8.4-10.2) mg/dL Total Bilirubin (0.2-1.3) mg/dL AST (17-59) IU/L ALT (<50) IU/L Alkaline Phosphatase (38-126) U/L Total Creatine Kinase (55-170) U/L CK-MB (CK-2) (<2.37) ng/mL CK-MB (CK-2) Rel Index (1.5-5.0) % Troponin I < 0.012 (0.01-0.034) ng/mL Total Protein (6.3-8.2) g/dL Albumin (3.5-5.0) g/dL Globulin (1.7-4.1) g/dL Albumin/Globulin Ratio (1.0-2.8) Lipase (23-300) U/L Imaging Data Lumbar MRI: Radiologist's Impression: [address] [id number] Resonance ReportSigned Patient: Ori Hendrickson II LMR#: [id number]: 1970Acct:[id number]/Sex: 50 / MDate of Service: 06/18/21Loc: EDAccession Number: [id number] Procedure: MR lumbar spine wo con Ordering Provider: Phillip Bhatia D.O. PROCEDURE: MR LUMBAR SPINE WO CON INDICATIONS: severe pain, radiation, numbness, injury TECHNIQUE: Noncontrast sagittal T1 spin echo and T2 fast echo, sagittal STIR, axial T1 and T2 fast spin echo through the lumbar spine. In cases with scoliosis, additional coronal T2 fast spin echo may be performed. COMPARISON: 06/22/2018 FINDINGS: Postsurgical changes of L5-S1 posterior fixation by means of bilateral pedicle screws and posterior fixation rods, along with interbody device. Grossly normal appearance of the hardware, with limited evaluation due to susceptibility artifact. Normal lumbar vertebral body height and alignment. There is no suspicious focal marrow signal abnormality or significant marrow edema demonstrated. Desiccation and height loss of the lumbar intervertebral discs from L3-L4 through L5-S1. Facet hypertrophy from L2-L3 through L5-S1. Normal position and appearance of the conus. Prevertebral and paraspinous soft tissues demonstrate no acute finding. The included unenhanced retroperitoneal visceral structures demonstrate no acute finding. T12-L1: No spinal canal or neural foraminal stenosis. L1-L2: No spinal canal or neural foraminal stenosis. L2-L3: Disc bulge flattens the ventral thecal sac. No mass effect upon the t raversing L3 nerve roots. No neural foraminal stenosis. Mild facet hypertrophy. L3-L4: There is a diffuse disc bulge with a superimposed broad-based posterior disc extrusion. There is a narrow column of extruded disc material which extends well below the level of the L3-L4 intervertebral disc space, extending inferiorly to the level of the inferior L4 endplate, a distance of 2.5 centimeters (appreciated as T1 hypointensity communicating with the intervertebral disc space on series 3, image 9). There is considerable displacement of the descending L4 nerve root by disc material (series 5, images 20 and 21). Foraminal components of the disc bulge contribute to mild bilateral neural foraminal narrowing in conjunction with facet hypertrophy. L4-L5: Diffuse disc bulge with a superimposed broad-based extrusion spanning the full lateral with of the spinal canal and extending into the right foraminal zone. Flattening of the ventral thecal sac with displacement of the descending L5 nerve roots in both subarticular zones. Foraminal components of the disc bulge contribute to modera te right and mild left neural foraminal stenosis in conjunction with facet hypertrophy. L5-S1: Spinal canal decompressed by laminectomies. Diffuse disc bulge with mild displacement of the descending S1 nerve roots. No significant neural foraminal narrowing. IMPRESSION: Degenerative changes in the lower lumbar spine, worst at L3-L4 and L4-L5. At L3-L4, large disc extrusion produces moderate subarticular zone stenosis with considerable displacement of the descending L4 nerve roots. Correlate for any corresponding radicular symptoms. Of note, there is significant inferior migration of disc material. At L4-L5, lesser displacement of the descending L5 nerve roots. Correlate for potential nerve root impingement. Postsurgical changes of L5-S1 posterior fixation. Dictated by: Mejia Chandra M.D. on 06/18/2021 at 20:42 Approved by: Mejia Chandra M.D. on 06/18/2021 at 20:49 MDM Narrative Medical decision making narrative: Multiple causes of chest pain considered including LA, PE, pneumothorax, pneumonia, aortic dissection, and pleurisy. Patient reports no radiation, no diaphoresis, no provocation with exertion, and no vomiting. Multiple etiologies of back pain considered including; Epidural abscess, cauda equina, mass occupying lesion, and other considered, however no red flag findings suggestive of neurosurgical emergency are present Patient's symptoms improved over duration of stay with above-stated therapies. Findings and discharge diagnosis discussed with patient/family followed by verbalization of understanding Return precautions discussed with patient/family whom verbalize understanding. Discharge Plan Departure Patient Disposition: Home Clinical Impression: Herniated intervertebral disc of lumbar spine, Atypical chest pain Instructions: DI for Lumbar Radiculopathy Activity Restrictions/Additional Instructions: *You have been diagnosed with [lumbar radiculopathy and atypical chest pain.] *What to do: *Please continue to take your regular medications as directed. [x ] New medication prescriptions sent to your pharmacy: [[facility] ] [ ] New medication written as a paper prescription [ ] No new medications given *Please follow up with your primary care provider in 2-3 days, call for an appointment. Let them know you were seen in the Emergency Department and that we ask that you be seen in follow up. We will electronically transmit a record of today's note if your PCP is in our system *If you do not have a primary care provider please contact the [facility] Resource line at [phone]. They will ask some questions about your medical history and help get you set up with a doctor in the community. *Return to Emergency Department if you should have any new, worsening or concerning symptoms, such as [fever greater than 101 F, shaking chills, worsening pain, persistent vomiting or other bothersome symptoms] Prescriptions: New hydrocodone-acetaminophen 5-325 mg tablet 1 tab PO Q4-6H PRN (Reason: pain) Qty: 10 RF: 0 ketorolac 10 mg tablet 10 mg PO Q6H PRN (Reason: pain) Qty: 14 RF: 0 gabapentin 300 mg capsule 300 mg PO BEDTIME Qty: 14 RF: 0 methylprednisolone [Medrol (Dante)] 4 mg tablets,dose pack See Rx Instructions .ROUTE .COMPLEX Qty: 21 RF: 0 No Action metoprolol tartrate 25 mg tablet 25 mg PO BID Qty: 180 RF: 1 gabapentin 600 mg tablet 600 mg PO TID Qty: 270 RF: 3 nicotine (polacrilex) 2 mg gum 2 mg buccal Q2H PRN (Reason: nicotine cravings) Qty: 100 RF: 2 sertraline 50 mg tablet 50 mg PO DAILY Qty: 90 RF: 3 alprazolam 1 mg tablet 1 mg PO BID PRN (Reason: anxiety) Qty: 20 RF: 4 ProAir HFA 90 mcg/actuation HFA aerosol inhaler 2 inh INHALATION Q4-6H PRN (Reason: shortness of breath) Qty: 18 RF: 11 clonidine HCl 0.2 mg tablet 0.2 mg PO TID PRN (Reason: Opiate withdrawal) Qty: 45 RF: 0 aspirin [Adult Low Dose Aspirin] 81 mg tablet,delayed release (DR/EC) 81 mg PO DAILY RF: 0 tramadol [Ultram] 50 mg tablet 50 mg PO Q8H PRN (Reason: pain) Qty: 7 RF: 0 tramadol 50 mg tablet 50 mg PO Q8H PRN (Reason: pain) Qty: 7 RF: 0 methylprednisolone [Medrol (Dante)] 4 mg tablets,dose pack See Rx Instructions .ROUTE .COMPLEX Qty: 21 RF: 0 oxycodone 5 mg tablet 5 mg PO Q6H PRN (Reason: pain) Qty: 10 RF: 0 methylprednisolone [Methylpred DP] 4 mg tablets,dose pack See Rx Instructions .ROUTE .COMPLEX Qty: 21 RF: 0 Referrals: Joselito lAmeida MD [Primary Care Provider] - Pernell Lehman DO [Physician] - George Fox MD [Physician] -
[2021-06-18 19:52] VITALS: BP 182/102; PULSE 112; RESP 18; TEMP 37.7; O2SAT 99; BMI 35.9
[2021-06-18] MEDS: GABAPENTIN 300 MG CAPSULE PO (20:00)
[2021-06-18] MEDS: KETOROLAC 30 MG/ML VIAL IM (20:00)
[2021-06-18] MEDS: predniSONE 20 MG TABLET 60 MG PO (20:00)
[2021-06-18] MEDS: HYDROCODONE/ACET 5/325 TABLET 2 TAB PO (20:00)
[2021-06-18 20:40] VITALS: BP 170/92; PULSE 106; O2SAT 96
[2021-06-18 20:45] VITALS: PULSE 106; RESP 14; O2SAT 95
[2021-06-18 20:50] VITALS: PULSE 104; RESP 13; O2SAT 94
[2021-06-18 20:55] VITALS: PULSE 101; RESP 15; O2SAT 96
--- NOTE | 2021-06-18 20:55 | PC.NURSE ---
Pt returned from MRI. states since receiving toradol injection with pain across top of chest, Ekg completed, placed on court monitor and provider aware.
--- NOTE | 2021-06-18 20:59 | DI.RAD.S_ITS ---
PROCEDURE: XR CHEST 1V INDICATIONS: Chest pain TECHNIQUE: One view of the chest was acquired. COMPARISON: [facility], CR, XR CHEST 1V, 03/14/2021, 14:02. FINDINGS: Surgical changes and devices: None. Lungs and pleura: Lungs are clear. No pleural effusions or pneumothorax. Mediastinum: Mediastinal contours appear normal. Heart size is normal. Bones and chest wall: No suspicious bony lesions. Overlying soft tissues appear unremarkable. IMPRESSION: No acute cardiopulmonary process demonstrated radiographically. Dictated by: Mejia Chandra M.D. on 06/18/2021 at 21:26 Approved by: Mejai Chandra M.D. on 06/18/2021 at 21:26
--- NOTE | 2021-06-18 21:07 | PC.NURSE ---
Went in to check on patient after c/o chest pain. Now reporting pain running down left arm. Notified MD, new orders placed. Repeat EKG ordered.
[2021-06-18] MEDS: SODIUM CHLORIDE 0.9% 1,000 ML 150 ML IV (21:11)
[2021-06-18] MEDS: NITROGLYCERIN 0.4 MG SL TAB SL (21:11)
[2021-06-18] MEDS: ASPIRIN 81 MG CHEW TAB 324 MG PO (21:11)
[2021-06-18 21:13] LABS: Add Manual Diff / Slide Review NO; Basophils Absolute Auto 0 /uL (0-100); Basophils Percent Auto 0.5 % (0-2); Eosinophils Absolute Auto 300 /uL (0-450); Eosinophils Percent Auto 3.4 % (2-4); Hematocrit 43.7 % (41-53); Hemoglobin 14.6 g/dL (13.5-17.5); Lymphocytes Absolute Auto 1900 /uL (1100-4500); Lymphocytes Percent Auto 21.2 % (25-40); Mean Corpuscular HGB Conc 33.4 % (30-36); Monocytes Absolute Auto 800 /uL (0-900); Monocytes Percent Auto 8.7 % (3-14); Neutrophils Absolute Auto 5900 /uL (1500-7000); Neutrophils Percent Auto 66.2 % (50-75); Platelet Count 230 X10^3/uL (150-400); Red Blood Cell Count 4.86 X10^6/uL (4.5-5.9); Red Cell Distribution Width 12.8 % (11.6-14.8); White Blood Cell Count 8.9 X10^3/uL (4.5-11.0)
[2021-06-18 21:19] LABS: INR 0.9 (0.9-1.3); Prothrombin Time 10.4 SECONDS (10.1-12.7)
[2021-06-18 21:22] LABS: PTT Partial Thromboplastin Tim 32 SECONDS (26.4-36.2)
[2021-06-18 21:25] LABS: Alanine Aminotransferase 39 IU/L (<50); Albumin 4.3 g/dL (3.5-5.0); Albumin Globulin Ratio 1.4 (1.0-2.8); Alkaline Phosphatase 58 U/L (38-126); Aspartate Aminotransferase 44 IU/L (17-59); BUN Creatinine Ratio 18.7 (6-22); Bilirubin Total 0.5 mg/dL (0.2-1.3); Blood Urea Nitrogen 17 mg/dL (9-20); Calcium 9.7 mg/dL (8.4-10.2); Carbon Dioxide 29 mmol/L (22-32); Chloride 103 mmol/L (98-107); Creatine Kinase 231 U/L (55-170); Estimated Glomerular Filt Rate > 60.0 mL/min (>60); Glucose 138 mg/dL (70-100); HEMOLYSIS < 15 (0-50); Lipase 84 U/L (23-300); Potassium 3.9 mmol/L (3.4-5.1); Sodium 139 mmol/L (137-145); Total Protein 7.3 g/dL (6.3-8.2)
[2021-06-18 21:28] LABS: D Dimer < 200 ng/mL (<230)
--- NOTE | 2021-06-18 21:32 | PC.NURSE ---
Pt reports improvement in arm pain after receiving medication but says no change in pain to back and chest. Offered a 2nd dose of nitro and pt declined medication stating it never worked in the past, just gave me a headache.
[2021-06-18 21:37] LABS: Troponin I < 0.012 ng/mL (0.01-0.034)
[2021-06-18 21:40] LABS: CKMB % Relative Index 0.5 % (1.5-5.0)
[2021-06-18] MEDS: HYDROMORPHONE 1 MG INJ IV (22:11)
--- NOTE | 2021-06-18 22:47 | PC.NURSE ---
Pt given dilaudid as ordered, chest pain down from 7/10 to 4/10, back pain down from 8/10 to 6/10. Arm/elbow pain is 7/10. Pt moving independently in the bed.
[2021-06-19 00:23] LABS: Troponin I < 0.012 ng/mL (0.01-0.034)
[2021-06-19] MEDS: HYDROCODONE/ACET 5/325 PREPACK 1 BOTTLE MISC (01:23)
== END 2021-06-19 01:25 | disposition home or self-care (01) ==
PROVIDERS: Emergency Provider Emergency Medicine; PCP Student in an Organized Health Care Education/Training Program
DX: R07.89 Other chest pain (principal); M54.16 Radiculopathy, lumbar region; M51.26 Other intervertebral disc displacement, lumbar region
CPT/HCPCS: 36415; 71045; 72148; 80053; 82550; 82553; 83690; 84484; 85025; 85379; 85610; 85730; 93005; 96361; 96374; 96375; 99284; 99285; J1170; J1885

== ENCOUNTER 2021-07-07 11:34 | Emergency (ER) | payer OTHER, MEDICAID, SELFPAY ==
[2020-12-26 13:02] VITALS: BMI 34.2
[2021-07-07] VITALS (9 sets, daily range): BP systolic 155–167; BP diastolic 73–96; PULSE 99–118; RESP 16; TEMP 36.6; O2SAT 94–99; BMI 35.2
--- NOTE | 2021-07-07 12:45 | ED_ITS ---
HPI - Back Pain/Injury <Roselia Douglas PA-C - Last Filed: 07/07/21 17:07> General Chief Complaint: Back Pain/Injury Stated Complaint: Back pain-weakness in upper legs Time Seen by Provider: 07/07/21 12:03 History of Present Illness HPI Narrative: 73-year-old male with past medical history rectal adenocarcinoma, anemia, hyperlipidemia, COPD, hypertension, type 2 diabetes presents to the ED with 3 days of right-sided pain lateral to his flank. Pain aggravated with touch and movement. Denies numbness, tingling, weakness, fever, chills, chest pain, shortness of breath, nausea, vomiting, lightheadedness, dizziness, syncope, rash. Endorses prior shingles infection 3 years ago. Endorses taking Tylenol with moderate relief. Denies trauma. Related Data Home Medications Medication Instructions Recorded Confirmed aspirin 81 mg tablet,delayed 81 mg PO DAILY 10/18/20 03/19/21 release (Adult Low Dose Aspirin) Previous Rx's Medication Instructions Recorded gabapentin 600 mg tablet 600 mg PO TID #270 tab 09/06/20 nicotine (polacrilex) 2 mg gum 2 mg BUCCAL Q2H PRN #100 ea 11/11/20 sertraline 50 mg tablet 50 mg PO DAILY #90 tab 11/22/20 alprazolam 1 mg tablet 1 mg PO BID PRN #20 tab 12/03/20 albuterol sulfate 90 mcg/actuation 2 inh INHALATION Q4-6H PRN #18 gram 01/01/21 aerosol inhaler (ProAir HFA) methylprednisolone 4 mg tablets in See Rx Instructions .ROUTE 02/02/21 a dose pack (Medrol (Dante)) .COMPLEX #21 ea clonidine HCl 0.2 mg tablet 0.2 mg PO TID PRN #45 tab 02/26/21 methylprednisolone 4 mg tablets in See Rx Instructions .ROUTE 02/27/21 a dose pack (Methylpred DP) .COMPLEX #21 ea oxycodone 5 mg tablet 5 mg PO Q6H PRN #10 tab 02/27/21 tramadol 50 mg tablet 50 mg PO Q8H PRN #7 tab 04/01/21 tramadol 50 mg tablet (Ultram) 50 mg PO Q8H PRN #7 tab 04/01/21 gabapentin 300 mg capsule 300 mg PO BEDTIME #14 cap 06/19/21 hydrocodone 5 mg-acetaminophen 325 1 tab PO Q4-6H PRN #10 tab 06/19/21 mg tablet ketorolac 10 mg tablet 10 mg PO Q6H PRN #14 tab 06/19/21 methylprednisolone 4 mg tablets in See Rx Instructions .ROUTE 06/19/21 a dose pack (Medrol (Dante)) .COMPLEX #21 ea metoprolol tartrate 25 mg tablet 25 mg PO BID #180 tab 07/02/21 Allergies Allergy/AdvReac Type Severity Reaction Status Date / Time droperidol [DROPERIDOL] Allergy Mild COGENIC Verified 03/19/21 14:44 REACTION Review of Systems <Roselia Douglas PA-C - Last Filed: 07/07/21 17:07> Constitutional Constitutional: Denies chills, Denies fatigue, Denies fever(s) and Denies frequent falls Eyes Eyes: Denies change in vision, Denies eye discharge, Denies irritation and Denies loss of vision ENT Ears, Nose, Mouth, and Throat: Denies change in voice, Denies dizziness, Denies neck pain, Denies sore throat and Denies throat swelling Cardiovascular Cardiovascular: Denies chest pain, Denies irregular heart rhythm, Denies lightheadedness, Denies palpitations, Denies dyspnea, Denies dyspnea on exertion and Denies orthopnea Respiratory Respiratory: Denies cough, Denies dyspnea, Denies dyspnea on exertion and Denies wheezing Gastrointestinal Gastrointestinal: Denies abdominal pain, Denies change in bowel habits, Denies diarrhea, Denies nausea and Denies vomiting Musculoskeletal Musculoskeletal: Denies neck pain and Denies numbness Integumentary/Breasts Skin/Breast: Denies pruritus, Denies erythema, Denies rash, Reports skin pain (TTP of skin on the L side, lateral to L flank and chest) and Denies wounds Comments: TTP of skin on L torso, lateral to L flank and chest. Neurologic Neurologic: Denies behavioral changes, Denies confusion, Denies dizziness, Denies frequent falls, Denies loss of vision and Denies numbness Psychiatric Psychiatric: Denies anxiety, Denies behavioral changes, Denies confusion, Denies depression, Denies homicidal ideation and Denies suicidal ideation Endocrine Endocrine: Denies fatigue, Denies flushing and Denies palpitations Hematologic/Lymphatic Hematologic/Lymphatic: Denies easy bruising Allergic/Immunologic Allergic/Immunologic: Denies urticaria, Denies throat swelling and Denies wheezing Patient History <Roselia Douglas PA-C - Last Filed: 07/07/21 17:07> Medical History ADD (attention deficit disorder) Anxiety Arthritis Asthma Cervical radiculopathy due to osteoarthritis of spine Chest pain Coronary artery disease Depression Essential hypertension HLD (hyperlipidemia) Numbness and tingling Prediabetes RLS (restless legs syndrome) Stenosis of artery Surgical History Hx of cervical discectomy (~2013) Family History Father Hypertension Hyperlipidemia Mother Diabetes mellitus Hyperlipidemia Hypertension Social History household members: family Smoking Status: Former smoker alcohol intake: never Smoking Status: Former smoker alcohol intake frequency: 0-2 drinks per day Substance Use Type: does not use Exam <Roselia Douglas PA-C - Last Filed: 07/07/21 17:07> Initial Vital Signs Initial Vital Signs: Vital Signs Temperature 97.8 F 07/07/21 11:43 Pulse Rate 118 H 07/07/21 11:43 Respiratory Rate 16 07/07/21 11:43 Blood Pressure 155/73 H 07/07/21 11:43 Pulse Oximetry 99 07/07/21 11:43 Const General: cooperative HENMT Head: normocephalic and atraumatic Ears: external ears normal and TM's normal bilaterally Nose: external nose normal and No nasal discharge Face and sinus: sinuses nontender, face symmetric, no sinus tenderness and No dry mucous membranes Mouth: oral mucosae normal and moist mucous membranes Teeth and gingiva: dentition normal Throat: tonsils normal and uvula midline Eyes General: appearance normal, both eyes and all related structures Eyelids: eyelids normal Conjunctivae: conjunctivae normal Sclera: sclerae normal Pupils: PERRL EOM: EOM intact bilaterally Neck Neck: normal visual inspection, trachea midline, No lymphadenopathy, No midline deformity and No JVD Lymphatic: No lymphedema Chest Chest: normal inspection of the chest Resp Effort & Inspection: normal respiratory effort, able to speak in complete sentences, no respiratory distress and no use of accessory muscles Auscultation: clear to auscultation bilaterally, no rales, no rhonchi and no wheezes Cardio Rate: regular rate Rhythm: regular rhythm Heart Sounds: no click, no gallops, no murmurs and no rubs Pulses: normal peripheral pulses GI Inspection: non-distended Palpation: soft, no hepatosplenomegaly, No guarding, No pulsatile mass and No tender Auscultation: normal bowel sounds General: No CVA tenderness Back/Spine/Pelvis Back: No CVA tenderness Cervical Spine: cervical ROM normal and No pain with cervical ROM Thoracic/Lumbar Spine: thoracic and lumbar spine normal to inspection Other: Skin General: no rashes or lesions noted, No jaundice and No petechiae Other: TTP of skin on L torso, lateral to L flank and chest. Faint rash visible. No vesicles. Neuro General: patient alert, patient oriented x3, gait normal and no focal motor defi cits Speech: speech normal Extrem General: full ROM, no clubbing, cyanosis or edema, no pedal edema and no calf tenderness Psych Appearance: well kempt Mental Status: mental status grossly normal Attitude: cooperative Thought Content: normal and suicidality Judgment: judgment good <Lala Kennedy DO - Last Filed: 07/08/21 07:14> Initial Vital Signs Initial Vital Signs: Vital Signs Temperature 97.8 F 07/07/21 11:43 Pulse Rate 118 H 07/07/21 11:43 Respiratory Rate 16 07/07/21 11:43 Blood Pressure 155/73 H 07/07/21 11:43 Pulse Oximetry 99 07/07/21 11:43 Course <Roselia Douglas PA-C - Last Filed: 07/07/21 17:07> Course Course Narrative: Labs negative for neutropenia. Will discharge patient home with prescriptions for gabapentin and acyclovir, follow-up with PCP and oncologist. Orders Ordered: Discontinued Medications Cyclobenzaprine HCl (Cyclobenzaprine 10 Mg Tablet) 10 mg PO NOW ONE Stop: 07/07/21 12:46 Last Admin: 07/07/21 12:53 Dose: 10 mg Documented by: ATAYLOR Hydromorphone HCl (Hydromorphone 1 Mg Inj) 1 mg IM NOW ONE Stop: 07/07/21 12:43 Last Admin: 07/07/21 12:53 Dose: 1 mg Documented by: CLAY Ketorolac Tromethamine (Ketorolac 30 Mg/Ml Vial) 15 mg IM NOW ONE Stop: 07/07/21 13:59 Last Admin: 07/07/21 14:19 Dose: 15 mg Documented by: CLAY Vital Signs Vital signs: Vital Signs - 8 hr 07/07/21 11:43 07/07/21 12:07 07/07/21 12:30 Temperature 97.8 F Pulse Rate 118 H 108 H 105 H Respiratory Rate 16 Blood Pressure 155/73 H Pulse Oximetry 99 97 97 07/07/21 12:53 07/07/21 13:00 07/07/21 13:28 Temperature Pulse Rate 102 H 101 H 104 H Respiratory Rate 16 Blood Pressure 166/80 H 160/96 H Pulse Oximetry 97 96 97 07/07/21 13:30 07/07/21 14:00 07/07/21 14:30 Temperature Pulse Rate 99 H 106 H 101 H Respiratory Rate 16 Blood Pressure 167/90 H Pulse Oximetry 96 96 94 <Lala Kennedy DO - Last Filed: 07/08/21 07:14> Orders Ordered: Discontinued Medications Cyclobenzaprine HCl (Cyclobenzaprine 10 Mg Tablet) 10 mg PO NOW ONE Stop: 07/07/21 12:46 Last Admin: 07/07/21 12:53 Dose: 10 mg Documented by: CLAY Hydromorphone HCl (Hydromorphone 1 Mg Inj) 1 mg IM NOW ONE Stop: 07/07/21 12:43 Last Admin: 07/07/21 12:53 Dose: 1 mg Documented by: CLAY Ketorolac Tromethamine (Ketorolac 30 Mg/Ml Vial) 15 mg IM NOW ONE Stop: 07/07/21 13:59 Last Admin: 07/07/21 14:19 Dose: 15 mg Documented by: CLAY Vital Signs Vital signs: Vital Signs - 8 hr 07/07/21 11:43 07/07/21 12:07 07/07/21 12:30 Temperature 97.8 F Pulse Rate 118 H 108 H 105 H Respiratory Rate 16 Blood Pressure 155/73 H Pulse Oximetry 99 97 97 07/07/21 12:53 07/07/21 13:00 07/07/21 13:28 Temperature Pulse Rate 102 H 101 H 104 H Respiratory Rate 16 Blood Pressure 166/80 H 160/96 H Pulse Oximetry 97 96 97 07/07/21 13:30 07/07/21 14:00 07/07/21 14:30 Temperature Pulse Rate 99 H 106 H 101 H Respiratory Rate 16 Blood Pressure 167/90 H Pulse Oximetry 96 96 94 MDM - Back Pain/Injury <Roselia Douglas PA-C - Last Filed: 07/07/21 17:07> Medical Records Attestation: I reviewed the patient's medical records. Lab Data Attestation: I reviewed the patient's lab results. Lab results narrative: Labs WNL. Neg neutropenia MDM Narrative Medical decision making narrative: 73-year-old male with past medical history rectal adenocarcinoma, anemia, hyperlipidemia, COPD, hypertension, type 2 diabetes presents to the ED with 3 days of right-sided pain lateral to his flank. Concern for shingles versus musculoskeletal pain. Likely shingles given beginnings of a faint rash. Will check labs for neutropenia. Will give pain control and start acyclovir. Dispo dependent on labs. Discharge Plan Departure Patient Disposition: Home Clinical Impression: Back pain Qualifiers: Back pain location: low back pain Chronicity: chronic Back pain laterality: midline Sciatica presence: without sciatica Qualified Code(s): M54.5 - Low back pain Instructions: DI for Back Strain or Sprain Activity Restrictions/Additional Instructions: Follow-up with health and nutrition specialist, Dr. Cuevas stone as possible. Can take ibuprofen 800 mg 3 times a day with food for pain. Return to the ED you experience tingling, numbness, weakness, loss bowel or bladder control Prescriptions: No Action gabapentin 600 mg tablet 600 mg PO TID Qty: 270 RF: 3 nicotine (polacrilex) 2 mg gum 2 mg buccal Q2H PRN (Reason: nicotine cravings) Qty: 100 RF: 2 sertraline 50 mg tablet 50 mg PO DAILY Qty: 90 RF: 3 alprazolam 1 mg tablet 1 mg PO BID PRN (Reason: anxiety) Qty: 20 RF: 4 ProAir HFA 90 mcg/actuation HFA aerosol inhaler 2 inh INHALATION Q4-6H PRN (Reason: shortness of breath) Qty: 18 RF: 11 clonidine HCl 0.2 mg tablet 0.2 mg PO TID PRN (Reason: Opiate withdrawal) Qty: 45 RF: 0 metoprolol tartrate 25 mg tablet 25 mg PO BID Qty: 180 RF: 0 aspirin [Adult Low Dose Aspirin] 81 mg tablet,delayed release (DR/EC) 81 mg PO DAILY RF: 0 tramadol [Ultram] 50 mg tablet 50 mg PO Q8H PRN (Reason: pain) Qty: 7 RF: 0 tramadol 50 mg tablet 50 mg PO Q8H PRN (Reason: pain) Qty: 7 RF: 0 hydrocodone-acetaminophen 5-325 mg tablet 1 tab PO Q4-6H PRN (Reason: pain) Qty: 10 RF: 0 ketorolac 10 mg tablet 10 mg PO Q6H PRN (Reason: pain) Qty: 14 RF: 0 gabapentin 300 mg capsule 300 mg PO BEDTIME Qty: 14 RF: 0 methylprednisolone [Medrol (Dante)] 4 mg tablets,dose pack See Rx Instructions .ROUTE .COMPLEX Qty: 21 RF: 0 methylprednisolone [Medrol (Dante)] 4 mg tablets,dose pack See Rx Instructions .ROUTE .COMPLEX Qty: 21 RF: 0 oxycodone 5 mg tablet 5 mg PO Q6H PRN (Reason: pain) Qty: 10 RF: 0 methylprednisolone [Methylpred DP] 4 mg tablets,dose pack See Rx Instructions .ROUTE .COMPLEX Qty: 21 RF: 0 Referrals: Joselito Almeida MD [Primary Care Provider] - <Lala Kennedy DO - Last Filed: 07/08/21 07:14> Sign Out Provider Sign Out Attestation: I was immediately available in the department for consultation. Documentation has been reviewed. I agree with assessment and plan.
[2021-07-07] MEDS: HYDROMORPHONE 1 MG INJ IM (12:53)
[2021-07-07] MEDS: CYCLOBENZAPRINE 10 MG TABLET PO (12:53)
[2021-07-07] MEDS: KETOROLAC 30 MG/ML VIAL 15 MG IM (14:19)
== END 2021-07-07 14:54 | disposition home or self-care (01) ==
PROVIDERS: Emergency Provider Student in an Organized Health Care Education/Training Program; PCP Student in an Organized Health Care Education/Training Program
DX: M54.5 Low back pain (principal)
CPT/HCPCS: 96372; 99283; J1170; J1885

== ENCOUNTER 2021-10-16 13:15 | Emergency (ER) | payer OTHER, MEDICAID, SELFPAY ==
[2020-12-26 13:02] VITALS: BMI 34.2
[2021-10-16 13:23] VITALS: BP 156/97; PULSE 95; RESP 16; TEMP 35.8; O2SAT 98; BMI 35.9
--- NOTE | 2021-10-16 13:42 | DI.RAD.S_ITS ---
PROCEDURE: XR LUMBAR SPINE 2-3V INDICATIONS: lower back pain since wednesday, burning down back of legs. TECHNIQUE: 3 views of the lumbar spine were acquired. COMPARISON: [facility], [place], XR LUMBAR SPINE 2-3V, 03/14/2019, 9:03. FINDINGS: Bones: 5 [id number] vertebrae are present. Patient is status post posterior fusion at L5-S1 level with intervertebral spacer placement. Alignment of lumbar spine is unchanged from prior study. No gross hardware loosening or failure. No acute vertebral body compression fractures. Degenerative endplate changes are noted at L2-3 through L4-5 levels. No suspicious bony lesions. Soft tissues: Overlying bowel gas pattern is normal. No suspicious soft tissue calcifications. IMPRESSION: Stable post fusion changes at L5-S1 level with stable lumbar spine alignment. No acute compression fracture or spondylolisthesis. Degenerative endplate changes at L2-3 through L4-5 levels. Dictated by: Harman Diggs M.D. on 10/16/2021 at 14:02 Approved by: Harman Dgigs M.D. on 10/16/2021 at 14:03
--- NOTE | 2021-10-16 15:55 | ED_ITS ---
HPI - Back Pain/Injury General Chief Complaint: Back Pain/Injury Stated Complaint: Back pain from lifting strain/ chronic flare up Time Seen by Provider: 10/16/21 15:55 Source: patient Mode of arrival: Ambulatory Limitations: no limitations History of Present Illness HPI Narrative: This is a 51-year-old male who comes emergency department with complaint of low back pain. Patient has chronic back issues. He has an appointment on the with Dr. saba. 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 Patient states he has had minimal improvement with Tylenol and ibuprofen at home. He went to work today and was having quite a bit of difficulty lifting and moving things and told to come here to be evaluated. He denies any new tingling or numbness. No weakness. He has not any loss of bowel or bladder control. No saddle anesthesia. He has tried gabapentin in the past but made very foggy and not right in his head. He has had back surgeries remotely. He had MRI about 2 months ago [facility]. Patient states that other than increase in pain and slightly increased down in his buttocks as the only new changes for him. Patient does take metoprolol. Related Data Home Medications Medication Instructions Recorded Confirmed aspirin 81 mg tablet,delayed 81 mg PO DAILY 10/18/20 03/19/21 release (Adult Low Dose Aspirin) Previous Rx's Medication Instructions Recorded gabapentin 600 mg tablet 600 mg PO TID #270 tab 09/06/20 nicotine (polacrilex) 2 mg gum 2 mg BUCCAL Q2H PRN #100 ea 11/11/20 sertraline 50 mg tablet 50 mg PO DAILY #90 tab 11/22/20 alprazolam 1 mg tablet 1 mg PO BID PRN #20 tab 12/03/20 albuterol sulfate 90 mcg/actuation 2 inh INHALATION Q4-6H PRN #18 gram 01/01/21 aerosol inhaler (ProAir HFA) methylprednisolone 4 mg tablets in See Rx Instructions .ROUTE 02/02/21 a dose pack (Medrol (Dante)) .COMPLEX #21 ea clonidine HCl 0.2 mg tablet 0.2 mg PO TID PRN #45 tab 02/26/21 methylprednisolone 4 mg tablets in See Rx Instructions .ROUTE 02/27/21 a dose pack (Methylpred DP) .COMPLEX #21 ea oxycodone 5 mg tablet 5 mg PO Q6H PRN #10 tab 02/27/21 tramadol 50 mg tablet 50 mg PO Q8H PRN #7 tab 04/01/21 tramadol 50 mg tablet (Ultram) 50 mg PO Q8H PRN #7 tab 04/01/21 gabapentin 300 mg capsule 300 mg PO BEDTIME #14 cap 06/19/21 hydrocodone 5 mg-acetaminophen 325 1 tab PO Q4-6H PRN #10 tab 06/19/21 mg tablet ketorolac 10 mg tablet 10 mg PO Q6H PRN #14 tab 06/19/21 methylprednisolone 4 mg tablets in See Rx Instructions .ROUTE 06/19/21 a dose pack (Medrol (Dante)) .COMPLEX #21 ea metoprolol tartrate 25 mg tablet 25 mg PO BID #180 tab 07/02/21 diazepam 10 mg tablet (Valium) 10 mg PO TID PRN #10 tab 10/16/21 hydrocodone 5 mg-acetaminophen 325 1 tab PO QID PRN #10 tab 10/16/21 mg tablet Allergies Allergy/AdvReac Type Severity Reaction Status Date / Time droperidol [DROPERIDOL] Allergy Mild COGENIC Verified 10/16/21 13:26 REACTION Review of Systems Review of Systems ROS Unobtainable: All systems reviewed & are unremarkable except as noted in HPI and below Patient History Medical History ADD (attention deficit disorder) Anxiety Arthritis Asthma Cervical radiculopathy due to osteoarthritis of spine Chest pain Coronary artery disease Depression Essential hypertension HLD (hyperlipidemia) Numbness and tingling Prediabetes RLS (restless legs syndrome) Stenosis of artery Surgical History Hx of cervical discectomy (~2013) Family History Father Hypertension Hyperlipidemia Mother Diabetes mellitus Hyperlipidemia Hypertension Social History household members: family Smoking Status: Former smoker alcohol intake: never Smoking Status: Former smoker alcohol intake frequency: 0-2 drinks per day Substance Use Type: does not use Exam Narrative Exam Narrative: GENERAL: Alert and oriented x three, well-nourished male in mild distress. HEENT: Head normocephalic, atraumatic, EOMI, pupils reactive, face symmetric, moist mucous membranes NECK: Supple, full range of motion CARDIOVASCULAR: Regular rate and rhythm without murmurs, rubs or gallops. RESPIRATORY: Breath sounds equal bilaterally, no wheezes rales or rhonchi. ABDOMEN: Soft, nontender. Normoactive bowel sounds all 4 quadrants. No guarding or rebound, rigidity, no mass : No CVA tenderness BACK: No cervical, thoracic or lumbar vertebral point tenderness. Patient has slightly decreased range of motion. Rectal exam is deferred. Muscle strength is 5/5 in lower extremities, DTRs are 2/4 and lower extremities. Dorsalis pedis and tibialis pulses are 2+ and lower extremities. Sensation is intact in the lower extremities. EXTREMITIES: Normal range of motion, no clubbing or edema. Neurovascularly intact NEUROLOGICAL: Cranial nerves II through XII grossly intact. Moving all extremities SKIN: Warm, dry, no petechiae, no rashes or lesions. Initial Vital Signs Initial Vital Signs: Vital Signs Temperature 96.5 F L 10/16/21 13:23 Pulse Rate 95 H 10/16/21 13:23 Respiratory Rate 16 10/16/21 13:23 Blood Pressure 156/97 H 10/16/21 13:23 Pulse Oximetry 98 10/16/21 13:23 Course Orders Ordered: ED Orders 10/16/21 13:42 XR lumbar spine 2-3V Stat Discontinued Medications Diazepam (Diazepam 5 Mg Tablet) 10 mg PO NOW ONE Stop: 10/16/21 16:16 Last Admin: 10/16/21 16:27 Dose: 10 mg Documented by: GARRETT Ketorolac Tromethamine (Ketorolac 30 Mg/Ml Vial) 30 mg IM NOW ONE Stop: 10/16/21 16:16 Last Admin: 10/16/21 16:28 Dose: 30 mg Documented by: GARRETT Vital Signs Vital signs: Vital Signs - 8 hr 10/16/21 13:23 10/16/21 17:09 Temperature 96.5 F L Pulse Rate 95 H 83 Respiratory Rate 16 18 Blood Pressure 156/97 H 166/72 H Pulse Oximetry 98 97 MDM - Back Pain/Injury Imaging Data Lumbar spine xray: Radiologist's Impression: [address] [address] XRay Report Signed Patient: Ori Hendrickson II MR#: [id number] : 1970 Acct:[id number] Age/Sex: 51 / M Date of Service: 10/16/21 Loc: ED Accession Number: [id number] ?? Procedure: XR lumbar spine 2-3V Ordering Provider: Arpita Adler D.O. PROCEDURE:? XR LUMBAR SPINE 2-3V ? INDICATIONS:? lower back pain since wednesday, burning down back of legs. ? TECHNIQUE:? 3 views of the lumbar spine were acquired.? ? COMPARISON:? [facility], CR, XR LUMBAR SPINE 2-3V, 03/14/2019, 9:03. ? FINDINGS:? ? Bones:? 5 cmi-dup-ewfwzck vertebrae are present.? Patient is status post posterior fusion at L5-S1 level with intervertebral spacer placement.? Alignment of lumbar spine is unchanged from prior study.? No gross hardware loosening or failure.? No acute vertebral body compression fractures.? Degenerative endplate changes are noted at L2-3 through L4-5 levels.? No suspicious bony lesions.? ? Soft tissues:? Overlying bowel gas pattern is normal.? No suspicious soft tissue calcifications.? ? ? IMPRESSION:? Stable post fusion changes at L5-S1 level with stable lumbar spine alignment.? No acute compression fracture or spondylolisthesis.? Degenerative endplate changes at L2-3 through L4-5 levels. ? ? Dictated by: Harman Diggs M.D. on 10/16/2021 at 14:02 ? ? Approved by: Harman Diggs M.D. on 10/16/2021 at 14:03?? [facility] Narrative Medical decision making narrative: This is a 51-year-old male with chronic history of back pain patient had exacerbating event lifting a box while being bent over and extended. This had worsened symptoms over the past 3 days. He has not had any red flag symptoms warranting MRI at this time. He has been trying to control symptoms with Tylenol and ibuprofen but has been inadequate and when he returned to work today was sent in. Patient had improvement with pain here with medications. He has follow-up with Dr. Blair his back surgeon upcoming. Patient is aware of red flag symptoms and reasons to return emergently. Discharge Plan Departure Patient Disposition: Home Clinical Impression: Low back pain Instructions: DI for Low Back Pain Activity Restrictions/Additional Instructions: Follow-up with Dr. Blair at your appointment on the . You may continue to take Tylenol up to a 1000 mg every 8 hours and/or ibuprofen up to 800 mg every 8 hours. You may take muscle relaxer 1 tablet every 8 hours as needed. If this is inadequate you may take narcotic pain medication as prescribed. This medication can make you sleepy do not drive, perform hazardous activities or make any major decisions while taking it. This medication will make you constipated please take a stool softener once to twice daily until stools are soft and regular. Prescription sent to [facility] in [place]. Prescriptions: New hydrocodone-acetaminophen 5-325 mg tablet 1 tab PO QID PRN (Reason: pain) Qty: 10 0RF diazepam [Valium] 10 mg tablet 10 mg PO TID PRN (Reason: muscle spasm) Qty: 10 0RF No Action gabapentin 600 mg tablet 600 mg PO TID Qty: 270 3RF nicotine (polacrilex) 2 mg gum 2 mg buccal Q2H PRN (Reason: nicotine cravings) Qty: 100 2RF sertraline 50 mg tablet 50 mg PO DAILY Qty: 90 3RF alprazolam 1 mg tablet 1 mg PO BID PRN (Reason: anxiety) Qty: 20 4RF Rx Instructions: Must last 30 days ProAir HFA 90 mcg/actuation HFA aerosol inhaler 2 inh INHALATION Q4-6H PRN (Reason: shortness of breath) Qty: 18 11RF clonidine HCl 0.2 mg tablet 0.2 mg PO TID PRN (Reason: Opiate withdrawal) Qty: 45 0RF metoprolol tartrate 25 mg tablet 25 mg PO BID Qty: 180 0RF aspirin [Adult Low Dose Aspirin] 81 mg tablet,delayed release (DR/EC) 81 mg PO DAILY 0RF tramadol [Ultram] 50 mg tablet 50 mg PO Q8H PRN (Reason: pain) Qty: 7 0RF tramadol 50 mg tablet 50 mg PO Q8H PRN (Reason: pain) Qty: 7 0RF hydrocodone-acetaminophen 5-325 mg tablet 1 tab PO Q4-6H PRN (Reason: pain) Qty: 10 0RF ketorolac 10 mg tablet 10 mg PO Q6H PRN (Reason: pain) Qty: 14 0RF gabapentin 300 mg capsule 300 mg PO BEDTIME Qty: 14 0RF methylprednisolone [Medrol (Dante)] 4 mg tablets,dose pack See Rx Instructions .ROUTE .COMPLEX Qty: 21 0RF Rx Instructions: orally per package directions methylprednisolone [Medrol (Dante)] 4 mg tablets,dose pack See Rx Instructions .ROUTE .COMPLEX Qty: 21 0RF Rx Instructions: orally per package directions oxycodone 5 mg tablet 5 mg PO Q6H PRN (Reason: pain) Qty: 10 0RF methylprednisolone [Methylpred DP] 4 mg tablets,dose pack See Rx Instructions .ROUTE .COMPLEX Qty: 21 0RF Rx Instructions: orally per package directions Referrals: Joselito Almeida MD [Primary Care Provider] -
[2021-10-16] MEDS: diazePAM 5 MG TABLET 10 MG PO (16:27)
[2021-10-16] MEDS: KETOROLAC 30 MG/ML VIAL IM (16:28)
[2021-10-16 17:09] VITALS: BP 166/72; PULSE 83; RESP 18; O2SAT 97
--- NOTE | 2021-10-17 14:47 | PC.NURSE ---
Received a phone call from [facility] that they did not have the norco that was prescribed yesterday by Dr. Adler. Darvin DOMINGUEZ reviewed and sent hydrocodone script to [facility] in [place]. Called number on file and left message w/ father and he will relay message.
== END 2021-10-16 17:09 | disposition home or self-care (01) ==
PROVIDERS: Emergency Provider Emergency Medicine; PCP Student in an Organized Health Care Education/Training Program
DX: M54.50 Low back pain, unspecified (principal)
CPT/HCPCS: 72100; 96372; 99283; 99284; J1885

== ENCOUNTER 2021-10-30 19:44 | Emergency (ER) | payer OTHER, MEDICAID, SELFPAY ==
[2020-12-26 13:02] VITALS: BMI 34.2
[2021-10-30 19:50] VITALS: BP 203/113; PULSE 127; RESP 15; TEMP 36.9; O2SAT 99; BMI 35.9
--- NOTE | 2021-10-30 20:05 | DI.CT.S_ITS ---
PROCEDURE: CT HEAD/BRAIN WO CON INDICATIONS: fall from ladder TECHNIQUE: Noncontrast 4.5 mm thick angled axial sections acquired from the foramen magnum to the vertex, with coronal and sagittal reformats. For radiation dose reduction, the following was used: automated exposure control, adjustment of mA and/or kV according to patient size. COMPARISON: None. FINDINGS: Image quality: Excellent. CSF spaces: Basal cisterns are patent. No extra-axial fluid collections. Ventricles are normal in size and shape. Brain: No midline shift. No intracranial masses or hemorrhage. Nava-white matter interface is normal. Skull and face: Calvarium and visualized facial bones are intact, without suspicious lesions. Sinuses: Visualized sinuses and mastoids are clear. IMPRESSION: No acute intracranial finding. Dictated by: Mejia Chandra M.D. on 10/30/2021 at 20:30 Approved by: Mejia Chandra M.D. on 10/30/2021 at 20:30
--- NOTE | 2021-10-30 20:05 | DI.CT.S_ITS ---
PROCEDURE: CT CERVICAL SPINE WO CON INDICATIONS: fall from ladder with neck pain TECHNIQUE: Noncontrast 3 mm thick sections acquired from the skull base to the T4 level. Sagittal and coronal reformats were then constructed. For radiation dose reduction, the following was used: automated exposure control, adjustment of mA and/or kV according to patient size. COMPARISON: None. FINDINGS: C7-T1 ACDF changes. Straightening of the usual cervical lordosis. Otherwise normal alignment. No listhesis, subluxation, or dislocation. Normal configuration of the craniocervical junction. Vertebral body heights maintained. No fracture demonstrated. Regional soft tissues are within normal limits. IMPRESSION: No CT evidence of acute traumatic cervical spine injury. Dictated by: Mejia Chandra M.D. on 10/30/2021 at 20:30 Approved by: Mejia Chandra M.D. on 10/30/2021 at 20:32
--- NOTE | 2021-10-30 20:06 | ED_ITS ---
HPI - Neck Pain/Injury General Chief Complaint: Neck Pain/Injury Stated Complaint: head and neck pain post fall from ladder Time Seen by Provider: 10/30/21 19:52 Source: patient Mode of arrival: Ambulatory History of Present Illness HPI Narrative: Patient is a 51-year-old male not on anticoagulation who is here for evaluation of injuries that he sustained where he states that he was cleaning out his gutters. He was standing on a ladder approximately 6 ft off the ground. He states that he slipped when he got to the top of the ladder and he slid down the ladder. He did not fall from the ladder. He did hit his head on the ladder ru ngs on the way down. This did happen several hours prior to arrival in the emergency department. There was no loss of consciousness. He did not hurt any extremities on the way down. Over the course of the hours since the event he has noticed some increasing pain in his neck and also redness to his forehead. Cervical collar was placed in triage prior to my evaluation. Related Data Home Medications Medication Instructions Recorded Confirmed aspirin 81 mg tablet,delayed 81 mg PO DAILY 10/18/20 03/19/21 release (Adult Low Dose Aspirin) Previous Rx's Medication Instructions Recorded gabapentin 600 mg tablet 600 mg PO TID #270 tab 09/06/20 nicotine (polacrilex) 2 mg gum 2 mg BUCCAL Q2H PRN #100 ea 11/11/20 sertraline 50 mg tablet 50 mg PO DAILY #90 tab 11/22/20 alprazolam 1 mg tablet 1 mg PO BID PRN #20 tab 12/03/20 albuterol sulfate 90 mcg/actuation 2 inh INHALATION Q4-6H PRN #18 gram 01/01/21 aerosol inhaler (ProAir HFA) methylprednisolone 4 mg tablets in See Rx Instructions .ROUTE 02/02/21 a dose pack (Medrol (Dante)) .COMPLEX #21 ea clonidine HCl 0.2 mg tablet 0.2 mg PO TID PRN #45 tab 02/26/21 methylprednisolone 4 mg tablets in See Rx Instructions .ROUTE 02/27/21 a dose pack (Methylpred DP) .COMPLEX #21 ea oxycodone 5 mg tablet 5 mg PO Q6H PRN #10 tab 02/27/21 tramadol 50 mg tablet 50 mg PO Q8H PRN #7 tab 04/01/21 tramadol 50 mg tablet (Ultram) 50 mg PO Q8H PRN #7 tab 04/01/21 gabapentin 300 mg capsule 300 mg PO BEDTIME #14 cap 06/19/21 hydrocodone 5 mg-acetaminophen 325 1 tab PO Q4-6H PRN #10 tab 06/19/21 mg tablet ketorolac 10 mg tablet 10 mg PO Q6H PRN #14 tab 06/19/21 methylprednisolone 4 mg tablets in See Rx Instructions .ROUTE 06/19/21 a dose pack (Medrol (Dante)) .COMPLEX #21 ea metoprolol tartrate 25 mg tablet 25 mg PO BID #180 tab 07/02/21 diazepam 10 mg tablet (Valium) 10 mg PO TID PRN #10 tab 10/16/21 hydrocodone 5 mg-acetaminophen 325 1 tab PO QID PRN #10 tab 10/16/21 mg tablet hydrocodone 5 mg-acetaminophen 325 1 tab PO Q6HR PRN #10 tab 10/17/21 mg tablet Allergies Allergy/AdvReac Type Severity Reaction Status Date / Time droperidol [DROPERIDOL] Allergy Mild COGENIC Verified 10/30/21 19:56 REACTION Review of Systems Constitutional Constitutional: Reports headache(s) Eyes Eyes: Reports system reviewed and no additional complaints, except as documented ENT Ears, Nose, Mouth, and Throat: Reports headache(s) and Reports neck pain Cardiovascular Cardiovascular: Reports system reviewed and no additional complaints, except as documented Respiratory Respiratory: Reports system reviewed and no additional complaints, except as documented Gastrointestinal Gastrointestinal: Reports system reviewed and no additional complaints, except as documented Musculoskeletal Musculoskeletal: Reports system reviewed and no additional complaints, except as documented, Reports as per HPI and Reports neck pain Integumentary/Breasts Skin/Breast: Reports system reviewed and no additional complaints, except as documented and Reports as per HPI Neurologic Neurologic: Reports system reviewed and no additional complaints, except as documented and Reports headache(s) Hematologic/Lymphatic On Anticoagulants: No Patient History Medical History ADD (attention deficit disorder) Anxiety Arthritis Asthma Cervical radiculopathy due to osteoarthritis of spine Chest pain Coronary artery disease Depression Essential hypertension HLD (hyperlipidemia) Numbness and tingling Prediabetes RLS (restless legs syndrome) Stenosis of artery Surgical History Hx of cervical discectomy (~2013) Family History Father Hypertension Hyperlipidemia Mother Diabetes mellitus Hyperlipidemia Hypertension Social History household members: family Smoking Status: Former smoker alcohol intake: never Smoking Status: Former smoker alcohol intake frequency: 0-2 drinks per day Substance Use Type: does not use Exam Initial Vital Signs Initial Vital Signs: Vital Signs Temperature 98.5 F 10/30/21 19:50 Pulse Rate 127 H 10/30/21 19:50 Respiratory Rate 15 10/30/21 19:50 Blood Pressure 203/113 H 10/30/21 19:50 Pulse Oximetry 99 10/30/21 19:50 Const General: cooperative, comfortable and well developed Limitations: mental status not altered HENMT Head: contusion (Forehead) Nose: external nose normal Mouth: oral mucosae normal Eyes General: appearance normal, both eyes and all related structures Chest Chest: normal inspection of the chest Resp Effort & Inspection: normal respiratory effort Cardio Rate: regular rate GI Inspection: normal to inspection Back/Spine/Pelvis Cervical Spine: collar present Skin Other: Contusion to forehead Neuro General: patient alert, patient awake, patient oriented x3, gait normal and moves all extremities Extrem General: normal to inspection and capillary refill normal Psych Appearance: grossly normal and well kempt Scores GCS Accord coma scale eye opening: Spontaneous Digna coma scale verbal response: Orientated Digna coma scale motor response: Obey commands Accord coma scale total score: 15 Course Orders Ordered: ED Orders 10/30/21 20:05 CT cervical spine wo con Stat CT head/brain wo con Stat Vital Signs Vital signs: Vital Signs - 8 hr 10/30/21 19:50 Temperature 98.5 F Pulse Rate 127 H Respiratory Rate 15 Blood Pressure 203/113 H Pulse Oximetry 99 MDM - Neck Pain/Injury Imaging Data CT - cervical spine: Radiologist's Impression: [address] [address] [address] Scan Report Signed Patient: Ori Hendrickson II MR#: [id number] : 1970 Acct:[id number] Age/Sex: 51 / M Date of Service: 10/30/21 Loc: ED Accession Number: [id number] ?? Procedure: CT cervical spine wo con Ordering Provider: Aureliano Matos D.O. PROCEDURE:? CT CERVICAL SPINE WO CON ? INDICATIONS:? fall from ladder with neck pain ? TECHNIQUE:? Noncontrast 3 mm thick sections acquired from the skull base to the T4 level.? Sagittal and coronal reformats were then constructed.? For radiation dose reduction, the following was used:? automated exposure control, adjustment of mA and/or kV according to patient size.? ? COMPARISON:? None. ? FINDINGS:? C7-T1 ACDF changes.? Straightening of the usual cervical lordosis.? Otherwise normal alignment.? No listhesis, subluxation, or dislocation.? Normal configuration of the craniocervical junction.? Vertebral body heights maintained.? No fracture demonstrated.? Regional soft tissues are within normal limits. ? ? IMPRESSION:? No CT evidence of acute traumatic cervical spine injury. ? Dictated by: Mejia Chandra M.D. on 10/30/2021 at 20:30 ? ? Approved by: Mejia Chandra M.D. on 10/30/2021 at 20:32? CT scan - head: Radiologist's Impression: [place] [address] CT Scan Report Signed Patient: Ori Hendrickson II MR#: [id number] : 1970 Acct:[id number] Age/Sex: 51 / M Date of Service: 10/30/21 Loc: ED Accession Number: [id number] ?? Procedure: CT head/brain wo con Ordering Provider: Aureliano Matos D.O. PROCEDURE:? CT HEAD/BRAIN WO CON ? INDICATIONS:? fall from ladder ? TECHNIQUE:? Noncontrast 4.5 mm thick angled axial sections acquired from the foramen magnum to the vertex, with coronal and sagittal reformats.? For radiation dose reduction, the following was used:? automated exposure control, adjustment of mA and/or kV according to patient size.? ? COMPARISON:? None. ? FINDINGS:? Image quality:? Excellent.? ? CSF spaces:? Basal cisterns are patent.? No extra-axial fluid collections.? Ventricles are normal in size and shape.? ? Brain:? No midline shift.? No intracranial masses or hemorrhage.? Nava-white matter interface is normal.? ? Skull and face:? Calvarium and visualized facial bones are intact, without suspicious lesions.? ? Sinuses:? Visualized sinuses and mastoids are clear.? ? IMPRESSION:? No acute intracranial finding. ? ? Dictated by: Mejia Chandra M.D. on 10/30/2021 at 20:30 ? ? Approved by: Mejia Chandra M.D. on 10/30/2021 at 20:30? MDM Narrative Medical decision making narrative: Head CT and cervical spine CT shows no signs of any acute pathology. The contusion on the forehead any new intervention here in the emergency department. Patient reports no other injuries from the event and there were no other injuries found on the exam. We can hold on further workup for now. Patient can continue all of his medications. He was given return precautions. He expressed understanding agreement. Discharge Plan Departure Patient Disposition: Home Clinical Impression: Closed head injury, Neck pain Instructions: DI for Closed Head Injury Activity Restrictions/Additional Instructions: The CT scans today showed no signs of any fractures. You can take Tylenol/ibuprofen for any discomfort. Return to the emergency department for any new or worsening symptoms. Prescriptions: No Action gabapentin 600 mg tablet 600 mg PO TID Qty: 270 3RF nicotine (polacrilex) 2 mg gum 2 mg buccal Q2H PRN (Reason: nicotine cravings) Qty: 100 2RF sertraline 50 mg tablet 50 mg PO DAILY Qty: 90 3RF alprazolam 1 mg tablet 1 mg PO BID PRN (Reason: anxiety) Qty: 20 4RF Rx Instructions: Must last 30 days ProAir HFA 90 mcg/actuation HFA aerosol inhaler 2 inh INHALATION Q4-6H PRN (Reason: shortness of breath) Qty: 18 11RF clonidine HCl 0.2 mg tablet 0.2 mg PO TID PRN (Reason: Opiate withdrawal) Qty: 45 0RF metoprolol tartrate 25 mg tablet 25 mg PO BID Qty: 180 0RF aspirin [Adult Low Dose Aspirin] 81 mg tablet,delayed release (DR/EC) 81 mg PO DAILY 0RF tramadol [Ultram] 50 mg tablet 50 mg PO Q8H PRN (Reason: pain) Qty: 7 0RF tramadol 50 mg tablet 50 mg PO Q8H PRN (Reason: pain) Qty: 7 0RF hydrocodone-acetaminophen 5-325 mg tablet 1 tab PO Q4-6H PRN (Reason: pain) Qty: 10 0RF ketorolac 10 mg tablet 10 mg PO Q6H PRN (Reason: pain) Qty: 14 0RF gabapentin 300 mg capsule 300 mg PO BEDTIME Qty: 14 0RF methylprednisolone [Medrol (Dante)] 4 mg tablets,dose pack See Rx Instructions .ROUTE .COMPLEX Qty: 21 0RF Rx Instructions: orally per package directions hydrocodone-acetaminophen 5-325 mg tablet 1 tab PO QID PRN (Reason: pain) Qty: 10 0RF diazepam [Valium] 10 mg tablet 10 mg PO TID PRN (Reason: muscle spasm) Qty: 10 0RF hydrocodone-acetaminophen 5-325 mg tablet 1 tab PO Q6HR PRN (Reason: pain) Qty: 10 0RF methylprednisolone [Medrol (Dante)] 4 mg tablets,dose pack See Rx Instructions .ROUTE .COMPLEX Qty: 21 0RF Rx Instructions: orally per package directions oxycodone 5 mg tablet 5 mg PO Q6H PRN (Reason: pain) Qty: 10 0RF methylprednisolone [Methylpred DP] 4 mg tablets,dose pack See Rx Instructions .ROUTE .COMPLEX Qty: 21 0RF Rx Instructions: orally per package directions Referrals: Joselito Almeida MD [Primary Care Provider] -
== END 2021-10-30 21:05 | disposition home or self-care (01) ==
PROVIDERS: Emergency Provider Emergency Medicine; PCP Student in an Organized Health Care Education/Training Program
DX: S09.8XXA Other specified injuries of head, initial encounter (principal); M54.2 Cervicalgia; W11.XXXA Fall on and from ladder, initial encounter
CPT/HCPCS: 70450; 72125; 99284

== ENCOUNTER 2022-01-29 10:37 | Emergency (ER) | payer OTHER, MEDICAID, SELFPAY ==
[2020-12-26 13:02] VITALS: BMI 34.2
[2022-01-29] VITALS (16 sets, daily range): BP systolic 154–207; BP diastolic 87–114; PULSE 102–118; RESP 18–24; TEMP 36.8; O2SAT 95–99; BMI 34.5
--- NOTE | 2022-01-29 11:02 | DI.RAD.S_ITS ---
PROCEDURE: XR CHEST 1V INDICATIONS: chest pain TECHNIQUE: One view of the chest was acquired. COMPARISON: [facility], CT, CT ANGIO CHEST ABDOMEN PELVIS, 03/14/2021, 16:01. [facility], CR, XR RIBS LT 2V, 03/21/2021, 14:10. [facility], CR, XR CHEST 1V, 03/14/2021, 14:02. [facility], CR, XR CHEST 1V, 06/18/2021, 21:12. FINDINGS: Surgical changes and devices: Lower cervical spine fixation hardware is seen. Lungs and pleura: Lungs are clear. No pleural effusions or pneumothorax. Mediastinum: Mediastinal contours appear normal. Heart size is normal. Bones and chest wall: No suspicious bony lesions. Age-appropriate bony degenerative changes are seen. Overlying soft tissues appear unremarkable. IMPRESSION: No acute portable chest abnormality is seen. Dictated by: Geoff Roque M.D. on 01/29/2022 at 10:14 Approved by: Geoff Roque M.D. on 01/29/2022 at 10:15
--- NOTE | 2022-01-29 11:13 | ED.GENADULT ---
HPI - General Adult General Chief complaint: Hypertension Stated complaint: Severe neck pain x 5 days Time Seen by Provider: 01/29/22 11:13 Source: patient Mode of arrival: Ambulatory Limitations: no limitations History of Present Illness HPI narrative: This is a 51-year-old male who comes emergency department is increasing pain of his left neck that has been longstanding. Patient was seen at [facility] spinal clinic with known cervical degenerative disc disease and prior C7-T1 anterior fusion as well as chronic low back pain and L5-S1 surgical decompression. Patient was sent down had MRI in November of 2020 and was told that he would need to follow up as at some point he would likely need surgery but was not a candidate yet. 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 Patient states that he has been taking Tylenol and ibuprofen have not been helpful. He did try a left over steroid pack from a prior surgery which has not been helpful. He is not currently taking this. He has been on gabapentin in the past. He only takes metoprolol, Zoloft an aspirin daily. He does have a history of acute coronary syndrome and has prior cardiac catheterization times but told not stentable. He is allergic to droperidol. Former smoker, drinks alcohol intermittently, no illicit. Related Data Home Medications Medication Instructions Recorded Confirmed aspirin 81 mg tablet,delayed 81 mg PO DAILY 10/18/20 03/19/21 release (Adult Low Dose Aspirin) Previous Rx's Medication Instructions Recorded gabapentin 600 mg tablet 600 mg PO TID #270 tab 09/06/20 nicotine (polacrilex) 2 mg gum 2 mg BUCCAL Q2H PRN #100 ea 11/11/20 sertraline 50 mg tablet 50 mg PO DAILY #90 tab 11/22/20 alprazolam 1 mg tablet 1 mg PO BID PRN #20 tab 12/03/20 albuterol sulfate 90 mcg/actuation 2 inh INHALATION Q4-6H PRN #18 gram 01/01/21 aerosol inhaler (ProAir HFA) methylprednisolone 4 mg tablets in See Rx Instructions .ROUTE 02/02/21 a dose pack (Medrol (Dante)) .COMPLEX #21 ea clonidine HCl 0.2 mg tablet 0.2 mg PO TID PRN #45 tab 04/21/21 methylprednisolone 4 mg tablets in See Rx Instructions .ROUTE 02/27/21 a dose pack (Methylpred DP) .COMPLEX #21 ea oxycodone 5 mg tablet 5 mg PO Q6H PRN #10 tab 02/27/21 tramadol 50 mg tablet 50 mg PO Q8H PRN #7 tab 04/01/21 tramadol 50 mg tablet (Ultram) 50 mg PO Q8H PRN #7 tab 04/01/21 gabapentin 300 mg capsule 300 mg PO BEDTIME #14 cap 06/19/21 hydrocodone 5 mg-acetaminophen 325 1 tab PO Q4-6H PRN #10 tab 06/19/21 mg tablet ketorolac 10 mg tablet 10 mg PO Q6H PRN #14 tab 06/19/21 methylprednisolone 4 mg tablets in See Rx Instructions .ROUTE 06/19/21 a dose pack (Medrol (Dante)) .COMPLEX #21 ea diazepam 10 mg tablet (Valium) 10 mg PO TID PRN #10 tab 10/16/21 hydrocodone 5 mg-acetaminophen 325 1 tab PO QID PRN #10 tab 10/16/21 mg tablet hydrocodone 5 mg-acetaminophen 325 1 tab PO Q6HR PRN #10 tab 10/17/21 mg tablet metoprolol tartrate 25 mg tablet 25 mg PO BID #180 tab 12/03/21 oxycodone 5 mg tablet 5 mg PO QID PRN #10 tab 01/29/22 prednisone 50 mg tablet 50 mg PO DAILY #5 tab 01/29/22 Allergies Allergy/AdvReac Type Severity Reaction Status Date / Time droperidol [DROPERIDOL] Allergy Mild COGENIC Verified 01/29/22 10:46 REACTION Review of Systems Review of Systems ROS Unobtainable: All systems reviewed & are unremarkable except as noted in HPI and below Patient History Medical History ADD (attention deficit disorder) Anxiety Arthritis Asthma Cervical radiculopathy due to osteoarthritis of spine Chest pain Coronary artery disease Depression Essential hypertension HLD (hyperlipidemia) Numbness and tingling Prediabetes RLS (restless legs syndrome) Stenosis of artery Surgical History Hx of cervical discectomy (~2013) Family History Father Hypertension Hyperlipidemia Mother Diabetes mellitus Hyperlipidemia Hypertension Social History household members: family Smoking Status: Former smoker alcohol intake: never Smoking Status: Former smoker alcohol intake frequency: 0-2 drinks per day Substance Use Type: does not use Exam Narrative Exam Narrative: GEN: well nourished, well appearing male, alert and oriented x 3, patient appears to be in mild distress. HEENT: Atraumatic, pupils are equal round reactive to light, extraocular movements are intact, nares are clear, TMs are clear with no fluid, there is no conjunctival pallor. Throat is clear without any exudates, erythema, tonsillar enlargement or uvular deviation, patient has full range of motion. There is a healed anterior incision in the lower neck. No vertebral tenderness on palpation cervically. HEART: Regular rate and rhythm without murmur, clicks, rubs. 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 NEURO:CN 2-12 intact, sensation present bilaterally but decreased left compared to right. Initial Vital Signs Initial Vital Signs: Vital Signs Temperature 98.3 F 01/29/22 10:40 Pulse Rate 112 H 01/29/22 10:40 Respiratory Rate 20 01/29/22 10:40 Blood Pressure 207/112 H 01/29/22 10:40 Pulse Oximetry 98 01/29/22 10:40 Course Orders Ordered: ED Orders 01/29/22 10:48 EKG-12 Lead Stat 01/29/22 10:56 Complete Blood Count AUTO DIFF Stat Comprehensive Metabolic Panel Stat Lipase Stat Magnesium Stat Troponin & CK Cardiac Panel Stat 01/29/22 11:02 XR chest 1V Stat EKG-12 Lead Stat 01/29/22 11:50 MR cervical spine wo con Stat Discontinued Medications Diazepam (Diazepam 5 Mg Tablet) 10 mg PO NOW ONE Stop: 01/29/22 11:50 Last Admin: 01/29/22 11:59 Dose: 10 mg Documented by: CLAY Ketorolac Tromethamine (Ketorolac 30 Mg/Ml Vial) 30 mg IV NOW ONE Stop: 01/29/22 11:50 Last Admin: 01/29/22 11:59 Dose: 30 mg Documented by: CLAY Lidocaine (Lidocaine Patch 1 Each Adh..Patch) 1 each TOP NOW ONE Stop: 01/29/22 13:58 Last Admin: 01/29/22 14:02 Dose: 1 each Documented by: FENG Oxycodone/Acetaminophen (Oxycodone/Acetaminophen 5/325 Tablet) 2 tab PO NOW ONE Stop: 01/29/22 13:58 Last Admin: 01/29/22 14:02 Dose: 2 tab Documented by: FENG Reevaluation(s) Reevaluation #1: Patient is agreeable to wait for MRI which may be 3:00 p.m. today. In the meantime will give Toradol and Valium for pain control and re-evaluated after. Reevaluation #2: Patient had some improvement of pain but not resolution. Patient had discussed his findings earlier that are like to speak with the spinal clinic that he has been seen before they may wish to take him urgently or emergently to surgery. Patient was agreeable we discussed it may take a long time but patient's ride his becoming frustrated and patient needs to leave. Discussed if the spinal clinic was back happy to discuss case with them. Patient is planning to call in the morning to follow-up. Discussed his findings and the importance of urgent follow-up as he can have permanent loss of ability to use his arm if he is not seen untreated an appropriate time frame. The patient expresses all risks and benefits. All questions answered. Time: 15:40 Consultations Consultation #1: Dr. Naylor, [facility] called back after patient left the department. He did review patient's images from today. Patient needs follow-up in the clinic but not emergently. They are happy to follow with him in the spinal clinic with would ever provider the patient prefers. Coordinator did take patient phone number to reach out to the patient to set up follow-up with clinic. Vital Signs Vital signs: Vital Signs - 8 hr 01/29/22 11:30 01/29/22 12:00 01/29/22 12:07 Pulse Rate 111 H 111 H 112 H Respiratory Rate 20 21 Blood Pressure 188/92 H 190/114 H 189/102 H Pulse Oximetry 96 97 97 01/29/22 12:30 01/29/22 13:00 01/29/22 13:53 Pulse Rate 113 H 109 H 118 H Respiratory Rate 20 20 Blood Pressure 170/99 H 154/87 H Pulse Oximetry 96 95 99 01/29/22 13:55 01/29/22 13:57 01/29/22 14:00 Pulse Rate 108 H 112 H 107 H Respiratory Rate 20 Blood Pressure 194/114 H 170/104 H Pulse Oximetry 97 98 97 01/29/22 14:30 01/29/22 15:00 01/29/22 15:30 Pulse Rate 104 H 102 H 102 H Respiratory Rate 18 Blood Pressure 190/112 H 189/114 H 180/103 H Pulse Oximetry 96 96 96 Medical Decision Making Lab Data Result diagrams: 01/29/22 10:56 01/29/22 10:56 Labs: Lab Results 01/29/22 01/29/22 Range/Units 10:56 10:56 WBC 8.1 (4.5-11.0) X10^3/uL RBC 5.47 (4.5-5.9) X10^6/uL Hgb 16.7 (13.5-17.5) g/dL Hct 48.6 (41-53) % MCV 88.8 (80-100) fL MCH 30.5 (26-34) PG MCHC 34.4 (30-36) % RDW 13.1 (11.6-14.8) % Plt Count 224 (150-400) X10^3/uL Neut % (Auto) 66.0 (50-75) % Lymph % (Auto) 23.8 L (25-40) % Stafford % (Auto) 7.3 (3-14) % Eos % (Auto) 2.5 (2-4) % Baso % (Auto) 0.4 (0-2) % Neut # (Auto) 5400 (3876-9486) /uL Lymph # (Auto) 1900 (5398-9488) /uL Stafford # (Auto) 600 (0-900) /uL Eos # (Auto) 200 (0-450) /uL Baso # (Auto) 0 (0-100) /uL Sodium 139 (137-145) mmol/L Potassium 4.2 (3.4-5.1) mmol/L Chloride 103 (98-107) mmol/L Carbon Dioxide 26 (22-32) mmol/L BUN 14 (9-20) mg/dL Creatinine 0.89 (0.66-1.25) mg/dL Estimated GFR > 60.0 (>60) mL/min BUN/Creatinine Ratio 15.7 (6-22) Glucose 137 H (70-100) mg/dL Calcium 9.8 (8.4-10.2) mg/dL Magnesium 2.0 (1.6-2.3) mg/dL Total Bilirubin 0.5 (0.2-1.3) mg/dL AST 41 (17-59) IU/L ALT 43 (<50) IU/L Alkaline Phosphatase 60 (38-126) U/L Total Creatine Kinase 94 (55-170) U/L CK-MB (CK-2) TNP CK-MB (CK-2) Rel Index TNP Troponin I < 0.012 (0.01-0.034) ng/mL Total Protein 8.3 H (6.3-8.2) g/dL Albumin 5.0 (3.5-5.0) g/dL Globulin 3.3 (1.7-4.1) g/dL Albumin/Globulin Ratio 1.5 (1.0-2.8) Lipase 85 (23-300) U/L Imaging Data Chest x-ray: Radiologist's Impression: Launch?Image [address] [address] XRay Report Signed Patient: Ori Hendrickson II MR#: [id number] : 1970 Acct:[id number] Age/Sex: 51 / M Date of Service: 01/29/22 Loc: ED Accession Number: [id number] ?? Procedure: XR chest 1V Ordering Provider: Arpita Adler D.O. PROCEDURE:? XR CHEST 1V ? INDICATIONS:? chest pain ? TECHNIQUE:? One view of the chest was acquired.? ? COMPARISON:? [facility], CT, CT ANGIO CHEST ABDOMEN PELVIS, 03/14/2021, 16:01.? [facility], CR, XR RIBS LT 2V, 03/21/2021, 14:10.? [facility], CR, XR CHEST 1V, 03/14/2021, 14:02.? [facility], CR, XR CHEST 1V, 06/18/2021, 21:12. ? FINDINGS:? ? Surgical changes and devices:? Lower cervical spine fixation hardware is seen. ? Lungs and pleura:? Lungs are clear.? No pleural effusions or pneumothorax.? ? Mediastinum:? Mediastinal contours appear normal.? Heart size is normal.? ? Bones and chest wall:? No suspicious bony lesions.? Age-appropriate bony degenerative changes are seen.? Overlying soft tissues appear unremarkable.? IMPRESSION:? No acute portable chest abnormality is seen. ? ? Dictated by: Geoff Roque M.D. on 01/29/2022 at 10:14 ? ? Approved by: Geoff Roque M.D. on 01/29/2022 at 10:15?? MRI Cspine: Radiologist's Impression: Launch?[place] [address] Magnetic Resonance Report Signed Patient: Ori Hendrickson II MR#: [id number] : 1970 Acct:[id number] Age/Sex: 51 / M Date of Service: 01/29/22 Loc: ED Accession Number: [id number] ?? Procedure: MR cervical spine wo con Ordering Provider: Arpita Adler D.O. PROCEDURE:? MR CERVICAL SPINE WO CON ? INDICATIONS:? progressive L UE weakness.? neck pain ? TECHNIQUE:? Noncontrast sagittal T1 spin echo and T2 fast spin echo, sagittal STIR, foraminal oblique sagittal T2 fast spin echo, and axial gradient echo or T2 fast spin echo through the cervical spine.? ? COMPARISON:? [facility], MR, MR CERVICAL SPINE W&WO CON, 04/26/2017, 18:50.? [facility], MR, MR CERVICAL SPINE WITHOUT CONTRAST, 06/05/2017, 14:10.? [facility], MR, CERVICAL SPINE W/O CONTRAST, 12/06/2014, 21:07.? [facility], CT, CT CERVICAL SPINE WO CON, 10/30/2021, 20:15.? [facility], MR, MR CERVICAL SPINE WO CON, 08/05/2020, 9:29. ? FINDINGS:? Image quality:? There is artifact associated with the metallic hardware. ? ? Alignment and Curvature:? There is normal bony alignment.? ? Bone Marrow:? Marrow demonstrates normal overall signal.? ? Spinal Cord:? Visualized spinal cord has normal size and signal.? No cerebellar tonsillar herniation.? ? Paraspinous Soft Tissues:? No paravertebral masses.? Prevertebral soft tissues are normal in thickness.? ? C2-C3:? No significant abnormality is seen. ? C3-C4:? The disc height and disc signal are relatively well preserved.? Moderate disc osteophyte complex is seen, with a central disc osteophyte protrusion.? There is at least moderate facet hypertrophy seen, right worse than left.? There is moderate right-sided and moderate to severe left-sided facet hypertrophy seen.? Moderate central canal is seen. There is associated mass effect upon the ventral spinal cord.? When comparison is made with the prior images, these findings are similar.? ? C4-C5:? Moderate loss of disc height is seen.? Loss of disc signal is seen.? Moderate disc osteophyte complex is seen, with a central/right disc osteophyte protrusion.? Mild to moderate facet hypertrophy is seen.? There is moderate to severe bilateral neural foraminal narrowing seen.? Moderate to severe central canal narrowing is also seen, with associated ventral cord flattening.? Compared to the 2020 examination, the degrees of neural foraminal narrowing have progressed. ? C5-C6:? The disc height and disc signal are relatively well preserved.? Mild to moderate disc osteophyte complex is seen, with a central/right disc osteophyte protrusion.? Moderate facet hypertrophy is seen, left worse than right.? No significant neural foraminal narrowing can be seen. Moderate central canal narrowing is seen.? There is associated mass effect upon the ventral spinal cord.? These imaging findings have progressed compared to the prior study.? ? C6-C7:? The disc height and disc signal are relatively well preserved.? Moderate disc osteophyte complex is seen. Mild facet joint hypertrophy is seen. Mild bilateral neural foraminal narrowing is seen.? No significant central canal is seen. When comparison is made with the prior images, these findings are similar.? ? C7-T1:? Postoperative changes are seen anteriorly, associated susceptibility artifact.? Likely moderate disc osteophyte complex is seen.? No significant central canal narrowing is seen. ? ? IMPRESSION:? Multiple levels of degenerative change are seen, which are progressed at several levels compared to 2020. ? Postoperative change again seen anteriorly at C7-T1. ? ? Dictated by: Geoff Roque M.D. on 01/29/2022 at 12:57 ? ? Approved by: Geoff Roque M.D. on 01/29/2022 at 13:06? ECG Data Attestation: I personally reviewed and interpreted this ECG as follows: Prior ECG tracings: available for review Interpretation: Sinus tachycardia rate of 107 VT 122, QRS is 70 QTC 429. Patient has Q-wave in lead 3. Not appreciate other leads. No elevation or depression otherwise noted. No change from prior. MDM Narrative Medical decision making narrative: This is a 51-year-old male comes in with complaint of acute on chronic neck pain with radiculopathy and weakness it has been progressive in his left upper extremity. Patient has been seen by myself remotely sent to [facility] for he had MRI was evaluated and ultimately told he did not require surgery at time. But that he would likely have worsening symptoms and at some point require a follow-up and treatment. Patient has had worsening pain which has become more persistent and has appreciated increasing weakness he has weakness on exam. MRI was repeated and shows progressive change with some mass effect on the spinal cord. Discussed with patient I would like to have him follow up [facility] possibly for transfer today versus outpatient follow-up and while awaiting call back patient stated he needed to leave. Patient has been appropriate throughout his stay. Discussed risks and benefits and patient states that he does need to go. Patient was given short-term prescription for pain, steroids which may help with his discomfort somewhat but we discussed this will not alleviate the problem and that he does have impingement on his spinal cord which can cause permanent damage and dysfunction. Patient expresses his understanding all questions answered. Discharge Plan Departure Patient Disposition: Home Clinical Impression: Cervical radiculopathy Activity Restrictions/Additional Instructions: I have not been able to speak with the spinal clinic at [facility] yet today. I would recommend talking to them today. You do have impingement and compression of the spinal cord and nerve. It is important that you follow-up with them. I think you do need surgery and may need it emergently or urgently. When there is permanent impingement or pressing on the cord for long periods of time you can lose function in your arm. In the short term you can try steroids to see if this is helpful, this is for discomfort and does not fix the current problem. You can also take pain medication as prescribed. This medication can make you sleepy do not drive, perform hazardous activities or make any major decisions while taking it. This medication will make you constipated please take a stool softener once to twice daily until stools are soft and regular. Prescription sent to [facility] in [place]. 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 Prescriptions: New prednisone 50 mg tablet 50 mg PO DAILY Qty: 5 0RF oxycodone 5 mg tablet 5 mg PO QID PRN (Reason: pain) Qty: 10 0RF No Action gabapentin 600 mg tablet 600 mg PO TID Qty: 270 3RF nicotine (polacrilex) 2 mg gum 2 mg buccal Q2H PRN (Reason: nicotine cravings) Qty: 100 2RF sertraline 50 mg tablet 50 mg PO DAILY Qty: 90 3RF alprazolam 1 mg tablet 1 mg PO BID PRN (Reason: anxiety) Qty: 20 4RF Rx Instructions: Must last 30 days ProAir HFA 90 mcg/actuation HFA aerosol inhaler 2 inh INHALATION Q4-6H PRN (Reason: shortness of breath) Qty: 18 11RF clonidine HCl 0.2 mg tablet 0.2 mg PO TID PRN (Reason: Opiate withdrawal) Qty: 45 0RF metoprolol tartrate 25 mg tablet 25 mg PO BID Qty: 180 0RF Rx Instructions: PT DUE FOR APPT W/PCP PRIOR TO END OF RX/FUTURE FILLS. PLEASE CALL TO SCHEDULE APPT. THANKS 12/03/21 aspirin [Adult Low Dose Aspirin] 81 mg tablet,delayed release (DR/EC) 81 mg PO DAILY 0RF tramadol [Ultram] 50 mg tablet 50 mg PO Q8H PRN (Reason: pain) Qty: 7 0RF tramadol 50 mg tablet 50 mg PO Q8H PRN (Reason: pain) Qty: 7 0RF hydrocodone-acetaminophen 5-325 mg tablet 1 tab PO Q4-6H PRN (Reason: pain) Qty: 10 0RF ketorolac 10 mg tablet 10 mg PO Q6H PRN (Reason: pain) Qty: 14 0RF gabapentin 300 mg capsule 300 mg PO BEDTIME Qty: 14 0RF methylprednisolone [Medrol (Dante)] 4 mg tablets,dose pack See Rx Instructions .ROUTE .COMPLEX Qty: 21 0RF Rx Instructions: orally per package directions hydrocodone-acetaminophen 5-325 mg tablet 1 tab PO QID PRN (Reason: pain) Qty: 10 0RF diazepam [Valium] 10 mg tablet 10 mg PO TID PRN (Reason: muscle spasm) Qty: 10 0RF hydrocodone-acetaminophen 5-325 mg tablet 1 tab PO Q6HR PRN (Reason: pain) Qty: 10 0RF methylprednisolone [Medrol (Dante)] 4 mg tablets,dose pack See Rx Instructions .ROUTE .COMPLEX Qty: 21 0RF Rx Instructions: orally per package directions oxycodone 5 mg tablet 5 mg PO Q6H PRN (Reason: pain) Qty: 10 0RF methylprednisolone [Methylpred DP] 4 mg tablets,dose pack See Rx Instructions .ROUTE .COMPLEX Qty: 21 0RF Rx Instructions: orally per package directions Referrals: Joselito Almeida MD [Primary Care Provider] -
[2022-01-29 11:30] LABS: Add Manual Diff / Slide Review NO; Basophils Absolute Auto 0 /uL (0-100); Basophils Percent Auto 0.4 % (0-2); Eosinophils Absolute Auto 200 /uL (0-450); Eosinophils Percent Auto 2.5 % (2-4); Hematocrit 48.6 % (41-53); Hemoglobin 16.7 g/dL (13.5-17.5); Lymphocytes Absolute Auto 1900 /uL (1100-4500); Lymphocytes Percent Auto 23.8 % (25-40); Mean Corpuscular HGB Conc 34.4 % (30-36); Mean Corpuscular Hemoglobin 30.5 PG (26-34); Mean Corpuscular Volume 88.8 fL (80-100); Monocytes Absolute Auto 600 /uL (0-900); Monocytes Percent Auto 7.3 % (3-14); Neutrophils Absolute Auto 5400 /uL (1500-7000); Platelet Count 224 X10^3/uL (150-400); Red Blood Cell Count 5.47 X10^6/uL (4.5-5.9); Red Cell Distribution Width 13.1 % (11.6-14.8); White Blood Cell Count 8.1 X10^3/uL (4.5-11.0)
[2022-01-29 11:36] LABS: Alanine Aminotransferase 43 IU/L (<50); Albumin Globulin Ratio 1.5 (1.0-2.8); Alkaline Phosphatase 60 U/L (38-126); Aspartate Aminotransferase 41 IU/L (17-59); BUN Creatinine Ratio 15.7 (6-22); Bilirubin Total 0.5 mg/dL (0.2-1.3); Blood Urea Nitrogen 14 mg/dL (9-20); Calcium 9.8 mg/dL (8.4-10.2); Carbon Dioxide 26 mmol/L (22-32); Chloride 103 mmol/L (98-107); Creatine Kinase 94 U/L (55-170); Estimated Glomerular Filt Rate > 60.0 mL/min (>60); Globulin 3.3 g/dL (1.7-4.1); Glucose 137 mg/dL (70-100); HEMOLYSIS 17 (0-50); Lipase 85 U/L (23-300); Potassium 4.2 mmol/L (3.4-5.1); Sodium 139 mmol/L (137-145); Total Protein 8.3 g/dL (6.3-8.2)
[2022-01-29 11:46] LABS: Troponin I < 0.012 ng/mL (0.01-0.034)
--- NOTE | 2022-01-29 11:50 | DI.MRI.S_ITS ---
PROCEDURE: MR CERVICAL SPINE WO CON INDICATIONS: progressive L UE weakness. neck pain TECHNIQUE: Noncontrast sagittal T1 spin echo and T2 fast spin echo, sagittal STIR, foraminal oblique sagittal T2 fast spin echo, and axial gradient echo or T2 fast spin echo through the cervical spine. COMPARISON: [facility], MR, MR CERVICAL SPINE W&WO CON, 04/26/2017, 18:50. [facility], MR, MR CERVICAL SPINE WITHOUT CONTRAST, 06/05/2017, 14:10. [facility], MR, CERVICAL SPINE W/O CONTRAST, 12/06/2014, 21:07. [facility], CT, CT CERVICAL SPINE WO CON, 10/30/2021, 20:15. [facility], MR, MR CERVICAL SPINE WO CON, 08/05/2020, 9:29. FINDINGS: Image quality: There is artifact associated with the metallic hardware. Alignment and Curvature: There is normal bony alignment. Bone Marrow: Marrow demonstrates normal overall signal. Spinal Cord: Visualized spinal cord has normal size and signal. No cerebellar tonsillar herniation. Paraspinous Soft Tissues: No paravertebral masses. Prevertebral soft tissues are normal in thickness. C2-C3: No significant abnormality is seen. C3-C4: The disc height and disc signal are relatively well preserved. Moderate disc osteophyte complex is seen, with a central disc osteophyte protrusion. There is at least moderate facet hypertrophy seen, right worse than left. There is moderate right-sided and moderate to severe left-sided facet hypertrophy seen. Moderate central canal is seen. There is associated mass effect upon the ventral spinal cord. When comparison is made with the prior images, these findings are similar. C4-C5: Moderate loss of disc height is seen. Loss of disc signal is seen. Moderate disc osteophyte complex is seen, with a central/right disc osteophyte protrusion. Mild to moderate facet hypertrophy is seen. There is moderate to severe bilateral neural foraminal narrowing seen. Moderate to severe central canal narrowing is also seen, with associated ventral cord flattening. Compared to the 2019 examination, the degrees of neural foraminal narrowing have progressed. C5-C6: The disc height and disc signal are relatively well preserved. Mild to moderate disc osteophyte complex is seen, with a central/right disc osteophyte protrusion. Moderate facet hypertrophy is seen, left worse than right. No significant neural foraminal narrowing can be seen. Moderate central canal narrowing is seen. There is associated mass effect upon the ventral spinal cord. These imaging findings have progressed compared to the prior study. C6-C7: The disc height and disc signal are relatively well preserved. Moderate disc osteophyte complex is seen. Mild facet joint hypertrophy is seen. Mild bilateral neural foraminal narrowing is seen. No significant central canal is seen. When comparison is made with the prior images, these findings are similar. C7-T1: Postoperative changes are seen anteriorly, associated susceptibility artifact. Likely moderate disc osteophyte complex is seen. No significant central canal narrowing is seen. IMPRESSION: Multiple levels of degenerative change are seen, which are progressed at several levels compared to 2020. Postoperative change again seen anteriorly at C7-T1. Dictated by: Geoff Roque M.D. on 01/29/2022 at 12:57 Approved by: Geoff Roque M.D. on 01/29/2022 at 13:06
[2022-01-29] MEDS: diazePAM 5 MG TABLET 10 MG PO (11:59)
[2022-01-29] MEDS: KETOROLAC 30 MG/ML VIAL IV (11:59)
[2022-01-29] MEDS: LIDOCAINE PATCH 1 EACH ADH..PATCH TOP (14:02)
[2022-01-29] MEDS: OXYCODONE/ACETAMINOPHEN 5/325 TABLET 2 TAB PO (14:02)
== END 2022-01-29 15:58 | disposition home or self-care (01) ==
PROVIDERS: Emergency Provider Emergency Medicine; PCP Student in an Organized Health Care Education/Training Program
DX: M54.12 Radiculopathy, cervical region (principal); R00.0 Tachycardia, unspecified
CPT/HCPCS: 36415; 71045; 72141; 80053; 82550; 83690; 83735; 84484; 85025; 93005; 96374; 99284; 99285; J1885

== ENCOUNTER 2022-03-31 09:53 | Emergency (ER) | payer OTHER, MEDICAID, SELFPAY ==
[2020-12-26 13:02] VITALS: BMI 34.2
[2022-03-31] VITALS (8 sets, daily range): BP systolic 129–188; BP diastolic 83–104; PULSE 72–86; RESP 18–30; TEMP 36.7; O2SAT 96–97; BMI 35.9
--- NOTE | 2022-03-31 10:21 | DI.RAD.S_ITS ---
PROCEDURE: XR CHEST 1V INDICATIONS: chest pain TECHNIQUE: One view of the chest was acquired. COMPARISON: [facility], CR, XR CHEST 1V, 06/18/2021, 21:12. [facility], CR, XR CHEST 1V, 01/29/2022, 11:06. FINDINGS: Surgical changes and devices: None. Lungs and pleura: Lungs are clear. No pleural effusions or pneumothorax. Mediastinum: Mediastinal contours appear normal. Heart size is normal. Bones and chest wall: No suspicious bony lesions. Overlying soft tissues appear unremarkable. IMPRESSION: No acute cardiopulmonary disease. Dictated by: Otis Peralta M.D. on 03/31/2022 at 10:38 Approved by: Otis Peralta M.D. on 03/31/2022 at 10:39
[2022-03-31 10:30] LABS: Add Manual Diff / Slide Review NO; Basophils Absolute Auto 100 /uL (0-100); Basophils Percent Auto 0.9 % (0-2); Eosinophils Absolute Auto 200 /uL (0-450); Eosinophils Percent Auto 2.7 % (2-4); Hematocrit 47.4 % (41-53); Hemoglobin 15.9 g/dL (13.5-17.5); Lymphocytes Absolute Auto 1500 /uL (1100-4500); Lymphocytes Percent Auto 19.8 % (25-40); Mean Corpuscular HGB Conc 33.6 % (30-36); Mean Corpuscular Hemoglobin 29.8 PG (26-34); Mean Corpuscular Volume 88.8 fL (80-100); Monocytes Absolute Auto 500 /uL (0-900); Monocytes Percent Auto 6.8 % (3-14); Neutrophils Absolute Auto 5200 /uL (1500-7000); Neutrophils Percent Auto 69.8 % (50-75); Platelet Count 253 X10^3/uL (150-400); Red Blood Cell Count 5.33 X10^6/uL (4.5-5.9); Red Cell Distribution Width 12.2 % (11.6-14.8); White Blood Cell Count 7.5 X10^3/uL (4.5-11.0)
[2022-03-31] MEDS: ASPIRIN 81 MG CHEW TAB 324 MG PO (10:31)
[2022-03-31 10:38] LABS: Alanine Aminotransferase 32 IU/L (<50); Albumin Globulin Ratio 1.6 (1.0-2.8); Alkaline Phosphatase 58 U/L (38-126); Aspartate Aminotransferase 42 IU/L (17-59); BUN Creatinine Ratio 15.4 (6-22); Bilirubin Total 0.8 mg/dL (0.2-1.3); Blood Urea Nitrogen 16 mg/dL (9-20); Carbon Dioxide 26 mmol/L (22-32); Chloride 103 mmol/L (98-107); Creatine Kinase 193 U/L (55-170); Estimated Glomerular Filt Rate > 60 mL/min (>60); Globulin 3.2 g/dL (1.7-4.1); Glucose 162 mg/dL (70-100); HEMOLYSIS 19 (0-50); Lipase 97 U/L (23-300); Magnesium 1.9 mg/dL (1.6-2.3); Potassium 4.8 mmol/L (3.4-5.1); Sodium 138 mmol/L (137-145); Total Protein 8.2 g/dL (6.3-8.2)
[2022-03-31 10:49] LABS: Troponin I < 0.012 ng/mL (0.01-0.034)
[2022-03-31 10:53] LABS: CKMB % Relative Index 0.8 % (1.5-5.0); Creatine Kinase MB 1.57 ng/mL (<2.37)
--- NOTE | 2022-03-31 11:47 | ED.CHESTPAIN ---
HPI - Chest Pain General Chief Complaint: Chest Pain Stated Complaint: Left side neck/shoulder/chest pain Time Seen by Provider: 03/31/22 11:28 Source: patient Mode of arrival: Ambulatory Limitations: no limitations History of Present Illness HPI narrative: 51-year-old gentleman with history of coronary artery disease, hypertension, hyperlipidemia, diabetes, morbid obesity, asthma presents with chest pain. He did have a angiogram in January of 2018 and did have obstructive disease in the ostium of medium caliber 2nd diagonal with nonobstructive disease in the LAD and 1st diagonal. He also has radicular left-sided neck pain longstanding with prior C7-T1 anterior fusion and is followed at [facility]. Notes that 2 days ago he was having his usual neck pain and that evening seem to get worse now radiating to the shoulder. Discontinued yesterday and this morning at 4:00 a.m. he woke up with chest pain described as left upper chest not associated with exertion, breathing or position. He reports no recent fever cough or chills. No palpitations, abdominal pain, vomiting, nausea. No change to stool specifically no black stools. Related Data Home Medications Medication Instructions Recorded Confirmed aspirin 81 mg tablet,delayed 81 mg PO DAILY 10/18/20 03/19/21 release (Adult Low Dose Aspirin) Previous Rx's Medication Instructions Recorded gabapentin 600 mg tablet 600 mg PO TID #270 tab 09/06/20 nicotine (polacrilex) 2 mg gum 2 mg BUCCAL Q2H PRN #100 ea 11/11/20 sertraline 50 mg tablet 50 mg PO DAILY #90 tab 11/22/20 alprazolam 1 mg tablet 1 mg PO BID PRN #20 tab 12/03/20 methylprednisolone 4 mg tablets in See Rx Instructions .ROUTE 02/02/21 a dose pack (Medrol (Dante)) .COMPLEX #21 ea clonidine HCl 0.2 mg tablet 0.2 mg PO TID PRN #45 tab 02/26/21 methylprednisolone 4 mg tablets in See Rx Instructions .ROUTE 02/27/21 a dose pack (Methylpred DP) .COMPLEX #21 ea oxycodone 5 mg tablet 5 mg PO Q6H PRN #10 tab 02/27/21 tramadol 50 mg tablet 50 mg PO Q8H PRN #7 tab 04/01/21 tramadol 50 mg tablet (Ultram) 50 mg PO Q8H PRN #7 tab 04/01/21 gabapentin 300 mg capsule 300 mg PO BEDTIME #14 cap 06/19/21 hydrocodone 5 mg-acetaminophen 325 1 tab PO Q4-6H PRN #10 tab 06/19/21 mg tablet ketorolac 10 mg tablet 10 mg PO Q6H PRN #14 tab 06/19/21 methylprednisolone 4 mg tablets in See Rx Instructions .ROUTE 06/19/21 a dose pack (Medrol (Dante)) .COMPLEX #21 ea diazepam 10 mg tablet (Valium) 10 mg PO TID PRN #10 tab 10/16/21 hydrocodone 5 mg-acetaminophen 325 1 tab PO QID PRN #10 tab 10/16/21 mg tablet hydrocodone 5 mg-acetaminophen 325 1 tab PO Q6HR PRN #10 tab 10/17/21 mg tablet metoprolol tartrate 25 mg tablet 25 mg PO BID #180 tab 12/03/21 oxycodone 5 mg tablet 5 mg PO QID PRN #10 tab 01/29/22 prednisone 50 mg tablet 50 mg PO DAILY #5 tab 01/29/22 albuterol sulfate 90 mcg/actuation 2 inh INHALATION Q4-6H PRN #18 gram 03/19/22 aerosol inhaler (ProAir HFA) dexamethasone 4 mg tablet 10 mg PO DAILY #5 tab 03/31/22 (Decadron) gabapentin 300 mg capsule 300 mg PO DAILY #60 cap 03/31/22 oxycodone-acetaminophen 5 mg-325 1 tab PO Q6H PRN #14 tab 03/31/22 mg tablet Allergies Allergy/AdvReac Type Severity Reaction Status Date / Time droperidol [DROPERIDOL] Allergy Mild COGENIC Verified 01/29/22 10:46 REACTION Review of Systems Review of Systems Narrative: Remainder of complete review of systems is otherwise unremarkable except for that included in the HPI. Patient History Medical History ADD (attention deficit disorder) Anxiety Arthritis Asthma Cervical radiculopathy due to osteoarthritis of spine Chest pain Coronary artery disease Depression Essential hypertension HLD (hyperlipidemia) Numbness and tingling Prediabetes RLS (restless legs syndrome) Stenosis of artery Surgical History Hx of cervical discectomy (~2013) Family History Father Hypertension Hyperlipidemia Mother Diabetes mellitus Hyperlipidemia Hypertension Social History household members: family Smoking Status: Current every day smoker alcohol intake: never Smoking Status: Current every day smoker alcohol intake frequency: a few times a month Substance Use Type: does not use Exam Initial Vital Signs Initial Vital Signs: Vital Signs Temperature 98.1 F 03/31/22 10:00 Pulse Rate 76 03/31/22 10:00 Respiratory Rate 18 03/31/22 10:00 Blood Pressure 142/98 H 03/31/22 10:00 Pulse Oximetry 97 03/31/22 10:00 General: Healthy appearing, in no acute distress. Able to give a complete and coherent history. Well-nourished well-developed HEENT: Moist mucous membranes, normal sclera with reactive pupils, Neck: No JVD, supple, describes radicular pain down the left trapezius muscle over the acromioclavicular joint and extending over the clavicle toward the sternum. Not reproducible with manipulation of neck or palpation externally. No skin changes associated with the distribution of pain. Respiratory: Lungs are clear to auscultation, no wheezing no rales no rhonchi. Full and symmetrical air movement Cardiac: Regular rate and rhythm no murmurs no bruits Abdomen: Soft, nontender, good bowel tones, no flank pain Skin: Warm and dry, no rashes Neurologic: Grossly neurologically intact with no obvious asymmetries or abnormalities Extremities: No trauma, well perfused Psych: Cooperative, appropriate insight and affect Course Orders Ordered: ED Orders 03/31/22 10:13 Complete Blood Count AUTO DIFF Stat Comprehensive Metabolic Panel Stat Lipase Stat Magnesium Stat Troponin & CK Cardiac Panel Stat 03/31/22 10:21 XR chest 1V Stat EKG-12 Lead Stat Discontinued Medications Aspirin (Aspirin 81 Mg Chew Tab) 324 mg PO NOW ONE Stop: 03/31/22 10:22 Last Admin: 03/31/22 10:31 Dose: 243 mg Documented by: RAMÓN Dexamethasone (Dexamethasone 10 Mg/Ml Vial) 10 mg IV NOW ONE Stop: 03/31/22 12:22 Last Admin: 03/31/22 12:27 Dose: 10 mg Documented by: RAMÓN Hydromorphone HCl (Hydromorphone 0.5 Mg Inj) 0.5 mg IV NOW ONE Stop: 03/31/22 12:22 Last Admin: 03/31/22 12:27 Dose: 0.5 mg Documented by: RAMÓN Vital Signs Vital signs: Vital Signs - 8 hr 03/31/22 10:07 03/31/22 10:30 03/31/22 11:00 Pulse Rate 79 77 72 Respiratory Rate 24 Blood Pressure 142/98 H 144/89 H 148/93 H Pulse Oximetry 97 96 96 03/31/22 11:30 03/31/22 12:00 03/31/22 12:12 Pulse Rate 74 86 82 Respiratory Rate 22 20 30 H Blood Pressure 129/83 188/100 H 178/97 H Pulse Oximetry 96 96 97 03/31/22 12:30 Pulse Rate 85 Respiratory Rate 27 H Blood Pressure 183/104 H Pulse Oximetry 96 MDM - Chest Pain Lab Data Result diagrams: 03/31/22 10:13 03/31/22 10:13 Labs: Lab Results 03/31/22 03/31/22 Range/Units 10:13 10:13 WBC 7.5 (4.5-11.0) X10^3/uL RBC 5.33 (4.5-5.9) X10^6/uL Hgb 15.9 (13.5-17.5) g/dL Hct 47.4 (41-53) % MCV 88.8 (80-100) fL MCH 29.8 (26-34) PG MCHC 33.6 (30-36) % RDW 12.2 (11.6-14.8) % Plt Count 253 (150-400) X10^3/uL Neut % (Auto) 69.8 (50-75) % Lymph % (Auto) 19.8 L (25-40) % [place] % (Auto) 6.8 (3-14) % Eos % (Auto) 2.7 (2-4) % Baso % (Auto) 0.9 (0-2) % Neut # (Auto) 5200 (6529-5594) /uL Lymph # (Auto) 1500 (6622-8016) /uL [place] # (Auto) 500 (0-900) /uL Eos # (Auto) 200 (0-450) /uL Baso # (Auto) 100 (0-100) /uL Sodium 138 (137-145) mmol/L Potassium 4.8 (3.4-5.1) mmol/L Chloride 103 (98-107) mmol/L Carbon Dioxide 26 (22-32) mmol/L BUN 16 (9-20) mg/dL Creatinine 1.04 (0.66-1.25) mg/dL Estimated GFR > 60 (>60) mL/min BUN/Creatinine Ratio 15.4 (6-22) Glucose 162 H (70-100) mg/dL Calcium 10.0 (8.4-10.2) mg/dL Magnesium 1.9 (1.6-2.3) mg/dL Total Bilirubin 0.8 (0.2-1.3) mg/dL AST 42 (17-59) IU/L ALT 32 (<50) IU/L Alkaline Phosphatase 58 (38-126) U/L Total Creatine Kinase 193 H (55-170) U/L CK-MB (CK-2) 1.57 (<2.37) ng/mL CK-MB (CK-2) Rel Index 0.8 L (1.5-5.0) % Troponin I < 0.012 (0.01-0.034) ng/mL Total Protein 8.2 (6.3-8.2) g/dL Albumin 5.0 (3.5-5.0) g/dL Globulin 3.2 (1.7-4.1) g/dL Albumin/Globulin Ratio 1.6 (1.0-2.8) Lipase 97 (23-300) U/L Imaging Data Chest x-ray: Radiologist's Impression: FINDINGS:? ? Surgical changes and devices:? None.? ? Lungs and pleura:? Lungs are clear.? No pleural effusions or pneumothorax.? ? Mediastinum:? Mediastinal contours appear normal.? Heart size is normal.? ? Bones and chest wall:? No suspicious bony lesions.? Overlying soft tissues appear unremarkable.? ? IMPRESSION:? No acute cardiopulmonary disease. ? ? Dictated by: Otis Peralta M.D. on 03/31/2022 at 10:38? ?? ECG Data Interpretation: Sinus rhythm at a rate of 75 Normal intervals, normal axis No acute ischemic change MDM Narrative Medical decision making narrative: 51-year-old gentleman with a history of coronary disease multiple prior workups that have not suggested acute findings. Cardiac workup today is equally unremarkable with normal troponins normal EKG and history that does not sound particularly cardiac in nature. He also has significant cervical spine pathology. At this point is being followed every 3 months at the spine clinic and is being told he is ?not quite ready for surgery?. He has had surgery on the right side with success and is a bit frustrated that they have not operated on the left. For back pain in the past he has been on gabapentin and at this point the spine surgeons asked that he follow-up with his primary care doc Martha primary care doc is referring him back to his spine surgeons. He is using 800 to a 1000 mg of ibuprofen twice a day to control pain. Discussed options for what at this point looks very much like acute cervical radiculopathy with radiation down into the left upper portion of the chest rather than any cardiac chest pain. Will recommend 3 days of 10 mg of Decadron, restarting his gabapentin 300 mg at bedtime with the option for 300 mg in the morning if he is having worsening pain. Will give him a 3 day course of Percocet with clear understanding this is for acute exacerbation and not to treat chronic pain along with a discussion regarding slippery slope toward addiction when using narcotics for neck and back pain. Also suggested that he try lower doses of ibuprofen combine with Tylenol rather than the excessive doses of ibuprofen. Again reviewed GI bleeding risks with ibuprofen and steroid. Referred him back to his Spine Clinic, next appointment is already scheduled for April 22. He is safe for home discharge at this time Discharge Plan Departure Patient Disposition: Home Clinical Impression: Cervical radiculopathy Instructions: DI for Chronic Neck Pain Activity Restrictions/Additional Instructions: Thank you for coming in today. I am sorry that you are suffering with this pain. Your workup today was very reassuring. There does not appear to be cardiac issue nor infectious disease or other lung explanation for the upper chest pain. I suspect that your simply having worsening of your cervical radicular symptoms now reaching her shoulder and just past your clavicle. Using 400 mg of ibuprofen (2 [id number] pills) and 1 Tylenol every 6 hours can be very helpful in controlling pain. I encourage you to at least try this to see if he can avoid the extremely large doses of ibuprofen On April 01 and I am going to have you take 10 mg of Decadron, your given a dose in the emergency room today. This is to help with acute inflammation. You can avoid taking ibuprofen for the next 3 days as the Decadron will be working as the inflammatory component of your pain control. For acute pain you can use 1 to Percocet. This will cause constipation so make sure you are using a stool softener. Please be aware that this is for treating acute pain and typically is ineffective and causes more trouble when using it for chronic pain. For the radicular nerve pain I am going to also suggest that you restart your gabapentin initially 300 mg at bedtime. If this seems helpful in your having symptoms again in the morning you can increase this to twice a day. Please review this with IV your primary care doctor or your spine specialists to see if they would like you to continue. [facility] [place] If you find that you are getting worse or develop any new symptoms, please feel free to return to the emergency department for further evaluation. Prescriptions: New dexamethasone [Decadron] 4 mg tablet 10 mg PO DAILY Qty: 5 0RF gabapentin 300 mg capsule 300 mg PO DAILY Qty: 60 0RF Rx Instructions: may increase to BID if helpful for pain oxycodone-acetaminophen 5-325 mg tablet 1 tab PO Q6H PRN (Reason: pain) Qty: 14 0RF No Action gabapentin 600 mg tablet 600 mg PO TID Qty: 270 3RF nicotine (polacrilex) 2 mg gum 2 mg buccal Q2H PRN (Reason: nicotine cravings) Qty: 100 2RF sertraline 50 mg tablet 50 mg PO DAILY Qty: 90 3RF alprazolam 1 mg tablet 1 mg PO BID PRN (Reason: anxiety) Qty: 20 4RF Rx Instructions: Must last 30 days clonidine HCl 0.2 mg tablet 0.2 mg PO TID PRN (Reason: Opiate withdrawal) Qty: 45 0RF metoprolol tartrate 25 mg tablet 25 mg PO BID Qty: 180 0RF Rx Instructions: PT DUE FOR APPT W/PCP PRIOR TO END OF RX/FUTURE FILLS. PLEASE CALL TO SCHEDULE APPT. THANKS 12/03/21 ProAir HFA 90 mcg/actuation HFA aerosol inhaler 2 inh INHALATION Q4-6H PRN (Reason: shortness of breath) Qty: 18 2RF aspirin [Adult Low Dose Aspirin] 81 mg tablet,delayed release (DR/EC) 81 mg PO DAILY 0RF tramadol [Ultram] 50 mg tablet 50 mg PO Q8H PRN (Reason: pain) Qty: 7 0RF tramadol 50 mg tablet 50 mg PO Q8H PRN (Reason: pain) Qty: 7 0RF hydrocodone-acetaminophen 5-325 mg tablet 1 tab PO Q4-6H PRN (Reason: pain) Qty: 10 0RF ketorolac 10 mg tablet 10 mg PO Q6H PRN (Reason: pain) Qty: 14 0RF gabapentin 300 mg capsule 300 mg PO BEDTIME Qty: 14 0RF methylprednisolone [Medrol (Dante)] 4 mg tablets,dose pack See Rx Instructions .ROUTE .COMPLEX Qty: 21 0RF Rx Instructions: orally per package directions hydrocodone-acetaminophen 5-325 mg tablet 1 tab PO QID PRN (Reason: pain) Qty: 10 0RF diazepam [Valium] 10 mg tablet 10 mg PO TID PRN (Reason: muscle spasm) Qty: 10 0RF hydrocodone-acetaminophen 5-325 mg tablet 1 tab PO Q6HR PRN (Reason: pain) Qty: 10 0RF prednisone 50 mg tablet 50 mg PO DAILY Qty: 5 0RF oxycodone 5 mg tablet 5 mg PO QID PRN (Reason: pain) Qty: 10 0RF methylprednisolone [Medrol (Dante)] 4 mg tablets,dose pack See Rx Instructions .ROUTE .COMPLEX Qty: 21 0RF Rx Instructions: orally per package directions oxycodone 5 mg tablet 5 mg PO Q6H PRN (Reason: pain) Qty: 10 0RF methylprednisolone [Methylpred DP] 4 mg tablets,dose pack See Rx Instructions .ROUTE .COMPLEX Qty: 21 0RF Rx Instructions: orally per package directions Referrals: Joselito Almeida MD [Primary Care Provider] -
[2022-03-31] MEDS: DEXAMETHASONE 10 MG/ML VIAL IV (12:27)
[2022-03-31] MEDS: HYDROMORPHONE 0.5 MG INJ IV (12:27)
== END 2022-03-31 13:10 | disposition home or self-care (01) ==
PROVIDERS: Emergency Provider Emergency Medicine; PCP Student in an Organized Health Care Education/Training Program
DX: M54.12 Radiculopathy, cervical region (principal); R07.9 Chest pain, unspecified
CPT/HCPCS: 36415; 71045; 80053; 82550; 82553; 83690; 83735; 84484; 85025; 93005; 96374; 96375; 99284; J1100; J1170

== ENCOUNTER 2022-06-23 14:53 | Emergency (ER) | payer OTHER, MEDICAID, SELFPAY ==
[2020-12-26 13:02] VITALS: BMI 34.2
[2022-06-23 15:08] VITALS: BP 182/99; PULSE 124; RESP 19; TEMP 36.6; O2SAT 99
--- NOTE | 2022-06-23 15:59 | ED.NECK ---
HPI - Neck Pain/Injury <LELA EppsP - Last Filed: 06/23/22 19:41> General Chief Complaint: Neck Pain/Injury Stated Complaint: back and neck pain, no known injury Time Seen by Provider: 06/23/22 15:32 History of Present Illness HPI Narrative: 50-year-old male with past medical history of hyperlipidemia, hypertension, diabetes, obesity, asthma, coronary artery disease, spinal stenosis of lumbar region with neurogenic claudication, and prior surgeries on his lumbar spine and cervical sprain who presents to the ED with 2 days of lower back pain which was exacerbated by a twisting movement, when he felt intense pain in his lower back.? He denies any new weakness or sensation changes in any of his extremities, denies any numbness, tingling, fever, chills, chest pain, shortness of breath, lightheadedness, dizziness, syncope, nausea, vomiting, abdominal pain, dysuria, urinary hesitancy, urinary or stool incontinence, or saddle paresthesias.? Patient endorses being able to walk, but limited by pain.? Reports taking ibuprofen and Tylenol with gabapentin for his pain without any improvement. Patient denies any history of IV drug use. Related Data Home Medications Medication Instructions Recorded Confirmed aspirin 81 mg tablet,delayed 81 mg PO DAILY 10/18/20 03/19/21 release (Adult Low Dose Aspirin) Previous Rx's Medication Instructions Recorded nicotine (polacrilex) 2 mg gum 2 mg buccal Q2H PRN nicotine 11/11/20 cravings #100 ea sertraline 50 mg tablet 50 mg PO DAILY #90 tabs 11/22/20 alprazolam 1 mg tablet 1 mg PO BID PRN anxiety #20 tabs 12/03/20 methylprednisolone 4 mg tablets in See Rx Instructions PO .COMPLEX 02/02/21 a dose pack (Medrol (Dante)) #21 ea clonidine HCl 0.2 mg tablet 0.2 mg PO TID PRN Opiate 02/26/21 withdrawal #45 tabs methylprednisolone 4 mg tablets in See Rx Instructions PO .COMPLEX 02/27/21 a dose pack (Methylpred DP) #21 ea oxycodone 5 mg tablet 5 mg PO Q6H PRN pain #10 tabs 02/27/21 tramadol 50 mg tablet 50 mg PO Q8H PRN pain #7 tabs 04/01/21 tramadol 50 mg tablet (Ultram) 50 mg PO Q8H PRN pain #7 tabs 04/01/21 gabapentin 300 mg capsule 300 mg PO BEDTIME #14 caps 06/19/21 hydrocodone 5 mg-acetaminophen 325 1 tab PO Q4-6H PRN pain #10 tabs 06/19/21 mg tablet ketorolac 10 mg tablet 10 mg PO Q6H PRN pain #14 tabs 06/19/21 methylprednisolone 4 mg tablets in See Rx Instructions PO .COMPLEX 06/19/21 a dose pack (Medrol (Dante)) #21 ea diazepam 10 mg tablet (Valium) 10 mg PO TID PRN muscle spasm #10 10/16/21 tabs hydrocodone 5 mg-acetaminophen 325 1 tab PO QID PRN pain #10 tabs 10/16/21 mg tablet hydrocodone 5 mg-acetaminophen 325 1 tab PO Q6HR PRN pain #10 tabs 10/17/21 mg tablet oxycodone 5 mg tablet 5 mg PO QID PRN pain #10 tabs 01/29/22 prednisone 50 mg tablet 50 mg PO DAILY #5 tabs 01/29/22 albuterol sulfate 90 mcg/actuation 2 inh inhalation Q4-6H PRN 03/19/22 aerosol inhaler (ProAir HFA) shortness of breath #18 grams dexamethasone 4 mg tablet 10 mg PO DAILY #5 tabs 03/31/22 (Decadron) gabapentin 300 mg capsule 300 mg PO DAILY #60 caps 03/31/22 oxycodone-acetaminophen 5 mg-325 1 tab PO Q6H PRN pain #14 tabs 03/31/22 mg tablet gabapentin 600 mg tablet 600 mg PO TID #90 tabs 04/27/22 metoprolol tartrate 25 mg tablet 25 mg PO BID #60 tabs 04/27/22 lidocaine 5 % topical patch 1 patch topical DAILY PRN pain 06/23/22 (Lidoderm) (scale score 4-6) #15 ea methocarbamol 750 mg tablet 750 mg PO Q8H PRN muscle spasm #20 06/23/22 tabs Allergies Allergy/AdvReac Type Severity Reaction Status Date / Time droperidol [DROPERIDOL] Allergy Mild COGENIC Verified 01/29/22 10:46 REACTION Review of Systems <YULY Epps - Last Filed: 06/23/22 19:41> Review of Systems Narrative: General: denies fever, chills Head/Neck: denies headache, neck pain Eyes: denies visual changes, eye pain Cardio: denies chest pain, palpitations Respiratory: denies shortness of breath, cough GI: denies abdominal pain, nausea, vomiting, or diarrhea : denies dysuria, hematuria or flank pain MSK: denies new joint pain, muscle weakness or swelling Skin: denies rash, itching or wound Neuro: denies numbness, tingling, dizziness Patient History <YULY Epps - Last Filed: 06/23/22 19:41> Medical History ADD (attention deficit disorder) Anxiety Arthritis Asthma Cervical radiculopathy due to osteoarthritis of spine Chest pain Coronary artery disease Depression Essential hypertension HLD (hyperlipidemia) Numbness and tingling Prediabetes RLS (restless legs syndrome) Stenosis of artery Surgical History Hx of cervical discectomy (~2013) Family History Father Hypertension Hyperlipidemia Mother Diabetes mellitus Hyperlipidemia Hypertension Social History household members: family Smoking Status: Current every day smoker alcohol intake: never Smoking Status: Current every day smoker alcohol intake frequency: a few times a month Substance Use Type: does not use Exam <YULY Epps - Last Filed: 06/23/22 19:41> Narrative Exam Narrative: Independently reviewed vitals signs and nursing notes. General: cooperative, comfortable, in no acute distress, well groomed Head: atraumatic, symmetrical facial expressions Neck: supple Eyes: equal round and reactive, EOMI, conjunctiva normal Nose: nares patent, no rhinorrhea Mouth/Throat: moist mucus membranes Cardiovascular: regular rate and rhythm, no peripheral edema, warm extremities Respiratory: normal effort, able to speak in complete sentences, no audible wheezing, stridor, or rales. No retractions or tachypnea. GI: abdomen soft, nontender to palpation, nondistended, no masses, no exquisite tenderness with exam, without guarding or rebound. MSK: moves all extremities, neurovascularly intact, no weakness, normal tone, unilateral leg raise of both legs elicits back pain exacerbation, no lower extremity edema, no point tenderness along spine, patient ambulatory with steady gait without weakness Skin: brisk capillary refill, no rash, no erythema Neuro: normal speech and cognition, A&O x3 Psych: mental status is grossly normal, congruent mood, normal affect, pleasant and cooperative Initial Vital Signs Initial Vital Signs: Vital Signs Temperature 98 F 06/23/22 15:08 Pulse Rate 124 H 06/23/22 15:08 Respiratory Rate 19 06/23/22 15:08 Blood Pressure 182/99 H 06/23/22 15:08 Pulse Oximetry 99 06/23/22 15:08 Oxygen Delivery Method 06/23/22 15:08 <Ruth Almanza MD - Last Filed: 06/28/22 18:02> Initial Vital Signs Initial Vital Signs: Vital Signs Temperature 98 F 06/23/22 15:08 Pulse Rate 124 H 06/23/22 15:08 Respiratory Rate 19 06/23/22 15:08 Blood Pressure 182/99 H 06/23/22 15:08 Pulse Oximetry 99 06/23/22 15:08 Oxygen Delivery Method 06/23/22 15:08 Course <YULY Epps - Last Filed: 06/23/22 19:41> Orders Ordered: Discontinued Medications Ketorolac Tromethamine (Ketorolac 30 Mg/Ml Vial) 15 mg IM NOW ONE Stop: 06/23/22 15:56 Last Admin: 06/23/22 16:11 Dose: 15 mg Documented By: LES Lidocaine (Lidocaine Patch 1 Each Adh..Patch) 1 each TOP NOW ONE Stop: 06/23/22 15:56 Last Admin: 06/23/22 16:11 Dose: 1 each Documented By: LES Methocarbamol (Methocarbamol 500 Mg Tablet) 750 mg PO NOW ONE Stop: 06/23/22 15:56 Last Admin: 06/23/22 16:10 Dose: 750 mg Documented By: LES Oxycodone/Acetaminophen (Oxycodone/Acetaminophen 5/325 Tablet) 1 tab PO NOW ONE Stop: 06/23/22 15:56 Last Admin: 06/23/22 16:10 Dose: 1 tab Documented By: LES Pantoprazole Sodium (Pantoprazole Dr 20 Mg Tablet) 20 mg PO NOW ONE Stop: 06/23/22 15:56 Last Admin: 06/23/22 16:10 Dose: 20 mg Documented By: LES Prednisone (Prednisone 20 Mg Tablet) 60 mg PO NOW ONE Stop: 06/23/22 15:56 Last Admin: 06/23/22 16:10 Dose: 60 mg Documented By: LES Vital Signs Vital signs: Vital Signs - 8 hr 06/23/22 15:08 06/23/22 16:55 Temperature 98 F Pulse Rate 124 H 104 H Respiratory Rate 19 Blood Pressure 182/99 H 167/103 H Pulse Oximetry 99 98 Oxygen Delivery Method Room Air Room Air <Ruth Almanza MD - Last Filed: 06/28/22 18:02> Orders Ordered: Discontinued Medications Ketorolac Tromethamine (Ketorolac 30 Mg/Ml Vial) 15 mg IM NOW ONE Stop: 06/23/22 15:56 Last Admin: 06/23/22 16:11 Dose: 15 mg Documented By: LES Lidocaine (Lidocaine Patch 1 Each Adh..Patch) 1 each TOP NOW ONE Stop: 06/23/22 15:56 Last Admin: 06/23/22 16:11 Dose: 1 each Documented By: LES Methocarbamol (Methocarbamol 500 Mg Tablet) 750 mg PO NOW ONE Stop: 06/23/22 15:56 Last Admin: 06/23/22 16:10 Dose: 750 mg Documented By: LES Oxycodone/Acetaminophen (Oxycodone/Acetaminophen 5/325 Tablet) 1 tab PO NOW ONE Stop: 06/23/22 15:56 Last Admin: 06/23/22 16:10 Dose: 1 tab Documented By: LES Pantoprazole Sodium (Pantoprazole Dr 20 Mg Tablet) 20 mg PO NOW ONE Stop: 06/23/22 15:56 Last Admin: 06/23/22 16:10 Dose: 20 mg Documented By: LES Prednisone (Prednisone 20 Mg Tablet) 60 mg PO NOW ONE Stop: 06/23/22 15:56 Last Admin: 06/23/22 16:10 Dose: 60 mg Documented By: LES Vital Signs Vital signs: Vital Signs - 8 hr 06/23/22 15:08 06/23/22 16:55 Temperature 98 F Pulse Rate 124 H 104 H Respiratory Rate 19 Blood Pressure 182/99 H 167/103 H Pulse Oximetry 99 98 Oxygen Delivery Method Room Air Room Air [facility] - Neck Pain/Injury <YULY Epps - Last Filed: 06/23/22 19:41> [facility] Narrative Medical decision making narrative: This is a 51-year-old male with history of chronic back pain, generalized anxiety disorder, osteoarthritis the spine with cervical radiculopathy, peripheral neuropathy, herniated lumbar spine discs, and spinal stenosis of his lumbar spine with neurogenic claudication and hypertension who presents to the emergency department with 3 days of worsening back pain, without trauma, and is afebrile. Given history and exam, suspect likely musculoskeletal etiology, with exacerbation of chronic pain. They are nontoxic appearing with no overt risk factors for epidural hematoma or abscess. No overt evidence of critical cord compression and has a nonfocal neuro exam. Neurovascularly intact distally, no evidence of infection, peritoneal signs, hypertensive crisis, or abdominal pain with low suspicion for AAA. No weakness, incontinence, neurovascular or sensation changes, no concerning findings for caudal equina syndrome, lumbar fracture, without paresthesia, neuropathic pain, meningeal signs and fever. This could be a herniated disk, paraspinal or other muscle strain, ligamental injury, arthritic, nephrolithiasis/pyelonephritis, epidural abscess, chronic pain, and other diagnosis? considered less likely. Treated patient emergency department today with prednisone, Toradol, methocarbamol, lidocaine patch and he was given a Percocet. He takes gabapentin at home and states this has not been helping. He was discharged home with prescription p.o. Toradol, prednisone for 5 days, lidocaine patches, methocarbamol and encouraged to continue using his Tylenol, heat, and other modalities as needed. Patient is appropriate and amenable to discharge home. Vital signs are stable on repeat examination is unremarkable. Patient has been informed of results. Patient has been given strict return to ER precautions for any new or worsening symptoms. Patient understands to follow up closely with outpatient providers as instructed. Patient understands plan and agrees to discharge home. All questions and concerns answered at this time. Discharge Plan Departure Patient Disposition: Home Clinical Impression: Exacerbation of chronic back pain Instructions: Chronic Neck Pain, DI for Herniated Disc, DI for Back Spasm Activity Restrictions/Additional Instructions: *You have been diagnosed with exacerbation back pain both upper and lower. Please follow-up with your insurance and Dr. Almeida about your low back pain. Steroids will hopefully help this calm down and get you back to functioning better. Please have food water with all medications. Please take the steroid for the next 4 days, use muscle relaxers as needed for muscle spasms, you can take Toradol every 8 hours as needed for pain, avoid ibuprofen if using other NSAID. Use something topical like Voltaren gel or lidocaine patches in addition to gabapentin, Tylenol, NSAIDs and muscle relaxers for pain. *What to do: *Please continue to take your regular medications as directed. [x ] New medication prescriptions sent to your pharmacy: [[facility] ] [ ] New medication written as a paper prescription [ ] No new medications given *Please follow up with your primary care provider in 2-3 days, call for an appointment. Let them know you were seen in the Emergency Department and that we asked that you be seen for follow-up. We will electronically transmit a record of today's note if your PCP is in our system *If you do not have a primary care provider please contact [phone] to establish care with one of the [facility] primary care providers. *Return to Emergency Department if you should have any new, worsening, or concerning symptoms, such as [fever greater than 101F, chills, worsening pain, persistent vomiting or other bothersome symptoms]. Prescriptions: New methocarbamol 750 mg tablet 750 mg PO Q8H PRN (Reason: muscle spasm) Qty: 20 0RF lidocaine [Lidoderm] 5 % adhesive patch,medicated 1 patch topical DAILY PRN (Reason: pain (scale score 4-6)) Qty: 15 0RF Rx Instructions: leave on most painful area for up to 12 hrs No Action nicotine (polacrilex) 2 mg gum 2 mg buccal Q2H PRN (Reason: nicotine cravings) Qty: 100 2RF sertraline 50 mg tablet 50 mg PO DAILY Qty: 90 3RF alprazolam 1 mg tablet 1 mg PO BID PRN (Reason: anxiety) Qty: 20 4RF Rx Instructions: Must last 30 days clonidine HCl 0.2 mg tablet 0.2 mg PO TID PRN (Reason: Opiate withdrawal) Qty: 45 0RF ProAir HFA 90 mcg/actuation HFA aerosol inhaler 2 inh INHALATION Q4-6H PRN (Reason: shortness of breath) Qty: 18 2RF gabapentin 600 mg tablet 600 mg PO TID Qty: 90 0RF metoprolol tartrate 25 mg tablet 25 mg PO BID Qty: 60 0RF aspirin [Adult Low Dose Aspirin] 81 mg tablet,delayed release (DR/EC) 81 mg PO DAILY tramadol [Ultram] 50 mg tablet 50 mg PO Q8H PRN (Reason: pain) Qty: 7 0RF tramadol 50 mg tablet 50 mg PO Q8H PRN (Reason: pain) Qty: 7 0RF hydrocodone-acetaminophen 5-325 mg tablet 1 tab PO Q4-6H PRN (Reason: pain) Qty: 10 0RF ketorolac 10 mg tablet 10 mg PO Q6H PRN (Reason: pain) Qty: 14 0RF gabapentin 300 mg capsule 300 mg PO BEDTIME Qty: 14 0RF methylprednisolone [Medrol (Dante)] 4 mg tablets,dose pack See Rx Instructions .ROUTE .COMPLEX Qty: 21 0RF Rx Instructions: orally per package directions hydrocodone-acetaminophen 5-325 mg tablet 1 tab PO QID PRN (Reason: pain) Qty: 10 0RF diazepam [Valium] 10 mg tablet 10 mg PO TID PRN (Reason: muscle spasm) Qty: 10 0RF hydrocodone-acetaminophen 5-325 mg tablet 1 tab PO Q6HR PRN (Reason: pain) Qty: 10 0RF prednisone 50 mg tablet 50 mg PO DAILY Qty: 5 0RF oxycodone 5 mg tablet 5 mg PO QID PRN (Reason: pain) Qty: 10 0RF methylprednisolone [Medrol (Dante)] 4 mg tablets,dose pack See Rx Instructions .ROUTE .COMPLEX Qty: 21 0RF Rx Instructions: orally per package directions oxycodone 5 mg tablet 5 mg PO Q6H PRN (Reason: pain) Qty: 10 0RF methylprednisolone [Methylpred DP] 4 mg tablets,dose pack See Rx Instructions .ROUTE .COMPLEX Qty: 21 0RF Rx Instructions: orally per package directions dexamethasone [Decadron] 4 mg tablet 10 mg PO DAILY Qty: 5 0RF gabapentin 300 mg capsule 300 mg PO DAILY Qty: 60 0RF Rx Instructions: may increase to BID if helpful for pain oxycodone-acetaminophen 5-325 mg tablet 1 tab PO Q6H PRN (Reason: pain) Qty: 14 0RF Referrals: Joselito Almeida MD [Primary Care Provider] - Visit Report Forms: Patient Portal/API <Ruth Almanza MD - Last Filed: 06/28/22 18:02> Cosign ED Attending Cosignature Attestation: I was immediately available in the department for consultation throughout this patient's visit. I agree with documentation as above. Ruth Almanza MD
[2022-06-23] MEDS: predniSONE 20 MG TABLET 60 MG PO (16:10)
[2022-06-23] MEDS: PANTOPRAZOLE DR 20 MG TABLET PO (16:10)
[2022-06-23] MEDS: methocarbamoL 500 MG TABLET 750 MG PO (16:10)
[2022-06-23] MEDS: OXYCODONE/ACETAMINOPHEN 5/325 TABLET 1 TAB PO (16:10)
[2022-06-23] MEDS: LIDOCAINE PATCH 1 EACH ADH..PATCH TOP (16:11)
[2022-06-23] MEDS: KETOROLAC 30 MG/ML VIAL 15 MG IM (16:11)
[2022-06-23 16:55] VITALS: BP 167/103; PULSE 104; O2SAT 98
== END 2022-06-23 17:00 | disposition home or self-care (01) ==
PROVIDERS: Emergency Provider Nurse Practitioner Critical Care Medicine; PCP Student in an Organized Health Care Education/Training Program
DX: M54.50 Low back pain, unspecified (principal)
CPT/HCPCS: 96372; 99283; J1885

== ENCOUNTER → 2022-08-12 08:38 | Outpatient (CLI) | payer OTHER, MEDICAID, SELFPAY ==
[2020-12-26 13:02] VITALS: BMI 34.2
[2022-08-12 10:43] LABS: Hemoglobin A1C% w Est Avg Glu 6.7 % (4.0-6.0)
[2022-08-12 11:06] LABS: Cholesterol 319 mg/dL (140-199); HDL Cholesterol 50 mg/dL (40-60); LDL Cholesterol Calculated 237 mg/dL (<100); Triglycerides 162 mg/dL (35-150)
[2022-08-12 11:36] LABS: Cortisol AM (Before 10AM) 6.48 ug/dL (4.46-22.7); Prostate Specific Antigen Scrn 1.03 ng/mL (0.1-4.0)
[2022-08-12 11:39] LABS: TSH w/ Reflex to FT4 0.45 uIU/mL (0.47-4.68)
[2022-08-12 11:55] LABS: Vitamin B12 607 pg/mL (239-931)
[2022-08-12 12:05] LABS: Free T4, Direct Thyroxine 1.09 ng/dL (0.78-2.19)
== END ==
PROVIDERS: PCP Student in an Organized Health Care Education/Training Program; Referring Provider Student in an Organized Health Care Education/Training Program; Visit Provider Student in an Organized Health Care Education/Training Program
DX: R63.4 Abnormal weight loss (principal); R73.03 Prediabetes; E78.2 Mixed hyperlipidemia; R53.83 Other fatigue; Z12.5 Encounter for screening for malignant neoplasm of prostate
CPT/HCPCS: 36415; 80061; 82533; 82607; 83036; 84439; 84443; G0103

== ENCOUNTER 2022-09-19 08:56 | Emergency (ER) | payer OTHER, MEDICAID, SELFPAY ==
[2020-12-26 13:02] VITALS: BMI 34.2
[2022-09-19 09:16] VITALS: BP 194/93; PULSE 101; RESP 15; TEMP 37.3; O2SAT 96; BMI 35.2
[2022-09-19 10:13] VITALS: BP 140/79; PULSE 86; O2SAT 96
--- NOTE | 2022-09-19 10:53 | ED.NECK ---
HPI - Neck Pain/Injury General Chief Complaint: Neck Pain/Injury Stated Complaint: left side neck/shoulder x3 days Time Seen by Provider: 09/19/22 10:44 Mode of arrival: Ambulatory History of Present Illness HPI Narrative: 52-year-old gentleman with chronic neck pain with cervical radiculopathy. He has had a diskectomy intervention on the right and is in the process of scheduling surgery for the left. No meantime his usual approach of gabapentin Tylenol and ibuprofen has not been effective in controlling his pain and he has had difficulty sleeping over the last 3 days. He notes that the weakness in his arm and protocol manager strength on the left side (he is left-handed) has worsened slightly over the last 24-48 hours but has already been noted and is part of the reason the left-sided cervical spine surgery is planned. He describes no fevers, cough, chills. Pain is the left side of his neck radiating into the trapezius with radicular symptoms down the outside of the left arm. Related Data Home Medications Medication Instructions Recorded Confirmed aspirin 81 mg tablet,delayed 81 mg PO DAILY 08/14/22 release Previous Rx's Medication Instructions Recorded gabapentin 300 mg capsule 300 mg PO TID #90 caps 08/12/22 metoprolol tartrate 25 mg tablet 25 mg PO BID #180 tabs 08/12/22 sertraline 50 mg tablet 50 mg PO DAILY #90 tabs 08/12/22 atorvastatin 40 mg tablet 40 mg PO BEDTIME #90 tabs 08/14/22 dexamethasone 4 mg tablet 10 mg PO DAILY #7 tabs 09/19/22 oxycodone-acetaminophen 5 mg-325 1 tab PO Q6H PRN pain #14 tabs 09/19/22 mg tablet Allergies Allergy/AdvReac Type Severity Reaction Status Date / Time droperidol [DROPERIDOL] Allergy Mild COGENIC Verified 09/19/22 09:21 REACTION Review of Systems Review of Systems Narrative: Remainder of complete review of systems is otherwise unremarkable except for that included in the HPI. Patient History Medical History ADD (attention deficit disorder) Asthma Cervical radiculopathy due to osteoarthritis of spine Coronary artery disease Depression Essential hypertension Generalized anxiety disorder with panic attacks Herniated intervertebral disc of lumbar spine Opiate addiction Pars defect of lumbar spine Peripheral neuropathy RLS (restless legs syndrome) Spinal stenosis of lumbar region with neurogenic claudication Spondylolisthesis of lumbar region Stenosis of artery Vitamin D deficiency Surgical History Hx of cervical discectomy (~2013) Family History Father Hypertension Hyperlipidemia Mother Diabetes mellitus Hyperlipidemia Hypertension Social History household members: family Smoking Status: Current every day smoker alcohol intake: never Smoking Status: Current every day smoker alcohol intake frequency: a few times a month Substance Use Type: does not use Exam Initial Vital Signs Initial Vital Signs: Vital Signs Temperature 99.2 F 09/19/22 09:16 Pulse Rate 101 H 09/19/22 09:16 Respiratory Rate 15 09/19/22 09:16 Blood Pressure 194/93 H 09/19/22 09:16 Pulse Oximetry 96 09/19/22 09:16 Oxygen Delivery Method 09/19/22 09:16 General: Alert appropriate mild distress Neck: Minor tenderness along the left lateral aspect of his cervical spine with spasm in the trapezius muscle on the left side no skin changes, no redness warmth or concern for abscess Respiratory: Able to speak in full sentences, no obvious respiratory distress Skin: No obvious rashes, warm and dry Neurologic: Grossly intact no obvious asymmetries or abnormalities Psych: appropriate insight and affect, cooperative Course Orders Ordered: Ketorolac Tromethamine (Ketorolac 30 Mg/Ml Vial) 30 mg IM NOW ONE Stop: 09/19/22 10:54 Vital Signs Vital signs: Vital Signs - 8 hr 09/19/22 09:16 Temperature 99.2 F Pulse Rate 101 H Respiratory Rate 15 Blood Pressure 194/93 H Pulse Oximetry 96 Oxygen Delivery Method Room Air MDM - Neck Pain/Injury MDM Narrative Medical decision making narrative: 52-year-old gentleman with a history of neck pain and cervical radiculopathy. In the process of scheduling surgery for the left side and comes in for help with acute exacerbation. In the past he has done well with a brief course of pain medications and steroids. There is no evidence of new trauma, infection, diskitis, epidural abscess or other impending neurologic catastrophe would require additional workup at this time. See discharge instructions for medication plan. He is safe for home discharge Discharge Plan Departure Patient Disposition: Home Clinical Impression: Cervical radiculopathy Instructions: DI for Neck Pain Activity Restrictions/Additional Instructions: Thank you for coming in today I am sorry that your suffering with this chronic neck issue. In the Emergency Department you are given a shot of Toradol I have given you a prescription for 3 days of Decadron, 10 mg daily. This is powerful steroid to help with inflammation. He also given you a prescription for Percocet to use for severe pain over the next 2-3 days. Using 400 mg of ibuprofen (2 [id number] pills) and 1 Tylenol every 6 hours can be very helpful in controlling pain. For severe pain use 400 mg of ibuprofen and 1 Percocet. Prescriptions were sent to [facility] in [facility] with your upcoming surgery If you find that you are getting worse or develop any new symptoms, please feel free to return to the emergency department for further evaluation. Prescriptions: New dexamethasone 4 mg tablet 10 mg PO DAILY Qty: 7 0RF oxycodone-acetaminophen 5-325 mg tablet 1 tab PO Q6H PRN (Reason: pain) Qty: 14 0RF No Action aspirin 81 mg tablet,delayed release (DR/EC) 81 mg PO DAILY atorvastatin 40 mg tablet 40 mg PO BEDTIME Qty: 90 3RF sertraline 50 mg tablet 50 mg PO DAILY Qty: 90 3RF metoprolol tartrate 25 mg tablet 25 mg PO BID Qty: 180 3RF gabapentin 300 mg capsule 300 mg PO TID Qty: 90 2RF Referrals: Joselito Almeida MD [Primary Care Provider] -
[2022-09-19] MEDS: KETOROLAC 30 MG/ML VIAL IM (11:00)
[2022-09-19 11:03] VITALS: O2SAT 95
[2022-09-19 11:04] VITALS: BP 122/72; PULSE 90; O2SAT 94
== END 2022-09-19 11:12 | disposition home or self-care (01) ==
PROVIDERS: Emergency Provider Emergency Medicine; PCP Student in an Organized Health Care Education/Training Program
DX: M54.12 Radiculopathy, cervical region (principal)
CPT/HCPCS: 96372; 99283; J1885

== ENCOUNTER 2022-10-02 10:00 | Emergency (ER) | payer OTHER, MEDICAID, SELFPAY ==
[2020-12-26 13:02] VITALS: BMI 34.2
[2022-10-02 10:36] VITALS: BP 145/79; PULSE 84; RESP 17; TEMP 36.6; O2SAT 97; BMI 33.9
[2022-10-02 13:42] VITALS: BP 145/84; PULSE 84; RESP 17; TEMP 36.8; O2SAT 99
[2022-10-02] MEDS: KETOROLAC 30 MG/ML VIAL IM (14:19)
[2022-10-02] MEDS: HYDROCODONE/ACET 5/325 TABLET 1 TAB PO (14:19)
[2022-10-02] MEDS: DEXAMETHASONE 10 MG/ML VIAL PO (14:19)
[2022-10-02] MEDS: LIDOCAINE PATCH 1 EACH ADH..PATCH TOP (14:20)
--- NOTE | 2022-10-02 14:21 | ED.EXTPRO ---
HPI - Extremity Problem <YULY Epps - Last Filed: 10/02/22 14:26> General Chief complaint: Extremity Problem,Nontraumatic Stated complaint: L hip pain x7 Time Seen by Provider: 10/02/22 14:04 Source: patient Mode of arrival: Ambulatory History of Present Illness HPI Narrative: This is a 52-year-old gentleman presents to the emergency department complaining of worsening nerve like pain from his left hip to his left knee on lateral aspect over the last 3 or 4 days. Patient has a history of cervical radiculopathy, chronic pain and chronic back pain. He sees Dr. Falk for primary care and has a history of type 2 diabetes, hyperlipidemia, hypertension, and states that he is seen Dr. Blair for cervical spine surgery next month patient denies any numbness or tingling, weakness, fever, chills, cough, dysuria, incontinence, or other weakness. He denies any tenderness to his lumbar spine but states he has a history of chronic low back pain. Related Data Home Medications Medication Instructions Recorded Confirmed aspirin 81 mg tablet,delayed 81 mg PO DAILY 08/14/22 09/22/22 release Previous Rx's Medication Instructions Recorded metoprolol tartrate 25 mg tablet 25 mg PO BID #180 tabs 08/12/22 sertraline 50 mg tablet 50 mg PO DAILY #90 tabs 08/12/22 atorvastatin 40 mg tablet 40 mg PO BEDTIME #90 tabs 08/14/22 alprazolam 0.5 mg tablet 0.5 mg PO BEDTIME PRN sleep #14 09/22/22 tabs bupropion HCl 150 mg 24 hr tablet, 150 mg PO BID #60 tabs 09/22/22 extended release gabapentin 600 mg tablet 600 mg PO TID #270 tabs 09/22/22 hydrocodone 5 mg-acetaminophen 325 1 tab PO BID PRN pain #14 tabs 10/02/22 mg tablet methocarbamol 500 mg tablet 500 mg PO TID PRN muscle spasm #20 10/02/22 tabs prednisone 20 mg tablet 40 mg PO DAILY #10 tabs 10/02/22 Allergies Allergy/AdvReac Type Severity Reaction Status Date / Time droperidol [DROPERIDOL] Allergy Mild COGENIC Verified 10/02/22 10:40 REACTION Review of Systems <YULY Epps - Last Filed: 10/02/22 14:26> Review of Systems Narrative: Review of systems is negative for acute abnormalities unless otherwise noted in HPI Patient History <YULY Epps - Last Filed: 10/02/22 14:26> Medical History ADD (attention deficit disorder) Asthma Cervical radiculopathy due to osteoarthritis of spine Coronary artery disease Depression Essential hypertension Generalized anxiety disorder with panic attacks Herniated intervertebral disc of lumbar spine Opiate addiction Pars defect of lumbar spine Peripheral neuropathy RLS (restless legs syndrome) Spinal stenosis of lumbar region with neurogenic claudication Spondylolisthesis of lumbar region Stenosis of artery Vitamin D deficiency Surgical History Hx of cervical discectomy (~2013) Family History Father Hypertension Hyperlipidemia Mother Diabetes mellitus Hyperlipidemia Hypertension Social History household members: family Smoking Status: Current every day smoker alcohol intake: never Smoking Status: Current every day smoker alcohol intake frequency: a few times a month Substance Use Type: does not use Exam <YULY Epps - Last Filed: 10/02/22 14:26> Narrative Exam Narrative: Reviewed vitals signs and nursing notes. General: cooperative, comfortable, in no acute distress, well groomed, afebrile HEENT: symmetrical facial expressions, moist mucous membranes Cardiovascular: regular rate and rhythm, no peripheral edema, warm extremities Respiratory: normal effort, able to speak in complete sentences, without wheezing, stridor, or abnormal breath sounds. No retractions or tachypnea. GI: abdomen soft, nontender to palpation, nondistended, without masses, rebound tenderness or exquisite tenderness with exam. MSK: moves all extremities, neurovascularly intact, no weakness, normal tone, lumbar spine nontender to palpation, left leg with full range of motion, left IT band has more tension than the right, no rash, discoloration, weakness, signs of trauma. Patient is ambulatory without weakness Skin: brisk capillary refill, without pallor or erythema Neuro: normal speech and cognition, A&O x3, ambulatory, clear speech Psych: mental status is grossly normal, congruent mood, normal affect, pleasant and cooperative Initial Vital Signs Initial Vital Signs: Vital Signs Temperature 97.8 F 10/02/22 10:36 Pulse Rate 84 10/02/22 10:36 Respiratory Rate 17 10/02/22 10:36 Blood Pressure 145/79 H 10/02/22 10:36 Pulse Oximetry 97 10/02/22 10:36 Oxygen Delivery Method 10/02/22 10:36 <Aureliano Matos DO - Last Filed: 10/02/22 14:34> Initial Vital Signs Initial Vital Signs: Vital Signs Temperature 97.8 F 10/02/22 10:36 Pulse Rate 84 10/02/22 10:36 Respiratory Rate 17 10/02/22 10:36 Blood Pressure 145/79 H 10/02/22 10:36 Pulse Oximetry 97 10/02/22 10:36 Oxygen Delivery Method 10/02/22 10:36 Course <YULY Epps - Last Filed: 10/02/22 14:26> Orders Ordered: Discontinued Medications Hydrocodone Bitart/Acetaminophen (Hydrocodone/Acet 5/325 Tablet) 1 tab PO NOW ONE Stop: 10/02/22 14:11 Last Admin: 10/02/22 14:19 Dose: 1 tab Documented By: PERRY Dexamethasone (Dexamethasone 10 Mg/Ml Vial) 10 mg PO NOW ONE Stop: 10/02/22 14:11 Last Admin: 10/02/22 14:19 Dose: 10 mg Documented By: PERRY Ketorolac Tromethamine (Ketorolac 30 Mg/Ml Vial) 30 mg IM NOW ONE Stop: 10/02/22 14:11 Last Admin: 10/02/22 14:19 Dose: 30 mg Documented By: PERRY Lidocaine (Lidocaine Patch 1 Each Adh..Patch) 1 each TOP NOW ONE Stop: 10/02/22 14:11 Last Admin: 10/02/22 14:20 Dose: 1 each Documented By: PERRY Methocarbamol (Methocarbamol 500 Mg Tablet) 500 mg PO NOW ONE Stop: 10/02/22 14:11 Last Admin: 10/02/22 14:25 Dose: 500 mg Documented By: PERRY Vital Signs Vital signs: Vital Signs - 8 hr 10/02/22 10:36 10/02/22 13:42 Temperature 97.8 F 98.2 F Pulse Rate 84 84 Respiratory Rate 17 17 Blood Pressure 145/79 H 145/84 H Pulse Oximetry 97 99 Oxygen Delivery Method Room Air Room Air <Aureliano Matos DO - Last Filed: 10/02/22 14:34> Orders Ordered: Discontinued Medications Hydrocodone Bitart/Acetaminophen (Hydrocodone/Acet 5/325 Tablet) 1 tab PO NOW ONE Stop: 10/02/22 14:11 Last Admin: 10/02/22 14:19 Dose: 1 tab Documented By: PERRY Dexamethasone (Dexamethasone 10 Mg/Ml Vial) 10 mg PO NOW ONE Stop: 10/02/22 14:11 Last Admin: 10/02/22 14:19 Dose: 10 mg Documented By: PERRY Ketorolac Tromethamine (Ketorolac 30 Mg/Ml Vial) 30 mg IM NOW ONE Stop: 10/02/22 14:11 Last Admin: 10/02/22 14:19 Dose: 30 mg Documented By: PERRY Lidocaine (Lidocaine Patch 1 Each Adh..Patch) 1 each TOP NOW ONE Stop: 10/02/22 14:11 Last Admin: 10/02/22 14:20 Dose: 1 each Documented By: PERRY Methocarbamol (Methocarbamol 500 Mg Tablet) 500 mg PO NOW ONE Stop: 10/02/22 14:11 Last Admin: 10/02/22 14:25 Dose: 500 mg Documented By: PERRY Vital Signs Vital signs: Vital Signs - 8 hr 10/02/22 10:36 10/02/22 13:42 Temperature 97.8 F 98.2 F Pulse Rate 84 84 Respiratory Rate 17 17 Blood Pressure 145/79 H 145/84 H Pulse Oximetry 97 99 Oxygen Delivery Method Room Air Room Air MDM - Extremity (Nontraumatic) <YULY Epps - Last Filed: 10/02/22 14:26> MDM Narrative Medical decision making narrative: Patient presents with 3 days worsening left leg pain with hip pain and states it is shooting pains that occur with certain movements. He is without acute back pain, without trauma, and is afebrile. Given history and exam, suspect likely musculoskeletal etiology and lumbar radiculopathy. He is nontoxic appearing with no overt risk factors for epidural hematoma or abscess. No overt evidence of critical cord compression and has a nonfocal near exam. Neurovascularly intact distally, no evidence of infection, peritoneal signs, hypertensive crisis, or abdominal pain with low suspicion for AAA. No weakness, incontinence, neurovascular or sensation changes, no concerning findings for caudal equina syndrome, lumbar fracture, without paresthesia, neuropathic pain, meningeal signs and fever. This could be a herniated disk, paraspinal or other muscle strain, ligamental injury, arthritic, nephrolithiasis/pyelonephritis, epidural abscess, chronic pain, and other diagnosis? considered less likely. Patient sees Dr. Falk, encouraged him to follow-up and ask for a referral to physical therapy, I will forward his chart to Dr. Bermudez his spinal surgeon as well who patient states he has cervical spine surgery scheduled next month with. Was given a prescription for a muscle relaxer, anti-inflammatory, steroid for lumbar radiculopathy exacerbation and encouraged to follow-up as needed. He was given strict return precautions. Patient is appropriate and amenable to discharge home. Vital signs are stable on repeat examination is unremarkable. Patient has been informed of results. Patient has been given strict return to ER precautions for any new or worsening symptoms. Patient understands to follow up closely with outpatient providers as instructed. Patient understands plan and agrees to discharge home. All questions and concerns answered at this time. Discharge Plan Departure Patient Disposition: Home Clinical Impression: Acute lumbar radiculopathy Instructions: Lumbar Radiculopathy Activity Restrictions/Additional Instructions: *You have been diagnosed with lumbar radiculopathy/a low back pain exacerbation. Please use your regular medications in conjunction with these medications to help treat your pain. Please take your medications with food and water, use muscle relaxer as needed for muscle spasms, the pain pills in addition to ibuprofen 800 mg every 8 hours starting tomorrow. And follow-up with Dr. Almeida for referral to physical therapy. I hope that you feel better soon. Please route stay hydrated and to take a stool softener while taking opiate medications. *What to do: *Please continue to take your regular medications as directed. [x] New medication prescriptions sent to your pharmacy: [[facility] ] [ ] New medication written as a paper prescription [ ] No new medications given *Please follow up with your primary care provider in 2-3 days, call for an appointment. Let them know you were seen in the Emergency Department and that we asked that you be seen for follow-up. We will electronically transmit a record of today's note if your PCP is in our system *If you do not have a primary care provider please contact [phone] to establish care with one of the [facility] primary care providers. *Return to Emergency Department if you should have any new, worsening, or concerning symptoms, such as [fever greater than 101F, chills, worsening pain, persistent vomiting or other bothersome symptoms]. Prescriptions: New hydrocodone-acetaminophen 5-325 mg tablet 1 tab PO BID PRN (Reason: pain) Qty: 14 0RF methocarbamol 500 mg tablet 500 mg PO TID PRN (Reason: muscle spasm) Qty: 20 0RF prednisone 20 mg tablet 40 mg PO DAILY Qty: 10 0RF No Action aspirin 81 mg tablet,delayed release (DR/EC) 81 mg PO DAILY atorvastatin 40 mg tablet 40 mg PO BEDTIME Qty: 90 3RF bupropion HCl 150 mg tablet extended release 24 hr 150 mg PO BID Qty: 60 0RF alprazolam 0.5 mg tablet 0.5 mg PO BEDTIME PRN (Reason: sleep) Qty: 14 0RF gabapentin 600 mg tablet 600 mg PO TID Qty: 270 3RF sertraline 50 mg tablet 50 mg PO DAILY Qty: 90 3RF metoprolol tartrate 25 mg tablet 25 mg PO BID Qty: 180 3RF Referrals: Joselito Almeida MD [Primary Care Provider] - Juan Diego Blair MD [Physician] - Visit Report Forms: Patient Portal/API <Aureliano Matos, DO - Last Filed: 10/02/22 14:34> [facility] Dr Matos Co-Sign Statement: I was available for consultation during this patient's emergency department visit. This chart is signed by myself for administrative purposes only. I did not have direct contact with this patient during this visit. They were seen independently by the APC.
[2022-10-02] MEDS: methocarbamoL 500 MG TABLET PO (14:25)
== END 2022-10-02 14:31 | disposition home or self-care (01) ==
PROVIDERS: Emergency Provider Nurse Practitioner Critical Care Medicine; PCP Student in an Organized Health Care Education/Training Program
DX: M54.16 Radiculopathy, lumbar region (principal)
CPT/HCPCS: 96372; 99283; J1100; J1885

== ENCOUNTER → 2022-10-19 14:56 | Outpatient (CLI) | payer OTHER, MEDICAID, SELFPAY ==
[2020-12-26 13:02] VITALS: BMI 34.2
[2022-10-19 23:06] LABS: Add Manual Diff / Slide Review NO; Basophils Absolute Auto 0 /uL (0-100); Basophils Percent Auto 0.4 % (0-2); Eosinophils Absolute Auto 300 /uL (0-450); Eosinophils Percent Auto 3.2 % (2-4); Hematocrit 44.4 % (41-53); Hemoglobin 14.7 g/dL (13.5-17.5); Lymphocytes Absolute Auto 2000 /uL (1100-4500); Lymphocytes Percent Auto 22.4 % (25-40); Mean Corpuscular Hemoglobin 29.9 PG (26-34); Mean Corpuscular Volume 90.5 fL (80-100); Monocytes Absolute Auto 600 /uL (0-900); Monocytes Percent Auto 6.5 % (3-14); Neutrophils Absolute Auto 6100 /uL (1500-7000); Neutrophils Percent Auto 67.5 % (50-75); Platelet Count 199 X10^3/uL (150-400); Red Blood Cell Count 4.91 X10^6/uL (4.5-5.9); Red Cell Distribution Width 12.8 % (11.6-14.8)
[2022-10-20 02:41] LABS: Alanine Aminotransferase 27 IU/L (<50); Albumin 4.6 g/dL (3.5-5.0); Albumin Globulin Ratio 1.4 (1.0-2.8); Alkaline Phosphatase 58 U/L (38-126); Aspartate Aminotransferase 32 IU/L (17-59); BUN Creatinine Ratio 10.6 (6-22); Bilirubin Total 0.3 mg/dL (0.2-1.3); Blood Urea Nitrogen 9 mg/dL (9-20); Calcium 9.3 mg/dL (8.4-10.2); Carbon Dioxide 23 mmol/L (22-32); Chloride 102 mmol/L (98-107); Cholesterol 258 mg/dL (140-199); Estimated Glomerular Filt Rate > 60 mL/min (>60); Globulin 3.3 g/dL (1.7-4.1); Glucose 77 mg/dL (70-100); HDL Cholesterol 44 mg/dL (40-60); HEMOLYSIS 17 (0-50); LDL Cholesterol Calculated 143 mg/dL (<100); Potassium 3.8 mmol/L (3.4-5.1); Sodium 138 mmol/L (137-145); Total Protein 7.9 g/dL (6.3-8.2); Triglycerides 354 mg/dL (35-150)
[2022-10-20 03:06] LABS: Hemoglobin A1C% w Est Avg Glu 6.7 % (4.0-6.0)
== END ==
PROVIDERS: PCP Student in an Organized Health Care Education/Training Program; Referring Provider Student in an Organized Health Care Education/Training Program; Visit Provider Student in an Organized Health Care Education/Training Program
DX: E11.69 Type 2 diabetes mellitus with other specified complication (principal); E78.5 Hyperlipidemia, unspecified; Z01.810 Encounter for preprocedural cardiovascular examination; I10 Essential (primary) hypertension; E11.9 Type 2 diabetes mellitus without complications
CPT/HCPCS: 36415; 80053; 80061; 83036; 85025

== ENCOUNTER 2022-10-19 15:47 | Observation (INO) | payer OTHER, MEDICAID, SELFPAY ==
[2020-12-26 13:02] VITALS: BMI 34.2
[2022-10-19] VITALS (16 sets, daily range): BP systolic 122–182; BP diastolic 57–105; PULSE 88–110; RESP 13–38; TEMP 36.9; O2SAT 95–98; BMI 35.2
--- NOTE | 2022-10-19 16:13 | DI.CT.S_ITS ---
PROCEDURE: CT CERVICAL SPINE WO CON INDICATIONS: neck pain radiating to left arm TECHNIQUE: Noncontrast 3 mm thick sections acquired from the skull base to the T4 level. Sagittal and coronal reformats were then constructed. For radiation dose reduction, the following was used: automated exposure control, adjustment of mA and/or kV according to patient size. COMPARISON: [facility], CT, CT CERVICAL SPINE WO CON, 10/30/2021, 20:15. FINDINGS: Image quality: Excellent. Bones: Prior anterior fusion at C7-T1 level is seen. There is straightening of normal cervical lordosis. No fractures or dislocations. No gross hardware loosening or failure. Degenerative endplate changes and dorsal disc osteophyte complex formation at C2-3, C3-4, and C5-6 levels are seen most notably at C4-5 level causing moderate central canal stenosis and left worse than right bilateral neural foraminal narrowing. Visualized superior ribs are intact. Soft tissues: Prevertebral soft tissues are normal in thickness. No paravertebral hematomas. No apical pneumothoraces. IMPRESSION: 1. No acute cervical spine fracture or dislocation. 2. Prior fusion of C7 and T1 vertebral bodies. 3. Degenerative disc disease throughout cervical spine most notably at C4-5 level with [id number] central canal stenosis and left worse than right bilateral neural foraminal narrowing. Dictated by: Harman Diggs M.D. on 10/19/2022 at 16:37 Approved by: Harman Diggs M.D. on 10/19/2022 at 16:41
--- NOTE | 2022-10-19 19:54 | PC.NURSE ---
No answer at 193 patient left to go to walk in clinic 180 Now back
--- NOTE | 2022-10-19 20:53 | DI.RAD.S_ITS ---
PROCEDURE: XR CHEST 1V INDICATIONS: chest pain TECHNIQUE: One view of the chest was acquired. COMPARISON: [facility], CR, XR CHEST 1V, 03/31/2022, 10:21. FINDINGS: Surgical changes and devices: Postsurgical changes redemonstrated within the lower cervical spine. Lungs and pleura: Lungs are clear. No pleural effusions or pneumothorax. Mediastinum: Mediastinal contours appear normal. Heart size is normal. Bones and chest wall: No suspicious bony lesions. Overlying soft tissues appear unremarkable. IMPRESSION: 1. No acute cardiopulmonary disease. Dictated by: Johnny Colmenares M.D. on 10/19/2022 at 21:49 Approved by: Johnny Colmenares M.D. on 10/19/2022 at 21:50
--- NOTE | 2022-10-19 20:54 | ED.NECK ---
HPI - Neck Pain/Injury General Chief Complaint: Neck Pain/Injury Stated Complaint: neck and left shoulder pain Time Seen by Provider: 10/19/22 20:32 Mode of arrival: Ambulatory History of Present Illness HPI Narrative: Patient here for left-sided neck and arm pain with arm tingling, also left-sided chest pressure. No nausea but does have dyspnea. Patient had heart catheterization 3 or 5 years ago and he states there was an error at unable to stand. Does take blood pressure medication cholesterol medication and does smoke. Family history of valve replacement in the heart. But no CO. heart catheterization was done over at [facility]. Patient rates 8/10 chest pain at this time. EKG and chest pain protocol being done. Patient originally came in for left-sided neck pain but did not tell the triage nurse about the chest pain. Patient does have chronic neck pain. Is going to hear back from ortho spine surgeon next week at [facility] when to schedule his neck surgery. Patient states left arm discomfort is new. Related Data Home Medications Medication Instructions Recorded Confirmed aspirin 81 mg tablet,delayed 81 mg PO DAILY 08/14/22 09/22/22 release Previous Rx's Medication Instructions Recorded metoprolol tartrate 25 mg tablet 25 mg PO BID #180 tabs 08/12/22 sertraline 50 mg tablet 50 mg PO DAILY #90 tabs 08/12/22 atorvastatin 40 mg tablet 40 mg PO BEDTIME #90 tabs 08/14/22 alprazolam 0.5 mg tablet 0.5 mg PO BEDTIME PRN sleep #14 09/22/22 tabs bupropion HCl 150 mg 24 hr tablet, 150 mg PO BID #60 tabs 09/22/22 extended release gabapentin 600 mg tablet 600 mg PO TID #270 tabs 09/22/22 hydrocodone 5 mg-acetaminophen 325 1 tab PO BID PRN pain #14 tabs 10/02/22 mg tablet methocarbamol 500 mg tablet 500 mg PO TID PRN muscle spasm #20 10/02/22 tabs prednisone 20 mg tablet 40 mg PO DAILY #10 tabs 10/02/22 Allergies Allergy/AdvReac Type Severity Reaction Status Date / Time droperidol [DROPERIDOL] Allergy Mild COGENIC Verified 10/19/22 16:12 REACTION Review of Systems Review of Systems Narrative: GENERAL: negative chills, fatigue, malaise, fever, sweats. HEENT: negative sinus pain, ear pain, sore throat RESPIRATORY: Positive dyspnea, negative cough CARDIOVASCULAR: Positive chest pain, negative palpitations GASTROINTESTINAL: negative nausea, vomiting, abdominal pain : negative dysuria, frequency, hematuria MUSCULOSKELETAL: Positive muscle or bony pain SKIN: negative rash, skin lesions NEUROLOGIC: negative weakness, numbness ROS Unobtainable: All systems reviewed & are unremarkable except as noted in HPI and below Patient History Medical History ADD (attention deficit disorder) Asthma Cervical radiculopathy due to osteoarthritis of spine Coronary artery disease Depression Essential hypertension Generalized anxiety disorder with panic attacks Herniated intervertebral disc of lumbar spine Opiate addiction Pars defect of lumbar spine Peripheral neuropathy RLS (restless legs syndrome) Spinal stenosis of lumbar region with neurogenic claudication Spondylolisthesis of lumbar region Stenosis of artery Vitamin D deficiency Surgical History Hx of cervical discectomy (~2013) Family History Father Hypertension Hyperlipidemia Mother Diabetes mellitus Hyperlipidemia Hypertension Social History household members: family Smoking Status: Current every day smoker alcohol intake: never Smoking Status: Current every day smoker alcohol intake frequency: a few times a month Substance Use Type: does not use Exam Narrative Exam Narrative: GENERAL: in no distress, not toxic not dyspneic HEAD: Normocephalic. EYES: Pupils equal round No scleral icterus. ENT: Mucous membranes moist. NECK: Trachea midline. Able to rotate head neck left and right and tilt up and down. Does have pain but not out of proportion to his usual neck pain. CARDIOVASCULAR: Regular rate and rhythm without murmurs RESPIRATORY: Clear to auscultation. Breath sounds equal bilaterally. No wheezes, rales, or rhonchi. GASTROINTESTINAL: Abdomen soft, non-tender EXTREMITIES: No gross deformities. BACK: No flank tenderness. NEURO: AOx4. 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 SKIN: Warm and dry PSYCH: Not anxious, is cooperative Initial Vital Signs Initial Vital Signs: Vital Signs Temperature 98.4 F 10/19/22 16:07 Pulse Rate 96 H 10/19/22 16:07 Respiratory Rate 18 10/19/22 16:07 Blood Pressure 180/97 H 10/19/22 16:07 Pulse Oximetry 98 10/19/22 16:07 Oxygen Delivery Method 10/19/22 16:07 Course Course Decision to Admit Date: 10/19/22 Decision to Admit time: 21:00 Orders Ordered: ED Orders 10/19/22 20:53 XR chest 1V Stat 10/19/22 21:25 Complete Blood Count AUTO DIFF Stat Comprehensive Metabolic Panel Stat D Dimer Stat Partial Thromboplastin Time Stat Prothrombin Time INR Stat Troponin & CK Cardiac Panel Stat 10/19/22 23:11 Exercise treadmill NON NUC Urgent 10/19/22 23:28 COVID19 -Nasal RAPID/Pre-Proc Stat 10/20/22 01:56 Troponin I Urgent 10/20/22 05:00 Troponin I Urgent Aspirin (Aspirin Ec 81 Mg Tablet) 81 mg PO DAILY [facility] Atorvastatin Calcium (Atorvastatin 20 Mg Tablet) 40 mg PO BEDTIME [facility] Bupropion HCl (Bupropion Xl 150 Mg Tab) 150 mg PO BID [facility] Gabapentin (Gabapentin 600 Mg Tablet) 600 mg PO TID [facility] Last Admin: 10/20/22 03:57 Dose: 600 mg Documented By: MICHELLE Nitroglycerin (Nitroglycerin 0.4 Mg Sl Tab) 0.4 mg SL [id number] PRN PRN Reason: Chest Pain Sertraline HCl (Sertraline 50 Mg Tablet) 50 mg PO DAILY [facility] Tramadol HCl (Tramadol 50 Mg Tablet) 50 mg PO TID PRN PRN Reason: Pain, Moderate (4-6) Last Admin: 10/20/22 02:22 Dose: 50 mg Documented By: MICHELLE Discontinued Medications Hydrocodone Bitart/Acetaminophen (Hydrocodone/Acet 5/325 Tablet) 2 tab PO NOW ONE Stop: 10/19/22 22:37 Last Admin: 10/19/22 23:14 Dose: 2 tab Documented By: LES Aspirin (Aspirin 81 Mg Chew Tab) 324 mg PO NOW ONE Stop: 10/19/22 22:34 Last Admin: 10/19/22 23:13 Dose: 324 mg Documented By: LES Gabapentin (Gabapentin 600 Mg Tablet) 600 mg PO TID [facility] Last Admin: 10/20/22 04:41 Dose: Not Given Documented By: MICHELLE Nitroglycerin (Nitroglycerin Oint 1 Inch/Gm Oint...G.) 1 inch TOP NOW ONE Stop: 10/19/22 22:34 Last Admin: 10/19/22 23:16 Dose: 1 inch Documented By: LES Ondansetron HCl (Ondansetron 4 Mg/2 Ml Inj) 4 mg IV NOW ONE Stop: 10/19/22 22:37 Last Admin: 10/19/22 23:16 Dose: 4 mg Documented By: LES Oxycodone HCl (Oxycodone Ir 5 Mg Tablet) 5 mg PO NOW ONE Stop: 10/20/22 04:28 Last Admin: 10/20/22 05:09 Dose: 5 mg Documented By: MICHELLE Reevaluation(s) Reevaluation #1: Reviewed with patient results. At this time he does say that he is never had chest pain with his neck pain before. This is new. His left arm complaint is new as well. He does agree for possible admission here tonight and stress test tomorrow Time: 22:38 Consultations Consultation #1: s/w dr beard, will admit Time: 23:08 Vital Signs Vital signs: Vital Signs - 8 hr 10/19/22 22:00 10/19/22 22:00 10/19/22 22:30 Pulse Rate 94 H Respiratory Rate 20 Blood Pressure 157/92 H 159/88 H Pulse Oximetry 95 10/19/22 22:30 10/19/22 23:00 10/19/22 23:00 Pulse Rate 92 H 95 H Respiratory Rate 23 38 H Blood Pressure 173/100 H Pulse Oximetry 95 96 MDM - Neck Pain/Injury Differential Diagnosis Differential diagnosis: Likely disc disorder of cervical region, cervical radiculopathy, strain of neck muscle and other (Atypical chest pain/chest pain/angina/unstable angina/STEMI/non-STEMI) Lab Data Result diagrams: 10/19/22 21:25 10/19/22 21:25 Labs: Lab Results 10/19/22 10/19/22 10/19/22 Range/Units 21:25 21:25 21:25 WBC 9.5 (4.5-11.0) X10^3/uL RBC 4.62 (4.5-5.9) X10^6/uL Hgb 14.0 (13.5-17.5) g/dL Hct 41.3 (41-53) % MCV 89.4 (80-100) fL MCH 30.2 (26-34) PG MCHC 33.8 (30-36) % RDW 12.8 (11.6-14.8) % Plt Count 174 (150-400) X10^3/uL Neut % (Auto) 69.5 (50-75) % Lymph % (Auto) 20.2 L (25-40) % Wirt % (Auto) 7.1 (3-14) % Eos % (Auto) 2.8 (2-4) % Baso % (Auto) 0.4 (0-2) % Neut # (Auto) 6600 (5208-0543) /uL Lymph # (Auto) 1900 (3148-4771) /uL Wirt # (Auto) 700 (0-900) /uL Eos # (Auto) 300 (0-450) /uL Baso # (Auto) 0 (0-100) /uL PT 11.4 (10.1-12.7) SECONDS INR 1.0 (0.9-1.3) APTT 30 (26-36) SECONDS D-Dimer < 215 (<500) ng/ml Sodium 138 (137-145) mmol/L Potassium 3.4 (3.4-5.1) mmol/L Chloride 103 (98-107) mmol/L Carbon Dioxide 25 (22-32) mmol/L BUN 8 L (9-20) mg/dL Creatinine 0.86 (0.66-1.25) mg/dL Estimated GFR > 60 (>60) mL/min BUN/Creatinine Ratio 9.3 (6-22) Glucose 210 H D (70-100) mg/dL Calcium 9.2 (8.4-10.2) mg/dL Total Bilirubin 0.5 (0.2-1.3) mg/dL AST 27 (17-59) IU/L ALT 26 (<50) IU/L Alkaline Phosphatase 52 (38-126) U/L Total Creatine Kinase 221 H (55-170) U/L CK-MB (CK-2) 1.35 (<2.37) ng/mL CK-MB (CK-2) Rel Index 0.6 L (1.5-5.0) % Troponin I < 0.012 (0.01-0.034) ng/mL Total Protein 7.3 (6.3-8.2) g/dL Albumin 4.3 (3.5-5.0) g/dL Globulin 3.0 (1.7-4.1) g/dL Albumin/Globulin Ratio 1.4 (1.0-2.8) Imaging Data Chest x-ray: Radiologist's Impression: [address] [address] XRay Report Signed Patient: Ori Hendrickson II MR#: [id number] : 1970 Acct:[id number] Age/Sex: 52 / M Date of Service: 10/19/22 Loc: ED Accession Number: [id number] ?? Procedure: XR chest 1V Ordering Provider: Juan Diego Jackson MD PROCEDURE:? XR CHEST 1V ? INDICATIONS:? chest pain ? TECHNIQUE:? One view of the chest was acquired.? ? COMPARISON:? [facility], CR, XR CHEST 1V, 03/31/2022, 10:21. ? FINDINGS:? ? Surgical changes and devices:? Postsurgical changes redemonstrated within the lower cervical spine. ? Lungs and pleura:? Lungs are clear.? No pleural effusions or pneumothorax.? ? Mediastinum:? Mediastinal contours appear normal.? Heart size is normal.? ? Bones and chest wall:? No suspicious bony lesions.? Overlying soft tissues appear unremarkable.? ? IMPRESSION:? ? 1.? No acute cardiopulmonary disease. ? ? ? Dictated by: Johnny Colmenares M.D. on 10/19/2022 at 21:49 ? ? Approved by: Johnny Colmenares M.D. on 10/19/2022 at 21:50 ? CT - cervical spine: Radiologist's Impression: [address] [address] [address] Scan Report Signed Patient: Ori Hendrickson II MR#: [id number] : 1970 Acct:[id number] Age/Sex: 52 / M Date of Service: 10/19/22 Loc: ED Accession Number: [id number] ?? Procedure: CT cervical spine wo con Ordering Provider: Lala Kennedy D.O. PROCEDURE:? CT CERVICAL SPINE WO CON ? INDICATIONS:? neck pain radiating to left arm ? TECHNIQUE:? Noncontrast 3 mm thick sections acquired from the skull base to the T4 level.? Sagittal and coronal reformats were then constructed.? For radiation dose reduction, the following was used:? automated exposure control, adjustment of mA and/or kV according to patient size.? ? COMPARISON:? [facility], CT, CT CERVICAL SPINE WO CON, 10/30/2021, 20:15. ? FINDINGS:? Image quality:? Excellent.? ? Bones:? Prior anterior fusion at C7-T1 level is seen.? There is straightening of normal cervical lordosis.? No fractures or dislocations.? No gross hardware loosening or failure.? Degenerative endplate changes and dorsal disc osteophyte complex formation at C2-3, C3-4, and C5-6 levels are seen most notably at C4-5 level causing moderate central canal stenosis and left worse than right bilateral neural foraminal narrowing.? Visualized superior ribs are intact.? ? Soft tissues:? Prevertebral soft tissues are normal in thickness.? No paravertebral hematomas.? No apical pneumothoraces.? ? ? IMPRESSION:? 1. No acute cervical spine fracture or dislocation. 2. Prior fusion of C7 and T1 vertebral bodies.? 3. Degenerative disc disease throughout cervical spine most notably at C4-5 level with [id number] central canal stenosis and left worse than right bilateral neural foraminal narrowing. ? ? ? Dictated by: Harman iDggs M.D. on 10/19/2022 at 16:37 ? ? Approved by: Harman Diggs M.D. on 10/19/2022 at 16:41 ? ECG Data Interpretation: Normal sinus rhythm rate [address] elevation or depression MDM Narrative Medical decision making narrative: Appropriate for admission for atypical chest pain. These are new complaints and unrelated with his neck at this time. Reviewed with patient agrees for admit. Reviewed with hospitalist agrees for admit. Discharge Plan Departure Patient Disposition: Admitted as Observation Clinical Impression: Atypical chest pain Admit Date/Time: 10/19/22 23:12 Admit Provider: Rodríguez Beard
[2022-10-19 21:36] LABS: Add Manual Diff / Slide Review NO; Basophils Absolute Auto 0 /uL (0-100); Basophils Percent Auto 0.4 % (0-2); Eosinophils Absolute Auto 300 /uL (0-450); Eosinophils Percent Auto 2.8 % (2-4); Hematocrit 41.3 % (41-53); Lymphocytes Absolute Auto 1900 /uL (1100-4500); Lymphocytes Percent Auto 20.2 % (25-40); Mean Corpuscular HGB Conc 33.8 % (30-36); Mean Corpuscular Hemoglobin 30.2 PG (26-34); Mean Corpuscular Volume 89.4 fL (80-100); Monocytes Absolute Auto 700 /uL (0-900); Monocytes Percent Auto 7.1 % (3-14); Neutrophils Absolute Auto 6600 /uL (1500-7000); Neutrophils Percent Auto 69.5 % (50-75); Platelet Count 174 X10^3/uL (150-400); Red Blood Cell Count 4.62 X10^6/uL (4.5-5.9); Red Cell Distribution Width 12.8 % (11.6-14.8); White Blood Cell Count 9.5 X10^3/uL (4.5-11.0)
[2022-10-19 21:43] LABS: Prothrombin Time 11.4 SECONDS (10.1-12.7)
[2022-10-19 21:46] LABS: PTT Partial Thromboplastin Tim 30 SECONDS (26-36)
[2022-10-19 21:48] LABS: Alanine Aminotransferase 26 IU/L (<50); Albumin 4.3 g/dL (3.5-5.0); Albumin Globulin Ratio 1.4 (1.0-2.8); Alkaline Phosphatase 52 U/L (38-126); Aspartate Aminotransferase 27 IU/L (17-59); BUN Creatinine Ratio 9.3 (6-22); Bilirubin Total 0.5 mg/dL (0.2-1.3); Blood Urea Nitrogen 8 mg/dL (9-20); Calcium 9.2 mg/dL (8.4-10.2); Carbon Dioxide 25 mmol/L (22-32); Chloride 103 mmol/L (98-107); Creatine Kinase 221 U/L (55-170); Estimated Glomerular Filt Rate > 60 mL/min (>60); Glucose 210 mg/dL (70-100); HEMOLYSIS < 15 (0-50); Potassium 3.4 mmol/L (3.4-5.1); Sodium 138 mmol/L (137-145); Total Protein 7.3 g/dL (6.3-8.2)
[2022-10-19 21:59] LABS: Troponin I < 0.012 ng/mL (0.01-0.034)
[2022-10-19 22:10] LABS: D Dimer < 215 ng/ml (<500)
--- NOTE | 2022-10-19 22:17 | PM.HP.1 ---
History of Present Illness History of Present Illness Date Patient Seen: 10/19/22 Time Patient Seen: 23:00 Chief complaint: neck and left shoulder pain Narrative: Mr. Hendrickson is a 52M with CAD, cervical radiculopathy, opiate addiction, HTN who presented to the hospital with left arm pain and then developed chest pain. He has a long history of neck pain due to cervical radiculopathy. He is planned to have surgery soon. He has developed pain that radiates down the entire left arm. No trauma. He came in for this reason. He also developed chest pain in the waiting room. No shortness of breath. Of note he does have known CAD. His last cath was a few years ago and noted a lesion in one artery that was not large enough to be intervened upo per the patient. He is taking aspirin. In the ED workup was done, vitals notable for tachycardia and high blood pressure. Labs notable forWBC 9.5, hgb 14, plts 174, creatinine 0.86. D-dimer negative. Trop negative. Chest xray with no acute process. CT neck showed no acute process but c4-c5 mild to moderate central canal stenosis. EKG showed no acute ischemia, and nonspecific changes. He received nitro and aspirin and was admitted for further evaluation. Patient History Medical History ADD (attention deficit disorder) Asthma Cervical radiculopathy due to osteoarthritis of spine Coronary artery disease Depression Essential hypertension Generalized anxiety disorder with panic attacks Herniated intervertebral disc of lumbar spine Opiate addiction Pars defect of lumbar spine Peripheral neuropathy RLS (restless legs syndrome) Spinal stenosis of lumbar region with neurogenic claudication Spondylolisthesis of lumbar region Stenosis of artery Vitamin D deficiency Surgical History Hx of cervical discectomy (~2013) Family & Social History Family History Father Hypertension Hyperlipidemia Mother Diabetes mellitus Hyperlipidemia Hypertension Social History: household members family Safety & Behavioral: Feels Safe in Current Yes Environment Been Physically Hurt or No Threatened By a Person Tobacco & Substance use: Smoking Status Current every day smoker alcohol intake never alcohol intake frequency a few times a month Substance Use Type does not use Meds Home Medications and Allergies Home Medications Medication Instructions Recorded Confirmed Type metoprolol tartrate 25 mg tablet 25 mg PO BID #180 tabs 08/12/22 09/22/22 Rx sertraline 50 mg tablet 50 mg PO DAILY #90 tabs 08/12/22 09/22/22 Rx aspirin 81 mg tablet,delayed 81 mg PO DAILY 08/14/22 09/22/22 History release atorvastatin 40 mg tablet 40 mg PO BEDTIME #90 tabs 08/14/22 09/22/22 Rx alprazolam 0.5 mg tablet 0.5 mg PO BEDTIME PRN sleep #14 09/22/22 09/22/22 Rx tabs bupropion HCl 150 mg 24 hr tablet, 150 mg PO BID #60 tabs 09/22/22 09/22/22 Rx extended release gabapentin 600 mg tablet 600 mg PO TID #270 tabs 09/22/22 09/22/22 Rx hydrocodone 5 mg-acetaminophen 325 1 tab PO BID PRN pain #14 tabs 10/02/22 Rx mg tablet methocarbamol 500 mg tablet 500 mg PO TID PRN muscle spasm #20 10/02/22 Rx tabs prednisone 20 mg tablet 40 mg PO DAILY #10 tabs 10/02/22 Rx Allergies Allergy/AdvReac Type Severity Reaction Status Date / Time droperidol [DROPERIDOL] Allergy Mild COGENIC Verified 10/19/22 16:12 REACTION Review of Systems Review of Systems Narrative: 14 systems reviewed and negative aside from what is noted in HPI Exam Vital Signs (past 8 hours): - 10/19/22 20:52 10/19/22 20:53 10/19/22 20:53 Temperature Pulse Rate 110 H 107 H Respiratory Rate 22 19 Blood Pressure 176/102 H Pulse Oximetry 98 96 Oxygen Delivery Method 10/19/22 21:00 10/19/22 21:00 10/19/22 21:30 Temperature Pulse Rate 101 H Respiratory Rate 17 Blood Pressure 161/103 H 151/82 H Pulse Oximetry 97 Oxygen Delivery Method Room Air 10/19/22 21:30 10/19/22 22:00 10/19/22 22:00 Temperature Pulse Rate 97 H 94 H Respiratory Rate 16 20 Blood Pressure 157/92 H Pulse Oximetry 95 95 Oxygen Delivery Method 10/19/22 22:30 10/19/22 22:30 10/19/22 23:16 Temperature Pulse Rate 92 H 96 H Respiratory Rate 23 Blood Pressure 159/88 H 173/100 H Pulse Oximetry 95 Oxygen Delivery Method 10/19/22 23:00 10/19/22 23:00 10/19/22 23:27 Temperature Pulse Rate 95 H Respiratory Rate 38 H Blood Pressure 173/100 H 182/105 H Pulse Oximetry 96 Oxygen Delivery Method 10/19/22 23:27 10/19/22 23:30 10/19/22 23:30 Temperature Pulse Rate 92 H 88 Respiratory Rate 24 23 Blood Pressure 162/85 H Pulse Oximetry 96 96 Oxygen Delivery Method 10/19/22 23:35 10/19/22 23:35 10/19/22 23:40 Temperature Pulse Rate 91 H 91 H Respiratory Rate 22 19 Blood Pressure 145/71 H Pulse Oximetry 96 97 Oxygen Delivery Method 10/19/22 23:40 10/19/22 23:45 10/19/22 23:45 Temperature Pulse Rate 90 Respiratory Rate 16 Blood Pressure 149/68 H 138/60 Pulse Oximetry 95 Oxygen Delivery Method 10/19/22 23:50 10/19/22 23:50 10/19/22 23:55 Temperature Pulse Rate 91 H 90 Respiratory Rate 13 14 Blood Pressure 132/61 Pulse Oximetry 96 96 Oxygen Delivery Method 10/19/22 23:55 10/20/22 00:00 10/20/22 00:01 Temperature Pulse Rate 116 H 118 H Respiratory Rate 24 19 Blood Pressure 122/57 L Pulse Oximetry 96 96 Oxygen Delivery Method 10/20/22 00:01 10/20/22 00:06 10/20/22 00:06 Temperature Pulse Rate 96 H Respiratory Rate 13 Blood Pressure 128/66 137/71 Pulse Oximetry 96 Oxygen Delivery Method 10/20/22 00:11 10/20/22 00:11 10/20/22 00:16 Temperature Pulse Rate 121 H 92 H Respiratory Rate Blood Pressure 112/53 L Pulse Oximetry 95 96 Oxygen Delivery Method 10/20/22 00:16 10/20/22 02:08 Temperature 98.1 F Pulse Rate 92 H Respiratory Rate 18 Blood Pressure 129/74 117/80 Pulse Oximetry 97 Oxygen Delivery Method Oxygen Delivery Method Room Air Narrative Exam Narrative: GEN: no acute distress HEENT: moist mucous membranes, PERRL NECK: trachea midline, no JVD PULM: clear bilaterally CV: regular rate and rhythm, no murmurs ABD: soft, nontender, nondistended, no organomegaly EXT: warm and well perfused with no edema NEURO: awake, alert, oriented, no focal deficits Objective Labs Result Diagrams: 10/19/22 21:25 10/19/22 21:25 Labs: Laboratory Results - last 24 hr 10/19/22 10/19/22 10/19/22 21:25 21:25 21:25 WBC 9.5 RBC 4.62 Hgb 14.0 Hct 41.3 MCV 89.4 MCH 30.2 MCHC 33.8 RDW 12.8 Plt Count 174 Neut % (Auto) 69.5 Lymph % (Auto) 20.2 L Grimes % (Auto) 7.1 Eos % (Auto) 2.8 Baso % (Auto) 0.4 Neut # (Auto) 6600 Lymph # (Auto) 1900 Grimes # (Auto) 700 Eos # (Auto) 300 Baso # (Auto) 0 PT 11.4 INR 1.0 APTT 30 D-Dimer < 215 Sodium 138 Potassium 3.4 Chloride 103 Carbon Dioxide 25 BUN 8 L Creatinine 0.86 Estimated GFR > 60 BUN/Creatinine Ratio 9.3 Glucose 210 H Calcium 9.2 Total Bilirubin 0.5 AST 27 ALT 26 Alkaline Phosphatase 52 Total Creatine Kinase 221 H CK-MB (CK-2) 1.35 CK-MB (CK-2) Rel Index 0.6 L Troponin I < 0.012 Total Protein 7.3 Albumin 4.3 Globulin 3.0 Albumin/Globulin Ratio 1.4 SARS-CoV-2 (PCR) 10/19/22 23:28 WBC RBC Hgb Hct MCV MCH MCHC RDW Plt Count Neut % (Auto) Lymph % (Auto) Grimes % (Auto) Eos % (Auto) Baso % (Auto) Neut # (Auto) Lymph # (Auto) Grimes # (Auto) Eos # (Auto) Baso # (Auto) PT INR APTT D-Dimer Sodium Potassium Chloride Carbon Dioxide BUN Creatinine Estimated GFR BUN/Creatinine Ratio Glucose Calcium Total Bilirubin AST ALT Alkaline Phosphatase Total Creatine Kinase CK-MB (CK-2) CK-MB (CK-2) Rel Index Troponin I Total Protein Albumin Globulin Albumin/Globulin Ratio SARS-CoV-2 (PCR) Negative Assessment & Plan Assessment & Plan narrative: 1. Chest pain -patient has known CAD, has had no recent testing -troponin negative x1, EKG with no acute ischemia -HEART score of 5 -trend troponins -ordered aspirin, statin -plan for exercise stress test 2. Cervical radiculopathy -planned for surgery this month 3. Hypertension -coninue home medications CODE: Full Proxy: Joanna Gusman, life partner I have utilized all avilable resources to reconcile the patient's home medications Time Spent With Patient Critical Care time: I spent a total of [] minutes of critical care time on this patient's care today; this time is exclusive of procedural time.
[2022-10-19] MEDS: ASPIRIN 81 MG CHEW TAB 324 MG PO (23:13)
[2022-10-19] MEDS: HYDROCODONE/ACET 5/325 TABLET 2 TAB PO (23:14)
[2022-10-19] MEDS: ONDANSETRON 4 MG/2 ML INJ IV (23:16)
[2022-10-19] MEDS: NITROGLYCERIN OINT 1 INCH/GM OINT...G. TOP (23:16)
[2022-10-19 23:37] LABS: CKMB % Relative Index 0.6 % (1.5-5.0); Creatine Kinase MB 1.35 ng/mL (<2.37)
[2022-10-20] VITALS (9 sets, daily range): BP systolic 112–137; BP diastolic 53–86; PULSE 78–121; RESP 13–24; TEMP 36.1–36.8; O2SAT 95–98; BMI 35.2
[2022-10-20 01:39] LABS: COVID19 -Nasal RAPID Negative (Negative)
[2022-10-20] MEDS: TRAMADOL 50 MG TABLET PO (02:22)
[2022-10-20 02:51] LABS: Troponin I < 0.012 ng/mL (0.01-0.034)
[2022-10-20] MEDS: GABAPENTIN 600 MG TABLET PO ×2 (03:57→14:39)
[2022-10-20] MEDS: OXYCODONE IR 5 MG TABLET PO (05:09)
[2022-10-20 07:39] LABS: Troponin I < 0.012 ng/mL (0.01-0.034)
[2022-10-20 08:41] LABS: TSH w/ Reflex to FT4 0.67 uIU/mL (0.47-4.68)
[2022-10-20] MEDS: SERTRALINE 50 MG TABLET PO (09:28)
[2022-10-20] MEDS: POTASSIUM CHLORIDE 20 MEQ TAB 40 MEQ PO (09:28)
[2022-10-20] MEDS: buPROPion XL 150 MG TAB PO (09:28)
[2022-10-20] MEDS: ASPIRIN EC 81 MG TABLET PO (09:28)
[2022-10-20] MEDS: HYDROMORPHONE 0.5 MG INJ IV ×2 (09:30→13:49)
--- NOTE | 2022-10-20 10:53 | CM.DANOTE ---
DCP: Case received, EMR reviewed and met with patient. Introduced self and role. Was able to obtain information regarding patient's baseline activity level at home, as well as his current living situation. DCP assessment completed with information currently available. Patient is a 52 year old male who admitted last pm to the care of the hospitalist team. PCP: Dr. Almeida. Payer: confirmed: [employer]. Patient came to the hospital via private vehicle secondary to having left-sided neck and arm pain with arm tingling, and left sided chest pressure. Patient does have a cardiac history with his heart catheterization about 3-5 years ago. Patient is here for a cardiac work up secondary to chest pain, including stress test. Notes also indicate that patient will be having cervical surgery later this month. Met with patient in his room. He had just came back after his stress test. He is independent at baseline, resides in [place] with both of his parents. He indicated that he is his parents caretakers. His father is currently at [facility] on oxygen, and his mother has early dementia. His sister is staying with her. Asked him about his stress level, stated, he has been stressed out at times. Let him know that this DC Technology Consultant can give him resources if he needs it regarding his parents, with caregiving information. He indicated that his sister is a adoption social worker at [facility], but can still take some resources. P: DCP to continue to follow. Plan is home when deemed medically stable. Ashley Shultz RN/Office Sweeper Discharge Planning/Care Management Advanced directive, confirm from CLINIC Start: 10/20/22 02:42 Freq: Q24H Status: Complete Protocol: Document 10/20/22 02:42 AGW (Rec: 10/20/22 04:33 AGW [id number]) Advance Directive, confirm on record Time 03:00 Person contacted patient Copy received No CM Discharge Assessment Start: 10/20/22 10:51 Freq: Status: Active Protocol: Document 10/20/22 10:51 (Rec: 10/20/22 10:53 [id number]) Discharge Planning Assessment Assigned Rug Inspector Ashley Shultz RN/Office Sweeper Advance Directives? No Advance Directives on File No History Provided By Patient,Medical Record Prior Living Arrangements House Household Members family Type of transporation used prior to Drives own vehicle admit Independent with ADL's Yes Is patient alert and oriented? Yes Caregiver for Another Yes: Both parents, dad currently in hospital Barriers to Discharge No Discharge Plan Home Transportation Arrangement Self or family Whiteboard Updated in Patient Room with Yes name and ext. # of Rug Inspector Review Status In Process Next Review Type Continued Stay Review
--- NOTE | 2022-10-20 11:10 | PM.DS.1 ---
History of Present Illness History of Present Illness Date Patient Seen: 10/20/22 Time Patient Seen: 23:00 Chief complaint: neck and left shoulder pain Narrative: Mr. Hendrickson is a 52M with CAD, cervical radiculopathy, opiate addiction, HTN who presented to the hospital with left arm pain and then developed chest pain. He has a long history of neck pain due to cervical radiculopathy. He is planned to have surgery soon. He has developed pain that radiates down the entire left arm. No trauma. He came in for this reason. He also developed chest pain in the waiting room. No shortness of breath. Of note he does have known CAD. His last cath was a few years ago and noted a lesion in one artery that was not large enough to be intervened upo per the patient. He is taking aspirin. In the ED workup was done, vitals notable for tachycardia and high blood pressure. Labs notable forWBC 9.5, hgb 14, plts 174, creatinine 0.86. D-dimer negative. Trop negative. Chest xray with no acute process. CT neck showed no acute process but c4-c5 mild to moderate central canal stenosis. EKG showed no acute ischemia, and nonspecific changes. He received nitro and aspirin and was admitted for further evaluation. Discharge Providers Provider Date of admission: 10/19/22 23:12 Discharge Date: 10/22/22 Primary care physician: Joselito Almeida MD Consults: 10/20/22 07:43 Consult to Dietitian, Adult Routine Comment: Reason For Exam: A1c 6.7%, not on diabetes meds? Discharge provider: Serafin Vinson DO Summary Hospital Course Discharge Diagnosis: 1. Chest pain -patient has known CAD, has had no recent testing -EKG with no acute ischemia -HEART score of 5 -trops neg x3 -exercise stress test done which was inconclusive, as he had slight ST depression in inferolateral leads. CP also got worse with exercise and improved with rest. Cardiology recommended repeat nuc med stress test, however due to availability of test pt would have to wait 2 days to get it done. He preferred to discharge and have it doen with his PCP as outpatient. 2. Cervical radiculopathy -planned for surgery this month 3. Hypertension -coninue home medications Time Spent with Patient Time spent: Greater than 30 minutes Exam Vital Signs (past 8 hours): Oxygen Delivery Method Room Air Oxygen Flow Rate 0 Narrative Exam Narrative: GEN: no acute distress HEENT: moist mucous membranes, PERRL NECK: trachea midline, no JVD PULM: clear bilaterally CV: regular rate and rhythm, no murmurs ABD: soft, nontender, nondistended, no organomegaly EXT: warm and well perfused with no edema NEURO: awake, alert, oriented, no focal deficits Objective Labs Result Diagrams: 10/19/22 21:25 10/19/22 21:25 [facility] Medical History ADD (attention deficit disorder) Asthma Cervical radiculopathy due to osteoarthritis of spine Coronary artery disease Depression Essential hypertension Generalized anxiety disorder with panic attacks Herniated intervertebral disc of lumbar spine Opiate addiction Pars defect of lumbar spine Peripheral neuropathy RLS (restless legs syndrome) Spinal stenosis of lumbar region with neurogenic claudication Spondylolisthesis of lumbar region Stenosis of artery Vitamin D deficiency Surgical History Hx of cervical discectomy (~2013) Family History Father Hypertension Hyperlipidemia Mother Diabetes mellitus Hyperlipidemia Hypertension Social History household members: family Smoking Status: Current every day smoker alcohol intake: never Discharge Plan Discharge Plan Patient Disposition: Home Provider Discharge Comment: You were admitted for a stress test due to chest and left arm pain. The stress test was hard to interpret because you had chest pain and some EKG changes but otherwise looked fine. The fire range technician recommended a nuclear stress test, but due to lack of availability you would have to wait 2 days to get it. You decided to have it done as outpatient. If your chest pain returns please come back to the ED tiffani. Discharge orders & Medications Prescriptions: Continued aspirin 81 mg tablet,delayed release (DR/EC) 81 mg PO DAILY atorvastatin 40 mg tablet 40 mg PO BEDTIME Qty: 90 3RF bupropion HCl 150 mg tablet extended release 24 hr 150 mg PO BID Qty: 60 0RF alprazolam 0.5 mg tablet 0.5 mg PO BEDTIME PRN (Reason: sleep) Qty: 14 0RF gabapentin 600 mg tablet 600 mg PO TID Qty: 270 3RF sertraline 50 mg tablet 50 mg PO DAILY Qty: 90 3RF metoprolol tartrate 25 mg tablet 25 mg PO BID Qty: 180 3RF Follow up/Referrals: Joselito Almeida MD [Primary Care Provider] - 3-5 Days Discharge Data Primary Care Provider: Joselito Almeida Attending Provider: Rodríguez Dias VTE Deep Vein Thrombosis/Pulmonary Embolism Present on Admission: No
--- NOTE | 2022-10-20 18:11 | DI.NM.S_ITS ---
DATE OF SERVICE: 10/20/2022 PROCEDURE: Exercise stress test. INDICATION: Chest pain, left arm pain, underlying CAD, hypertension CARDIAC STRESS: The patient underwent exercise stress test under the supervision of an attending staff. She walked on Wei protocol for 8 minutes and 38 seconds, achieved maximum heart rate of 167, which was 101 percent of target heart rate. Baseline blood pressure 140/100 mmHg and peak blood pressure 160/88 mmHg. Baseline rhythm was sinus with slight concave ST-depression in inferolateral leads, likely part of repolarization changes. During exercise, the patient has up to [address] depression in the inferolateral leads with quick recovery within 30 seconds to the baseline. No significant arrhythmias. The patient has resting, squeezing left-sided chest pain, which was on a scale of 1 to 10, 2 in intensity. During exercise, it became worse to 5 and spread to the entire chest and returned back to the baseline in recovery. No significant arrhythmias seen. CONCLUSION: Exercise stress test inconclusive for inducible ischemia in view of underlying resting, slight concave ST-depression in inferolateral leads, which got slightly pronounced during exercise with quick recovery. The patient has baseline resting left-sided, squeezing chest pain, which got mildly worse during exercise and returned back to the baseline in recovery. Normal hemodynamic response. No significant arrhythmias. Consider repeating exercise stress test with imaging modality, like a nuclear perfusion study or exercise stress echo for further coronary artery disease diagnosis and risk stratification. Discussed the findings with the hospitalist team. Ori Hendrickson II - Daisy/hellen doc#: [id number]/job#: [id number] dd: 10/20/2022 12:47:00 dt: 10/20/2022 17:58:00 DICTATING MD/COPIES TO: Jacob Ang MD COPIES MNE: ROSALBA;
== END 2022-10-20 14:42 | disposition home or self-care (01) ==
LOC: ED 22:39 → AC 23:13
PROVIDERS: Student in an Organized Health Care Education/Training Program; Admitting Provider Internal Medicine; Emergency Provider Emergency Medicine; PCP Student in an Organized Health Care Education/Training Program; Visit Provider Internal Medicine
DX: M54.2 Cervicalgia (principal); M54.12 Radiculopathy, cervical region; R07.89 Other chest pain; I10 Essential (primary) hypertension; F17.210 Nicotine dependence, cigarettes, uncomplicated; Z20.822 Contact with and (suspected) exposure to COVID-19; Z01.810 Encounter for preprocedural cardiovascular examination; E11.69 Type 2 diabetes mellitus with other specified complication; E78.5 Hyperlipidemia, unspecified
CPT/HCPCS: 36415; 71045; 72125; 80053; 80061; 82550; 82553; 83036; 83735; 84443; 84484; 85025; 85379; 85610; 85730; 87635; 93005; 93010; 93017; 96374; 96375; 99284; C9803; G0378; J1170; J2405

== ENCOUNTER 2022-11-14 13:55 | Emergency (ER) | payer OTHER, MEDICAID, SELFPAY ==
[2022-10-20 01:34] VITALS: BMI 35.2
[2022-11-14 14:01] VITALS: BP 176/93; PULSE 93; RESP 15; TEMP 36.9; O2SAT 97; BMI 32.5
--- NOTE | 2022-11-14 15:38 | DI.RAD.S_ITS ---
PROCEDURE: XR LUMBAR SPINE 2-3V INDICATIONS: worsening sciatica TECHNIQUE: 3 views of the lumbar spine were acquired. COMPARISON: [facility], CR, XR LUMBAR SPINE 2-3V, 10/16/2021, 13:37. FINDINGS: Bones: 5 [id number] vertebrae are present. There is normal bony alignment. No vertebral body compression fractures. No suspicious bony lesions. L5-S1 discectomy and fusion with posterior remedios and screw instrumentation good position. No evidence of hardware failure loosening. Mild disc space narrowing and sclerotic facet joints noted at L3-4 and L4-5, similar to the prior exam. Soft tissues: Overlying bowel gas pattern is normal. No suspicious soft tissue calcifications. IMPRESSION: Stable instrumented L5-S1 discectomy and fusion Lower lumbar spine degenerative disc disease and arthropathy, unchanged Approved by: Momo Garcia M.D. on 11/14/2022 at 15:24
[2022-11-14] MEDS: LIDOCAINE PATCH 1 EACH ADH..PATCH 2 EACH TOP (15:58)
[2022-11-14] MEDS: predniSONE 20 MG TABLET 40 MG PO (15:58)
[2022-11-14] MEDS: OXYCODONE/ACETAMINOPHEN 5/325 TABLET 2 TAB PO (15:58)
--- NOTE | 2022-11-14 16:00 | ED.EXTPRO ---
HPI - Extremity Problem <LELA EppsP - Last Filed: 11/14/22 16:42> General Chief complaint: Extremity Problem,Nontraumatic Stated complaint: LT side pain from neck down to foot t-5 Time Seen by Provider: 11/14/22 15:37 Source: patient Mode of arrival: Ambulatory History of Present Illness HPI Narrative: This is a 52-year-old gentleman presents to the emergency department complaining of worsening nerve like pain from his left hip to his left knee on lateral aspect over the last 3 or 4 days.? Patient has a history of cervical radiculopathy, chronic pain and chronic back pain.? He sees Dr. Almeida for primary care and has a history of type 2 diabetes, hyperlipidemia, hypertension, and states that he is seen Dr. Blair for cervical spine surgery next month patient denies any numbness or tingling, weakness, fever, chills, cough, dysuria, incontinence, or other weakness.? He denies any tenderness to his lumbar spine but states he has a history of chronic low back pain. No nausea but does have dyspnea.? Patient had heart catheterization 3 or 5 years ago and he states there was an error at unable to stand.? Does take blood pressure medication cholesterol medication and does smoke.? Family history of valve replacement in the heart.? But no NH. heart catheterization was done over at [facility].? Patient rates 8/10 chest pain at this time.? EKG and chest pain protocol being done.? Patient originally came in for left-sided neck pain but did not tell the triage nurse about the chest pain.? Patient does have chronic neck pain.? Is going to hear back from ortho spine surgeon next week at [facility] when to schedule his neck surgery.? Patient states left arm discomfort is new. Related Data Home Medications Medication Instructions Recorded Confirmed aspirin 81 mg tablet,delayed 81 mg PO DAILY 08/14/22 09/22/22 release Previous Rx's Medication Instructions Recorded metoprolol tartrate 25 mg tablet 25 mg PO BID #180 tabs 08/12/22 sertraline 50 mg tablet 50 mg PO DAILY #90 tabs 08/12/22 atorvastatin 40 mg tablet 40 mg PO BEDTIME #90 tabs 08/14/22 alprazolam 0.5 mg tablet 0.5 mg PO BEDTIME PRN sleep #14 09/22/22 tabs bupropion HCl 150 mg 24 hr tablet, 150 mg PO BID #60 tabs 09/22/22 extended release gabapentin 600 mg tablet 600 mg PO TID #270 tabs 09/22/22 lidocaine 5 % topical patch 2 patch topical DAILY #30 ea 11/14/22 (Lidoderm) oxycodone-acetaminophen 5 mg-325 1 tab PO Q8H PRN pain #10 tabs 11/14/22 mg tablet (Percocet) prednisone 20 mg tablet 20 mg PO DAILY 5 days #5 tabs 11/14/22 Allergies Allergy/AdvReac Type Severity Reaction Status Date / Time droperidol [DROPERIDOL] Allergy Mild COGENIC Verified 11/14/22 14:01 REACTION Patient History <YULY Epps - Last Filed: 11/14/22 16:42> Medical History ADD (attention deficit disorder) Asthma Cervical radiculopathy due to osteoarthritis of spine Coronary artery disease Depression Essential hypertension Generalized anxiety disorder with panic attacks Herniated intervertebral disc of lumbar spine Opiate addiction Pars defect of lumbar spine Peripheral neuropathy RLS (restless legs syndrome) Spinal stenosis of lumbar region with neurogenic claudication Spondylolisthesis of lumbar region Stenosis of artery Vitamin D deficiency Surgical History Hx of cervical discectomy (~2013) Family History Father Hypertension Hyperlipidemia Mother Diabetes mellitus Hyperlipidemia Hypertension Social History household members: family Smoking Status: Current every day smoker alcohol intake: never Smoking Status: Current every day smoker alcohol intake frequency: a few times a month Substance Use Type: does not use Exam <YULY Epps - Last Filed: 11/14/22 16:42> Initial Vital Signs Initial Vital Signs: Vital Signs Temperature 98.4 F 11/14/22 14:01 Pulse Rate 93 H 11/14/22 14:01 Respiratory Rate 15 11/14/22 14:01 Blood Pressure 176/93 H 11/14/22 14:01 Pulse Oximetry 97 11/14/22 14:01 Oxygen Delivery Method 11/14/22 14:01 <Lala Kennedy DO - Last Filed: 11/16/22 08:11> Initial Vital Signs Initial Vital Signs: Vital Signs Temperature 98.4 F 11/14/22 14:01 Pulse Rate 93 H 11/14/22 14:01 Respiratory Rate 15 11/14/22 14:01 Blood Pressure 176/93 H 11/14/22 14:01 Pulse Oximetry 97 11/14/22 14:01 Oxygen Delivery Method 11/14/22 14:01 Course <YULY Epps - Last Filed: 11/14/22 16:42> Orders Ordered: Discontinued Medications Lidocaine (Lidocaine Patch 1 Each Adh..Patch) 2 each TOP NOW ONE Stop: 11/14/22 15:44 Last Admin: 11/14/22 15:58 Dose: 2 each Documented By: IVAN Methocarbamol (Methocarbamol 500 Mg Tablet) 750 mg PO NOW ONE Stop: 11/14/22 15:44 Last Admin: 11/14/22 16:19 Dose: 750 mg Documented By: IVAN Oxycodone/Acetaminophen (Oxycodone/Acetaminophen 5/325 Tablet) 2 tab PO NOW ONE Stop: 11/14/22 15:44 Last Admin: 11/14/22 15:58 Dose: 2 tab Documented By: IVAN Prednisone (Prednisone 20 Mg Tablet) 40 mg PO NOW ONE Stop: 11/14/22 15:44 Last Admin: 11/14/22 15:58 Dose: 40 mg Documented By: IVAN Vital Signs Vital signs: Vital Signs - 8 hr 11/14/22 14:01 11/14/22 16:50 Temperature 98.4 F Pulse Rate 93 H 86 Respiratory Rate 15 Blood Pressure 176/93 H 136/83 Pulse Oximetry 97 97 Oxygen Delivery Method Room Air Room Air <Lala Kennedy DO - Last Filed: 11/16/22 08:11> Orders Ordered: Discontinued Medications Lidocaine (Lidocaine Patch 1 Each Adh..Patch) 2 each TOP NOW ONE Stop: 11/14/22 15:44 Last Admin: 11/14/22 15:58 Dose: 2 each Documented By: IVAN Methocarbamol (Methocarbamol 500 Mg Tablet) 750 mg PO NOW ONE Stop: 11/14/22 15:44 Last Admin: 11/14/22 16:19 Dose: 750 mg Documented By: KB Oxycodone/Acetaminophen (Oxycodone/Acetaminophen 5/325 Tablet) 2 tab PO NOW ONE Stop: 11/14/22 15:44 Last Admin: 11/14/22 15:58 Dose: 2 tab Documented By: IVAN Prednisone (Prednisone 20 Mg Tablet) 40 mg PO NOW ONE Stop: 11/14/22 15:44 Last Admin: 11/14/22 15:58 Dose: 40 mg Documented By: IVAN Vital Signs Vital signs: Vital Signs - 8 hr 11/14/22 14:01 11/14/22 16:50 Temperature 98.4 F Pulse Rate 93 H 86 Respiratory Rate 15 Blood Pressure 176/93 H 136/83 Pulse Oximetry 97 97 Oxygen Delivery Method Room Air Room Air MDM - Extremity (Nontraumatic) <YULY Epps - Last Filed: 11/14/22 16:42> Medical Records Medical records narrative: Copy of cardiac stress test from 10/20/[address] [address] Nuclear Medicine Report Signed Patient: Ori Hendrickson II MR#: [id number] : 1970 Acct:[id number] Age/Sex: 52 / M Date of Service: 10/19/22 Loc: 211-1 Accession Number: [id number] ?? Procedure: Exercise treadmill NON NUC Ordering Provider: Rodríguez Dias MD DATE OF SERVICE:? 10/20/2022 ? PROCEDURE:? Exercise stress test. ? INDICATION:? Chest pain, left arm pain, underlying CAD, hypertension ? CARDIAC STRESS:? The patient underwent exercise stress test under the supervision of an attending staff.? She walked on Wei protocol for 8 minutes and 38 seconds, achieved maximum heart rate of 167, which was 101 percent of target heart rate.? Baseline blood pressure 140/100 mmHg and peak blood pressure 160/88 mmHg.? Baseline rhythm was sinus with slight concave ST-depression in inferolateral leads, likely part of repolarization changes.? During exercise, the patient has up to [address] depression in the inferolateral leads with quick recovery within 30 seconds to the baseline.? No significant arrhythmias.? The patient has resting, squeezing left-sided chest pain, which was on a scale of 1 to 10, 2 in intensity.? During exercise, it became worse to 5 and spread to the entire chest and returned back to the baseline in recovery. No significant arrhythmias seen. ? CONCLUSION:? Exercise stress test inconclusive for inducible ischemia in view of underlying resting, slight concave ST-depression in inferolateral leads, which got slightly pronounced during exercise with quick recovery.? The patient has baseline resting left-sided, squeezing chest pain, which got mildly worse during exercise and returned back to the baseline in recovery.? Normal hemodynamic response.? No significant arrhythmias.? Consider repeating exercise stress test with imaging modality, like a nuclear perfusion study or exercise stress echo for further coronary artery disease diagnosis and risk stratification. Discussed the findings with the hospitalist team. ? Ori Hendrickson II - PSYCHIATRIC SOCIAL WORKER/melanie/hellen doc#: [id number]/job#: [id number] dd: 10/20/2022 12:47:00 dt: 10/20/2022 17:58:00 DICTATING MD/COPIES TO: Jacob Ang MD COPIES MNE: ROSALAB; Imaging Data CT - cervical spine: My Impression: CT cervical spine from 10/19/2022 without new traumatic injury or new radiculopathy lumbar xr: Radiologist's Impression: XRay Report Signed Patient: Ori Hendrickson II MR#: [id number] : 1970 Acct:[id number] Age/Sex: 52 / M Date of Service: 11/14/22 Loc: ED Accession Number: [id number] ?? Procedure: XR lumbar spine 2-3V Ordering Provider: Isabella Hurtado PROCEDURE:? XR LUMBAR SPINE 2-3V ? INDICATIONS:? worsening sciatica ? TECHNIQUE:? 3 views of the lumbar spine were acquired.? ? COMPARISON:? [facility], CR, XR LUMBAR SPINE 2-3V, 10/16/2021, 13:37. ? FINDINGS:? ? Bones:? 5 [id number] vertebrae are present.? There is normal bony alignment.? No vertebral body compression fractures.? No suspicious bony lesions.? L5-S1 discectomy and fusion with posterior remedios and screw instrumentation good position.? No evidence of hardware failure loosening.? Mild disc space narrowing and sclerotic facet joints noted at L3-4 and L4-5, similar to the prior exam. ? Soft tissues:? Overlying bowel gas pattern is normal.? No suspicious soft tissue calcifications.? ? ? IMPRESSION:? ? Stable instrumented L5-S1 discectomy and fusion ? Lower lumbar spine degenerative disc disease and arthropathy, unchanged ? ? ? Approved by: Momo Garcia M.D. on 11/14/2022 at 15:24? [facility] Narrative Medical decision making narrative: This is a 52-year-old male with history of cervical radiculopathy, chronic neck pain, type 2 diabetes, smoker, lumbar radiculopathy with hardware who sees Dr. 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 He is without weakness, numbness, tingling, is able to lift his left and right leg which exacerbates his sciatica and leg pain. He is nontender over his cervical and lumbar spine.Differential diagnosis considered include: acute fracture, (no trauma, no bony tenderness to palpation), cauda equina (no bowel or urinary incontinence/retention, no saddle anesthesia, no new/worsening distal weakness, decreased reflexes or foot drop), AAA, viscus perforation, osteomyelitis or epidural abscess (no history of IV substance use, or bony tenderness), renal colic, pyelonephritis (afebrile, no CVAT, no urinary symptoms). Disc injury/herniation w/radiculopathy, degenerative arthritis, spinal stenosis, trauma, ligamental injury, paraspinal or other muscular strain, chronic pain, osteoarthritis, epidural metastases, herpes zoster and critical cord compression. Course of care: Saw the patient when he is brought back to a room, he endorses symptoms of lumbar radiculopathy, notably I saw the patient for this in the emergency department on 10/02/2022 and he is prescribed a short course of steroids. States that his symptoms improved and then he came back in on 10/19/2022 with atypical chest pain was admitted to the hospital at that time he had a CT of his cervical spine without any acute or dangerous findings, his cervical spine CT is appended above as well as his lumbar x-ray from today which shows stable instrumented L5-S1 diskectomy and fusion with lower lumbar spine degenerative disc disease and arthropathy, unchanged from prior x-rays. Patient has follow-up with Dr. Bermudez but does not have a surgery scheduled date, encouraged him to follow-up Wednesday and follow-up with Dr. Falk for further pain control as he has presented to the emergency department numerous times for this type of pain. He may need chronic pain management. Recommend physical therapy, orthopedic evaluation, and follow-up with PCP, encouraged him stay hydrated, he was given a prescription of Percocet while here, muscle relaxers, lidocaine patches, encouraged Tylenol and ibuprofen. Gave him a short steroid burst, he denies history of diabetes even though it is in his history. I performed a preliminary independent interpretation of the following imaging studies: Lumbar x-ray but it does not show any acute changes that I can visualize compared with prior Patient's symptoms improved over duration of stay with above-stated therapies. Pt is nontoxic appearing. Patient has soft tissue tenderness to palpation. Pt is neurovascularly intact distally, afebrile, without immunosuppression or evidence of infection, peritoneal signs, hypertensive crisis, incontinence, or menengial signs. Recommend patient follow-up with his providers as he has them and return for severe symptoms of weakness, incontinence, paresthesia his groin, fever, chills or new problem. MIPS: This encounter doesn't have any diagnosis associated with MIPS criteria. Social determinants of health that may impact treatment or disposition: Vital Signs: I, the ED provider, reviewed the patient?s vital signs, past medical records and encounters if available, and nursing notes. I have spoken with the patient/family and discussed today?s findings whom verbalize understanding. Counseling was provided regarding the diagnosis and prognosis, and specific details were provided for the plan of care. Questions are addressed and there is agreement with the plan and for follow-up. Patient is appropriate for outpatient management. Portions of this chart have been created with [email or web address] voice recognition software. Occasional wrong word or sound alike substitutions may have occurred due to the inherent limitations of this software. I, YULY Rice, personally performed the services described in the documentation, and it accurately records my words and actions. I collaborated with the ED attending physician for MARCY level 2, 3, and some level 4s as needed Electronically signed by: YULY Rice Discharge Plan Departure Patient Disposition: Home Clinical Impression: Cervical radicular pain, Lumbar radiculopathy Instructions: Chronic Neck Pain, DI for Cervical Radiculopathy, Lumbar Radiculopathy Activity Restrictions/Additional Instructions: *You have been diagnosed with [cervical radiculopathy and lumbar radiculopathy.] On Wednesday, please call Dr. Bermudez and discuss follow-up, please touch base with Dr. Almeida regarding prescription medications, possible steroid injections, and plan for chronic pain regimen. Thank you for coming in for evaluation, I am sorry for your pain. Please take ibuprofen 800 mg with Tylenol 975 mg with food and water every 8 hours as needed. You can take Percocet occasionally for breakthrough pain, continue on your gabapentin for the nerve pain. Use something topical as needed for pain. *What to do: *Please continue to take your regular medications as directed. [x ] New medication prescriptions sent to your pharmacy: [ [facility]] [ ] New medication written as a paper prescription [ ] No new medications given *Please follow up with your primary care provider in 2-3 days, call for an appointment. Let them know you were seen in the Emergency Department and that we asked that you be seen for follow-up. We will electronically transmit a record of today's note if your PCP is in our system *If you do not have a primary care provider please contact [phone] to establish care with one of the [facility] primary care providers. *Return to Emergency Department if you should have any new, worsening, or concerning symptoms, such as [fever greater than 101F, chills, worsening pain, persistent vomiting or other bothersome symptoms]. Prescriptions: New oxycodone-acetaminophen [Percocet] 5-325 mg tablet 1 tab PO Q8H PRN (Reason: pain) Qty: 10 0RF prednisone 20 mg tablet 20 mg PO DAILY 5 Days Qty: 5 0RF lidocaine [Lidoderm] 5 % adhesive patch,medicated 2 patch topical DAILY Qty: 30 0RF Rx Instructions: leave on most painful area for up to 12 hrs No Action aspirin 81 mg tablet,delayed release (DR/EC) 81 mg PO DAILY atorvastatin 40 mg tablet 40 mg PO BEDTIME Qty: 90 3RF bupropion HCl 150 mg tablet extended release 24 hr 150 mg PO BID Qty: 60 0RF alprazolam 0.5 mg tablet 0.5 mg PO BEDTIME PRN (Reason: sleep) Qty: 14 0RF gabapentin 600 mg tablet 600 mg PO TID Qty: 270 3RF sertraline 50 mg tablet 50 mg PO DAILY Qty: 90 3RF metoprolol tartrate 25 mg tablet 25 mg PO BID Qty: 180 3RF Referrals: Joselito Almeida MD [Primary Care Provider] - Juan Diego Blair MD [Physician] - 5-7 days Stand Alone Forms: Patient Portal/API <Lala Kennedy DO - Last Filed: 11/16/22 08:11> Cosign ED Attending Nunoature Attestation: I was immediately available in the department for consultation. Documentation has been reviewed. I agree with assessment and plan.
[2022-11-14] MEDS: methocarbamoL 500 MG TABLET 750 MG PO (16:19)
[2022-11-14 16:50] VITALS: BP 136/83; PULSE 86; O2SAT 97
== END 2022-11-14 17:02 | disposition home or self-care (01) ==
PROVIDERS: Emergency Provider Nurse Practitioner Critical Care Medicine; PCP Student in an Organized Health Care Education/Training Program
DX: M54.12 Radiculopathy, cervical region (principal); M54.16 Radiculopathy, lumbar region
CPT/HCPCS: 72100; 99284

== ENCOUNTER 2023-01-12 15:42 | Observation (INO) | payer OTHER, MEDICAID, SELFPAY ==
[2022-10-20 01:34] VITALS: BMI 35.2
[2023-01-12] VITALS (55 sets, daily range): BP systolic 134–193; BP diastolic 59–108; PULSE 75–120; RESP 11–24; TEMP 36.4–36.7; O2SAT 91–98; BMI 33.9
--- NOTE | 2023-01-12 16:03 | DI.RAD.S_ITS ---
PROCEDURE: XR CHEST 1V INDICATIONS: chest pain TECHNIQUE: One view of the chest was acquired. COMPARISON: [facility], CR, XR CHEST 1V, 10/19/2022, 21:18. [facility], CR, XR CHEST 1V, 03/31/2022, 10:21. FINDINGS: Surgical changes and devices: None. Lungs and pleura: Lungs are clear. No pleural effusions or pneumothorax. Mediastinum: Mediastinal contours appear normal. Heart size is normal. Bones and chest wall: No suspicious bony lesions. Overlying soft tissues appear unremarkable. IMPRESSION: No acute cardiopulmonary process. Dictated by: Lj Olson M.D. on 01/12/2023 at 17:01 Approved by: Lj Olson M.D. on 01/12/2023 at 17:01
[2023-01-12 16:28] LABS: Add Manual Diff / Slide Review NO; Basophils Absolute Auto 100 /uL (0-100); Basophils Percent Auto 0.9 % (0-2); Eosinophils Absolute Auto 200 /uL (0-450); Eosinophils Percent Auto 2.7 % (2-4); Hemoglobin 15.3 g/dL (13.5-17.5); Lymphocytes Absolute Auto 1300 /uL (1100-4500); Lymphocytes Percent Auto 14.9 % (25-40); Mean Corpuscular HGB Conc 33.2 % (30-36); Mean Corpuscular Hemoglobin 30.3 PG (26-34); Mean Corpuscular Volume 91.2 fL (80-100); Monocytes Absolute Auto 500 /uL (0-900); Monocytes Percent Auto 5.5 % (3-14); Neutrophils Absolute Auto 6400 /uL (1500-7000); Platelet Count 230 X10^3/uL (150-400); Prothrombin Time 11.1 SECONDS (10.1-12.7); Red Blood Cell Count 5.04 X10^6/uL (4.5-5.9); White Blood Cell Count 8.4 X10^3/uL (4.5-11.0)
[2023-01-12 16:31] LABS: PTT Partial Thromboplastin Tim 32 SECONDS (26-36)
[2023-01-12 16:35] LABS: Alanine Aminotransferase 34 IU/L (<50); Albumin 4.7 g/dL (3.5-5.0); Albumin Globulin Ratio 1.4 (1.0-2.8); Alkaline Phosphatase 60 U/L (38-126); Aspartate Aminotransferase 37 IU/L (17-59); BUN Creatinine Ratio 15.6 (6-22); Bilirubin Total 0.5 mg/dL (0.2-1.3); Blood Urea Nitrogen 12 mg/dL (9-20); Calcium 9.5 mg/dL (8.4-10.2); Carbon Dioxide 29 mmol/L (22-32); Chloride 102 mmol/L (98-107); Creatine Kinase 163 U/L (55-170); Estimated Glomerular Filt Rate > 60 mL/min (>60); Globulin 3.4 g/dL (1.7-4.1); Glucose 190 mg/dL (70-100); Lipase 51 U/L (23-300); Potassium 4.2 mmol/L (3.4-5.1); Sodium 138 mmol/L (137-145); Total Protein 8.1 g/dL (6.3-8.2)
[2023-01-12 16:38] LABS: D Dimer 220 ng/ml (<500)
[2023-01-12 16:45] LABS: Troponin I < 0.012 ng/mL (0.01-0.034)
[2023-01-12 16:50] LABS: CKMB % Relative Index 0.5 % (1.5-5.0); Creatine Kinase MB 0.77 ng/mL (<2.37); HEMOLYSIS 16 (0-50)
--- NOTE | 2023-01-12 16:56 | ED.CHESTPAIN ---
HPI - Chest Pain General Chief Complaint: Chest Pain Stated Complaint: neck and chest pain Time Seen by Provider: 01/12/23 16:22 Source: patient Mode of arrival: Ambulatory Limitations: no limitations History of Present Illness HPI narrative: Patient here for nonreproducible left-sided chest pain that started this morning. Patient has baseline chronic cervical degenerative disc disease pain that radiates to his left arm which is not new. However the left chest pain is new. Patient has had abnormal exercise stress test October 2022 when he was admitted here. Was recommended to have a chemical stress test and echocardiogram done. It has taken a while for this order to be organized and it is scheduled for next Wednesday. Patient had abnormal heart catheterization as well in 2018. Blood pressure and heart rate noted. Patient is on metoprolol for high blood pressure. No diaphoresis no nausea no syncope, no dyspnea Related Data Home Medications Medication Instructions Recorded Confirmed aspirin 81 mg tablet,delayed 81 mg PO DAILY 08/14/22 01/12/23 release Previous Rx's Medication Instructions Recorded metoprolol tartrate 25 mg tablet 25 mg PO BID #180 tabs 08/12/22 sertraline 50 mg tablet 50 mg PO DAILY #90 tabs 08/12/22 atorvastatin 40 mg tablet 40 mg PO BEDTIME #90 tabs 08/14/22 alprazolam 0.5 mg tablet 0.5 mg PO BEDTIME PRN sleep #14 09/22/22 tabs bupropion HCl 150 mg 24 hr tablet, 150 mg PO BID #60 tabs 09/22/22 extended release gabapentin 600 mg tablet 600 mg PO TID #270 tabs 09/22/22 lidocaine 5 % topical patch 2 patch topical DAILY #30 ea 11/14/22 (Lidoderm) oxycodone-acetaminophen 5 mg-325 2 tab PO Q6H PRN pain 7 days #30 01/13/23 mg tablet (Percocet) tabs Allergies Allergy/AdvReac Type Severity Reaction Status Date / Time droperidol [DROPERIDOL] Allergy Mild COGENIC Verified 11/14/22 14:01 REACTION Review of Systems Review of Systems Narrative: GENERAL: negative chills, fatigue, malaise, fever, sweats. HEENT: negative sinus pain, ear pain, sore throat RESPIRATORY: negative dyspnea, cough CARDIOVASCULAR: Positive chest pain, palpitations GASTROINTESTINAL: negative nausea, vomiting, abdominal pain : negative dysuria, frequency, hematuria MUSCULOSKELETAL: negative muscle or bony pain SKIN: negative rash, skin lesions NEUROLOGIC: negative weakness, numbness ROS Unobtainable: All systems reviewed & are unremarkable except as noted in HPI and below Patient History Medical History ADD (attention deficit disorder) Asthma Cervical radiculopathy due to osteoarthritis of spine Coronary artery disease Depression Essential hypertension Generalized anxiety disorder with panic attacks Herniated intervertebral disc of lumbar spine Opiate addiction Pars defect of lumbar spine Peripheral neuropathy RLS (restless legs syndrome) Spinal stenosis of lumbar region with neurogenic claudication Spondylolisthesis of lumbar region Stenosis of artery Vitamin D deficiency Surgical History Hx of cervical discectomy (~2013) Family History Father Hypertension Hyperlipidemia Mother Diabetes mellitus Hyperlipidemia Hypertension Social History household members: family Smoking Status: Current every day smoker alcohol intake: never Smoking Status: Current every day smoker tobacco type: cigarettes alcohol intake frequency: a few times a month Substance Use Type: does not use Exam Narrative Exam Narrative: GENERAL: in no distress, not toxic not dyspneic HEAD: Normocephalic. EYES: Pupils equal round ENT: Mucous membranes moist. NECK: Trachea midline. CARDIOVASCULAR: Regular rate and rhythm without murmurs RESPIRATORY: Clear to auscultation. Breath sounds equal bilaterally. No wheezes, rales, or rhonchi. GASTROINTESTINAL: Abdomen soft, non-tender EXTREMITIES: No gross deformities. BACK: No flank tenderness. NEURO: AOx4. SKIN: Warm and dry PSYCH: Not anxious, is cooperative Initial Vital Signs Initial Vital Signs: Vital Signs Temperature 98.1 F 01/12/23 15:54 Pulse Rate 119 H 01/12/23 15:54 Respiratory Rate 18 01/12/23 15:54 Blood Pressure 177/98 H 01/12/23 15:54 Pulse Oximetry 98 01/12/23 15:54 Oxygen Delivery Method Room Air 01/12/23 15:54 Course Orders Ordered: Discontinued Medications Acetaminophen (Acetaminophen 325 Mg Tablet) 650 mg PO Q6H PRN PRN Reason: Fever/Mild Pain (1-3) Alprazolam (Alprazolam 0.5 Mg Tablet) 0.5 mg PO BEDTIME PRN PRN Reason: sleep Last Admin: 01/12/23 22:14 Dose: 0.5 mg Documented By: ADAMARIS Aspirin (Aspirin 81 Mg Chew Tab) 324 mg PO NOW ONE Stop: 01/12/23 16:04 Last Admin: 01/12/23 16:16 Dose: Not Given Documented By: CTS Aspirin (Aspirin Ec 81 Mg Tablet) 81 mg PO DAILY [facility] Last Admin: 01/13/23 08:35 Dose: 81 mg Documented By: CAROLINA Atorvastatin Calcium (Atorvastatin 20 Mg Tablet) 40 mg PO BEDTIME [facility] Bupropion HCl (Bupropion Xl 150 Mg Tab) 150 mg PO BID [facility] Last Admin: 01/13/23 07:24 Dose: 150 mg Documented By: Admin: 01/12/23 22:14 Dose: 150 mg Documented By: DL Enoxaparin Sodium (Enoxaparin 40 Mg/0.4 Ml Syringe) 40 mg SUBCUT DAILY [facility] Last Admin: 01/13/23 08:35 Dose: 40 mg Documented By: CAROLINA Gabapentin (Gabapentin 600 Mg Tablet) 600 mg PO TID [facility] Last Admin: 01/13/23 15:30 Dose: 600 mg Documented By: Admin: 01/13/23 07:24 Dose: 600 mg Documented By: Admin: 01/12/23 22:14 Dose: 600 mg Documented By: ADAMARIS Hydromorphone HCl (Hydromorphone 1 Mg Inj) 1 mg IV NOW ONE Stop: 01/12/23 18:03 Last Admin: 01/12/23 18:12 Dose: 1 mg Documented By: RB Lidocaine (Lidocaine Patch 1 Each Adh..Patch) 2 each TOP DAILY [facility] Last Admin: 01/13/23 08:35 Dose: 2 each Documented By: CAROLINA Metoprolol Succinate (Metoprolol Er 25 Mg Tablet) 25 mg PO NOW ONE Stop: 01/12/23 17:32 Last Admin: 01/12/23 17:42 Dose: 25 mg Documented By: RB Metoprolol Tartrate (Metoprolol Ir 25 Mg Tablet) 25 mg PO BID [facility] Last Admin: 01/13/23 07:24 Dose: 25 mg Documented By: Admin: 01/12/23 22:14 Dose: 25 mg Documented By: ADAMARIS Morphine Sulfate (Morphine 4 Mg/Ml Inj) 4 mg IV NOW ONE Stop: 01/12/23 16:56 Last Admin: 01/12/23 17:09 Dose: 4 mg Documented By: DEEPALI Naloxone HCl (Naloxone 0.4 Mg/Ml Vial) 0.2 mg IV Q2MIN PRN PRN Reason: Opiate Reversal Nitroglycerin (Nitroglycerin Oint 1 Inch/Gm Oint...G.) 1 inch TOP NOW ONE Stop: 01/12/23 16:56 Last Admin: 01/12/23 17:05 Dose: 1 inch Documented By: RB Ondansetron HCl (Ondansetron 4 Mg/2 Ml Inj) 4 mg IV NOW ONE Stop: 01/12/23 16:56 Last Admin: 01/12/23 17:09 Dose: 4 mg Documented By: DEEPALI Ondansetron HCl (Ondansetron 4 Mg/2 Ml Inj) 4 mg IV Q8HR PRN PRN Reason: Nausea And Vomiting Oxycodone/Acetaminophen (Oxycodone/Acetaminophen 5/325 Tablet) 2 tab PO Q8H PRN PRN Reason: pain Last Admin: 01/13/23 07:23 Dose: 2 tab Documented By: Admin: 01/12/23 22:14 Dose: 2 tab Documented By: ADAMARIS Oxycodone/Acetaminophen (Oxycodone/Acetaminophen 5/325 Tablet) 2 tab PO Q4HR PRN PRN Reason: Pain, Moderate (4-6) Last Admin: 01/13/23 15:30 Dose: 2 tab Documented By: Admin: 01/13/23 11:20 Dose: 2 tab Documented By: CAROLINA Prednisone (Prednisone 20 Mg Tablet) 20 mg PO NOW ONE Stop: 01/13/23 09:10 Last Admin: 01/13/23 09:18 Dose: 20 mg Documented By: CAROLINA Sertraline HCl (Sertraline 50 Mg Tablet) 50 mg PO DAILY [facility] Last Admin: 01/13/23 08:35 Dose: 50 mg Documented By: CAROLINA Vital Signs Vital signs: Vital Signs - 8 hr 01/12/23 15:54 01/12/23 16:15 01/12/23 16:19 Temperature 98.1 F Pulse Rate 119 H 112 H 110 H Respiratory Rate 18 19 Blood Pressure 177/98 H Pulse Oximetry 98 95 96 Oxygen Delivery Method Room Air 01/12/23 16:19 01/12/23 16:30 01/12/23 16:30 Temperature Pulse Rate 106 H Respiratory Rate 20 Blood Pressure 176/97 H 180/103 H Pulse Oximetry 97 Oxygen Delivery Method 01/12/23 16:35 01/12/23 16:35 01/12/23 17:05 Temperature Pulse Rate 105 H 100 H Respiratory Rate Blood Pressure 193/101 H 190/108 H Pulse Oximetry 97 Oxygen Delivery Method MDM - Chest Pain Lab Data 01/13/23 04:04 01/13/23 04:04 Labs: Lab Results 01/12/23 01/12/23 01/12/23 Range/Units 14:10 16:10 16:10 WBC 8.4 (4.5-11.0) X10^3/uL RBC 5.04 (4.5-5.9) X10^6/uL Hgb 15.3 (13.5-17.5) g/dL Hct 46.0 (41-53) % MCV 91.2 (80-100) fL MCH 30.3 (26-34) PG MCHC 33.2 (30-36) % RDW 13.0 (11.6-14.8) % Plt Count 230 (150-400) X10^3/uL Neut % (Auto) 76.0 H (50-75) % Lymph % (Auto) 14.9 L (25-40) % [place] % (Auto) 5.5 (3-14) % Eos % (Auto) 2.7 (2-4) % Baso % (Auto) 0.9 (0-2) % Neut # (Auto) 6400 (5379-9114) /uL Lymph # (Auto) 1300 (8748-5030) /uL [place] # (Auto) 500 (0-900) /uL Eos # (Auto) 200 (0-450) /uL Baso # (Auto) 100 (0-100) /uL PT 11.1 (10.1-12.7) SECONDS INR 1.0 (0.9-1.3) APTT 32 (26-36) SECONDS D-Dimer 220 (<500) ng/ml Sodium (137-145) mmol/L Potassium (3.4-5.1) mmol/L Chloride (98-107) mmol/L Carbon Dioxide (22-32) mmol/L BUN (9-20) mg/dL Creatinine (0.66-1.25) mg/dL Estimated GFR (>60) mL/min BUN/Creatinine Ratio (6-22) Glucose (70-100) mg/dL Calcium (8.4-10.2) mg/dL Magnesium (1.6-2.3) mg/dL Total Bilirubin (0.2-1.3) mg/dL AST (17-59) IU/L ALT (<50) IU/L Alkaline Phosphatase (38-126) U/L Total Creatine Kinase (55-170) U/L CK-MB (CK-2) (<2.37) ng/mL CK-MB (CK-2) Rel Index (1.5-5.0) % Troponin I (0.01-0.034) ng/mL Total Protein (6.3-8.2) g/dL Albumin (3.5-5.0) g/dL Globulin (1.7-4.1) g/dL Albumin/Globulin Ratio (1.0-2.8) Lipase (23-300) U/L SARS-CoV-2 (PCR) (Negative) 01/12/23 01/12/23 01/12/23 Range/Units 16:10 16:30 19:05 WBC (4.5-11.0) X10^3/uL RBC (4.5-5.9) X10^6/uL Hgb (13.5-17.5) g/dL Hct (41-53) % MCV (80-100) fL MCH (26-34) PG MCHC (30-36) % RDW (11.6-14.8) % Plt Count (150-400) X10^3/uL Neut % (Auto) (50-75) % Lymph % (Auto) (25-40) % [place] % (Auto) (3-14) % Eos % (Auto) (2-4) % Baso % (Auto) (0-2) % Neut # (Auto) (7193-3517) /uL Lymph # (Auto) (7673-0185) /uL [place] # (Auto) (0-900) /uL Eos # (Auto) (0-450) /uL Baso # (Auto) (0-100) /uL PT (10.1-12.7) SECONDS INR (0.9-1.3) APTT (26-36) SECONDS D-Dimer (<500) ng/ml Sodium 138 (137-145) mmol/L Potassium 4.2 (3.4-5.1) mmol/L Chloride 102 (98-107) mmol/L Carbon Dioxide 29 (22-32) mmol/L BUN 12 (9-20) mg/dL Creatinine 0.77 (0.66-1.25) mg/dL Estimated GFR > 60 (>60) mL/min BUN/Creatinine Ratio 15.6 (6-22) Glucose 190 H (70-100) mg/dL Calcium 9.5 (8.4-10.2) mg/dL Magnesium 2.0 (1.6-2.3) mg/dL Total Bilirubin 0.5 (0.2-1.3) mg/dL AST 37 (17-59) IU/L ALT 34 (<50) IU/L Alkaline Phosphatase 60 (38-126) U/L Total Creatine Kinase 163 149 (55-170) U/L CK-MB (CK-2) 0.77 0.69 (<2.37) ng/mL CK-MB (CK-2) Rel Index 0.5 L 0.5 L (1.5-5.0) % Troponin I < 0.012 < 0.012 (0.01-0.034) ng/mL Total Protein 8.1 (6.3-8.2) g/dL Albumin 4.7 (3.5-5.0) g/dL Globulin 3.4 (1.7-4.1) g/dL Albumin/Globulin Ratio 1.4 (1.0-2.8) Lipase 51 (23-300) U/L SARS-CoV-2 (PCR) Negative (Negative) MDM Narrative Medical decision making narrative: Patient here for nonreproducible left-sided chest pain that started this morning. Patient has baseline chronic cervical degenerative disc disease pain that radiates to his left arm which is not new. However the left chest pain is new. Patient has had abnormal exercise stress test October 2022 when he was admitted here. Was recommended to have a chemical stress test and echocardiogram done. It has taken a while for this order to be organized and it is scheduled for next Wednesday. Patient had abnormal heart catheterization as well in 2018. Blood pressure and heart rate noted. Patient is on metoprolol for high blood pressure. No diaphoresis no nausea no syncope, no dyspnea After history and exam CBC CMP troponin EKG chest x-ray D-dimer nitro paste aspirin ordered MDM CC: Chest pain Complicating co-morbidities: History hypertension history of abnormal stress test history of abnormal heart catheterization Data collected from: Patient Medical records reviewed: Stress test from October 2022 Differential considered: Includes but not limited to stable angina unstable angina [place] non-STEMI PE hypertensive urgency Exam documented above, pertinent findings include: Hypertension Lab Test results independently reviewed as above. Pertinent findings: Troponin less than 0.012 CK-MB 0.77 D-dimer 220 Independently reviewed EKG as above sinus tachycardia rate [address] elevation Imaging studies independently reviewed: Chest x-ray no acute process Consultations: 5:[address] cardi[address] acosta, would like patient to be admitted for nuclear stress test, he will call to ensure test will be ordered, I did speak with hospitalist Dr. Kilgore, patient to be admitted after 2nd troponin to be drawn. Treatments: Nitro paste aspirin metoprolol Re-evaluations: Reviewed results with patient. Agrees for admission. Discussion: Appropriate for admission for chest pain evaluation, I did review with cardiology services Diagnosis: Chest pain Discharge Plan Departure Patient Disposition: Admitted as Observation Clinical Impression: Chest pain Admit Date/Time: 01/12/23 19:58 Admit Provider: Rodríguez Dias
[2023-01-12] MEDS: NITROGLYCERIN OINT 1 INCH/GM OINT...G. TOP (17:05)
[2023-01-12] MEDS: MORPHINE 4 MG/ML INJ IV (17:09)
[2023-01-12] MEDS: ONDANSETRON 4 MG/2 ML INJ IV (17:09)
[2023-01-12 17:23] LABS: COVID19 -Nasal RAPID Negative (Negative)
[2023-01-12] MEDS: METOPROLOL ER 25 MG TABLET PO (17:42)
[2023-01-12] MEDS: HYDROMORPHONE 1 MG INJ IV (18:12)
[2023-01-12 19:28] LABS: Creatine Kinase 149 U/L (55-170)
[2023-01-12 19:40] LABS: Troponin I < 0.012 ng/mL (0.01-0.034)
[2023-01-12 19:44] LABS: CKMB % Relative Index 0.5 % (1.5-5.0); Creatine Kinase MB 0.69 ng/mL (<2.37)
--- NOTE | 2023-01-12 20:41 | PC.NURSE ---
attempted report,RN will call back
--- NOTE | 2023-01-12 20:46 | P.HP_ITS ---
History of Present Illness History of Present Illness Chief complaint: neck and chest pain Narrative: Mr. Hendrickson is a 52M with CAD, cervical radiculopathy, opiate addiction, HTN who presented to the hospital chest painn. He has a long history of neck pain due to cervical radiculopathy. He has developed pain that radiates down the entire left arm. Today he had let sided chest pain that is somewhat different than his normal neck and arm pain. No shortness of breath. Of note he does have known CAD. His last cath was a few years ago and noted a lesion in one artery that was not large enough to be intervened upon. He is taking aspirin. He was admitted a few months ago for similar pain and had an inconclusive exercise stress test and is pending a nuclear stress test. He has stated his pain is constant since this morning, nothing has relieved it aside from pain medication he received in the ED. In the ED workup was done, vitals notable for afebrile, heart rate in 110s, o2 sats 98% on room air, blood pressure 170s/90s. Labs notable for WBC 8.4, hgb 15.3, plts 230. Creatinine 0.77. D-dimer 220. Troponin negative x2. EKG with sinus tachcyardia. He was admitted for further treatment. Patient History Medical History ADD (attention deficit disorder) Asthma Cervical radiculopathy due to osteoarthritis of spine Coronary artery disease Depression Essential hypertension Generalized anxiety disorder with panic attacks Herniated intervertebral disc of lumbar spine Opiate addiction Pars defect of lumbar spine Peripheral neuropathy RLS (restless legs syndrome) Spinal stenosis of lumbar region with neurogenic claudication Spondylolisthesis of lumbar region Stenosis of artery Vitamin D deficiency Surgical History Hx of cervical discectomy (~2013) Family & Social History Family History Father Hypertension Hyperlipidemia Mother Diabetes mellitus Hyperlipidemia Hypertension Social History: household members family Safety & Behavioral: Feels Safe in Current Yes Environment Been Physically Hurt or No Threatened By a Person Tobacco & Substance use: Tobacco type cigarettes Smoking Status Current every day smoker alcohol intake never alcohol intake frequency a few times a month Substance Use Type does not use Meds Home Medications and Allergies Home Medications Medication Instructions Recorded Confirmed Type metoprolol tartrate 25 mg tablet 25 mg PO BID #180 tabs 08/12/22 01/12/23 Rx sertraline 50 mg tablet 50 mg PO DAILY #90 tabs 08/12/22 09/22/22 Rx aspirin 81 mg tablet,delayed 81 mg PO DAILY 08/14/22 01/12/23 History release atorvastatin 40 mg tablet 40 mg PO BEDTIME #90 tabs 08/14/22 01/12/23 Rx alprazolam 0.5 mg tablet 0.5 mg PO BEDTIME PRN sleep #14 09/22/22 01/12/23 Rx tabs bupropion HCl 150 mg 24 hr tablet, 150 mg PO BID #60 tabs 09/22/22 01/12/23 Rx extended release gabapentin 600 mg tablet 600 mg PO TID #270 tabs 09/22/22 01/12/23 Rx lidocaine 5 % topical patch 2 patch topical DAILY #30 ea 11/14/22 Rx (Lidoderm) oxycodone-acetaminophen 5 mg-325 2 tab PO Q8H PRN pain 01/12/23 01/12/23 History mg tablet (Percocet) Allergies Allergy/AdvReac Type Severity Reaction Status Date / Time droperidol [DROPERIDOL] Allergy Mild COGENIC Verified 11/14/22 14:01 REACTION Review of Systems Review of Systems Narrative: 14 systems reviewed and negative aside from what is noted in HPI Exam Vital Signs (past 8 hours): - 01/12/23 15:54 01/12/23 16:15 01/12/23 16:19 Temperature 98.1 F Pulse Rate 119 H 112 H 110 H Respiratory Rate 18 19 Blood Pressure 177/98 H Pulse Oximetry 98 95 96 Oxygen Delivery Method Room Air 01/12/23 16:19 01/12/23 16:30 01/12/23 16:30 Temperature Pulse Rate 106 H Respiratory Rate 20 Blood Pressure 176/97 H 180/103 H Pulse Oximetry 97 Oxygen Delivery Method 01/12/23 16:35 01/12/23 16:35 01/12/23 17:05 Temperature Pulse Rate 105 H 100 H Respiratory Rate Blood Pressure 193/101 H 190/108 H Pulse Oximetry 97 Oxygen Delivery Method 01/12/23 17:42 01/12/23 16:40 01/12/23 16:40 Temperature Pulse Rate 97 H 102 H Respiratory Rate Blood Pressure 157/88 H 181/98 H Pulse Oximetry 96 Oxygen Delivery Method 01/12/23 16:45 01/12/23 16:45 01/12/23 16:50 Temperature Pulse Rate 102 H 103 H Respiratory Rate 20 Blood Pressure 179/96 H Pulse Oximetry 95 95 Oxygen Delivery Method 01/12/23 16:50 01/12/23 16:55 01/12/23 16:55 Temperature Pulse Rate 105 H Respiratory Rate Blood Pressure 170/87 H 185/103 H Pulse Oximetry 97 Oxygen Delivery Method 01/12/23 17:00 01/12/23 17:00 01/12/23 17:05 Temperature Pulse Rate 101 H Respiratory Rate 11 L Blood Pressure 175/98 H 190/103 H Pulse Oximetry 96 Oxygen Delivery Method 01/12/23 17:05 01/12/23 17:10 01/12/23 17:10 Temperature Pulse Rate 102 H 98 H Respiratory Rate Blood Pressure 180/98 H Pulse Oximetry 95 96 Oxygen Delivery Method 01/12/23 17:14 01/12/23 17:14 01/12/23 17:15 Temperature Pulse Rate 99 H Respiratory Rate Blood Pressure 186/97 H 187/100 H Pulse Oximetry 96 Oxygen Delivery Method 01/12/23 17:15 01/12/23 17:20 01/12/23 17:20 Temperature Pulse Rate 97 H 99 H Respiratory Rate 24 Blood Pressure 170/87 H Pulse Oximetry 95 94 Oxygen Delivery Method 01/12/23 17:25 01/12/23 17:25 01/12/23 17:30 Temperature Pulse Rate 96 H Respiratory Rate 14 Blood Pressure 160/85 H 163/86 H Pulse Oximetry 94 Oxygen Delivery Method 01/12/23 17:30 01/12/23 17:35 01/12/23 17:35 Temperature Pulse Rate 98 H 97 H Respiratory Rate 13 Blood Pressure 155/87 H Pulse Oximetry 94 94 Oxygen Delivery Method 01/12/23 17:40 01/12/23 17:40 01/12/23 17:45 Temperature Pulse Rate 97 H Respiratory Rate Blood Pressure 157/88 H 163/86 H Pulse Oximetry 93 Oxygen Delivery Method 01/12/23 17:45 01/12/23 17:50 01/12/23 17:50 Temperature Pulse Rate 97 H 96 H Respiratory Rate Blood Pressure 158/81 H Pulse Oximetry 95 94 Oxygen Delivery Method 01/12/23 17:55 01/12/23 17:55 01/12/23 18:00 Temperature Pulse Rate 96 H Respiratory Rate Blood Pressure 161/82 H 153/79 H Pulse Oximetry 94 Oxygen Delivery Method 01/12/23 18:00 01/12/23 18:11 01/12/23 18:05 Temperature Pulse Rate 97 H 100 H 97 H Respiratory Rate Blood Pressure 145/69 H Pulse Oximetry 93 93 Oxygen Delivery Method 01/12/23 18:05 01/12/23 18:10 01/12/23 18:10 Temperature Pulse Rate 97 H Respiratory Rate 12 Blood Pressure 154/76 H 145/69 H Pulse Oximetry 95 Oxygen Delivery Method 01/12/23 18:15 01/12/23 18:15 01/12/23 18:20 Temperature Pulse Rate 100 H 120 H Respiratory Rate 16 Blood Pressure 173/82 H Pulse Oximetry 94 95 Oxygen Delivery Method 01/12/23 18:20 01/12/23 18:25 01/12/23 18:25 Temperature Pulse Rate 92 H Respiratory Rate Blood Pressure 151/59 H 169/95 H Pulse Oximetry 92 Oxygen Delivery Method 01/12/23 18:30 01/12/23 18:30 01/12/23 18:35 Temperature Pulse Rate 91 H Respiratory Rate Blood Pressure 164/90 H 158/88 H Pulse Oximetry 91 Oxygen Delivery Method 01/12/23 18:35 01/12/23 18:40 01/12/23 18:40 Temperature Pulse Rate 90 90 Respiratory Rate Blood Pressure 160/88 H Pulse Oximetry 91 92 Oxygen Delivery Method 01/12/23 18:45 01/12/23 18:45 01/12/23 18:50 Temperature Pulse Rate 93 H Respiratory Rate Blood Pressure 164/90 H 164/90 H Pulse Oximetry 95 Oxygen Delivery Method 01/12/23 18:50 01/12/23 18:55 01/12/23 18:55 Temperature Pulse Rate 89 88 Respiratory Rate Blood Pressure 150/86 H Pulse Oximetry 92 92 Oxygen Delivery Method 01/12/23 19:00 01/12/23 19:00 01/12/23 19:30 Temperature Pulse Rate 86 82 Respiratory Rate Blood Pressure 149/82 H Pulse Oximetry 93 93 Oxygen Delivery Method 01/12/23 20:00 Temperature Pulse Rate 79 Respiratory Rate Blood Pressure Pulse Oximetry 94 Oxygen Delivery Method Oxygen Delivery Method Room Air Narrative Exam Narrative: GEN: no acute distress HEENT: moist mucous membranes, PERRL NECK: trachea midline, no JVD PULM: clear bilaterally CV: regular rate and rhythm, no murmurs ABD: soft, nontender, nondistended, no organomegaly EXT: warm and well perfused with no edema NEURO: awake, alert, oriented, no focal deficits Objective Labs 01/12/23 16:10 01/12/23 16:10 Labs: Laboratory Results - last 24 hr 01/12/23 01/12/23 01/12/23 14:10 16:10 16:10 WBC 8.4 RBC 5.04 Hgb 15.3 Hct 46.0 MCV 91.2 MCH 30.3 MCHC 33.2 RDW 13.0 Plt Count 230 Neut % (Auto) 76.0 H Lymph % (Auto) 14.9 L [place] % (Auto) 5.5 Eos % (Auto) 2.7 Baso % (Auto) 0.9 Neut # (Auto) 6400 Lymph # (Auto) 1300 [place] # (Auto) 500 Eos # (Auto) 200 Baso # (Auto) 100 PT 11.1 INR 1.0 APTT 32 D-Dimer 220 Sodium Potassium Chloride Carbon Dioxide BUN Creatinine Estimated GFR BUN/Creatinine Ratio Glucose Calcium Magnesium Total Bilirubin AST ALT Alkaline Phosphatase Total Creatine Kinase CK-MB (CK-2) CK-MB (CK-2) Rel Index Troponin I Total Protein Albumin Globulin Albumin/Globulin Ratio Lipase SARS-CoV-2 (PCR) 01/12/23 01/12/23 01/12/23 16:10 16:30 19:05 WBC RBC Hgb Hct MCV MCH MCHC RDW Plt Count Neut % (Auto) Lymph % (Auto) [place] % (Auto) Eos % (Auto) Baso % (Auto) Neut # (Auto) Lymph # (Auto) [place] # (Auto) Eos # (Auto) Baso # (Auto) PT INR APTT D-Dimer Sodium 138 Potassium 4.2 Chloride 102 Carbon Dioxide 29 BUN 12 Creatinine 0.77 Estimated GFR > 60 BUN/Creatinine Ratio 15.6 Glucose 190 H Calcium 9.5 Magnesium 2.0 Total Bilirubin 0.5 AST 37 ALT 34 Alkaline Phosphatase 60 Total Creatine Kinase 163 149 CK-MB (CK-2) 0.77 0.69 CK-MB (CK-2) Rel Index 0.5 L 0.5 L Troponin I < 0.012 < 0.012 Total Protein 8.1 Albumin 4.7 Globulin 3.4 Albumin/Globulin Ratio 1.4 Lipase 51 SARS-CoV-2 (PCR) Negative Assessment & Plan Assessment & Plan narrative: 1. Chest pain -patient has known CAD -recent exercise stress test inconclusive for inducible ischemia -troponin negative x2 -EKG with question of ST depressions in inferolateral leads -HEART score of 5 -trend troponins -ordered aspirin -plan for nuclear stress test 2. Cervical radiculopathy -follow up as outpatient 3. Hypertension -coninue home medications I have discussed the care of the patient with the ED physician and bedside nurse. I have discussed the plan with the patient. I have reviewed labs and EKG and xray. CODE: Full Proxy: Joanna Gusman, life partner I have utilized all avilable resources to reconcile the patient's home medicati ons Time Spent With Patient Critical Care time: I spent a total of [] minutes of critical care time on this patient's care tod ay; this time is exclusive of procedural time. Quality [facility] - Meds 'Current medications' to include all prescriptions, [id number] products, herbals, cannabis/cannabidiol products, and vitamin/mineral/dietary (nutrition al) supplements. I have utilized all available resources to obtain, update, or review the patient?s current medications. [If Yes, STOP here]: Yes
--- NOTE | 2023-01-12 21:34 | DI.NM.S_ITS ---
PROCEDURE: NM LATOYA PERF SPECT R&S PHARM Rest and pharmacological stress myocardial perfusion SPECT with gated imaging and ejection fraction RADIOPHARMACEUTICAL: 11.1 mCi Tc-99m tetrafosmin IV at rest and 26.9 mCi Tc-99m tetrafosmin IV at peak effect of pharmacological stress. [id number] was performed. INDICATIONS: chest pain TECHNIQUE: Radiopharmaceutical was injected at peak stress test, and also at rest. SPECT images were obtained. SPECT myocardial perfusion images were displayed in short axis, horizontal long axis, and vertical long axis views. Gated images were reviewed using [employer] software. COMPARISON: None. CARDIAC STRESS: A pharmacologic stress test was performed under the supervision of an attending staff, using an infusion of lexiscan 0.4mg IV X1. Hemodynamic data: There is normal blood pressure and heart rate response to pharmacologic stress. Symptoms: The patient denied anginal chest pain. Aminophylline: none EKG: No diagnostic changes of ischemia; no ectopy. FINDINGS: Raw data: There is good myocardial uptake of radiotracer. No significant motion artifacts. Ihhp-vd-biefs ratio is 0.27 (normal is less than 0.38 for tetrafosmin tracer). Left ventricle function: Gated images demonstrate normal left ventricular wall thickening. No segmental wall motion abnormalities. No transient ischemic dilation; TID is 1.19 (normal less than 1.3). Left ventricle resting end diastolic volume is 98 mL. Left ventricle stress ejection fraction is 73%; normal range is above 45%. Myocardial perfusion: There is normal distribution of activity in the right and left ventricular myocardium. No fixed or reversible perfusion defects. IMPRESSION: Low risk, normal pharmaceutical stress test. Normal LV size, wall motion, and systolic function (EF post stress 73%). Dictated by: Miguelangel Velásquez MD on 01/13/2023 at 15:35 Approved by: Miguelangel Velásquez MD on 01/13/2023 at 15:36
[2023-01-12] MEDS: GABAPENTIN 600 MG TABLET PO (22:14)
[2023-01-12] MEDS: buPROPion XL 150 MG TAB PO (22:14)
[2023-01-12] MEDS: METOPROLOL IR 25 MG TABLET PO (22:14)
[2023-01-12] MEDS: OXYCODONE/ACETAMINOPHEN 5/325 TABLET 2 TAB PO (22:14)
[2023-01-12] MEDS: ALPRAZolam 0.5 MG TABLET PO (22:14)
--- NOTE | 2023-01-12 22:27 | PC.NURSE ---
Received patient from ED in no distress. Cristy awake alert and complaining of chest pain upon admission to unit. Dr. Arteaga notified and new orders noted. All medications verified and doctor at bedside to see patient. Patient medicated for pain and awaiting results.
[2023-01-12 22:51] LABS: MRSA (Nasal) PCR Not Detected (Not Detect)
[2023-01-13] VITALS (7 sets, daily range): BP systolic 106–135; BP diastolic 59–69; PULSE 74–79; RESP 12–18; TEMP 36.3–36.7; O2SAT 93–97
[2023-01-13 05:14] LABS: Add Manual Diff / Slide Review NO; Basophils Absolute Auto 0 /uL (0-100); Basophils Percent Auto 0.4 % (0-2); Eosinophils Absolute Auto 300 /uL (0-450); Eosinophils Percent Auto 4.8 % (2-4); Hematocrit 43.2 % (41-53); Hemoglobin 14.2 g/dL (13.5-17.5); Lymphocytes Absolute Auto 1800 /uL (1100-4500); Lymphocytes Percent Auto 24.9 % (25-40); Mean Corpuscular HGB Conc 32.8 % (30-36); Mean Corpuscular Hemoglobin 30.1 PG (26-34); Mean Corpuscular Volume 91.7 fL (80-100); Monocytes Absolute Auto 700 /uL (0-900); Monocytes Percent Auto 9.1 % (3-14); Neutrophils Absolute Auto 4400 /uL (1500-7000); Neutrophils Percent Auto 60.8 % (50-75); Platelet Count 214 X10^3/uL (150-400); Red Blood Cell Count 4.71 X10^6/uL (4.5-5.9); Red Cell Distribution Width 13.2 % (11.6-14.8); White Blood Cell Count 7.2 X10^3/uL (4.5-11.0)
[2023-01-13 05:23] LABS: Blood Urea Nitrogen 12 mg/dL (9-20); Calcium 9.4 mg/dL (8.4-10.2); Carbon Dioxide 29 mmol/L (22-32); Chloride 102 mmol/L (98-107); Estimated Glomerular Filt Rate > 60 mL/min (>60); Glucose 109 mg/dL (70-100); HEMOLYSIS < 15 (0-50); Potassium 3.6 mmol/L (3.4-5.1); Sodium 138 mmol/L (137-145)
[2023-01-13 05:32] LABS: Troponin I < 0.012 ng/mL (0.01-0.034)
[2023-01-13] MEDS: OXYCODONE/ACETAMINOPHEN 5/325 TABLET 2 TAB PO ×3 (07:23→15:30)
[2023-01-13] MEDS: METOPROLOL IR 25 MG TABLET PO (07:24)
[2023-01-13] MEDS: GABAPENTIN 600 MG TABLET PO ×2 (07:24→15:30)
[2023-01-13] MEDS: buPROPion XL 150 MG TAB PO (07:24)
[2023-01-13] MEDS: ASPIRIN EC 81 MG TABLET PO (08:35)
[2023-01-13] MEDS: ENOXAPARIN 40 MG/0.4 ML SYRINGE SUBCUT (08:35)
[2023-01-13] MEDS: LIDOCAINE PATCH 1 EACH ADH..PATCH 2 EACH TOP (08:35)
[2023-01-13] MEDS: SERTRALINE 50 MG TABLET PO (08:35)
[2023-01-13] MEDS: predniSONE 20 MG TABLET PO (09:18)
--- NOTE | 2023-01-13 15:39 | PM.DS.1 ---
History of Present Illness History of Present Illness Date Patient Seen: 01/13/23 Time Patient Seen: 15:40 Chief complaint: neck and chest pain Narrative: Per admitting provider, Mr. Hendrickson is a 52M with CAD, cervical radiculopathy, opiate addiction, HTN who presented to the hospital chest painn. He has a long history of neck pain due to cervical radiculopathy. He has developed pain that radiates down the entire left arm. Today he had let sided chest pain that is somewhat different than his normal neck and arm pain. No shortness of breath. Of note he does have known CAD. His last cath was a few years ago and noted a lesion in one artery that was not large enough to be intervened upon. He is taking aspirin. He was admitted a few months ago for similar pain and had an inconclusive exercise stress test and is pending a nuclear stress test. He has stated his pain is constant since this morning, nothing has relieved it aside from pain medication he received in the ED. In the ED workup was done, vitals notable for afebrile, heart rate in 110s, o2 sats 98% on room air, blood pressure 170s/90s. Labs notable for WBC 8.4, hgb 15.3, plts 230. Creatinine 0.77. D-dimer 220. Troponin negative x2. EKG with sinus tachcyardia. He was admitted for further treatment. Discharge Providers Provider Date of admission: 01/12/23 19:58 Discharge Date: 01/13/23 Primary care physician: Joselito Almeida MD Discharge provider: Sushil Kilgore DO Summary Hospital Course Discharge Diagnosis: 1. Chest pain, improved 2. Cervical radiculopathy 3. Hypertension, controlled 4. CAD, chronic Hospital Course: This is a 52 year old male with PMH of CAD, cervical radiculopathy (nearing surgical intervention in the coming weeks), and HTN who was admitted for further evaluation of chest pain. He underwent nuclear stress testing that was deemed low risk for ischemia. He had improvement in his symptoms. He complained of neck pain, severe, that was improved with a single dose of 20 mg of prednisone which has worked for him in the past. He was discharged after stress testing with prednisone burst of 20 mg for 5 days (previously worked well for him), percocet, and he should follow up with PCP and surgeon as previously scheduled. Exam Vital Signs (past 8 hours): - 01/13/23 08:10 01/13/23 08:00 01/13/23 09:00 Temperature 97.3 F L Pulse Rate 75 Respiratory Rate 13 Blood Pressure 131/69 Pulse Oximetry 95 96 Oxygen Delivery Method Room Air Room Air Oxygen Flow Rate 0 01/13/23 12:00 Temperature 98.1 F Pulse Rate 77 Respiratory Rate 18 Blood Pressure 120/59 L Pulse Oximetry 94 Oxygen Delivery Method Oxygen Flow Rate 0 Oxygen Delivery Method Room Air Oxygen Flow Rate 0 Narrative Exam Narrative: GEN: no acute distress HEENT: moist mucous membranes, PERRL NECK: trachea midline, no JVD PULM: clear bilaterally CV: regular rate and rhythm, no murmurs ABD: soft, nontender, nondistended, no organomegaly EXT: warm and well perfused with no edema NEURO: awake, alert, oriented, no focal deficits Objective Labs 01/13/23 04:04 01/13/23 04:04 Labs: Laboratory Results - last 24 hr 01/12/23 01/12/23 01/12/23 14:10 16:10 16:10 WBC 8.4 RBC 5.04 Hgb 15.3 Hct 46.0 MCV 91.2 MCH 30.3 MCHC 33.2 RDW 13.0 Plt Count 230 Neut % (Auto) 76.0 H Lymph % (Auto) 14.9 L [place] % (Auto) 5.5 Eos % (Auto) 2.7 Baso % (Auto) 0.9 Neut # (Auto) 6400 Lymph # (Auto) 1300 [place] # (Auto) 500 Eos # (Auto) 200 Baso # (Auto) 100 PT 11.1 INR 1.0 APTT 32 D-Dimer 220 Sodium Potassium Chloride Carbon Dioxide BUN Creatinine Estimated GFR BUN/Creatinine Ratio Glucose Calcium Magnesium Total Bilirubin AST ALT Alkaline Phosphatase Total Creatine Kinase CK-MB (CK-2) CK-MB (CK-2) Rel Index Troponin I Total Protein Albumin Globulin Albumin/Globulin Ratio Lipase Nasal Screen MRSA (PCR) SARS-CoV-2 (PCR) 01/12/23 01/12/23 01/12/23 16:10 16:30 19:05 WBC RBC Hgb Hct MCV MCH MCHC RDW Plt Count Neut % (Auto) Lymph % (Auto) Charlotte % (Auto) Eos % (Auto) Baso % (Auto) Neut # (Auto) Lymph # (Auto) [place] # (Auto) Eos # (Auto) Baso # (Auto) PT INR APTT D-Dimer Sodium 138 Potassium 4.2 Chloride 102 Carbon Dioxide 29 BUN 12 Creatinine 0.77 Estimated GFR > 60 BUN/Creatinine Ratio 15.6 Glucose 190 H Calcium 9.5 Magnesium 2.0 Total Bilirubin 0.5 AST 37 ALT 34 Alkaline Phosphatase 60 Total Creatine Kinase 163 149 CK-MB (CK-2) 0.77 0.69 CK-MB (CK-2) Rel Index 0.5 L 0.5 L Troponin I < 0.012 < 0.012 Total Protein 8.1 Albumin 4.7 Globulin 3.4 Albumin/Globulin Ratio 1.4 Lipase 51 Nasal Screen MRSA (PCR) SARS-CoV-2 (PCR) Negative 01/12/23 01/13/23 01/13/23 21:31 04:04 04:04 WBC 7.2 RBC 4.71 Hgb 14.2 Hct 43.2 MCV 91.7 MCH 30.1 MCHC 32.8 RDW 13.2 Plt Count 214 Neut % (Auto) 60.8 Lymph % (Auto) 24.9 L [place] % (Auto) 9.1 Eos % (Auto) 4.8 H Baso % (Auto) 0.4 Neut # (Auto) 4400 Lymph # (Auto) 1800 Charlotte # (Auto) 700 Eos # (Auto) 300 Baso # (Auto) 0 PT INR APTT D-Dimer Sodium 138 Potassium 3.6 Chloride 102 Carbon Dioxide 29 BUN 12 Creatinine 0.86 Estimated GFR > 60 BUN/Creatinine Ratio 14.0 Glucose 109 H Calcium 9.4 Magnesium Total Bilirubin AST ALT Alkaline Phosphatase Total Creatine Kinase CK-MB (CK-2) CK-MB (CK-2) Rel Index Troponin I < 0.012 Total Protein Albumin Globulin Albumin/Globulin Ratio Lipase Nasal Screen MRSA (PCR) Not detected SARS-CoV-2 (PCR) REPLACED BY [facility] Medical History ADD (attention deficit disorder) Asthma Cervical radiculopathy due to osteoarthritis of spine Coronary artery disease Depression Essential hypertension Generalized anxiety disorder with panic attacks Herniated intervertebral disc of lumbar spine Opiate addiction Pars defect of lumbar spine Peripheral neuropathy RLS (restless legs syndrome) Spinal stenosis of lumbar region with neurogenic claudication Spondylolisthesis of lumbar region Stenosis of artery Vitamin D deficiency Surgical History Hx of cervical discectomy (~2013) Family History Father Hypertension Hyperlipidemia Mother Diabetes mellitus Hyperlipidemia Hypertension Social History household members: family Smoking Status: Current every day smoker alcohol intake: never Discharge Plan Discharge Plan Patient Disposition: Home Provider Discharge Comment: You were admitted to the hospital with chest discomfort. Stress testing was unremarkable, this may be due to another exacerbation of your cervical disease. Steroids were sent as they have worked for you in the past. Refill of pain medications was sent to your pharmacy as well. Discharge orders & Medications Prescriptions: New prednisone 20 mg tablet 20 mg PO DAILY 4 Days Qty: 4 0RF Continued aspirin 81 mg tablet,delayed release (DR/EC) 81 mg PO DAILY atorvastatin 40 mg tablet 40 mg PO BEDTIME Qty: 90 3RF bupropion HCl 150 mg tablet extended release 24 hr 150 mg PO BID Qty: 60 0RF alprazolam 0.5 mg tablet 0.5 mg PO BEDTIME PRN (Reason: sleep) Qty: 14 0RF gabapentin 600 mg tablet 600 mg PO TID Qty: 270 3RF sertraline 50 mg tablet 50 mg PO DAILY Qty: 90 3RF metoprolol tartrate 25 mg tablet 25 mg PO BID Qty: 180 3RF lidocaine [Lidoderm] 5 % adhesive patch,medicated 2 patch topical DAILY Qty: 30 0RF Rx Instructions: leave on most painful area for up to 12 hrs Changed oxycodone-acetaminophen [Percocet] 5-325 mg tablet 2 tab PO Q6H PRN (Reason: pain) 7 Days Qty: 30 0RF Follow up/Referrals: Joselito Almeida MD [Primary Care Provider] - Diet/Activity/Treatments Diet: Diet as Tolerated Activity: As tolerated Visit Report/Discharge Packet Stand Alone Forms: Patient Portal/API, Stroke Signs & Symptoms Discharge Data Primary Care Provider: Joselito Almeida Attending Provider: Rodríguez Dias
== END 2023-01-13 16:23 | disposition home or self-care (01) ==
LOC: ED 17:28 → ICU 01-13 08:36 → AC 01-13 13:07
PROVIDERS: Admitting Provider Internal Medicine; Emergency Provider Emergency Medicine; PCP Student in an Organized Health Care Education/Training Program; Referring Provider Emergency Medicine; Visit Provider Internal Medicine
DX: R07.9 Chest pain, unspecified (principal); M54.12 Radiculopathy, cervical region; I10 Essential (primary) hypertension; I25.10 Atherosclerotic heart disease of native coronary artery without angina pectoris; Z20.822 Contact with and (suspected) exposure to COVID-19
CPT/HCPCS: 36415; 71045; 78452; 80048; 80053; 82550; 82553; 83690; 83735; 84484; 85025; 85379; 85610; 85730; 87635; 87797; 93005; 93017; 96372; 96374; 96375; 99284; C9803; G0378; A9502; J1170; J1650; J2270; J2405; J2785

== ENCOUNTER 2023-03-13 08:48 | Emergency (ER) | payer OTHER, MEDICAID, SELFPAY ==
[2023-01-12 20:03] VITALS: BMI 33.9
[2023-03-13 08:57] VITALS: BP 180/103; PULSE 124; RESP 20; TEMP 36.9; O2SAT 98; BMI 35.2
[2023-03-13 09:10] VITALS: PULSE 122; O2SAT 97
[2023-03-13 09:11] VITALS: BP 171/98; PULSE 120; O2SAT 98
[2023-03-13 09:30] VITALS: BP 177/95; PULSE 122; O2SAT 95
--- NOTE | 2023-03-13 10:04 | ED_ITS ---
HPI - Neck Pain/Injury General Chief Complaint: Neck Pain/Injury Stated Complaint: neck pain T-4 Time Seen by Provider: 03/13/23 09:13 Source: patient Mode of arrival: Ambulatory Limitations: no limitations History of Present Illness HPI Narrative: Patient is a 52-year-old male. Has known left-sided cervical degenerative disc disease with radiculopathy. He is currently under the care of Orthopedic spine surgery. He has done all of the preop workup but has yet to be scheduled for this. He states he is on gabapentin and Tylenol and ibuprofen. He states that normally his discomfort is tolerable with this regimen. A couple days ago who started have pain in his left neck radiating down his left arm. This is the same pain that he is had in the past. There was no specific incident that caused the discomfort to worsen. He has been doing his normal medications. He is not been able to sleep for the past couple nights. He is here asking for pain control. Related Data Home Medications Medication Instructions Recorded Confirmed aspirin 81 mg tablet,delayed 81 mg PO DAILY 08/14/22 01/12/23 release Previous Rx's Medication Instructions Recorded metoprolol tartrate 25 mg tablet 25 mg PO BID #180 tabs 08/12/22 sertraline 50 mg tablet 50 mg PO DAILY #90 tabs 08/12/22 atorvastatin 40 mg tablet 40 mg PO BEDTIME #90 tabs 08/14/22 bupropion HCl 150 mg 24 hr tablet, 150 mg PO BID #60 tabs 09/22/22 extended release gabapentin 600 mg tablet 600 mg PO TID #270 tabs 09/22/22 lidocaine 5 % topical patch 2 patch topical DAILY #30 ea 11/14/22 (Lidoderm) oxycodone-acetaminophen 5 mg-325 2 tab PO Q6H PRN pain 7 days #30 01/13/23 mg tablet (Percocet) tabs alprazolam 0.5 mg tablet 0.5 mg PO BEDTIME PRN sleep #14 02/11/23 tabs hydrocodone 5 mg-acetaminophen 325 1 tab PO Q8H PRN pain #10 tabs 03/13/23 mg tablet prednisone 20 mg tablet 20 mg PO DAILY #6 tabs 03/13/23 Allergies Allergy/AdvReac Type Severity Reaction Status Date / Time droperidol [DROPERIDOL] Allergy Mild COGENIC Verified 03/13/23 08:57 REACTION Review of Systems Constitutional Constitutional: Reports system reviewed and no additional complaints, except as documented Cardiovascular Cardiovascular: Reports system reviewed and no additional complaints, except as documented Respiratory Respiratory: Reports system reviewed and no additional complaints, except as documented Musculoskeletal Musculoskeletal: Reports system reviewed and no additional complaints, except as documented Neurologic Neurologic: Reports system reviewed and no additional complaints, except as documented Patient History Medical History ADD (attention deficit disorder) Asthma Cervical radiculopathy due to osteoarthritis of spine Coronary artery disease Depression Essential hypertension Generalized anxiety disorder with panic attacks Herniated intervertebral disc of lumbar spine Opiate addiction Pars defect of lumbar spine Peripheral neuropathy RLS (restless legs syndrome) Spinal stenosis of lumbar region with neurogenic claudication Spondylolisthesis of lumbar region Stenosis of artery Vitamin D deficiency Surgical History Hx of cervical discectomy (~2013) Family History Father Hypertension Hyperlipidemia Mother Diabetes mellitus Hyperlipidemia Hypertension Social History household members: family Smoking Status: Current every day smoker alcohol intake: never Smoking Status: Current every day smoker tobacco type: cigarettes alcohol intake frequency: a few times a month Substance Use Type: does not use Exam Initial Vital Signs Initial Vital Signs: Vital Signs Temperature 98.4 F 03/13/23 08:57 Pulse Rate 124 H 03/13/23 08:57 Respiratory Rate 20 03/13/23 08:57 Blood Pressure 180/103 H 03/13/23 08:57 Pulse Oximetry 98 03/13/23 08:57 Oxygen Delivery Method Room Air 03/13/23 08:57 Const General: cooperative and No ill appearing HENGA Head: normal to inspection and normocephalic Face and sinus: normal facial exam Resp Effort & Inspection: normal respiratory effort Cardio Rate: regular rate Pulses: radial pulses present on the left Back/Spine/Pelvis Cervical Spine: No cervical muscular tenderness and No cervical spinal tenderness Other: No specific. Cervical muscle tenderness. He states it is more of a deep nerve pain Neuro Other: Radiculopathy left arm. Extrem Other: Left shoulder and left arm unremarkable. Does have discomfort to the side of his neck. Course Orders Ordered: Discontinued Medications Hydromorphone HCl (Hydromorphone 1 Mg Inj) 1 mg IM NOW ONE Stop: 03/13/23 10:06 Prednisone (Prednisone 20 Mg Tablet) 20 mg PO NOW ONE Stop: 03/13/23 10:06 Vital Signs Vital signs: Vital Signs - 8 hr 03/13/23 08:57 03/13/23 09:10 03/13/23 09:11 Temperature 98.4 F Pulse Rate 124 H 122 H 120 H Respiratory Rate 20 Blood Pressure 180/103 H Pulse Oximetry 98 97 98 Oxygen Delivery Method Room Air 03/13/23 09:11 03/13/23 09:30 03/13/23 09:30 Temperature Pulse Rate 122 H Respiratory Rate Blood Pressure 171/98 H 177/95 H Pulse Oximetry 95 Oxygen Delivery Method MDM - Neck Pain/Injury MDM Narrative Medical decision making narrative: Patient is here with a flare of his baseline left-sided cervical neck pain with radiculopathy. No new injuries. No indication for radiologic studies. Patient was tachycardic but this is most likely because he is in pain. Plan will be is to put him on steroids for the next couple days. Also provide pain medication. He was instructed to continue to do the other conservative measures such as heat and ice. He was given return precautions. He expressed understanding ag reement with plan. Discharge Plan Departure Patient Disposition: Home Clinical Impression: Cervical radiculopathy Instructions: DI for Neck Pain Activity Restrictions/Additional Instructions: I do recommend that you take the steroids as directed. Also recommend that you continue with the Tylenol/Motrin and gabapentin. Use the pain medication as needed. Return to the emergency department for new or worsening symptoms. Prescriptions: New prednisone 20 mg tablet 20 mg PO DAILY Qty: 6 0RF hydrocodone-acetaminophen 5-325 mg tablet 1 tab PO Q8H PRN (Reason: pain) Qty: 10 0RF No Action aspirin 81 mg tablet,delayed release (DR/EC) 81 mg PO DAILY atorvastatin 40 mg tablet 40 mg PO BEDTIME Qty: 90 3RF alprazolam 0.5 mg tablet 0.5 mg PO BEDTIME PRN (Reason: sleep) Qty: 14 0RF bupropion HCl 150 mg tablet extended release 24 hr 150 mg PO BID Qty: 60 0RF gabapentin 600 mg tablet 600 mg PO TID Qty: 270 3RF sertraline 50 mg tablet 50 mg PO DAILY Qty: 90 3RF metoprolol tartrate 25 mg tablet 25 mg PO BID Qty: 180 3RF lidocaine [Lidoderm] 5 % adhesive patch,medicated 2 patch topical DAILY Qty: 30 0RF Rx Instructions: leave on most painful area for up to 12 hrs oxycodone-acetaminophen [Percocet] 5-325 mg tablet 2 tab PO Q6H PRN (Reason: pain) 7 Days Qty: 30 0RF Referrals: Joselito Almeida MD [Primary Care Provider] - Stand Alone Forms: Patient Portal/API
[2023-03-13] MEDS: predniSONE 20 MG TABLET PO (10:13)
[2023-03-13] MEDS: HYDROMORPHONE 1 MG INJ IM (10:14)
[2023-03-13 10:17] VITALS: BP 181/107; PULSE 117; PULSE 119; RESP 16; O2SAT 96
== END 2023-03-13 10:21 | disposition home or self-care (01) ==
PROVIDERS: Emergency Provider Emergency Medicine; PCP Student in an Organized Health Care Education/Training Program
DX: M54.12 Radiculopathy, cervical region (principal)
CPT/HCPCS: 96372; 99283; J1170

== ENCOUNTER 2023-06-15 07:55 | Emergency (ER) | payer OTHER, MEDICAID, SELFPAY ==
[2023-01-12 20:03] VITALS: BMI 33.9
[2023-06-15] VITALS (8 sets, daily range): BP systolic 120–177; BP diastolic 74–98; PULSE 61–79; RESP 10–21; TEMP 37.1; O2SAT 95–99; BMI 31.8
[2023-06-15 08:24] LABS: Add Manual Diff / Slide Review NO; Basophils Absolute Auto 0 /uL (0-100); Basophils Percent Auto 0.6 % (0-2); Eosinophils Absolute Auto 400 /uL (0-450); Eosinophils Percent Auto 4.5 % (2-4); Hematocrit 42.6 % (41-53); Hemoglobin 14.4 g/dL (13.5-17.5); Lymphocytes Absolute Auto 1200 /uL (1100-4500); Lymphocytes Percent Auto 14.4 % (25-40); Mean Corpuscular HGB Conc 33.7 % (30-36); Mean Corpuscular Hemoglobin 30.2 PG (26-34); Mean Corpuscular Volume 89.4 fL (80-100); Monocytes Absolute Auto 700 /uL (0-900); Neutrophils Absolute Auto 5900 /uL (1500-7000); Neutrophils Percent Auto 72.5 % (50-75); Platelet Count 217 X10^3/uL (150-400); Red Blood Cell Count 4.76 X10^6/uL (4.5-5.9); White Blood Cell Count 8.2 X10^3/uL (4.5-11.0)
--- NOTE | 2023-06-15 08:30 | ED_ITS ---
HPI - Abdominal Pain General Chief Complaint: Abdominal Pain Stated Complaint: sent by [facility], R/side upper ABD pain, panic attack Time Seen by Provider: 06/15/23 08:20 Source: patient Mode of arrival: Ambulatory Limitations: no limitations History of Present Illness HPI narrative: This a 52-year-old male with history of hypertension, type 2 diabetes, dyslipidemia chronic back pain, anxiety presents with complaint of anxiety, abdominal pain and complaint of chest pain last night. Patient states 5-6 weeks ago he had his 1st panic attack he states 2 days prior his dad had a massive stroke in his essentially a vegetable? 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 Patient states this has been a very stressful situation. He states he has had chronic abdominal stomach issues sort of epigastric where it is feels not an up often taken omeprazole as needed in his usually helpful. Patient states it has been coming more persistent. He also notes that he has some right upper quadrant pain. Patient states yesterday he had some chest pain. He states he is had chest pain in the past he is had workups including new med stress test approximately a month ago he states that that was negative. States usually in the left side he states this was little bit more substernal. He denies fevers or chills. He states he does get really anxious and feels sweaty. He will check his blood pressure can be quite high during these episodes. Will sometimes have nausea but not always. He has not had any vomiting. He denies any diarrhea or constipation. No black or bloody stools. No dysuria urgency or frequency. Patient states no new swelling of his extremities. He states that typically omeprazole has been helpful he also sometimes takes Pepto-Bismol. Does not take omeprazole every day. He also has been taking Ativan PRN and has been helpful but is hour. Patient's daily medications include atenolol, sertraline, gabapentin as needed, omeprazole he only takes when he has stomach pain and PRN Pepto-Bismol. States only surgeries have been back surgery for upper and lower back. States allergic to droperidol. He does smoke daily. Alcohol. No illicit. His primary care was Dr. Falk who has recently left, he is follow up appointment with Dr. San but not until September. He went to the walk-in clinic today but was referred here. Related Data Home Medications Medication Instructions Recorded Confirmed aspirin 81 mg tablet,delayed 81 mg PO DAILY 08/14/22 01/12/23 release Previous Rx's Medication Instructions Recorded metoprolol tartrate 25 mg tablet 25 mg PO BID #180 tabs 08/12/22 sertraline 50 mg tablet 50 mg PO DAILY #90 tabs 08/12/22 atorvastatin 40 mg tablet 40 mg PO BEDTIME #90 tabs 08/14/22 bupropion HCl 150 mg 24 hr tablet, 150 mg PO BID #60 tabs 09/22/22 extended release gabapentin 600 mg tablet 600 mg PO TID #270 tabs 09/22/22 lidocaine 5 % topical patch 2 patch topical DAILY #30 ea 11/14/22 (Lidoderm) oxycodone-acetaminophen 5 mg-325 2 tab PO Q6H PRN pain 7 days #30 01/13/23 mg tablet (Percocet) tabs hydrocodone 5 mg-acetaminophen 325 1 tab PO Q8H PRN pain #10 tabs 03/13/23 mg tablet prednisone 20 mg tablet 20 mg PO DAILY #6 tabs 03/13/23 albuterol sulfate 90 mcg/actuation 2 inh inhalation Q4-6H PRN 03/17/23 aerosol inhaler (ProAir HFA) shortness of breath #18 grams alprazolam 0.5 mg tablet 0.5 mg PO BEDTIME PRN sleep #14 05/31/23 tabs lorazepam 0.5 mg tablet (Ativan) 0.5 mg PO TID PRN anxiety #10 tabs 06/15/23 omeprazole 40 mg capsule,delayed 40 mg PO DAILY #60 caps 06/15/23 release Allergies Allergy/AdvReac Type Severity Reaction Status Date / Time droperidol [DROPERIDOL] Allergy Mild COGENIC Verified 06/15/23 08:10 REACTION Review of Systems Review of Systems ROS Unobtainable: All systems reviewed & are unremarkable except as noted in HPI and below Patient History Medical History ADD (attention deficit disorder) Asthma Cervical radiculopathy due to osteoarthritis of spine Coronary artery disease Depression Essential hypertension Generalized anxiety disorder with panic attacks Herniated intervertebral disc of lumbar spine Opiate addiction Pars defect of lumbar spine Peripheral neuropathy RLS (restless legs syndrome) Spinal stenosis of lumbar region with neurogenic claudication Spondylolisthesis of lumbar region Stenosis of artery Vitamin D deficiency Surgical History Hx of cervical discectomy (~2013) Family History Father Hypertension Hyperlipidemia Mother Diabetes mellitus Hyperlipidemia Hypertension Social History household members: family Smoking Status: Current every day smoker alcohol intake: never Smoking Status: Current every day smoker tobacco type: cigarettes alcohol intake frequency: a few times a month Substance Use Type: does not use Exam Narrative Exam Narrative: GENERAL: Alert and oriented x three, male in mild distress. No diaphoresis. HEENT: Head normocephalic, atraumatic, EOMI, pupils reactive, face symmetric, moist mucous membranes NECK: Supple, full range of motion CARDIOVASCULAR: Regular rate and rhythm without murmurs, rubs or gallops. RESPIRATORY: Breath sounds equal bilaterally, no wheezes rales or rhonchi. ABDOMEN: Soft, positive for right upper quadrant tenderness. Nontender thr oughout the rest of the abdomen. Nondistended. Normoactive bowel sounds all 4 quadrants. No guarding or rebound, rigidity, no mass : No CVA tenderness EXTREMITIES: Normal range of motion, no clubbing or edema. 2+ pulses bilateral lower extremities. Neurovascularly intact NEUROLOGICAL: Cranial nerves II through XII grossly intact. Moving all extremities SKIN: Warm, dry, no petechiae, no rashes or lesions. Initial Vital Signs Initial Vital Signs: Vital Signs Pulse Rate 77 06/15/23 08:02 Pulse Oximetry 99 06/15/23 08:02 Course Orders Ordered: ED Orders 06/15/23 08:15 Complete Blood Count AUTO DIFF Stat Comprehensive Metabolic Panel Stat Free T3, Triiodothyronine Free Stat Free T4, Direct Thyroxine Stat Lipase Stat TSH [Thyroid Stimulating Hormone] Stat Troponin & CK Cardiac Panel Stat 06/15/23 08:25 EKG-12 Lead Routine 06/15/23 08:42 Chest [XR chest 1V] Stat US abdomen limited Stat 06/15/23 08:43 Consult to [facility] - Gate Attendant Stat Ondansetron HCl (Ondansetron 4 Mg Odt) 4 mg PO NOW PRN PRN Reason: Nausea And Vomiting Ondansetron HCl (Ondansetron 4 Mg/2 Ml Inj) 4 mg IV NOW PRN PRN Reason: Nausea And Vomiting Last Admin: 06/15/23 08:52 Dose: 4 mg Documented By: YAHIR Discontinued Medications Lorazepam (Lorazepam 0.5 Mg Tablet) 1 mg PO NOW ONE Stop: 06/15/23 08:43 Last Admin: 06/15/23 08:52 Dose: 1 mg Documented By: YAHIR Pantoprazole Sodium (Pantoprazole 40 Mg Vial) 40 mg IV NOW ONE Stop: 06/15/23 08:43 Last Admin: 06/15/23 08:52 Dose: 40 mg Documented By: YAHIR Vital Signs Vital signs: Vital Signs - 8 hr 06/15/23 08:05 06/15/23 08:02 06/15/23 08:30 Temperature 98.8 F Pulse Rate 79 77 Respiratory Rate 20 Blood Pressure 177/98 H 144/91 H Pulse Oximetry 97 99 Oxygen Delivery Method Room Air 06/15/23 08:30 06/15/23 09:00 06/15/23 09:00 Temperature Pulse Rate 66 67 Respiratory Rate 10 L 21 Blood Pressure 129/78 Pulse Oximetry 97 98 Oxygen Delivery Method 06/15/23 09:30 06/15/23 09:30 06/15/23 10:00 Temperature Pulse Rate 61 Respiratory Rate 12 Blood Pressure 126/81 128/75 Pulse Oximetry 96 Oxygen Delivery Method 06/15/23 10:00 06/15/23 10:30 06/15/23 10:30 Temperature Pulse Rate 62 63 Respiratory Rate 12 19 Blood Pressure 128/83 Pulse Oximetry 95 97 Oxygen Delivery Method 06/15/23 11:00 06/15/23 11:00 Temperature Pulse Rate 63 Respiratory Rate 16 Blood Pressure 120/74 Pulse Oximetry 97 Oxygen Delivery Method MDM - Abdominal Pain Lab Data 06/15/23 08:15 06/15/23 08:15 Labs: Lab Results 06/15/23 06/15/23 06/15/23 Range/Units 08:15 08:15 08:15 WBC 8.2 (4.5-11.0) X10^3/uL RBC 4.76 (4.5-5.9) X10^6/uL Hgb 14.4 (13.5-17.5) g/dL Hct 42.6 (41-53) % MCV 89.4 (80-100) fL MCH 30.2 (26-34) PG MCHC 33.7 (30-36) % RDW 12.0 (11.6-14.8) % Plt Count 217 (150-400) X10^3/uL Neut % (Auto) 72.5 (50-75) % Lymph % (Auto) 14.4 L (25-40) % Power % (Auto) 8.0 (3-14) % Eos % (Auto) 4.5 H (2-4) % Baso % (Auto) 0.6 (0-2) % Neut # (Auto) 5900 (0511-7902) /uL Lymph # (Auto) 1200 (1745-2965) /uL Power # (Auto) 700 (0-900) /uL Eos # (Auto) 400 (0-450) /uL Baso # (Auto) 0 (0-100) /uL Sodium 136 L (137-145) mmol/L Potassium 4.6 (3.4-5.1) mmol/L Chloride 100 (98-107) mmol/L Carbon Dioxide 28 (22-32) mmol/L BUN 15 (9-20) mg/dL Creatinine 0.82 (0.66-1.25) mg/dL Estimated GFR > 60 (>60) mL/min BUN/Creatinine Ratio 18.3 (6-22) Glucose 170 H (70-100) mg/dL Calcium 9.4 (8.4-10.2) mg/dL Total Bilirubin 0.5 (0.2-1.3) mg/dL AST 38 (17-59) IU/L ALT 33 (<50) IU/L Alkaline Phosphatase 57 (38-126) U/L Total Creatine Kinase 254 H (55-170) U/L Troponin I < 0.012 (0.01-0.034) ng/mL Total Protein 7.6 (6.3-8.2) g/dL Albumin 4.6 (3.5-5.0) g/dL Globulin 3.0 (1.7-4.1) g/dL Albumin/Globulin Ratio 1.5 (1.0-2.8) Lipase 84 (23-300) U/L TSH (0.47-4.68) uIU/mL Free T4 (0.78-2.19) ng/dL Free T3 (2.77-5.27) pg/mL 06/15/23 06/15/23 Range/Units 08:15 08:15 WBC (4.5-11.0) X10^3/uL RBC (4.5-5.9) X10^6/uL Hgb (13.5-17.5) g/dL Hct (41-53) % MCV (80-100) fL MCH (26-34) PG MCHC (30-36) % RDW (11.6-14.8) % Plt Count (150-400) X10^3/uL Neut % (Auto) (50-75) % Lymph % (Auto) (25-40) % Power % (Auto) (3-14) % Eos % (Auto) (2-4) % Baso % (Auto) (0-2) % Neut # (Auto) (4985-8289) /uL Lymph # (Auto) (1053-7905) /uL Power # (Auto) (0-900) /uL Eos # (Auto) (0-450) /uL Baso # (Auto) (0-100) /uL Sodium (137-145) mmol/L Potassium (3.4-5.1) mmol/L Chloride (98-107) mmol/L Carbon Dioxide (22-32) mmol/L BUN (9-20) mg/dL Creatinine (0.66-1.25) mg/dL Estimated GFR (>60) mL/min BUN/Creatinine Ratio (6-22) Glucose (70-100) mg/dL Calcium (8.4-10.2) mg/dL Total Bilirubin (0.2-1.3) mg/dL AST (17-59) IU/L ALT (<50) IU/L Alkaline Phosphatase (38-126) U/L Total Creatine Kinase (55-170) U/L Troponin I (0.01-0.034) ng/mL Total Protein (6.3-8.2) g/dL Albumin (3.5-5.0) g/dL Globulin (1.7-4.1) g/dL Albumin/Globulin Ratio (1.0-2.8) Lipase (23-300) U/L TSH 0.032 L (0.47-4.68) uIU/mL Free T4 1.02 (0.78-2.19) ng/dL Free T3 4.81 (2.77-5.27) pg/mL Point of care testing: Urine Dip Bedside Urine Glucose Negative Bedside Urine Bilirubin - Negative Bedside Urine Ketone - Negative Urine Specific [place] 1.05 Bedside Urine Occult Blood - Negative Bedside Urine pH 6.0 Bedside Urine Protein - Negative Bedside Urine Urobilinogen - Negative Bedside Urine Nitrite - Negative Bedside Urine Leukocytes - Negative Esterase ECG Data Attestation: I personally reviewed and interpreted this ECG as follows: Interpretation: Sinus rhythm rate of 67 MS 142 QRS is 76 and QTC of 420. No acute ST elevation or depression. Prior from 01/12/2023 shows no change. [facility] Narrative Medical decision making narrative: This is a 52-year-old male who presents with complaint of anxiety, abdominal pain. Patient notes he had an episode of chest pain yesterday but none today. Patient is tender in his right upper quadrant. He is had longstanding epigastric/abdominal issues he takes omeprazole as needed which he finds helpful but not regularly. Suspect patient may have some gallbladder or ulcer issues. 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 Discussed with patient will do PLAN MANAGER referral for community resources, he is not having SI or other red flag symptoms. Plan for labs, chest x-ray, right upper quadrant ultrasound and EKG. EKG shows no acute change. CBC, CMP, lipase show a glucose of 170, CK of 254, negative troponin, TSH is 0.032, free T4 and T3 are more appropriately arranged. Patient's chest x-ray is negative, abdominal ultrasound shows no gallstones or evidence of acute cholecystitis there is some echogenic liver changes which were reviewed with patient are likely steatosis. Patient is feeling much improved here in the department. After discussion patient feels comfortable returning home. Patient and I discussed that would benefit him likely take omeprazole every single day and talk with his physician about getting an EGD or upper endoscopy for further evaluation of his chronic abdominal discomfort. Patient did have a short prescription for Ativan oral prescribed. Also discussed that he would benefit from being daily medication for. 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 We also discussed he can talk with his primary care physician about this or his mother's physician for referrals and resources. Discharge Plan Departure Patient Disposition: Home Clinical Impression: Abdominal pain, Anxiety Instructions: DI for Abdominal Pain-Adult Activity Restrictions/Additional Instructions: Follow-up with your physician for recheck. I would recommend discussing medications for anxiety for the long-term, assistance for caregiving as well as possibly EGD or further evaluation for possible ulcers. You may take omeprazole 40 mg daily. You can take Ativan 1 tablet every 8 hours as needed for anxiety. This medication can make you sleepy do not drive, perform hazardous activities or make any major decisions while taking it. This is a controlled substance. You will need to obtain future prescriptions from a primary care provider. [facility] [place] Please return if you have new or worsening symptoms, new chest pain, persistent or worsening abdominal back or flank pain, increasing shortness of breath, new swelling of her extremities, persistent nausea or vomiting, black or bloody stools or other new or concerning changes. Prescriptions: New omeprazole 40 mg capsule,delayed release(DR/EC) 40 mg PO DAILY Qty: 60 0RF lorazepam [Ativan] 0.5 mg tablet 0.5 mg PO TID PRN (Reason: anxiety) Qty: 10 0RF No Action aspirin 81 mg tablet,delayed release (DR/EC) 81 mg PO DAILY atorvastatin 40 mg tablet 40 mg PO BEDTIME Qty: 90 3RF ProAir HFA 90 mcg/actuation HFA aerosol inhaler 2 inh INHALATION Q4-6H PRN (Reason: shortness of breath) Qty: 18 11RF alprazolam 0.5 mg tablet 0.5 mg PO BEDTIME PRN (Reason: sleep) Qty: 14 0RF bupropion HCl 150 mg tablet extended release 24 hr 150 mg PO BID Qty: 60 0RF gabapentin 600 mg tablet 600 mg PO TID Qty: 270 3RF sertraline 50 mg tablet 50 mg PO DAILY Qty: 90 3RF metoprolol tartrate 25 mg tablet 25 mg PO BID Qty: 180 3RF prednisone 20 mg tablet 20 mg PO DAILY Qty: 6 0RF hydrocodone-acetaminophen 5-325 mg tablet 1 tab PO Q8H PRN (Reason: pain) Qty: 10 0RF lidocaine [Lidoderm] 5 % adhesive patch,medicated 2 patch topical DAILY Qty: 30 0RF Rx Instructions: leave on most painful area for up to 12 hrs oxycodone-acetaminophen [Percocet] 5-325 mg tablet 2 tab PO Q6H PRN (Reason: pain) 7 Days Qty: 30 0RF Referrals: Joselito Almeida MD [Primary Care Provider] - Thaddeus Varela DO [Physician] - Stand Alone Forms: Patient Portal/API
[2023-06-15 08:37] LABS: Alanine Aminotransferase 33 IU/L (<50); Albumin 4.6 g/dL (3.5-5.0); Albumin Globulin Ratio 1.5 (1.0-2.8); Alkaline Phosphatase 57 U/L (38-126); Aspartate Aminotransferase 38 IU/L (17-59); BUN Creatinine Ratio 18.3 (6-22); Bilirubin Total 0.5 mg/dL (0.2-1.3); Blood Urea Nitrogen 15 mg/dL (9-20); Calcium 9.4 mg/dL (8.4-10.2); Carbon Dioxide 28 mmol/L (22-32); Chloride 100 mmol/L (98-107); Estimated Glomerular Filt Rate > 60 mL/min (>60); Glucose 170 mg/dL (70-100); HEMOLYSIS < 15 (0-50); Lipase 84 U/L (23-300); Potassium 4.6 mmol/L (3.4-5.1); Sodium 136 mmol/L (137-145); Total Protein 7.6 g/dL (6.3-8.2)
--- NOTE | 2023-06-15 08:42 | DI.RAD.S_ITS ---
PROCEDURE: XR CHEST 1V INDICATIONS: chest pain yesterday, +RUQ pain TECHNIQUE: One view of the chest was acquired. COMPARISON: [facility], CR, XR CHEST 1V, 01/12/2023, 16:20. [facility], CR, XR CHEST 1V, 10/19/2022, 21:18. FINDINGS: Lungs and pleura: Lungs are clear. No pleural effusions or pneumothorax. Mediastinum: Mediastinal contours appear normal. Heart size is normal. Bones and chest wall: No suspicious bony lesions. Overlying soft tissues appear unremarkable. IMPRESSION: No acute cardiopulmonary abnormality. Dictated by: Seth Macedo M.D. on 06/15/2023 at 9:22 Approved by: Seth Macedo M.D. on 06/15/2023 at 9:24
--- NOTE | 2023-06-15 08:42 | DI.US.S_ITS ---
PROCEDURE: US ABDOMEN LIMITED INDICATIONS: RUQ pain TECHNIQUE: Real-time focused scanning was performed of the abdomen, with image documentation. COMPARISON: [facility], CT, CT ANGIO CHEST ABDOMEN PELVIS, 03/14/2021, 16:01. FINDINGS: Liver length of 15.5 cm. The liver is echogenic. No gallstones, gallbladder wall thickening, or sonographic Cruz sign. No biliary ductal dilation extrahepatic bile duct measures 3 mm. Visualized pancreas is unremarkable sonographically. IMPRESSION: 1. No cholelithiasis or evidence of acute cholecystitis. 2. The liver is echogenic, a nonspecific finding commonly seen in the setting of steatosis. Dictated by: Seth Macedo M.D. on 06/15/2023 at 9:58 Approved by: Seth Macedo M.D. on 06/15/2023 at 10:02
[2023-06-15 08:46] LABS: Creatine Kinase 254 U/L (55-170)
[2023-06-15] MEDS: LORazepam 0.5 MG TABLET 1 MG PO (08:52)
[2023-06-15] MEDS: PANTOPRAZOLE 40 MG VIAL IV (08:52)
[2023-06-15] MEDS: ONDANSETRON 4 MG/2 ML INJ IV (08:52)
[2023-06-15 08:57] LABS: Troponin I < 0.012 ng/mL (0.01-0.034)
[2023-06-15 09:32] LABS: Thyroid Stimulating Hormone 0.032 uIU/mL (0.47-4.68)
[2023-06-15 10:26] LABS: Free T3, Triiodothyronine Free 4.81 pg/mL (2.77-5.27); Free T4, Direct Thyroxine 1.02 ng/dL (0.78-2.19)
--- NOTE | 2023-06-16 13:23 | CM.SWNOTE ---
ED CLOCK AND WATCH HANDS DIPPER f/u Note CLOCK AND WATCH HANDS DIPPER calls patient regarding need for sooner PCP f/u appt. CLOCK AND WATCH HANDS DIPPER calls PCP clinic and schedules ED f/u with Dr. Chow for Wednesday06/21/23 @ 2:15pm check in. CLOCK AND WATCH HANDS DIPPER calls patient, patient indicates agreement and understanding. Plan: patient to f/u with PCP f/u next week. DEEJAY Gallardo
== END 2023-06-15 11:31 | disposition home or self-care (01) ==
PROVIDERS: Emergency Provider Emergency Medicine; PCP Student in an Organized Health Care Education/Training Program
DX: R10.11 Right upper quadrant pain (principal); F41.9 Anxiety disorder, unspecified; R07.9 Chest pain, unspecified
CPT/HCPCS: 36415; 71045; 76705; 80053; 81003; 82550; 83690; 84439; 84443; 84481; 84484; 85025; 93005; 93010; 96374; 96375; 99284; 99285; C9113; J2405

== ENCOUNTER → 2023-10-28 08:36 | Outpatient (CLI) | payer OTHER, SELFPAY ==
[2023-06-16 13:19] VITALS: BMI 33.9
== END ==
PROVIDERS: PCP Student in an Organized Health Care Education/Training Program; Referring Provider Family Medicine; Visit Provider Family Medicine
DX: R06.02 Shortness of breath (principal); F17.210 Nicotine dependence, cigarettes, uncomplicated
CPT/HCPCS: 94060; 94729

== ENCOUNTER 2023-12-07 15:25 | Emergency (ER) | payer OTHER, SELFPAY ==
[2023-06-16 13:19] VITALS: BMI 33.9
[2023-12-07] VITALS (9 sets, daily range): BP systolic 134–202; BP diastolic 66–98; PULSE 72–93; RESP 11–58; TEMP 36.6; O2SAT 94–98; BMI 33.2
--- NOTE | 2023-12-07 15:40 | DI.RAD.S_ITS ---
PROCEDURE: XR CHEST 1V INDICATIONS: chest pain TECHNIQUE: One view of the chest was acquired. COMPARISON: [facility], CR, XR CHEST 1V, 06/15/2023, 8:57. FINDINGS: Surgical changes and devices: Cervical fusion. Lungs and pleura: Lungs are clear. No pleural effusions or pneumothorax. Mediastinum: Mediastinal contours appear normal. Heart size is normal. Bones and chest wall: No suspicious bony lesions. Overlying soft tissues appear unremarkable. IMPRESSION: No acute cardiopulmonary abnormality is seen. Dictated by: Nahun Anguiano M.D. on 12/07/2023 at 16:11 Approved by: Nahun Anguiano M.D. on 12/07/2023 at 16:12
[2023-12-07 15:50] LABS: Add Manual Diff / Slide Review NO; Basophils Absolute Auto 0 /uL (0-100); Basophils Percent Auto 0.5 % (0-2); Eosinophils Absolute Auto 300 /uL (0-450); Eosinophils Percent Auto 3.6 % (2-4); Hematocrit 41.9 % (41-53); Hemoglobin 14.2 g/dL (13.5-17.5); Lymphocytes Absolute Auto 1300 /uL (1100-4500); Lymphocytes Percent Auto 15.5 % (25-40); Mean Corpuscular Hemoglobin 29.5 PG (26-34); Mean Corpuscular Volume 86.7 fL (80-100); Monocytes Absolute Auto 1000 /uL (0-900); Monocytes Percent Auto 12.4 % (3-14); Neutrophils Absolute Auto 5700 /uL (1500-7000); Platelet Count 226 X10^3/uL (150-400); Red Blood Cell Count 4.83 X10^6/uL (4.5-5.9); Red Cell Distribution Width 12.3 % (11.6-14.8); White Blood Cell Count 8.4 X10^3/uL (4.5-11.0)
[2023-12-07 15:59] LABS: INR 0.9 (0.9-1.3); Prothrombin Time 10.8 SECONDS (9.4-12.5)
[2023-12-07 16:02] LABS: PTT Partial Thromboplastin Tim 34 SECONDS (25.1-36.5)
[2023-12-07 16:06] LABS: Alanine Aminotransferase 40 IU/L (<50); Albumin 4.7 g/dL (3.5-5.0); Albumin Globulin Ratio 1.3 (1.0-2.8); Alkaline Phosphatase 60 U/L (38-126); Aspartate Aminotransferase 40 IU/L (17-59); Bilirubin Total 0.4 mg/dL (0.2-1.3); Blood Urea Nitrogen 21 mg/dL (9-20); Calcium 9.9 mg/dL (8.4-10.2); Carbon Dioxide 29 mmol/L (22-32); Chloride 100 mmol/L (98-107); Creatine Kinase 151 U/L (55-170); Estimated Glomerular Filt Rate > 60 mL/min (>60); Globulin 3.5 g/dL (1.7-4.1); Glucose 147 mg/dL (70-100); HEMOLYSIS < 15 (0-50); Lipase 45 U/L (23-300); Potassium 4.3 mmol/L (3.4-5.1); Sodium 139 mmol/L (137-145); Total Protein 8.2 g/dL (6.3-8.2)
[2023-12-07 16:15] LABS: NT-proBNP (BNP-Adult 18+) 969 pg/mL (<125)
[2023-12-07 16:17] LABS: Troponin I 0.022 ng/mL (0.01-0.034)
[2023-12-07 16:21] LABS: COVID19 -Nasal RAPID Negative (Negative)
[2023-12-07 17:44] LABS: Adenovirus Not Detected (Not Detect); B. parapertussis Not Detected (Not Detecte); Bordetella pertussis Not Detected (Not Detect); Chlamydophila pneumoniae Not Detected (Not Detect); Coronavirus 229E Not Detected (Not Detect); Coronavirus HKU1 Not Detected (Not Detect); Coronavirus NL 63 Not Detected (Not Detect); Coronavirus OC43 Not Detected (Not Detect); Human Metapneumovirus Not Detected (Not Detect); Human Rhinovirus/Enterovirus Not Detected (Not Detect); Influenza A Not Detected (Not Detect); Influenza B Not Detected (Not Detect); Mycoplasma pneumoniae Not Detected (Not Detect); Parainfluenza Virus 1 Not Detected (Not Detect); Parainfluenza Virus 2 Not Detected (Not Detect); Parainfluenza Virus 3 Not Detected (Not Detect); Parainfluenza Virus 4 Not Detected (Not Detect); Respiratory Syncytial Virus Detected (Not Detect); SARS- CoV-2 Not Detected (Not Detecte)
[2023-12-07 18:14] LABS: Troponin I 0.018 ng/mL (0.01-0.034)
--- NOTE | 2023-12-07 18:14 | ED_ITS ---
HPI - Chest Pain General Chief Complaint: Chest Pain Stated Complaint: chest pain, difficulty breathing Time Seen by Provider: 12/07/23 17:53 Source: patient Mode of arrival: Ambulatory History of Present Illness HPI narrative: 53-year-old male with history of coronary artery disease status post stents x2 at [facility] 6 days prior presents for approximately 2 days of shortness of breath when lying down flat. Denies chest pain. Denies leg swelling. States that he also has associated had cold symptoms, which she feels are exacerbating his symptoms. He was discharged on spironolactone, and reports compliance with his Brilinta. Related Data Home Medications Medication Instructions Recorded Confirmed aspirin 81 mg tablet,delayed 81 mg PO DAILY 08/14/22 09/13/23 release Previous Rx's Medication Instructions Recorded gabapentin 600 mg tablet 600 mg PO TID #270 tabs 09/22/22 lidocaine 5 % topical patch 2 patch topical DAILY #30 ea 11/14/22 (Lidoderm) albuterol sulfate 90 mcg/actuation 2 inh inhalation Q4-6H PRN 03/17/23 aerosol inhaler (ProAir HFA) shortness of breath #18 grams omeprazole 40 mg capsule,delayed 40 mg PO DAILY #60 caps 06/15/23 release metoprolol tartrate 50 mg tablet 50 mg PO BID hypertension #60 tabs 06/21/23 fluticasone 250 mcg-salmeterol 50 1 inh inhalation BID everyday for 07/20/23 mcg/dose blistr powdr for asthma control #60 ea inhalation (Advair Diskus) alprazolam 0.5 mg tablet 0.5 mg PO TID PRN anxiety or 09/13/23 insomnia #60 tabs atorvastatin 40 mg tablet (Lipitor) 40 mg PO DAILY cholesterol #90 tabs 09/13/23 hydroxyzine HCl 25 mg tablet 12.5 - 25 mg (0.5 - 1 x 25 mg) PO 09/13/23 QID PRN anxiety #90 tabs losartan 50 mg tablet 50 mg PO DAILY blood pressure #90 09/13/23 tabs metformin 500 mg tablet,extended 1,000 mg (2 x 500 mg) PO BID blood 09/13/23 release 24hr sugars #360 tabs sertraline 100 mg tablet 150 mg (1.5 x 100 mg) PO DAILY 09/13/23 depressive symptoms #135 tabs Allergies Allergy/AdvReac Type Severity Reaction Status Date / Time droperidol [DROPERIDOL] Allergy Mild COGENIC Verified 12/07/23 15:32 REACTION Review of Systems Review of Systems Narrative: Negative except as noted above Patient History Medical History Mixed hyperlipidemia Opiate addiction Generalized anxiety disorder with panic attacks Cervical radiculopathy due to osteoarthritis of spine Peripheral neuropathy Vitamin D deficiency ADD (attention deficit disorder) Depression Asthma RLS (restless legs syndrome) Stenosis of artery Spinal stenosis of lumbar region with neurogenic claudication Pars defect of lumbar spine Spondylolisthesis of lumbar region Coronary artery disease Essential hypertension Herniated intervertebral disc of lumbar spine Surgical History Hx of cervical discectomy (~2013) Family History Father Hypertension Hyperlipidemia Mother Diabetes mellitus Hyperlipidemia Hypertension Social History household members: family Smoking Status: Current every day smoker alcohol intake: never Smoking Status: Current every day smoker tobacco type: cigarettes alcohol intake frequency: a few times a month Substance Use Type: does not use Exam Initial Vital Signs Initial Vital Signs: Vital Signs Temperature 98 F 12/07/23 15:29 Pulse Rate 93 H 12/07/23 15:29 Respiratory Rate 18 12/07/23 15:29 Blood Pressure 202/98 H 12/07/23 15:29 Pulse Oximetry 96 12/07/23 15:29 Oxygen Delivery Method Room Air 12/07/23 15:29 Const: Awake, alert, no acute distress, nontoxic appearing Cardiac: regular rate, regular rhythm RESP: unlabored, clear bilaterally, no wheezing GI: Atraumatic, soft, nontender MSK: Atraumatic, full range of motion, pulses equal, no edema Skin: Warm, Dry, intact, no rashes Neuro: AO x3, CN II-XII grossly intact, moves all extremities Psych: affect normal, mood normal, not suicidal, not homicidal Course Orders Ordered: ED Orders 12/07/23 15:40 XR chest 1V Stat BNP [NT-proBNP (BNP-Adult 18+)] Stat COVID19 -Nasal RAPID Stat Complete Blood Count AUTO DIFF Stat Comprehensive Metabolic Panel Stat Lipase Stat Magnesium Stat PTT Partial Thromboplastin Bubba Stat Prothrombin Time INR Stat Troponin & CK Cardiac Panel Stat EKG-12 Lead Stat 12/07/23 16:30 Respiratory Panel (Film Array) Stat 12/07/23 17:45 Trop I [Troponin I] Stat EKG-12 Lead Stat Discontinued Medications Aspirin (Aspirin 81 Mg Chew Tab) 324 mg PO NOW ONE Stop: 12/07/23 15:41 Last Admin: 12/07/23 16:37 Dose: Not Given Documented By: RADHA Vital Signs Vital signs: Vital Signs - 8 hr 12/07/23 16:30 12/07/23 17:00 12/07/23 17:30 Pulse Rate 75 84 72 Respiratory Rate 20 58 H Blood Pressure Pulse Oximetry 95 97 95 Oxygen Delivery Method 12/07/23 17:58 12/07/23 17:58 12/07/23 18:00 Pulse Rate 76 74 Respiratory Rate 21 16 Blood Pressure 149/80 H Pulse Oximetry 96 97 Oxygen Delivery Method 12/07/23 18:00 12/07/23 18:57 Pulse Rate 89 Respiratory Rate 18 Blood Pressure 150/80 H 134/66 Pulse Oximetry 98 Oxygen Delivery Method Room Air MDM - Chest Pain Differential Diagnosis Differential diagnosis: Likely pneumothorax, stable angina, costochondritis and chest pain Lab Data 12/07/23 15:40 12/07/23 15:40 Labs: Lab Results 12/07/23 12/07/23 12/07/23 Range/Units 15:40 16:30 17:45 WBC 8.4 (4.5-11.0) X10^3/uL RBC 4.83 (4.5-5.9) X10^6/uL Hgb 14.2 (13.5-17.5) g/dL Hct 41.9 (41-53) % MCV 86.7 (80-100) fL MCH 29.5 (26-34) PG MCHC 34.0 (30-36) % RDW 12.3 (11.6-14.8) % Plt Count 226 (150-400) X10^3/uL Neut % (Auto) 68.0 (50-75) % Lymph % (Auto) 15.5 L (25-40) % [place] % (Auto) 12.4 (3-14) % Eos % (Auto) 3.6 (2-4) % Baso % (Auto) 0.5 (0-2) % Neut # (Auto) 5700 (5339-8362) /uL Lymph # (Auto) 1300 (2460-2683) /uL [place] # (Auto) 1000 H (0-900) /uL Eos # (Auto) 300 (0-450) /uL Baso # (Auto) 0 (0-100) /uL PT 10.8 (9.4-12.5) SECONDS INR 0.9 (0.9-1.3) APTT 34 (25.1-36.5) SECONDS Sodium 139 (137-145) mmol/L Potassium 4.3 (3.4-5.1) mmol/L Chloride 100 (98-107) mmol/L Carbon Dioxide 29 (22-32) mmol/L BUN 21 H (9-20) mg/dL Creatinine 1.00 (0.66-1.25) mg/dL Estimated GFR > 60 (>60) mL/min BUN/Creatinine Ratio 21.0 (6-22) Glucose 147 H (70-100) mg/dL Calcium 9.9 (8.4-10.2) mg/dL Magnesium 2.0 (1.6-2.3) mg/dL Total Bilirubin 0.4 (0.2-1.3) mg/dL AST 40 (17-59) IU/L ALT 40 (<50) IU/L Alkaline Phosphatase 60 (38-126) U/L Total Creatine Kinase 151 (55-170) U/L Troponin I 0.022 0.018 (0.01-0.034) ng/mL NT-Pro-B Natriuret Pep 969 H (<125) pg/mL Total Protein 8.2 (6.3-8.2) g/dL Albumin 4.7 (3.5-5.0) g/dL Globulin 3.5 (1.7-4.1) g/dL Albumin/Globulin Ratio 1.3 (1.0-2.8) Lipase 45 (23-300) U/L Chlamy pneumoniae PCR Not detected (Not Detect) Adenovirus (PCR) Not detected (Not Detect) B.parapertussis DNA PCR Not detected (Not Detecte) Coronavirus OC43 (PCR) Not detected (Not Detect) Coronavirus HKU1 (PCR) Not detected (Not Detect) Coronavirus 229E (PCR) Not detected (Not Detect) SARS-CoV-2 (PCR) Negative Not detected (Negative) Coronavirus NL63 (PCR) Not detected (Not Detect) Human Metapneumovir PCR Not detected (Not Detect) Influenza Type A (PCR) Not detected (Not Detect) Influenza Type B (PCR) Not detected (Not Detect) M. pneumoniae (PCR) Not detected (Not Detect) Parainfluenza 1 (PCR) Not detected (Not Detect) Parainfluenza 2 (PCR) Not detected (Not Detect) Parainfluenza 3 (PCR) Not detected (Not Detect) Parainfluenza 4 (PCR) Not detected (Not Detect) RSV (PCR) Detected H (Not Detect) Entero/Rhino (PCR) Not detected (Not Detect) ECG Data Interpretation: Normal sinus rhythm rate 84bpm. T wave inversions V2, V3, no STEMI, normal NV MDM Narrative Medical decision making narrative: Patient presenting for several days of shortness of breath when lying down flat. Does not appear to be clinically volume overloaded, speaking in complete sentences without dyspnea, saturating well on room air. Recent stent placement and T-wave inversions in V2 and V3, however patient denied chest pain since his stent placement 6 days prior. Laboratory work is significant for negative troponin x2, patient initially hypertensive however this decreased without intervention. Patient remains hemodynamically stable on room air and has never needed supplemental oxygen. Chest x-ray shows no acute cardiopulmonary abnormality. BNP is elevated at 969, but again patient does not appear to be volume overloaded clinically or on chest x-ray. Patient tested positive for RSV on viral swab. Patient counseled of all lab and imaging findings. 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 Supportive care measures for viral syndrome counseled at home. Discharge Plan Departure Patient Disposition: Home Clinical Impression: Respiratory syncytial virus (RSV), Orthopnea Instructions: DI for Respiratory Syncytial Virus -- Adults, DI for Shortness of Breath Activity Restrictions/Additional Instructions: Try taking an extra dose of your water pill over the next 2-3 days to see if that helps your shortness of breath. Your labs/chest X ray were otherwise normal today. 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 if tolerated and effective but not sufficient to get average systolic (top) blood pressure under 160, then increase to 50mg twice daily for 100mg total daily. sertraline 100 mg tablet 150 mg PO DAILY Qty: 135 3RF metformin 500 mg tablet extended release 24hr 1,000 mg PO BID Qty: 360 3RF losartan 50 mg tablet 50 mg PO DAILY Qty: 90 3RF hydroxyzine HCl 25 mg tablet 12.5 - 25 mg PO QID PRN (Reason: anxiety) Qty: 90 11RF alprazolam 0.5 mg tablet 0.5 mg PO TID PRN (Reason: anxiety or insomnia) Qty: 60 0RF atorvastatin [Lipitor] 40 mg tablet 40 mg PO DAILY Qty: 90 3RF fluticasone propion-salmeterol [Advair Diskus] 250-50 mcg/dose blister with device 1 inh inhalation BID Qty: 60 3RF lidocaine [Lidoderm] 5 % adhesive patch,medicated 2 patch topical DAILY Qty: 30 0RF Rx Instructions: leave on most painful area for up to 12 hrs omeprazole 40 mg capsule,delayed release(DR/EC) 40 mg PO DAILY Qty: 60 0RF Referrals: Thaddeus Varela DO [Primary Care Provider] - Stand Alone Forms: Patient Portal/API, Work Release Note
[2023-12-08 12:06] LABS: Cholesterol 186 mg/dL (140-199); HDL Cholesterol 39 mg/dL (40-60); LDL Cholesterol Calculated 91 mg/dL (<100); Triglycerides 281 mg/dL (35-150)
[2023-12-08 12:08] LABS: Hemoglobin A1C% w Est Avg Glu 6.5 % (4.0-6.0)
== END 2023-12-07 19:00 | disposition home or self-care (01) ==
PROVIDERS: Emergency Medicine; Emergency Provider Emergency Medicine; PCP Family Medicine
DX: B33.8 Other specified viral diseases (principal); R06.01 Orthopnea; R07.9 Chest pain, unspecified; Z20.822 Contact with and (suspected) exposure to COVID-19; E11.9 Type 2 diabetes mellitus without complications; E78.2 Mixed hyperlipidemia
CPT/HCPCS: 36415; 71045; 80053; 80061; 82550; 83036; 83690; 83735; 83880; 84484; 85025; 85610; 85730; 87633; 87635; 93005; 99283; 99284

== ENCOUNTER 2023-12-28 10:52 | Emergency (ER) | payer OTHER, SELFPAY ==
[2023-06-16 13:19] VITALS: BMI 33.9
[2023-12-28] VITALS (8 sets, daily range): BP systolic 127–174; BP diastolic 69–97; PULSE 74–95; RESP 13–33; TEMP 36.4; O2SAT 94–97; BMI 33.9
--- NOTE | 2023-12-28 10:55 | DI.RAD.S_ITS ---
PROCEDURE: XR CHEST 1V INDICATIONS: chest pain TECHNIQUE: One view of the chest was acquired. COMPARISON: [facility], CR, XR CHEST 1V, 12/07/2023, 15:40. [facility], CR, XR CHEST 1V, 06/15/2023, 8:57. FINDINGS: Surgical changes and devices: Partially visualized ACDF hardware. Lungs and pleura: Lungs are clear. No pleural effusions or pneumothorax. Mediastinum: Mediastinal contours appear normal. Heart size is normal. Bones and chest wall: No suspicious bony lesions. Overlying soft tissues appear unremarkable. IMPRESSION: No acute cardiopulmonary abnormality is seen. Dictated by: Julien Muñoz M.D. on 12/28/2023 at 11:31 Approved by: Julien Muñoz M.D. on 12/28/2023 at 11:31
[2023-12-28 11:26] LABS: Add Manual Diff / Slide Review NO; Basophils Absolute Auto 100 /uL (0-100); Basophils Percent Auto 0.6 % (0-2); Eosinophils Absolute Auto 300 /uL (0-450); Eosinophils Percent Auto 3.5 % (2-4); Hematocrit 42.6 % (41-53); Hemoglobin 14.4 g/dL (13.5-17.5); Lymphocytes Absolute Auto 1500 /uL (1100-4500); Mean Corpuscular HGB Conc 33.8 % (30-36); Mean Corpuscular Hemoglobin 29.2 PG (26-34); Mean Corpuscular Volume 86.4 fL (80-100); Monocytes Absolute Auto 700 /uL (0-900); Monocytes Percent Auto 7.4 % (3-14); Neutrophils Absolute Auto 6900 /uL (1500-7000); Neutrophils Percent Auto 72.5 % (50-75); Platelet Count 344 X10^3/uL (150-400); Red Blood Cell Count 4.93 X10^6/uL (4.5-5.9); Red Cell Distribution Width 12.8 % (11.6-14.8); White Blood Cell Count 9.5 X10^3/uL (4.5-11.0)
[2023-12-28 11:32] LABS: Prothrombin Time 11.2 SECONDS (9.4-12.5)
[2023-12-28 11:36] LABS: PTT Partial Thromboplastin Tim 34 SECONDS (25.1-36.5)
[2023-12-28 11:40] LABS: Alanine Aminotransferase 30 IU/L (<50); Albumin 4.6 g/dL (3.5-5.0); Albumin Globulin Ratio 1.1 (1.0-2.8); Alkaline Phosphatase 67 U/L (38-126); Aspartate Aminotransferase 36 IU/L (17-59); BUN Creatinine Ratio 25.9 (6-22); Bilirubin Total 0.5 mg/dL (0.2-1.3); Blood Urea Nitrogen 21 mg/dL (9-20); Calcium 9.9 mg/dL (8.4-10.2); Carbon Dioxide 26 mmol/L (22-32); Chloride 101 mmol/L (98-107); Creatine Kinase 147 U/L (55-170); Estimated Glomerular Filt Rate > 60 mL/min (>60); Globulin 4.1 g/dL (1.7-4.1); Glucose 175 mg/dL (70-100); HEMOLYSIS < 15 (0-50); Lipase 64 U/L (23-300); Magnesium 1.9 mg/dL (1.6-2.3); Potassium 4.2 mmol/L (3.4-5.1); Sodium 137 mmol/L (137-145); Total Protein 8.7 g/dL (6.3-8.2)
[2023-12-28 11:49] LABS: Troponin I < 0.012 ng/mL (0.01-0.034)
--- NOTE | 2023-12-28 12:11 | ED_ITS ---
HPI - Chest Pain General Chief Complaint: Chest Pain Stated Complaint: chest pains Time Seen by Provider: 12/28/23 12:11 Source: patient Mode of arrival: Ambulatory Limitations: no limitations History of Present Illness HPI narrative: 53-year-old male with known cardiac disease recent cardiac stent a month ago at [facility], hypertension, dyslipidemia, CHF on aspirin and Brilinta. Patient presents with complaint of chest pressure states left sided radiating to the middle. He states it lasted starting at 6:00 a.m. in the morning for about 3 hours. He states it usually goes away fairly quickly he has had some episodes post surgery. He states nitro has never been helpful. He states no shortness of breath, no diaphoresis no fevers or chills no cold cough or congestion. He is just recently improving from RSV was diagnosed on the 07 of December. No nausea no vomiting no issues with bowel movements no swelling of extremities. Notes onychomycotic toenail that is little bit tender but denies any other issues. Patient did have a follow up with Cardiology recently which went well. He continues to take his medications regularly. He does continue to smoke tobacco daily, no regular alcohol or recreational drugs. States besides cardiac stents has had upper and lower spinal surgery. Allergic to droperidol. Dr. Varela is his primary care physician and he follows with [facility] cardiology. Related Data Home Medications Medication Instructions Recorded Confirmed aspirin 81 mg tablet,delayed 81 mg PO DAILY 08/14/22 09/13/23 release Previous Rx's Medication Instructions Recorded gabapentin 600 mg tablet 600 mg PO TID #270 tabs 09/22/22 lidocaine 5 % topical patch 2 patch topical DAILY #30 ea 11/14/22 (Lidoderm) albuterol sulfate 90 mcg/actuation 2 inh inhalation Q4-6H PRN 03/17/23 aerosol inhaler (ProAir HFA) shortness of breath #18 grams omeprazole 40 mg capsule,delayed 40 mg PO DAILY #60 caps 06/15/23 release metoprolol tartrate 50 mg tablet 50 mg PO BID hypertension #60 tabs 06/21/23 fluticasone 250 mcg-salmeterol 50 1 inh inhalation BID everyday for 07/20/23 mcg/dose blistr powdr for asthma control #60 ea inhalation (Advair Diskus) alprazolam 0.5 mg tablet 0.5 mg PO TID PRN anxiety or 09/13/23 insomnia #60 tabs atorvastatin 40 mg tablet (Lipitor) 40 mg PO DAILY cholesterol #90 tabs 09/13/23 hydroxyzine HCl 25 mg tablet 12.5 - 25 mg (0.5 - 1 x 25 mg) PO 09/13/23 QID PRN anxiety #90 tabs losartan 50 mg tablet 50 mg PO DAILY blood pressure #90 09/13/23 tabs metformin 500 mg tablet,extended 1,000 mg (2 x 500 mg) PO BID blood 09/13/23 release 24hr sugars #360 tabs sertraline 100 mg tablet 150 mg (1.5 x 100 mg) PO DAILY 09/13/23 depressive symptoms #135 tabs Allergies Allergy/AdvReac Type Severity Reaction Status Date / Time droperidol [DROPERIDOL] Allergy Mild COGENIC Verified 12/28/23 11:01 REACTION Review of Systems Review of Systems ROS Unobtainable: All systems reviewed & are unremarkable except as noted in HPI and below Patient History Medical History Mixed hyperlipidemia Opiate addiction Generalized anxiety disorder with panic attacks Cervical radiculopathy due to osteoarthritis of spine Peripheral neuropathy Vitamin D deficiency ADD (attention deficit disorder) Depression Asthma RLS (restless legs syndrome) Stenosis of artery Spinal stenosis of lumbar region with neurogenic claudication Pars defect of lumbar spine Spondylolisthesis of lumbar region Coronary artery disease Essential hypertension Herniated intervertebral disc of lumbar spine Surgical History Hx of cervical discectomy (~2013) Family History Father Hypertension Hyperlipidemia Mother Diabetes mellitus Hyperlipidemia Hypertension Social History household members: family Smoking Status: Current every day smoker alcohol intake: never Smoking Status: Current every day smoker tobacco type: cigarettes alcohol intake frequency: a few times a month Substance Use Type: does not use Exam Narrative Exam Narrative: GENERAL: Alert and oriented x three, well-appearing male in no acute distress. HEENT: Head normocephalic, atraumatic, EOMI, pupils reactive, face symmetric, moist mucous membranes NECK: Supple, full range of motion CARDIOVASCULAR: Regular rate and rhythm without murmurs, rubs or gallops. No JVD. No swelling bilateral lower extremities. RESPIRATORY: Breath sounds equal bilaterally, no wheezes rales or rhonchi. ABDOMEN: Soft, nontender. Normoactive bowel sounds all 4 quadrants. No guarding or rebound, rigidity, no mass : No CVA tenderness EXTREMITIES: Normal range of motion, no clubbing or edema. Neurovascularly intact NEUROLOGICAL: Cranial nerves II through XII grossly intact. Moving all extremities SKIN: Warm, dry, no petechiae, no rashes or lesions. Initial Vital Signs Initial Vital Signs: Vital Signs Temperature 97.6 F 12/28/23 11:02 Pulse Rate 91 H 12/28/23 11:02 Respiratory Rate 18 12/28/23 11:02 Blood Pressure 174/97 H 12/28/23 11:02 Pulse Oximetry 97 12/28/23 11:02 Oxygen Delivery Method Room Air 12/28/23 11:02 Course Orders Ordered: ED Orders 12/28/23 10:55 XR chest 1V Stat EKG-12 Lead Stat 12/28/23 11:06 Complete Blood Count AUTO DIFF Stat Comprehensive Metabolic Panel Stat Lipase Stat Magnesium Stat PTT Partial Thromboplastin Bubba Stat Prothrombin Time INR Stat Troponin & CK Cardiac Panel Stat 12/28/23 13:02 Trop I [Troponin I] Stat 12/28/23 13:10 EKG-12 Lead Routine Vital Signs Vital signs: Vital Signs - 8 hr 12/28/23 11:02 12/28/23 12:50 12/28/23 12:51 Temperature 97.6 F Pulse Rate 91 H 88 79 Respiratory Rate 18 33 H 27 H Blood Pressure 174/97 H Pulse Oximetry 97 96 96 Oxygen Delivery Method Room Air 12/28/23 12:52 12/28/23 12:52 12/28/23 13:00 Temperature Pulse Rate 77 Respiratory Rate 18 Blood Pressure 147/74 H 143/69 H Pulse Oximetry 96 Oxygen Delivery Method 12/28/23 13:00 12/28/23 13:30 12/28/23 13:30 Temperature Pulse Rate 74 80 Respiratory Rate 18 19 Blood Pressure 138/72 Pulse Oximetry 95 96 Oxygen Delivery Method 12/28/23 14:00 12/28/23 14:00 12/28/23 14:30 Temperature Pulse Rate 95 H Respiratory Rate 13 Blood Pressure 137/80 127/78 Pulse Oximetry 94 Oxygen Delivery Method 12/28/23 14:30 Temperature Pulse Rate 74 Respiratory Rate 20 Blood Pressure Pulse Oximetry 95 Oxygen Delivery Method MDM - Chest Pain Lab Data 12/28/23 11:06 12/28/23 11:06 Labs: Lab Results 12/28/23 12/28/23 Range/Units 11:06 13:02 WBC 9.5 (4.5-11.0) X10^3/uL RBC 4.93 (4.5-5.9) X10^6/uL Hgb 14.4 (13.5-17.5) g/dL Hct 42.6 (41-53) % MCV 86.4 (80-100) fL MCH 29.2 (26-34) PG MCHC 33.8 (30-36) % RDW 12.8 (11.6-14.8) % Plt Count 344 (150-400) X10^3/uL Neut % (Auto) 72.5 (50-75) % Lymph % (Auto) 16.0 L (25-40) % [place] % (Auto) 7.4 (3-14) % Eos % (Auto) 3.5 (2-4) % Baso % (Auto) 0.6 (0-2) % Neut # (Auto) 6900 (5322-3239) /uL Lymph # (Auto) 1500 (1575-8902) /uL [place] # (Auto) 700 (0-900) /uL Eos # (Auto) 300 (0-450) /uL Baso # (Auto) 100 (0-100) /uL PT 11.2 (9.4-12.5) SECONDS INR 1.0 (0.9-1.3) APTT 34 (25.1-36.5) SECONDS Sodium 137 (137-145) mmol/L Potassium 4.2 (3.4-5.1) mmol/L Chloride 101 (98-107) mmol/L Carbon Dioxide 26 (22-32) mmol/L BUN 21 H (9-20) mg/dL Creatinine 0.81 (0.66-1.25) mg/dL Estimated GFR > 60 (>60) mL/min BUN/Creatinine Ratio 25.9 H (6-22) Glucose 175 H (70-100) mg/dL Calcium 9.9 (8.4-10.2) mg/dL Magnesium 1.9 (1.6-2.3) mg/dL Total Bilirubin 0.5 (0.2-1.3) mg/dL AST 36 (17-59) IU/L ALT 30 (<50) IU/L Alkaline Phosphatase 67 (38-126) U/L Total Creatine Kinase 147 (55-170) U/L Troponin I < 0.012 < 0.012 (0.01-0.034) ng/mL Total Protein 8.7 H (6.3-8.2) g/dL Albumin 4.6 (3.5-5.0) g/dL Globulin 4.1 (1.7-4.1) g/dL Albumin/Globulin Ratio 1.1 (1.0-2.8) Lipase 64 (23-300) U/L Imaging Data Chest x-ray: Radiologist's Impression: Ori Hendrickson II (Сергей) ([facility])? 53? M? 1970 ? ?? Allergy/Adv: [place] [address] XRay Report? Signed Patient: Ori Hendrickson II MR#: [id number] : 1970 Acct:[id number] Age/Sex: 53 / M Date of Service: 12/28/23 Loc: ED Accession Number: [id number]? ? Procedure: XR chest 1V Ordering Provider: Arpita Adler D.O. PROCEDURE:? XR CHEST 1V ? INDICATIONS:? chest pain ? TECHNIQUE:? One view of the chest was acquired.?? ? COMPARISON:? [facility], CR, XR CHEST 1V, 12/07/2023, 15:40.? [facility], CR, XR? CHEST 1V, 06/15/2023, 8:57. ? FINDINGS:?? ? Surgical changes and devices:? Partially visualized ACDF hardware.?? ? Lungs and pleura:? Lungs are clear.? No pleural effusions or pneumothorax.?? ? Mediastinum:? Mediastinal contours appear normal.? Heart size is normal.?? ? Bones and chest wall:? No suspicious bony lesions.? Overlying soft tissues appear? unremarkable.? IMPRESSION:?? ? No acute cardiopulmonary abnormality is seen.? Dictated by: Julien Muñoz M.D. on 12/28/2023 at 11:31? ? ? Approved by: Julien Muñoz M.D. on 12/28/2023 at 11:31?? ECG Data Attestation: I personally reviewed and interpreted this ECG as follows: Prior ECG tracings: available for review Interpretation: Sinus rhythm rate of 90 UT 136 QRS is 72 QTC of 433. No acute ST elevation depression noted patient has what appears prior septal infarct. Prior from 12/07/2023 appears similar. EKG 2. Shows sinus rhythm rate of 75 UT 134 QRS is 78 QTC 448. No acute or dynamic changes appears similar to earlier EKG from today and 12/07/2023. MDM Narrative Medical decision making narrative: 53-year-old male with known cardiac disease with complaint of chest pain that he states did not resolve so he came in. He has had some episodes. He did have recent cardiac catheterization and stents about a month ago. Is continuing to take his daily medications including aspirin and Brilinta, beta-meri and statin, he does continue to use tobacco. CBC is negative, coags are negative, CMP shows BUN 21 glucose of 175- LFTs negative troponin. Chest x-ray is negative. EKG shows no acute or dynamic changes. Discussed with patient he does not want any narcotics for his chest pain secondary to needing to drive. He also politely refuses nitrates as he states they have not been helpful in the past. He states symptoms have improved. Discharge Plan Departure Patient Disposition: Home Clinical Impression: Chest pain Activity Restrictions/Additional Instructions: Follow up with your cardiology team for recheck. Please return for new or worsening symptoms, new or worsening chest pain, increasing shortness of breath, sweatiness, lightheadedness or passing out, new swelling of your extremities or other new or concerning changes. Prescriptions: No Action aspirin 81 mg tablet,delayed release (DR/EC) 81 mg PO DAILY ProAir HFA 90 mcg/actuation HFA aerosol inhaler 2 inh INHALATION Q4-6H PRN (Reason: shortness of breath) Qty: 18 11RF gabapentin 600 mg tablet 600 mg PO TID Qty: 270 3RF metoprolol tartrate 50 mg tablet 50 mg PO BID Qty: 60 2RF Rx Instructions: increase current 25mg twice daily to 50mg in morning and 25mg in evening. if tolerated and effective but not sufficient to get average systolic (top) blood pressure under 160, then increase to 50mg twice daily for 100mg total daily. sertraline 100 mg tablet 150 mg PO DAILY Qty: 135 3RF metformin 500 mg tablet extended release 24hr 1,000 mg PO BID Qty: 360 3RF losartan 50 mg tablet 50 mg PO DAILY Qty: 90 3RF hydroxyzine HCl 25 mg tablet 12.5 - 25 mg PO QID PRN (Reason: anxiety) Qty: 90 11RF alprazolam 0.5 mg tablet 0.5 mg PO TID PRN (Reason: anxiety or insomnia) Qty: 60 0RF atorvastatin [Lipitor] 40 mg tablet 40 mg PO DAILY Qty: 90 3RF fluticasone propion-salmeterol [Advair Diskus] 250-50 mcg/dose blister with device 1 inh inhalation BID Qty: 60 3RF lidocaine [Lidoderm] 5 % adhesive patch,medicated 2 patch topical DAILY Qty: 30 0RF Rx Instructions: leave on most painful area for up to 12 hrs omeprazole 40 mg capsule,delayed release(DR/EC) 40 mg PO DAILY Qty: 60 0RF Referrals: Thaddeus Varela DO [Primary Care Provider] - Stand Alone Forms: Patient Portal/API
[2023-12-28 13:35] LABS: Troponin I < 0.012 ng/mL (0.01-0.034)
== END 2023-12-28 14:49 | disposition home or self-care (01) ==
PROVIDERS: Emergency Provider Emergency Medicine; PCP Family Medicine
DX: R07.9 Chest pain, unspecified (principal); I25.10 Atherosclerotic heart disease of native coronary artery without angina pectoris; Z95.5 Presence of coronary angioplasty implant and graft; F17.210 Nicotine dependence, cigarettes, uncomplicated; I10 Essential (primary) hypertension
CPT/HCPCS: 36415; 71045; 80053; 82550; 83690; 83735; 84484; 85025; 85610; 85730; 93005; 99284

== ENCOUNTER 2024-03-23 08:17 | Observation (INO) | payer OTHER, SELFPAY ==
[2023-06-16 13:19] VITALS: BMI 33.9
[2024-03-23] VITALS (43 sets, daily range): BP systolic 106–179; BP diastolic 47–83; PULSE 64–92; RESP 10–27; TEMP 37–37.2; O2SAT 93–98; BMI 34.2
--- NOTE | 2024-03-23 08:27 | DI.RAD.S_ITS ---
PROCEDURE: XR CHEST 1V INDICATIONS: chest pain TECHNIQUE: One view of the chest was acquired. COMPARISON: [facility], CR, XR CHEST 1V, 12/28/2023, 11:10. FINDINGS: Surgical changes and devices: None. Lungs and pleura: Lungs are clear. No pleural effusions or pneumothorax. Mediastinum: Mediastinal contours appear normal. Heart size is normal. Bones and chest wall: No suspicious bony lesions. Overlying soft tissues appear unremarkable. IMPRESSION: No acute cardiopulmonary abnormality is seen. Dictated by: Matthew Reyes M.D. on 03/23/2024 at 9:18 Approved by: Matthew Reyes M.D. on 03/23/2024 at 9:19
--- NOTE | 2024-03-23 08:30 | ED_ITS ---
HPI - Chest Pain General Chief Complaint: Chest Pain Stated Complaint: CHEST PAIN, DIFF BREATHING T-3 Time Seen by Provider: 03/23/24 08:19 Source: patient Mode of arrival: Ambulatory Limitations: no limitations History of Present Illness HPI narrative: Patient is a 53-year-old male history of coronary artery disease with stent placed presenting today 3 days of chest pain. He does report increased shortness of breath and orthopnea. He says usually he gets chest pain that comes and goes this seems to be fairly constant. It has not reproducible with movement or palpation. He describes chest pain as heaviness. He reports that nitroglycerin typically does not work for him. He also reports that he thinks he may have had a panic attack this morning. Definitely having shortness of breath with exertion no fever chills or cough. Denies any lower extremity swelling. Related Data Home Medications Medication Instructions Recorded Confirmed aspirin 81 mg tablet,delayed 81 mg PO DAILY 08/14/22 03/23/24 release nicotine 14 mg/24 hr daily 1 patch topical DAILY 01/12/24 03/23/24 transdermal patch spironolactone 25 mg tablet 25 mg PO DAILY 01/12/24 03/23/24 ticagrelor 90 mg tablet (Brilinta) 90 mg PO BID 01/12/24 03/23/24 methadone 55 mg PO DAILY 03/23/24 03/23/24 Previous Rx's Medication Instructions Recorded gabapentin 600 mg tablet 600 mg PO TID #270 tabs 09/22/22 lidocaine 5 % topical patch 2 patch topical DAILY #30 ea 11/14/22 (Lidoderm) albuterol sulfate 90 mcg/actuation 2 inh inhalation Q4-6H PRN 03/17/23 aerosol inhaler (ProAir HFA) shortness of breath #18 grams metoprolol tartrate 50 mg tablet 50 mg PO BID hypertension #60 tabs 06/21/23 metformin 500 mg tablet,extended 1,000 mg (2 x 500 mg) PO BID blood 09/13/23 release 24hr (osmotic) sugars #360 tabs sertraline 100 mg tablet 150 mg (1.5 x 100 mg) PO DAILY 09/13/23 depressive symptoms #135 tabs alprazolam 0.5 mg tablet 0.5 mg PO TID PRN anxiety or 01/12/24 insomnia #60 tabs losartan 100 mg tablet 100 mg PO DAILY blood pressure #90 01/12/24 tabs Allergies Allergy/AdvReac Type Severity Reaction Status Date / Time droperidol [DROPERIDOL] Allergy Mild COGENIC Verified 03/23/24 08:30 REACTION Patient History Medical History Type 2 diabetes mellitus with diabetic peripheral angiopathy without gangrene, without long-term current use of insulin CHERRY (generalized anxiety disorder) Presence of stent in coronary artery in patient with coronary artery disease Mixed hyperlipidemia Opiate addiction Generalized anxiety disorder with panic attacks Cervical radiculopathy due to osteoarthritis of spine Peripheral neuropathy Vitamin D deficiency ADD (attention deficit disorder) Depression Asthma RLS (restless legs syndrome) Stenosis of artery Spinal stenosis of lumbar region with neurogenic claudication Pars defect of lumbar spine Spondylolisthesis of lumbar region Coronary artery disease Essential hypertension Herniated intervertebral disc of lumbar spine Surgical History Hx of cervical discectomy (~2013) Family History Father Hypertension Hyperlipidemia Mother Diabetes mellitus Hyperlipidemia Hypertension Social History household members: family Smoking Status: Current every day smoker alcohol intake: current Smoking Status: Current every day smoker tobacco type: cigarettes alcohol intake frequency: a few times a month Substance Use Type: former substance user Exam Initial Vital Signs Initial Vital Signs: Vital Signs Pulse Rate 92 H 03/23/24 08:21 Respiratory Rate 18 03/23/24 08:21 Pulse Oximetry 98 03/23/24 08:21 GENERAL: Alert pleasant 53-year-old male and in no acute distress. HEENT: Head atraumatic,EOMI, pupils reactive, face symmetric, moist mucous membranes CARDIOVASCULAR: Regular rate and rhythm without murmurs, rubs or gallops. RESPIRATORY: Breath sounds equal bilaterally, no wheezes rales or rhonchi. ABDOMEN: Soft, nontender. Normoactive bowel sounds all 4 quadrants. No guarding or rebound. : No CVA tenderness EXTREMITIES: Normal range of motion, no clubbing or edema. Neurovascularly intact NEUROLOGICAL: Alert and oriented x4.Normal gait and speech. SKIN: Warm, dry, no laceration, no petechiae, no rashes or lesions. Course Orders Ordered: ED Orders 03/23/24 08:27 XR chest 1V Stat Complete Blood Count AUTO DIFF Stat Comprehensive Metabolic Panel Stat D Dimer Stat Lipase Stat NT-proBNP (BNP-Adult 18+) Stat PTT Partial Thromboplastin Bubba Stat Prothrombin Time INR Stat Troponin & CK Cardiac Panel Stat EKG-12 Lead Stat 03/23/24 10:30 Trop I [Troponin I] Stat 03/23/24 10:32 EKG-12 Lead Stat Acetaminophen (Acetaminophen 325 Mg Tablet) 650 mg PO Q6H PRN PRN Reason: Fever/Mild Pain (1-3) Last Admin: 03/23/24 13:50 Dose: 650 mg Documented By: TEAGAN Albuterol (Albuterol 2.5 Mg/3 Ml Neb (Adult)) 2.5 mg INH [id number] PRN PRN Reason: shortness of breath Alprazolam (Alprazolam 0.25 Mg Tablet) 0.5 mg PO TID PRN PRN Reason: anxiety or insomnia Aspirin (Aspirin Ec 81 Mg Tablet) 81 mg PO DAILY NEELIMA Gabapentin (Gabapentin 600 Mg Tablet) 600 mg PO TID NEELIMA Sodium Chloride (Normal Saline 0.9%) 1,000 mls @ 150 mls/hr IV CONT NEELIMA Last Infusion: 03/23/24 09:24 Dose: 0 mls/hr Documented By: Infusion: 03/23/24 09:24 Dose: 150 mls/hr Documented By: Infusion: 03/23/24 09:24 Dose: 0 mls/hr Documented By: Admin: 03/23/24 08:37 Dose: 150 mls/hr Documented By: IVAN Lidocaine (Lidocaine 5% Patch) 2 each TOP DAILY NEELIMA Losartan Potassium (Losartan 50 Mg Tablet) 100 mg PO DAILY NEELIMA Metoprolol Tartrate (Metoprolol Ir 50 Mg Tablet) 50 mg PO BID NEELIMA Naloxone HCl (Naloxone 0.4 Mg/Ml Vial) 0.2 mg IV Q2MIN PRN PRN Reason: Opiate Reversal Nicotine (Nicotine 14 Patch) 14 mg TOP DAILY [facility] Non-Formulary Medication (Methadone) 55 mg PO DAILY [facility] Non-Formulary Medication (Ticagrelor [Brilinta]) 90 mg PO BID NEELIMA Oxycodone HCl (Oxycodone Ir 5 Mg Tablet) 5 mg PO Q3H PRN PRN Reason: Pain, Moderate (4-6) Sertraline HCl (Sertraline 50 Mg Tablet) 150 mg PO DAILY NEELIMA Spironolactone (Spironolactone 25 Mg Tablet) 25 mg PO DAILY NEELIMA Discontinued Medications Albuterol/Ipratropium (Albuterol/Ipratropium 3 Ml Ampul) 3 ml INH NOW ONE Stop: 03/23/24 12:20 Aspirin (Aspirin 81 Mg Chew Tab) 324 mg PO NOW ONE Stop: 03/23/24 08:28 Last Admin: 03/23/24 08:35 Dose: 243 mg Documented By: IVAN Furosemide (Furosemide 40 Mg/4 Ml Vial) 20 mg IV NOW ONE Stop: 03/23/24 09:25 Last Admin: 03/23/24 09:29 Dose: 20 mg Documented By: IVAN(2) Morphine Sulfate (Morphine 2 Mg/Ml Inj) 2 mg IV NOW ONE Stop: 03/23/24 09:15 Last Admin: 03/23/24 09:29 Dose: 2 mg Documented By: IVAN(2) Nitroglycerin (Nitroglycerin 0.4 Mg Sl Tab) 0.4 mg SL [id number] PRN PRN Reason: Chest Pain Last Admin: 03/23/24 09:01 Dose: 0.4 mg Documented By: Admin: 03/23/24 08:41 Dose: 0.4 mg Documented By: Admin: 03/23/24 08:36 Dose: 0.4 mg Documented By: IVAN Vital Signs Vital signs: Vital Signs - 8 hr 03/23/24 08:21 03/23/24 08:22 03/23/24 08:22 Temperature Pulse Rate 92 H 91 H Respiratory Rate 18 22 Blood Pressure 179/82 H Pulse Oximetry 98 97 Oxygen Delivery Method 03/23/24 08:24 03/23/24 08:30 03/23/24 08:31 Temperature 98.8 F Pulse Rate 92 H 78 77 Respiratory Rate 18 14 13 Blood Pressure 179/82 H Pulse Oximetry 97 96 96 Oxygen Delivery Method Room Air 03/23/24 08:31 03/23/24 08:36 03/23/24 08:38 Temperature 98.9 F Pulse Rate 80 78 Respiratory Rate 18 Blood Pressure 156/65 H 156/65 H Pulse Oximetry 95 Oxygen Delivery Method 03/23/24 08:38 03/23/24 08:40 03/23/24 08:40 Temperature Pulse Rate 92 H Respiratory Rate 27 H Blood Pressure 143/63 H 126/61 Pulse Oximetry 96 Oxygen Delivery Method 03/23/24 08:41 03/23/24 08:45 03/23/24 08:45 Temperature Pulse Rate 85 82 Respiratory Rate 13 Blood Pressure 126/61 108/51 L Pulse Oximetry 93 Oxygen Delivery Method 03/23/24 08:50 03/23/24 08:50 03/23/24 08:55 Temperature Pulse Rate 80 76 Respiratory Rate 14 16 Blood Pressure 108/51 L Pulse Oximetry 94 93 Oxygen Delivery Method 03/23/24 08:55 03/23/24 09:00 03/23/24 09:00 Temperature Pulse Rate 73 Respiratory Rate 21 Blood Pressure 112/58 L 117/57 L Pulse Oximetry 93 Oxygen Delivery Method 03/23/24 09:01 03/23/24 09:05 03/23/24 09:05 Temperature Pulse Rate 72 74 Respiratory Rate 13 Blood Pressure 117/57 L 124/59 L Pulse Oximetry 93 Oxygen Delivery Method 03/23/24 09:10 03/23/24 09:10 03/23/24 09:15 Temperature Pulse Rate 75 74 Respiratory Rate 15 10 L Blood Pressure 125/60 Pulse Oximetry 93 94 Oxygen Delivery Method 03/23/24 09:15 03/23/24 09:20 03/23/24 09:20 Temperature Pulse Rate 73 Respiratory Rate 21 Blood Pressure 123/58 L 125/60 Pulse Oximetry 94 Oxygen Delivery Method 03/23/24 09:25 03/23/24 09:25 03/23/24 09:30 Temperature Pulse Rate 70 75 Respiratory Rate 11 L 19 Blood Pressure 128/65 Pulse Oximetry 94 95 Oxygen Delivery Method 03/23/24 09:31 03/23/24 09:31 03/23/24 09:35 Temperature Pulse Rate 70 68 Respiratory Rate 15 18 Blood Pressure 138/66 Pulse Oximetry 95 95 Oxygen Delivery Method 03/23/24 09:35 03/23/24 09:40 03/23/24 09:40 Temperature Pulse Rate 75 Respiratory Rate 20 Blood Pressure 128/60 133/69 Pulse Oximetry 96 Oxygen Delivery Method 03/23/24 09:45 03/23/24 09:45 03/23/24 09:50 Temperature Pulse Rate 68 71 Respiratory Rate 18 13 Blood Pressure 125/68 Pulse Oximetry 95 94 Oxygen Delivery Method 03/23/24 09:50 03/23/24 09:55 03/23/24 09:55 Temperature Pulse Rate 72 Respiratory Rate 15 Blood Pressure 127/72 130/69 Pulse Oximetry 95 Oxygen Delivery Method 03/23/24 10:00 03/23/24 10:00 03/23/24 10:05 Temperature Pulse Rate 65 Respiratory Rate 14 Blood Pressure 128/70 131/72 Pulse Oximetry 95 Oxygen Delivery Method 03/23/24 10:05 03/23/24 10:10 03/23/24 10:10 Temperature Pulse Rate 65 64 Respiratory Rate 10 L 14 Blood Pressure 123/65 Pulse Oximetry 94 95 Oxygen Delivery Method 03/23/24 10:15 03/23/24 10:15 03/23/24 10:20 Temperature Pulse Rate 64 74 Respiratory Rate 15 20 Blood Pressure 133/75 Pulse Oximetry 95 96 Oxygen Delivery Method 03/23/24 10:20 03/23/24 10:25 03/23/24 10:25 Temperature Pulse Rate 68 Respiratory Rate 17 Blood Pressure 132/83 132/61 Pulse Oximetry 96 Oxygen Delivery Method 03/23/24 10:30 03/23/24 10:30 03/23/24 10:45 Temperature Pulse Rate 66 66 Respiratory Rate 15 19 Blood Pressure 125/64 Pulse Oximetry 94 95 Oxygen Delivery Method 03/23/24 10:45 03/23/24 11:00 03/23/24 11:00 Temperature Pulse Rate 69 Respiratory Rate 15 Blood Pressure 122/68 120/69 Pulse Oximetry 96 Oxygen Delivery Method 03/23/24 11:15 03/23/24 11:15 03/23/24 11:30 Temperature Pulse Rate 67 Respiratory Rate 15 Blood Pressure 122/71 128/77 Pulse Oximetry 95 Oxygen Delivery Method 03/23/24 11:30 03/23/24 11:45 03/23/24 11:45 Temperature Pulse Rate 65 64 Respiratory Rate 18 16 Blood Pressure 125/74 Pulse Oximetry 95 95 Oxygen Delivery Method 03/23/24 12:00 03/23/24 12:00 Temperature Pulse Rate 84 Respiratory Rate 18 Blood Pressure 121/69 Pulse Oximetry 97 Oxygen Delivery Method MDM - Chest Pain Lab Data 03/23/24 08:27 03/23/24 08:27 Labs: Lab Results 03/23/24 03/23/24 Range/Units 08:27 10:30 WBC 7.4 (4.5-11.0) X10^3/uL RBC 4.93 (4.5-5.9) X10^6/uL Hgb 14.4 (13.5-17.5) g/dL Hct 42.8 (41-53) % MCV 86.9 (80-100) fL MCH 29.3 (26-34) PG MCHC 33.7 (30-36) % RDW 13.6 (11.6-14.8) % Plt Count 181 (150-400) X10^3/uL Neut % (Auto) 74.5 (50-75) % Lymph % (Auto) 15.4 L (25-40) % [place] % (Auto) 6.1 (3-14) % Eos % (Auto) 3.4 (2-4) % Baso % (Auto) 0.6 (0-2) % Neut # (Auto) 5500 (2789-6536) /uL Lymph # (Auto) 1100 (7862-7541) /uL [place] # (Auto) 500 (0-900) /uL Eos # (Auto) 300 (0-450) /uL Baso # (Auto) 0 (0-100) /uL PT 11.2 (9.4-12.5) SECONDS INR 1.0 (0.9-1.3) APTT 33 (25.1-36.5) SECONDS D-Dimer < 215 (<500) ng/ml Sodium 139 (137-145) mmol/L Potassium 4.3 (3.4-5.1) mmol/L Chloride 103 (98-107) mmol/L Carbon Dioxide 30 (22-32) mmol/L BUN 16 (9-20) mg/dL Creatinine 0.85 (0.66-1.25) mg/dL Estimated GFR > 60 (>60) mL/min BUN/Creatinine Ratio 18.8 (6-22) Glucose 230 H (70-100) mg/dL Calcium 9.6 (8.4-10.2) mg/dL Total Bilirubin 0.5 (0.2-1.3) mg/dL AST 48 (17-59) IU/L ALT 42 (<50) IU/L Alkaline Phosphatase 55 (38-126) U/L Total Creatine Kinase 152 (55-170) U/L Troponin I < 0.012 < 0.012 (0.01-0.034) ng/mL NT-Pro-B Natriuret Pep 155 H (<125) pg/mL Total Protein 8.1 (6.3-8.2) g/dL Albumin 5.0 (3.5-5.0) g/dL Globulin 3.1 (1.7-4.1) g/dL Albumin/Globulin Ratio 1.6 (1.0-2.8) Lipase 45 (23-300) U/L Imaging Data Chest x-ray: Radiologist's Impression: PROCEDURE: XR CHEST 1V INDICATIONS: chest pain TECHNIQUE: One view of the chest was acquired. COMPARISON: [facility], , XR CHEST 1V, 12/28/2023, 11:10. FINDINGS: Surgical changes and devices: None. Lungs and pleura: Lungs are clear. No pleural effusions or pneumothorax. Mediastinum: Mediastinal contours appear normal. Heart size is normal. Bones and chest wall: No suspicious bony lesions. Overlying soft tissues appear unremarkable. IMPRESSION: No acute cardiopulmonary abnormality is seen. Dictated by: Matthew Reyes M.D. on 03/23/2024 at 9:18 ECG Data Attestation: I personally reviewed and interpreted this ECG as follows: Prior ECG tracings: available for review Interpretation: EKG 1. Sinus rhythm rate 73 NM interval 136 QRS 82 QTC 453 EKG 2. Sinus rhythm rate 63 no acute changes MDM Narrative Medical decision making narrative: Patient 53-year-old male history of acute coronary artery disease with cardiac stents hyperlipidemia tobacco dependence on inhalers presents today with chest pain and shortness of breath. He really reports orthopnea and exertional dyspnea. His chest pain has been constant for the last 3 days. Is not reproducible with palpation or movement. Blood work has been reviewed he has 2- troponins BNP is 155 previously 926, D- dimer is less than 215, no leukocytosis or anemia Chest x-ray reviewed no acute cardiopulmonary process EKGs x2 reviewed without acute ST changes Patient complaining of chest pain or shortness of breath. He was given 3 nitroglycerins without any sort of relief in his chest pain but overall appeared comfortable the whole time. He was given 2 mg of morphine which did help some. He also still complaining of orthopnea here in the ED. He does not appear significantly fluid overloaded chest x-ray is cleared no conversational dyspnea or hypoxia BNP is only 155. He reports that he has on a water pill he is given 40 mg of Lasix here in the ED which he has urinated with. It does appear that he has inhalers on his medication list and has a current smoker but denies any evidence of COPD or emphysema. He is given albuterol treatment here to see if it helps with his breathing. D-dimer is undetectable he has not hypoxic or tachycardic I think unlikely to be pulmonary embolism. Years score is negative 11:50 Dr. Ang, cardiology updated patient's symptoms test results recommends that patient be placed in observation here with Echo and stress tomorrow Dr. Torres updated on patient's symptoms and test results and kindly accepts patient to observation YEARS Algorithm for Pulmonary Embolism (PE) from [employer] [employer] on 03/23/2024 All calculations should be rechecked by clinician prior to use RESULT SUMMARY: PE excluded YEARS algorithm rules out PE (0.43% with symptomatic VTE during 3-month follow- up) INPUTS: patient ?> 0 = No Clinical signs of DVT ?> 0 = No Hemoptysis ?> 0 = No PE most likely diagnosis ?> 0 = No D-dimer >=,000 ng/mL ?> 0 = No Discharge Plan Departure Patient Disposition: Admitted as Observation Clinical Impression: Chest pain Admit Date/Time: 03/23/24 12:11 Admit Provider: Anthony Torres
[2024-03-23 08:35] LABS: Add Manual Diff / Slide Review NO; Basophils Absolute Auto 0 /uL (0-100); Basophils Percent Auto 0.6 % (0-2); Eosinophils Absolute Auto 300 /uL (0-450); Eosinophils Percent Auto 3.4 % (2-4); Hematocrit 42.8 % (41-53); Hemoglobin 14.4 g/dL (13.5-17.5); Lymphocytes Absolute Auto 1100 /uL (1100-4500); Lymphocytes Percent Auto 15.4 % (25-40); Mean Corpuscular HGB Conc 33.7 % (30-36); Mean Corpuscular Hemoglobin 29.3 PG (26-34); Mean Corpuscular Volume 86.9 fL (80-100); Monocytes Absolute Auto 500 /uL (0-900); Monocytes Percent Auto 6.1 % (3-14); Neutrophils Absolute Auto 5500 /uL (1500-7000); Neutrophils Percent Auto 74.5 % (50-75); Platelet Count 181 X10^3/uL (150-400); Red Blood Cell Count 4.93 X10^6/uL (4.5-5.9); Red Cell Distribution Width 13.6 % (11.6-14.8); White Blood Cell Count 7.4 X10^3/uL (4.5-11.0)
[2024-03-23] MEDS: ASPIRIN 81 MG CHEW TAB 324 MG PO (08:35)
[2024-03-23] MEDS: NITROGLYCERIN 0.4 MG SL TAB SL ×3 (08:36→09:01)
[2024-03-23] MEDS: SODIUM CHLORIDE 0.9% 1,000 ML 150 ML IV (08:37)
[2024-03-23 08:49] LABS: Prothrombin Time 11.2 SECONDS (9.4-12.5)
[2024-03-23 08:50] LABS: Alanine Aminotransferase 42 IU/L (<50); Albumin Globulin Ratio 1.6 (1.0-2.8); Alkaline Phosphatase 55 U/L (38-126); Aspartate Aminotransferase 48 IU/L (17-59); BUN Creatinine Ratio 18.8 (6-22); Bilirubin Total 0.5 mg/dL (0.2-1.3); Blood Urea Nitrogen 16 mg/dL (9-20); Calcium 9.6 mg/dL (8.4-10.2); Carbon Dioxide 30 mmol/L (22-32); Chloride 103 mmol/L (98-107); Creatine Kinase 152 U/L (55-170); Estimated Glomerular Filt Rate > 60 mL/min (>60); Globulin 3.1 g/dL (1.7-4.1); Glucose 230 mg/dL (70-100); HEMOLYSIS < 15 (0-50); Lipase 45 U/L (23-300); Potassium 4.3 mmol/L (3.4-5.1); Sodium 139 mmol/L (137-145); Total Protein 8.1 g/dL (6.3-8.2)
[2024-03-23 08:52] LABS: PTT Partial Thromboplastin Tim 33 SECONDS (25.1-36.5)
[2024-03-23 09:01] LABS: NT-proBNP (BNP-Adult 18+) 155 pg/mL (<125); Troponin I < 0.012 ng/mL (0.01-0.034)
[2024-03-23 09:26] LABS: D Dimer < 215 ng/ml (<500)
[2024-03-23] MEDS: MORPHINE 2 MG/ML INJ IV (09:29)
[2024-03-23] MEDS: FUROSEMIDE 40 MG/4 ML VIAL 20 MG IV (09:29)
--- NOTE | 2024-03-23 09:51 | PC.NURSE ---
Patient reported feeling increasing shortness of breath and provider ordered the fluids paused.
[2024-03-23 10:58] LABS: Troponin I < 0.012 ng/mL (0.01-0.034)
--- NOTE | 2024-03-23 13:18 | P.HP_ITS ---
History of Present Illness History of Present Illness Chief complaint: CHEST PAIN, DIFF BREATHING T-3 Narrative: The patient is a 53-year-old male with known history of hypertension, and diabetes who underwent several stents in November of this year at [place]. The patient presented with acute myocardial infarction. His LAD and RCA were stented. His circumflex was fairly free of disease. His EF was 45%. He is history of chronic chest pain for 4 years for unclear reasons. He is also on chronic methadone at 55 mg a day. He started this due to becoming dependent on street opiates for chronic back pain. He is history of 2 back surgeries in the past. The patient has chest pain at all times for the last 4 years. He notes that pain has been anterior and more persistent for the last 4 days and he has had some orthopnea which is somewhat new. He denies any leg edema. He notes that the pain is primarily over the sternum and can be on the left and right side. The pain that brought him in today is very similar to his chronic pain. In looking back to his heart attack, the pain then was quite similar as well. He denies new associated symptoms such as nausea, diaphoresis, or radiation to neck or arm. He has no clear-cut exertional symptoms and denies recent URI symptoms. He lives in [place] with his mother, smokes a pack of cigarettes a day, requests a Nicoderm patch, and is on methadone 55 mg a day in lieu of street opiates. The emergency physician talked with Cardiology who recommended an echo and stress test. [facility] Medical History Type 2 diabetes mellitus with diabetic peripheral angiopathy without gangrene, without long-term current use of insulin CHERRY (generalized anxiety disorder) Presence of stent in coronary artery in patient with coronary artery disease Mixed hyperlipidemia Opiate addiction Generalized anxiety disorder with panic attacks Cervical radiculopathy due to osteoarthritis of spine Peripheral neuropathy Vitamin D deficiency ADD (attention deficit disorder) Depression Asthma RLS (restless legs syndrome) Stenosis of artery Spinal stenosis of lumbar region with neurogenic claudication Pars defect of lumbar spine Spondylolisthesis of lumbar region Coronary artery disease Essential hypertension Herniated intervertebral disc of lumbar spine Surgical History Hx of cervical discectomy (~2013) Family History Father Hypertension Hyperlipidemia Mother Diabetes mellitus Hyperlipidemia Hypertension Social History household members: family Smoking Status: Current every day smoker alcohol intake: current Meds Home Medications and Allergies Home Medications Medication Instructions Recorded Confirmed Type aspirin 81 mg tablet,delayed 81 mg PO DAILY 08/14/22 03/23/24 History release gabapentin 600 mg tablet 600 mg PO TID #270 tabs 09/22/22 03/23/24 Rx lidocaine 5 % topical patch 2 patch topical DAILY #30 ea 11/14/22 03/23/24 Rx (Lidoderm) albuterol sulfate 90 mcg/actuation 2 inh inhalation Q4-6H PRN 03/17/23 03/23/24 Rx aerosol inhaler (ProAir HFA) shortness of breath #18 grams metoprolol tartrate 50 mg tablet 50 mg PO BID hypertension #60 tabs 06/21/23 03/23/24 Rx metformin 500 mg tablet,extended 1,000 mg (2 x 500 mg) PO BID blood 09/13/23 03/23/24 Rx release 24hr (osmotic) sugars #360 tabs sertraline 100 mg tablet 150 mg (1.5 x 100 mg) PO DAILY 09/13/23 03/23/24 Rx depressive symptoms #135 tabs alprazolam 0.5 mg tablet 0.5 mg PO TID PRN anxiety or 01/12/24 03/23/24 Rx insomnia #60 tabs losartan 100 mg tablet 100 mg PO DAILY blood pressure #90 01/12/24 03/23/24 Rx tabs nicotine 14 mg/24 hr daily 1 patch topical DAILY 01/12/24 03/23/24 History transdermal patch spironolactone 25 mg tablet 25 mg PO DAILY 01/12/24 03/23/24 History ticagrelor 90 mg tablet (Brilinta) 90 mg PO BID 01/12/24 03/23/24 History Methadone Intensol 55 mg PO DAILY 03/23/24 03/23/24 History Allergies Allergy/AdvReac Type Severity Reaction Status Date / Time droperidol [DROPERIDOL] Allergy Mild COGENIC Verified 03/23/24 08:30 REACTION Review of Systems Review of Systems Narrative: All else reviewed and otherwise unremarkable except as noted in the history and physical. Exam Vital Signs (past 8 hours): - 03/23/24 08:21 03/23/24 08:22 03/23/24 08:22 Temperature Pulse Rate 92 H 91 H Respiratory Rate 18 22 Blood Pressure 179/82 H Pulse Oximetry 98 97 Oxygen Delivery Method 03/23/24 08:24 03/23/24 08:30 03/23/24 08:31 Temperature 98.8 F Pulse Rate 92 H 78 77 Respiratory Rate 18 14 13 Blood Pressure 179/82 H Pulse Oximetry 97 96 96 Oxygen Delivery Method Room Air 03/23/24 08:31 03/23/24 08:36 03/23/24 08:38 Temperature 98.9 F Pulse Rate 80 78 Respiratory Rate 18 Blood Pressure 156/65 H 156/65 H Pulse Oximetry 95 Oxygen Delivery Method 03/23/24 08:38 03/23/24 08:40 03/23/24 08:40 Temperature Pulse Rate 92 H Respiratory Rate 27 H Blood Pressure 143/63 H 126/61 Pulse Oximetry 96 Oxygen Delivery Method 03/23/24 08:41 03/23/24 08:45 03/23/24 08:45 Temperature Pulse Rate 85 82 Respiratory Rate 13 Blood Pressure 126/61 108/51 L Pulse Oximetry 93 Oxygen Delivery Method 03/23/24 08:50 03/23/24 08:50 03/23/24 08:55 Temperature Pulse Rate 80 76 Respiratory Rate 14 16 Blood Pressure 108/51 L Pulse Oximetry 94 93 Oxygen Delivery Method 03/23/24 08:55 03/23/24 09:00 03/23/24 09:00 Temperature Pulse Rate 73 Respiratory Rate 21 Blood Pressure 112/58 L 117/57 L Pulse Oximetry 93 Oxygen Delivery Method 03/23/24 09:01 03/23/24 09:05 03/23/24 09:05 Temperature Pulse Rate 72 74 Respiratory Rate 13 Blood Pressure 117/57 L 124/59 L Pulse Oximetry 93 Oxygen Delivery Method 03/23/24 09:10 03/23/24 09:10 03/23/24 09:15 Temperature Pulse Rate 75 74 Respiratory Rate 15 10 L Blood Pressure 125/60 Pulse Oximetry 93 94 Oxygen Delivery Method 03/23/24 09:15 03/23/24 09:20 03/23/24 09:20 Temperature Pulse Rate 73 Respiratory Rate 21 Blood Pressure 123/58 L 125/60 Pulse Oximetry 94 Oxygen Delivery Method 03/23/24 09:25 03/23/24 09:25 03/23/24 09:30 Temperature Pulse Rate 70 75 Respiratory Rate 11 L 19 Blood Pressure 128/65 Pulse Oximetry 94 95 Oxygen Delivery Method 03/23/24 09:31 03/23/24 09:31 03/23/24 09:35 Temperature Pulse Rate 70 68 Respiratory Rate 15 18 Blood Pressure 138/66 Pulse Oximetry 95 95 Oxygen Delivery Method 03/23/24 09:35 03/23/24 09:40 03/23/24 09:40 Temperature Pulse Rate 75 Respiratory Rate 20 Blood Pressure 128/60 133/69 Pulse Oximetry 96 Oxygen Delivery Method 03/23/24 09:45 03/23/24 09:45 03/23/24 09:50 Temperature Pulse Rate 68 71 Respiratory Rate 18 13 Blood Pressure 125/68 Pulse Oximetry 95 94 Oxygen Delivery Method 03/23/24 09:50 03/23/24 09:55 03/23/24 09:55 Temperature Pulse Rate 72 Respiratory Rate 15 Blood Pressure 127/72 130/69 Pulse Oximetry 95 Oxygen Delivery Method 03/23/24 10:00 03/23/24 10:00 03/23/24 10:05 Temperature Pulse Rate 65 Respiratory Rate 14 Blood Pressure 128/70 131/72 Pulse Oximetry 95 Oxygen Delivery Method 03/23/24 10:05 03/23/24 10:10 03/23/24 10:10 Temperature Pulse Rate 65 64 Respiratory Rate 10 L 14 Blood Pressure 123/65 Pulse Oximetry 94 95 Oxygen Delivery Method 03/23/24 10:15 03/23/24 10:15 03/23/24 10:20 Temperature Pulse Rate 64 74 Respiratory Rate 15 20 Blood Pressure 133/75 Pulse Oximetry 95 96 Oxygen Delivery Method 03/23/24 10:20 03/23/24 10:25 03/23/24 10:25 Temperature Pulse Rate 68 Respiratory Rate 17 Blood Pressure 132/83 132/61 Pulse Oximetry 96 Oxygen Delivery Method 03/23/24 10:30 03/23/24 10:30 03/23/24 10:45 Temperature Pulse Rate 66 66 Respiratory Rate 15 19 Blood Pressure 125/64 Pulse Oximetry 94 95 Oxygen Delivery Method 03/23/24 10:45 03/23/24 11:00 03/23/24 11:00 Temperature Pulse Rate 69 Respiratory Rate 15 Blood Pressure 122/68 120/69 Pulse Oximetry 96 Oxygen Delivery Method 03/23/24 11:15 03/23/24 11:15 03/23/24 11:30 Temperature Pulse Rate 67 Respiratory Rate 15 Blood Pressure 122/71 128/77 Pulse Oximetry 95 Oxygen Delivery Method 03/23/24 11:30 03/23/24 11:45 03/23/24 11:45 Temperature Pulse Rate 65 64 Respiratory Rate 18 16 Blood Pressure 125/74 Pulse Oximetry 95 95 Oxygen Delivery Method 03/23/24 12:00 03/23/24 12:00 03/23/24 12:16 Temperature Pulse Rate 84 67 Respiratory Rate 18 18 Blood Pressure 121/69 Pulse Oximetry 97 94 Oxygen Delivery Method 03/23/24 12:16 03/23/24 12:30 03/23/24 12:30 Temperature Pulse Rate 75 Respiratory Rate 22 Blood Pressure 133/70 134/68 Pulse Oximetry 96 Oxygen Delivery Method 03/23/24 12:45 03/23/24 12:45 Temperature Pulse Rate 71 Respiratory Rate 23 Blood Pressure 127/63 Pulse Oximetry 95 Oxygen Delivery Method Oxygen Delivery Method Room Air Narrative Exam Narrative: NAD, alert and oriented, fluent speech, calm. Normocephalic skull, EOMI, anicteric sclera, symmetric pupils. Oropharynx unremarkable, no droop. Neck supple, midline trachea, no adenopathy. Lungs clear, normal rate and effort. Heart regular, no murmur gallop or rub. Abdomen is soft, non distended and non tender. Extremities are free of edema. Skin is free of rash or lesions. Joints are not swollen or deformed. Judgment appears to be normal. Objective ECG Impression: EKG 1. Sinus rhythm rate 73 [place] interval 136 QRS 82 QTC 453 EKG 2. Sinus rhythm rate 63 no acute changes Imaging Chest x-ray: Radiologist's impression: IMPRESSION: No acute cardiopulmonary abnormality is seen. Labs 03/23/24 08:27 03/23/24 08:27 Labs: Laboratory Results - last 24 hr 03/23/24 03/23/24 08:27 10:30 WBC 7.4 RBC 4.93 Hgb 14.4 Hct 42.8 MCV 86.9 MCH 29.3 MCHC 33.7 RDW 13.6 Plt Count 181 Neut % (Auto) 74.5 Lymph % (Auto) 15.4 L [place] % (Auto) 6.1 Eos % (Auto) 3.4 Baso % (Auto) 0.6 Neut # (Auto) 5500 Lymph # (Auto) 1100 [place] # (Auto) 500 Eos # (Auto) 300 Baso # (Auto) 0 PT 11.2 INR 1.0 APTT 33 D-Dimer < 215 Sodium 139 Potassium 4.3 Chloride 103 Carbon Dioxide 30 BUN 16 Creatinine 0.85 Estimated GFR > 60 BUN/Creatinine Ratio 18.8 Glucose 230 H Calcium 9.6 Total Bilirubin 0.5 AST 48 ALT 42 Alkaline Phosphatase 55 Total Creatine Kinase 152 Troponin I < 0.012 < 0.012 NT-Pro-B Natriuret Pep 155 H Total Protein 8.1 Albumin 5.0 Globulin 3.1 Albumin/Globulin Ratio 1.6 Lipase 45 Assessment & Plan Assessment & Plan narrative: 1. Chest pain, present on admission and active. 2. Chronic chest pain syndrome for 4 years, present on admission and active. 3. CAD with multivessel disease that has had 2 PCIs in the past, 1 in the LAD. Present on admission and active. 4. Opiate dependence, methadone 55 mg a day. Present on admission and active. 5. DM 2, present on admission and active. 6. Essential hypertension, present on admission and active. 7. Asthma, present on admission and stable. 8. Hyperlipidemia, present on admission and stable. 9. Depression, present on admission and stable. 10. RLS, present on admission and stable. 11. Obesity class 1 with BMI of 34, present on admission and stable. 12. Nicotine dependence with ongoing smoking, present on admission and active. Plan: -hold metformin, correctional lispro. -NPO at midnight, Lexiscan stress test tomorrow as recommended by Dr. Emily campos. -2D echo to assess LV function. -continue all other chronic routine medications for heart disease and hypertension. -Nicoderm 21 mg daily. He is full resuscitation, confirmed today. Estimated date of discharge is March 24, he is expected to need 1 night in the hospital will be observation status. Proxy decision maker is his . Time Spent With Patient Time with patient: 30 to 49 minutes with 50% spent counseling/coordinating care Quality VTE Deep Vein Thrombosis/Pulmonary Embolism Present on Admission: No MIPS - Admit I confirm the patient?s Advance Care Plan is present, Code status is documented, Surrogate decision maker is in patient?s record [If Yes, STOP here]: Yes [facility] - Meds 'Current medications' to include all prescriptions, [id number] products, herbals, cannabis/cannabidiol products, and vitamin/mineral/dietary (nutritional) supplements. I have utilized all available resources to obtain, update, or review the patient?s current medications. [If Yes, STOP here]: Yes
--- NOTE | 2024-03-23 13:21 | DI.NM.S_ITS ---
PROCEDURE: NM LATOYA PERF SPECT R&S PHARM Rest and pharmacological stress myocardial perfusion SPECT with gated imaging and ejection fraction RADIOPHARMACEUTICAL: 11.7 mCi Tc-99m tetrafosmin IV at rest and 27.5 mCi Tc-99m tetrafosmin IV at peak effect of pharmacological stress. A [id number] was performed. INDICATIONS: Chest pain, H/O stents TECHNIQUE: Radiopharmaceutical was injected at peak stress test, and also at rest. SPECT images were obtained. SPECT myocardial perfusion images were displayed in short axis, horizontal long axis, and vertical long axis views. Gated images were reviewed using Credii software. COMPARISON: None. CARDIAC STRESS: Wei protocol 5:36, 56% peak predicted heart rate. The patient received a beta-meri prior to test and thus could not achieve target heart rate so was switched to a pharmacologic stress test was performed under the supervision of an attending staff, using an infusion of 0.4 mg IV. Hemodynamic data: There is normal blood pressure and heart rate response to pharmacologic stress. Symptoms: The patient complained of 3/10 exertional chest pain. EKG: No diagnostic changes of ischemia; no ectopy. FINDINGS: Raw data: There is good myocardial uptake of radiotracer. No significant motion artifacts. Oyak-aq-lkfki ratio is 0.44 (normal is less than 0.38 for tetrafosmin tracer). Left ventricle function: Gated images demonstrate normal left ventricular wall thickening. No segmental wall motion abnormalities. No transient ischemic dilation; TID is 1.19 (normal less than 1.3). Left ventricle resting end diastolic volume is 107 mL. Left ventricle stress ejection fraction is 75%; normal range is above 45%. Myocardial perfusion: There is normal distribution of activity in the right and left ventricular myocardium. No fixed or reversible perfusion defects. IMPRESSION: Low risk study. Exercise stress test converted to pharmacologic due to inability to achieve target heart rate. No evidence of pharmacologic induced ischemia or scar. Normal LV size and function. The patient did complain of exercise-induced chest discomfort without associated ECG changes. Dictated by: Nahomi Lopez D.O. on 03/24/2024 at 15:56 Approved by: Nahomi Lopez D.O. on 03/24/2024 at 16:00
--- NOTE | 2024-03-23 13:35 | PC.NURSE ---
Day shift: Pt in room from ED at approx 1255. A&Ox4. Oriented to room and call light. NPO at midnight for stress test. BP 99/65 (asymptomatic) but had nitro in ED. Other VS unremarkable. Steady on feet. Will be placed on tele. Will continue with plan of care.
[2024-03-23] MEDS: ACETAMINOPHEN 325 MG TABLET 650 MG PO (13:50)
[2024-03-23 14:25] LABS: Troponin I 0.012 ng/mL (0.01-0.034)
[2024-03-23] MEDS: SERTRALINE 50 MG TABLET 150 MG PO (14:47)
[2024-03-23] MEDS: METHADONE 10 MG TABLET 55 MG PO (14:48)
[2024-03-23] MEDS: ASPIRIN EC 81 MG TABLET PO (14:48)
[2024-03-23] MEDS: NICOTINE 14 PATCH 14 MG TOP (14:49)
[2024-03-23] MEDS: LIDOCAINE 5% PATCH 2 EACH TOP (14:59)
[2024-03-23] MEDS: GABAPENTIN 600 MG TABLET PO (21:01)
[2024-03-23] MEDS: ALPRAZolam 0.25 MG TABLET 0.5 MG PO (21:01)
[2024-03-23] MEDS: METOPROLOL IR 50 MG TABLET PO (21:05)
[2024-03-23 22:32] LABS: Troponin I < 0.012 ng/mL (0.01-0.034)
[2024-03-24 00:52] VITALS: BP 120/66; PULSE 74; RESP 16; TEMP 37; O2SAT 96
[2024-03-24 06:00] VITALS: BP 113/68; PULSE 82; RESP 17; TEMP 37; O2SAT 96
[2024-03-24 06:44] LABS: Add Manual Diff / Slide Review NO; Basophils Absolute Auto 0 /uL (0-100); Basophils Percent Auto 0.5 % (0-2); Eosinophils Absolute Auto 500 /uL (0-450); Eosinophils Percent Auto 6.2 % (2-4); Hematocrit 42.7 % (41-53); Hemoglobin 14.1 g/dL (13.5-17.5); Lymphocytes Absolute Auto 1700 /uL (1100-4500); Lymphocytes Percent Auto 23.1 % (25-40); Mean Corpuscular HGB Conc 33.1 % (30-36); Mean Corpuscular Volume 87.5 fL (80-100); Monocytes Absolute Auto 700 /uL (0-900); Monocytes Percent Auto 9.2 % (3-14); Neutrophils Absolute Auto 4600 /uL (1500-7000); Platelet Count 181 X10^3/uL (150-400); Red Blood Cell Count 4.87 X10^6/uL (4.5-5.9); Red Cell Distribution Width 13.6 % (11.6-14.8); White Blood Cell Count 7.5 X10^3/uL (4.5-11.0)
[2024-03-24 07:00] VITALS: BP 137/74; PULSE 62; RESP 16; TEMP 36.2; O2SAT 98
[2024-03-24] MEDS: GABAPENTIN 600 MG TABLET PO (08:24)
[2024-03-24] MEDS: ASPIRIN EC 81 MG TABLET PO (08:24)
[2024-03-24] MEDS: METOPROLOL IR 50 MG TABLET PO (08:24)
[2024-03-24] MEDS: SPIRONOLACTONE 25 MG TABLET PO (08:24)
[2024-03-24] MEDS: NICOTINE 14 PATCH 14 MG TOP (08:25)
[2024-03-24] MEDS: SERTRALINE 50 MG TABLET 150 MG PO (08:25)
[2024-03-24] MEDS: METHADONE 10 MG TABLET 55 MG PO (08:27)
[2024-03-24 12:51] LABS: BUN Creatinine Ratio 23.9 (6-22); Blood Urea Nitrogen 26 mg/dL (9-20); Calcium 9.3 mg/dL (8.4-10.2); Carbon Dioxide 29 mmol/L (22-32); Chloride 105 mmol/L (98-107); Estimated Glomerular Filt Rate > 60 mL/min (>60); Glucose 113 mg/dL (70-100); HEMOLYSIS < 15 (0-50); Potassium 4.3 mmol/L (3.4-5.1); Sodium 140 mmol/L (137-145)
--- NOTE | 2024-03-24 13:05 | P.DS_ITS ---
History of Present Illness History of Present Illness Date Patient Seen: 03/24/24 Time Patient Seen: 13:07 Chief complaint: CHEST PAIN, DIFF BREATHING T-3 Narrative: Per admitting provider, The patient is a 53-year-old male with known history of hypertension, and diabetes who underwent several stents in November of this year at [place]. The patient presented with acute myocardial infarction. His LAD and RCA were stented. His circumflex was fairly free of disease. His EF was 45%. He is history of chronic chest pain for 4 years for unclear reasons. He is also on chronic methadone at 55 mg a day. He started this due to becoming dependent on street opiates for chronic back pain. He is history of 2 back surgeries in the past. The patient has chest pain at all times for the last 4 years. He notes that pain has been anterior and more persistent for the last 4 days and he has had some orthopnea which is somewhat new. He denies any leg edema. He notes that the pain is primarily over the sternum and can be on the left and right side. The pain that brought him in today is very similar to his chronic pain. In looking back to his heart attack, the pain then was quite similar as well. He denies new associated symptoms such as nausea, diaphoresis, or radiation to neck or arm. He has no clear-cut exertional symptoms and denies recent URI symptoms. He lives in [place] with his mother, smokes a pack of cigarettes a day, requests a Nicoderm patch, and is on methadone 55 mg a day in lieu of street opiates. The emergency physician talked with Cardiology who recommended an echo and stress test. Discharge Providers Provider Date of admission: 03/23/24 12:11 Discharge Date: 03/24/24 Primary care physician: Thaddeus Varela DO Discharge provider: Sushil Kilgore DO Summary Hospital Course Discharge Diagnosis: 1. Chest pain, present on admission and active. 2. Chronic chest pain syndrome for 4 years, present on admission and active. 3. CAD with multivessel disease that has had 2 PCIs in the past, 1 in the LAD. Present on admission and active. 4. Opiate dependence, methadone 55 mg a day. Present on admission and active. 5. DM 2, present on admission and active. 6. Essential hypertension, present on admission and active. 7. Asthma, present on admission and stable. 8. Hyperlipidemia, present on admission and stable. 9. Depression, present on admission and stable. 10. RLS, present on admission and stable. 11. Obesity class 1 with BMI of 34, present on admission and stable. 12. Nicotine dependence with ongoing smoking, present on admission and active. Hospital Course: This is a 53 year old male with PMH of CAD, DM2, HTN, HLD, asthma, obesity who presented with chest pain and shortness of breath concerning for cardiac etiology. He also had orthopnea. He was given furosemide with some improvement in symptoms. Echocardiogram was performed and was unremarkable. Cardiology recommended stress testing. Stress testing was deemed low risk. Patient was provided for as needed furosemide prescription given improvement in orthopnea and symptoms with diuresis in the ER. No other changes to his medications are recommended. He has already planned outpatient follow up with cardiology for the day of discharge. I recommended he call to possibly reschedule. Time Spent with Patient Time spent: Greater than 30 minutes Exam Vital Signs (past 8 hours): - 03/24/24 06:00 03/24/24 07:00 Temperature 98.6 F 97.1 F L Pulse Rate 82 62 Respiratory Rate 17 16 Blood Pressure 113/68 137/74 Pulse Oximetry 96 98 Oxygen Flow Rate 0 Oxygen Delivery Method Room Air Oxygen Flow Rate 0 Narrative Exam Narrative: NAD, alert and oriented, fluent speech, calm. Normocephalic skull, EOMI, anicteric sclera, symmetric pupils. Oropharynx unremarkable, no droop. Neck supple, midline trachea, no adenopathy. Lungs clear, normal rate and effort. Heart regular, no murmur gallop or rub. Abdomen is soft, non distended and non tender. Extremities are free of edema. Skin is free of rash or lesions. Joints are not swollen or deformed. Judgment appears to be normal. Objective Labs 03/24/24 06:07 03/24/24 06:07 Labs: Laboratory Results - last 24 hr 03/23/24 03/23/24 03/24/24 13:35 21:44 06:07 WBC 7.5 RBC 4.87 Hgb 14.1 Hct 42.7 MCV 87.5 MCH 29.0 MCHC 33.1 RDW 13.6 Plt Count 181 Neut % (Auto) 61.0 Lymph % (Auto) 23.1 L [place] % (Auto) 9.2 Eos % (Auto) 6.2 H Baso % (Auto) 0.5 Neut # (Auto) 4600 Lymph # (Auto) 1700 [place] # (Auto) 700 Eos # (Auto) 500 H Baso # (Auto) 0 Sodium 140 Potassium 4.3 Chloride 105 Carbon Dioxide 29 BUN 26 H Creatinine 1.09 Estimated GFR > 60 BUN/Creatinine Ratio 23.9 H Glucose 113 H D Calcium 9.3 Troponin I 0.012 < 0.012 PFSH Medical History Type 2 diabetes mellitus with diabetic peripheral angiopathy without gangrene, without long-term current use of insulin CHERRY (generalized anxiety disorder) Presence of stent in coronary artery in patient with coronary artery disease Mixed hyperlipidemia Opiate addiction Generalized anxiety disorder with panic attacks Cervical radiculopathy due to osteoarthritis of spine Peripheral neuropathy Vitamin D deficiency ADD (attention deficit disorder) Depression Asthma RLS (restless legs syndrome) Stenosis of artery Spinal stenosis of lumbar region with neurogenic claudication Pars defect of lumbar spine Spondylolisthesis of lumbar region Coronary artery disease Essential hypertension Herniated intervertebral disc of lumbar spine Surgical History Hx of cervical discectomy (~2013) Family History Father Hypertension Hyperlipidemia Mother Diabetes mellitus Hyperlipidemia Hypertension Social History household members: family Smoking Status: Current every day smoker alcohol intake: current Discharge Plan Discharge Plan Patient Disposition: Home Provider Discharge Comment: You were admitted to the hospital for stress testing of your heart for orthopnea symptoms (breathing while lying flat). Furosemide was prescribed in case of worsening orthopnea to try. Stress testing was deemed low risk / normal after review. Please call your cardiology office to schedule a follow up per their recommendations given you have a 3pm appointment scheduled today. Discharge orders & Medications Prescriptions: New furosemide 20 mg tablet 20 mg PO DAILY PRN (Reason: orthopnea) 30 Days Qty: 30 0RF Continued aspirin 81 mg tablet,delayed release (DR/EC) 81 mg PO DAILY ProAir HFA 90 mcg/actuation HFA aerosol inhaler 2 inh INHALATION Q4-6H PRN (Reason: shortness of breath) Qty: 18 11RF gabapentin 600 mg tablet 600 mg PO TID Qty: 270 3RF metoprolol tartrate 50 mg tablet 50 mg PO BID Qty: 60 2RF Rx Instructions: increase current 25mg twice daily to 50mg in morning and 25mg in evening. if tolerated and effective but not sufficient to get average systolic (top) blood pressure under 160, then increase to 50mg twice daily for 100mg total daily. sertraline 100 mg tablet 150 mg PO DAILY Qty: 135 3RF metformin 500 mg tablet extended release 24hr 1,000 mg PO BID Qty: 360 3RF Brilinta 90 mg tablet 90 mg PO BID spironolactone 25 mg tablet 25 mg PO DAILY nicotine 14 mg/24 hr patch 24 hour 1 patch topical DAILY alprazolam 0.5 mg tablet 0.5 mg PO TID PRN (Reason: anxiety or insomnia) Qty: 60 0RF losartan 100 mg tablet 100 mg PO DAILY Qty: 90 3RF Methadone Intensol 55 mg PO DAILY Patient Comments: CONFIRMED DOSE WITH RICHI RN @ [facility] lidocaine [Lidoderm] 5 % adhesive patch,medicated 2 patch topical DAILY Qty: 30 0RF Rx Instructions: leave on most painful area for up to 12 hrs Follow up/Referrals: Thaddeus Varela DO [Primary Care Provider] - Diet/Activity/Treatments Diet: Diet as Tolerated and Low-sodium Activity: As tolerated, no restrictions. Visit Report/Discharge Packet Instructions: DI for Chest Pain, Furosemide Stand Alone Forms: Patient Portal/API, Stroke Signs & Symptoms Discharge Data Primary Care Provider: Thaddeus Varela Attending Provider: Anthony Torres Admit Date/Time: 03/23/24 12:11 Quality VTE Deep Vein Thrombosis/Pulmonary Embolism Present on Admission: No
== END 2024-03-24 13:41 | disposition home or self-care (01) ==
LOC: ED 09:24 → AC 12:12
PROVIDERS: Admitting Provider Hospitalist; Emergency Provider Emergency Medicine; PCP Family Medicine; Referring Provider Emergency Medicine; Visit Provider Hospitalist
DX: R07.9 Chest pain, unspecified (principal); R06.02 Shortness of breath; E11.9 Type 2 diabetes mellitus without complications; I25.10 Atherosclerotic heart disease of native coronary artery without angina pectoris; J45.909 Unspecified asthma, uncomplicated; I10 Essential (primary) hypertension; E78.5 Hyperlipidemia, unspecified; F17.210 Nicotine dependence, cigarettes, uncomplicated; E66.9 Obesity, unspecified; Z79.891 Long term (current) use of opiate analgesic; Z68.34 Body mass index [BMI] 34.0-34.9, adult; Z79.84 Long term (current) use of oral hypoglycemic drugs
CPT/HCPCS: 36415; 71045; 78452; 80048; 80053; 82550; 83690; 83880; 84484; 85025; 85379; 85610; 85730; 93005; 93010; 93017; 96361; 96374; 96375; 99284; G0378; A9502; J1940; J2270; J2785

== ENCOUNTER → 2025-07-19 08:49 | Outpatient (CLI) | payer OTHER, SELFPAY ==
[2024-03-23 13:05] VITALS: BMI 34.2
[2025-07-19 09:36] LABS: Hematocrit 42.0 % (41-53); Hemoglobin 13.7 g/dL (13.5-17.5); Mean Corpuscular HGB Conc 32.6 % (30-36); Mean Corpuscular Hemoglobin 28.8 PG (26-34); Mean Corpuscular Volume 88.4 fL (80-100); Platelet Count 126 X10^3/uL (150-400)
[2025-07-19 10:01] LABS: Hemoglobin A1C% w Est Avg Glu 9.2 % (4.0-6.0)
[2025-07-19 10:15] LABS: Alanine Aminotransferase 67 IU/L (<50); Albumin 4.3 g/dL (3.5-5.0); Albumin Globulin Ratio 1.6 (1.0-2.8); Alkaline Phosphatase 96 U/L (38-126); Blood Urea Nitrogen 15 mg/dL (9-20); Calcium 9.1 mg/dL (8.4-10.2); Carbon Dioxide 31 mmol/L (22-32); Chloride 97 mmol/L (98-107); Cholesterol 192 mg/dL (140-199); Estimated Glomerular Filt Rate > 60 mL/min (>60); Globulin 2.7 g/dL (1.7-4.1); Glucose 218 mg/dL (70-99); HDL Cholesterol 31 mg/dL (40-60); HEMOLYSIS < 15 (0-50); Potassium 5.0 mmol/L (3.4-5.1); Sodium 137 mmol/L (137-145); Total Protein 7.0 g/dL (6.3-8.2); Triglycerides 210 mg/dL (35-150)
[2025-07-19 10:44] LABS: TSH w/ Reflex to FT4 1.04 uIU/mL (0.47-4.68)
[2025-07-19 15:40] LABS: HIV 1 & 2 Ab/Ag 4th Gen Combo NEGATIVE (NEGATIVE); Hep C Virus Ab w/Reflex Quant NEGATIVE s/c (NEGATIVE)
== END ==
PROVIDERS: PCP Family Medicine; Referring Provider Family Medicine; Visit Provider Family Medicine
DX: R07.9 Chest pain, unspecified (principal); E11.51 Type 2 diabetes mellitus with diabetic peripheral angiopathy without gangrene; E78.2 Mixed hyperlipidemia; I10 Essential (primary) hypertension; F17.200 Nicotine dependence, unspecified, uncomplicated; F32.89 Other specified depressive episodes; Z12.5 Encounter for screening for malignant neoplasm of prostate
CPT/HCPCS: 36415; 80053; 80061; 83036; 84443; 85027; 86803; 87389; G0103

== ENCOUNTER → 2025-10-22 14:02 | Outpatient (CLI) | payer OTHER, SELFPAY ==
[2024-03-23 13:05] VITALS: BMI 34.2
[2025-10-22 15:17] LABS: Hemoglobin A1C% w Est Avg Glu 10.0 % (4.0-6.0)
[2025-10-22 15:25] LABS: Blood Urea Nitrogen 19 mg/dL (9-20); Calcium 9.7 mg/dL (8.4-10.2); Carbon Dioxide 30 mmol/L (22-32); Chloride 98 mmol/L (98-107); Cholesterol 182 mg/dL (140-199); Estimated Glomerular Filt Rate > 60 mL/min (>60); Glucose 377 mg/dL (70-99); HDL Cholesterol 40 mg/dL (40-60); HEMOLYSIS < 15 (0-50); Potassium 4.8 mmol/L (3.4-5.1); Sodium 137 mmol/L (137-145); Triglycerides 166 mg/dL (35-150)
== END ==
PROVIDERS: PCP Family Medicine; Referring Provider Family Medicine; Visit Provider Family Medicine
DX: E11.51 Type 2 diabetes mellitus with diabetic peripheral angiopathy without gangrene (principal); I10 Essential (primary) hypertension; E78.2 Mixed hyperlipidemia
CPT/HCPCS: 36415; 80048; 80061; 83036